=== PATIENT | female | born 1940 | race Caucasian/White ===

== ENCOUNTER 2018-04-21 09:19 | Emergency (ER) | payer MEDICARE, SELFPAY ==
[2018-04-21 09:21] VITALS: BP 138/67; PULSE 60; RESP 14; TEMP 36.5; O2SAT 95; BMI 30.9
--- NOTE | 2018-04-21 09:26 | EKG12_ITS ---
Test Reason : AB PAIN Blood Pressure : / mmHG Vent. Rate : 060 BPM Atrial Rate : 060 BPM P-R Int : 308 ms QRS Dur : 168 ms QT Int : 494 ms P-R-T Axes : 036 -65 114 degrees QTc Int : 494 ms AV dual-paced rhythm with prolonged AV conduction Abnormal ECG Confirmed by ALY GROSS, DARWIN ([id number]), editor map SU DAWN ([id number]) on 04/23/2018 3:15:18 PM Referred By: Confirmed By:DARWIN LU MD
--- NOTE | 2018-04-21 09:26 | CT_ITS ---
STUDY: CT ABDOMEN AND PELVIS WITHOUT CONTRAST REASON FOR EXAM: Female, 78 years old. ABD CRAMPING X3 DAYS -- UPPER ABD and amp; LEFT SIDE ABD PAIN -- SURG-GB. RADIATION DOSAGE (If Supplied By Facility): CTDIvol = ( 9.45 ) mGy, DLP = ( 465.07 ) mGycm TECHNIQUE: Transaxial images were obtained from the dome of the diaphragm to the symphysis pubis without oral contrast, and without intravenous contrast. Sagittal and coronal images were reconstructed. Individualized dose optimization techniques were used for this CT. COMPARISON: None. FINDINGS: The visualized lung bases are unremarkable. The visualized portions of the heart are within normal limits. Normal liver. There are surgical clips in the gallbladder fossa consistent with a prior cholecystectomy. Normal spleen. Normal pancreas. Normal bilateral adrenal glands. Normal right kidney. Normal left kidney. There is a large hiatal hernia composed mostly of the fundus of the stomach. Normal small intestine. There are multiple colonic diverticula consistent with diverticulosis. There may be thickening of the sigmoid with minimal perisigmoid infiltration, suggesting diverticulitis. There is distention of the remaining colon with marked distention of the ascending colon. There appears to be colon wall thickening of transverse colon (axial image #79 series 2 and coronal image #[id number] series 601. There is fluid within the small bowel. The appendix is visualized and appears normal. There is diffuse atherosclerotic calcification of the abdominal aorta, without a demonstrated aneurysm. Normal inferior vena cava. Normal retroperitoneum. Normal urinary bladder. Normal abdominal wall. There are diffuse degenerative changes of the visualized lumbar spine. CT/Abdomen/Pelvis without Cont IMPRESSION: Diverticulosis with thickening of the sigmoid. Diverticulitis is not excluded. Marked distention of the right colon. Thickening of the transverse colon. Consider follow-up with IV and oral contrast. Large hiatal hernia. Electronically Signed: Ha Langston MD at 11:11 EDT Tel , Service support ,
--- NOTE | 2018-04-21 09:35 | ED.DCSUM_ITS ---
- ER Visit Summary Date of Service: 04/21/18 Chief Complaint: [] Left side abdominal pain nausea unable to eat History of Present Illness: The patient is a 78 F [] ports intermittently weeks worth of abdominal pain cramping that are worse over the last 2 days to where she can eat she indicates the pain is diffuse but mostly to the left side of the abdomen. She has history of diverticulitis, pacemaker aortic valve replacement bovine, she is not sure if she has had fevers her urinary habits have been normal her bowel habits have been reduced caliber but no blood, her cardiovascular status has been stable Physical Examination: [] In no distress her vital signs are within normal range is complaining of pain to the left side abdomen head neck chest unremarkable lungs sound clear heart tones are regular the abdomen is soft there is pain to the left side of the abdomen but no guarding or rebound the upper lower extremities are otherwise unremarkable neurologically she is awake alert answering questions Test Results: [] Emergency Department Course and Treatment: [] Her complaints CT screening labs IV fluids pain management Patient's labs are generally unremarkable see those reports, her CT scan shows inflammation and dilatation of almost all of the colon diverticula low cyst but no signs of abscess or active infection no bowel obstruction nothing else it is acute her UA shows signs of UTI urine culture sent Evaluations that she feels better her abdomen is soft there is no tenderness rebound guarding in any area with a long conversation with her we discussed inpatient versus outpatient management she does not wish to be admitted she is able to take p.o. 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 It may contain incorrect words, spelling, and punctuation that were not noted in review of the chart prior to signing ED Disposition - Plan for ED Patient: Chief Complaint: Abd Pain Instructions: ED Abdominal Pain Unkn Cause, ED UTI Cystitis Female Prescriptions: Metronidazole 500 mg PO Q8 10 Days tab Naproxen [Naprosyn] 500 mg PO BID PRN #20 tab Ciprofloxacin [Cipro] 500 mg PO BID #14 tab Referrals: Maura Romo DO [STAFF PHYSICIAN] - [facility] Doctor,Out of [Primary Care Provider] -
[2018-04-21 10:23] LABS: Absolute Lymphocyte Count 1.05 X10^3/ul (0.83-4.51); Absolute Neutrophil Count 4.9 X10^3/uL (2.0-7.7); Basophil# 0.02 X10^3/uL; Basophil% 0.3 % (0-1); Eosinophil# 0.11 X10^3/uL; Eosinophils% 1.6 % (0-5); Hematocrit 35.5 % (37-47); Hemoglobin 11.4 g/dl (12.0-15.0); Lymphocyte # 1.05 X10^3/ul (4.0); Lymphocyte % 15.7 % (19-41); Mean Corp Hgb Conc 32.1 g/gl (32-36); Mean Corpuscular Hgb 30.5 pg (27.0-32.0); Mean Corpuscular Volume 94.9 fL (81-99); Mean Platelet Vol. 9.3 fl (6.2-12.0); Monocyte# 0.65 X10^3/uL; Monocyte% 9.7 % (0-10); Neutrophil # 4.85 X10^3/uL (2.7-7.7); Neutrophil % 72.6 % (47-70); Platelet Count 264 K/mm3 (150-450); RBC Distribution Width CV 13.2 % (11.6-14.6); Red Blood Count 3.74 M/mm3 (4.2-5.4); White Blood Count 6.7 K/mm3 (4.4-11.0)
[2018-04-21 10:24] LABS: POSITIVE COUNT NO; POSITIVE DIFFERENTIAL NO; POSITIVE MORPHOLOGY NO
[2018-04-21 10:26] VITALS: BP 134/61; PULSE 60; RESP 15; O2SAT 95
[2018-04-21] MEDS: morphine 8 MG/ML Syringe IV (10:36)
[2018-04-21] MEDS: 0.9% Normal Saline 1,000 ML 125 ML IV (10:36)
[2018-04-21] MEDS: Ondansetron 4 MG/2 ML Vial IV (10:36)
[2018-04-21 10:42] LABS: AST(SGOT) 22 U/L (15-37); Alanine Aminotransfer ALT/SGPT 12 U/L (13-56); Albumin, Serum 3.1 g/dL (3.2-5.0); Alkaline Phosphatase 78 U/L (45-117); Anion Gap 6 (5-15); BUN 13 mg/dL (7-18); BUN/Creat Ratio 16.3 RATIO (10-20); Bilirubin, Direct 0.21 mg/dL (0.00-0.30); Calcium,Total 8.5 mg/dL (8.5-10.1); Chloride 108 mmol/L (98-107); EST Glomerular Filtration Rate 74 mL/min (>60); Est Glom Filt Rate - Afr Amer 89 mL/min (>60); Estimated Creatinine Clearance 47.17 ml/min; Glucose 114 mg/dL (74-106); Lipase 153 U/L (73-393); Potassium 3.8 mmol/L (3.5-5.1); Protein, Total 7.1 g/dL (6.4-8.2); Sodium Level 139 mmol/L (136-145)
[2018-04-21 11:34] VITALS: BP 137/53; PULSE 60; RESP 14; O2SAT 94
[2018-04-21 11:50] LABS: Mucous, Urine 0 SEEN /hpf (<or=2+); Red Blood Cells-Urine 0 SEEN /hpf (0-5); Squamous Epithelial Cells - UA 0 SEEN /hpf (5-10)
[2018-04-21 11:52] LABS: Color, Urine Yellow (Yellow); Glucose, Dipstick Normal (Normal); Ketone-Dipstick Negative (Negative); Leukocyte Esterase-Dipstick 500 /ul (Negative); Nitrite-Dipstick Positive (Negative); Occult Blood-Urine 50 /ul (Negative); Protein-Dipstick 15 mg/dl (Negative); Specific Gravity, Urine 1.015 (1.002-1.030); Urine Bilirubin Dipstick Negative (Negative); Urine Clarity Sl. Cloudy (Clear); Urine Urobilinogen Normal (Normal)
[2018-04-21 11:57] LABS: White Blood Cells 50-100 SEEN /hpf (0-5)
[2018-04-21 11:58] LABS: Bacteria 3+ /hpf (None Seen)
[2018-04-21] MEDS: Ciprofloxacin 400 MG/200 ML BAG 200 MG IV (12:40)
[2018-04-21 13:42] VITALS: BP 107/71; PULSE 61; RESP 16; O2SAT 96
--- NOTE | 2018-04-21 14:15 | ED.DEP ---
ED Disposition - Plan for ED Patient: Chief Complaint: Abd Pain Instructions: ED Abdominal Pain Unkn Cause, ED UTI Cystitis Female Prescriptions: Metronidazole 500 mg PO Q8 10 Days tab Naproxen [Naprosyn] 500 mg PO BID PRN #20 tab Ciprofloxacin [Cipro] 500 mg PO BID #14 tab Referrals: [facility] Doctor,Out of [Primary Care Provider] - Maura Romo DO [STAFF PHYSICIAN] -
--- NOTE | 2018-04-21 14:18 | DCINST.ED_ITS ---
ED Disposition - Plan for ED Patient: Chief Complaint: Abd Pain Instructions: ED Abdominal Pain Unkn Cause, ED UTI Cystitis Female Prescriptions: Metronidazole 500 mg PO Q8 10 Days tab Naproxen [Naprosyn] 500 mg PO BID PRN #20 tab Ciprofloxacin [Cipro] 500 mg PO BID #14 tab Referrals: [facility] Doctor,Out of [Primary Care Provider] - Maura Romo DO [STAFF PHYSICIAN] -
[2018-04-21] MEDS: Pramipexole Di-HCl 0.25 MG Tablet PO (14:37)
[2018-04-21 15:07] VITALS: BP 110/49; PULSE 60; RESP 15; O2SAT 94
== END 2018-04-21 15:09 | disposition home or self-care (01) ==
PROVIDERS: Emergency Provider Emergency Medicine
DX: N39.0 Urinary tract infection, site not specified (principal); K63.89 Other specified diseases of intestine; R10.9 Unspecified abdominal pain; Z95.4 Presence of other heart-valve replacement; Z95.0 Presence of cardiac pacemaker; Z79.82 Long term (current) use of aspirin; Z79.899 Other long term (current) drug therapy
CPT/HCPCS: 74176; 80048; 80076; 81001; 83690; 84484; 85025; 87077; 87086; 87088; 87186; 93005; 96361; 96365; 96367; 96375; 99283; J7030; A4216; J0696; J0744; J2405

== ENCOUNTER → 2018-05-24 14:46 | Outpatient (CLI) | payer MEDICARE, SELFPAY ==
[2018-05-24 15:40] LABS: Absolute Lymphocyte Count 1.74 X10^3/ul (0.83-4.51); Absolute Neutrophil Count 4.9 X10^3/uL (2.0-7.7); Basophil# 0.03 X10^3/uL; Basophil% 0.4 % (0-1); Eosinophil# 0.08 X10^3/uL; Eosinophils% 1.1 % (0-5); Hematocrit 40.9 % (37-47); Hemoglobin 13.2 g/dl (12.0-15.0); Lymphocyte # 1.74 X10^3/ul (4.0); Lymphocyte % 23.1 % (19-41); Mean Corp Hgb Conc 32.3 g/gl (32-36); Mean Corpuscular Hgb 30.7 pg (27.0-32.0); Mean Corpuscular Volume 95.1 fL (81-99); Monocyte# 0.74 X10^3/uL; Monocyte% 9.8 % (0-10); Neutrophil # 4.92 X10^3/uL (2.7-7.7); Neutrophil % 65.5 % (47-70); Platelet Count 264 K/mm3 (150-450); RBC Distribution Width CV 13.7 % (11.6-14.6); RBC Distribution Width SD 47.3 fl (35.1-43.9); White Blood Count 7.5 K/mm3 (4.4-11.0)
[2018-05-24 15:42] LABS: POSITIVE COUNT NO; POSITIVE DIFFERENTIAL NO; POSITIVE MORPHOLOGY NO
[2018-05-24 16:06] LABS: Vitamin B12 692 pg/mL (211-911)
[2018-05-24 16:15] LABS: ALB/GLOB Ratio 0.8 RATIO (0.9-2.4); AST(SGOT) 25 U/L (15-37); Alanine Aminotransfer ALT/SGPT 16 U/L (13-56); Albumin, Serum 3.6 g/dL (3.2-5.0); Alkaline Phosphatase 101 U/L (45-117); Anion Gap 10 (5-15); BUN 18 mg/dL (7-18); BUN/Creat Ratio 19.7 RATIO (10-20); CPK Total, Creatine Kinase 134 U/L (26-192); Chloride 106 mmol/L (98-107); Cholesterol 165 mg/dL (200); Creatinine, Serum 0.91 mg/dL (0.55-1.02); EST Glomerular Filtration Rate 63 mL/min (>60); Est Glom Filt Rate - Afr Amer 76 mL/min (>60); Ferritin 240 ng/mL (8-252); Globulin 4.8 g/dL (2.2-4.2); Glucose 91 mg/dL (74-106); High Density Lipoprotein 44 mg/dL; Iron 62 ug/dL (50-170); Iron Binding Capacity,Total 295 ug/dL (250-450); Magnesium 2.1 mg/dL (1.6-2.6); Potassium 4.3 mmol/L (3.5-5.1); Protein, Total 8.4 g/dL (6.4-8.2); Sodium Level 140 mmol/L (136-145); Thyroid Stim Hormone (TSH) 1.98 uIU/mL (0.358-3.74); Triglycerides 159 mg/dL; Very Low Density Lipoprotein 32 mg/dL (5-40)
== END ==
PROVIDERS: Family Provider Family Medicine; PCP Family Medicine; Visit Provider Family Medicine
DX: I10 Essential (primary) hypertension (principal); D64.9 Anemia, unspecified; E78.5 Hyperlipidemia, unspecified; R25.2 Cramp and spasm; E53.8 Deficiency of other specified B group vitamins
CPT/HCPCS: 36415; 80053; 80061; 81001; 82550; 82607; 82728; 82746; 83540; 83550; 83735; 84443; 85025

== ENCOUNTER → 2018-06-04 12:16 | Outpatient (CLI) | payer MEDICARE, SELFPAY ==
--- NOTE | 2018-06-04 12:21 | RAD_ITS ---
STUDY: X-RAY - LUMBAR SPINE REASON FOR EXAM: Female, 78 years old. Low back pain. TECHNIQUE: 5 view(s) of the lumbar spine were obtained. COMPARISON: CT scan 04/21/2018 FINDINGS: There is straightening of the normal lumbar lordosis. There is no substantial scoliosis. There is a normal alignment of the vertebrae. There is multilevel endplate spondylosis of the lumbar vertebrae. There is multi-level degenerative disc disease with multi-level disc space narrowing. Findings are most pronounced at L2-L3 and L4-L5. There is a compression fracture of T11 which was also present previously. There is marked demineralization. There is atherosclerotic calcification of the abdominal aorta without a demonstrated aneurysm. RAD/L/S Spine Min 4 Views IMPRESSION: Degenerative changes of the spine, as detailed above. There is a compression fracture of T11 but it was also present on previous CT scan. Electronically Signed: Evin Sanders MD at 19:01 EDT , Service support ,
== END ==
PROVIDERS: Family Provider Family Medicine; PCP Family Medicine; Visit Provider Family Medicine
DX: M62.830 Muscle spasm of back (principal)
CPT/HCPCS: 72110

== ENCOUNTER → 2018-08-13 13:50 | Outpatient (CLI) | payer MEDICARE, SELFPAY ==
[2018-08-13 15:40] LABS: Absolute Lymphocyte Count 1.46 X10^3/ul (0.83-4.51); Absolute Neutrophil Count 5.5 X10^3/uL (2.0-7.7); Basophil# 0.04 X10^3/uL; Basophil% 0.5 % (0-1); Eosinophil# 0.06 X10^3/uL; Eosinophils% 0.8 % (0-5); Hematocrit 40.9 % (37-47); Hemoglobin 12.9 g/dl (12.0-15.0); Lymphocyte # 1.46 X10^3/ul (4.0); Mean Corp Hgb Conc 31.5 g/gl (32-36); Mean Corpuscular Hgb 30.4 pg (27.0-32.0); Mean Corpuscular Volume 96.5 fL (81-99); Mean Platelet Vol. 10.1 fl (6.2-12.0); Monocyte# 0.61 X10^3/uL; Neutrophil # 5.49 X10^3/uL (2.7-7.7); Neutrophil % 71.6 % (47-70); Platelet Count 262 K/mm3 (150-450); RBC Distribution Width CV 14.2 % (11.6-14.6); RBC Distribution Width SD 50.8 fl (35.1-43.9); Red Blood Count 4.24 M/mm3 (4.2-5.4); White Blood Count 7.7 K/mm3 (4.4-11.0)
[2018-08-13 15:59] LABS: POSITIVE COUNT NO; POSITIVE DIFFERENTIAL NO; POSITIVE MORPHOLOGY NO
[2018-08-13 16:12] LABS: ALB/GLOB Ratio 0.9 RATIO (0.9-2.4); AST(SGOT) 22 U/L (15-37); Alanine Aminotransfer ALT/SGPT 21 U/L (13-56); Albumin, Serum 3.5 g/dL (3.2-5.0); Alkaline Phosphatase 99 U/L (45-117); Anion Gap 9 (5-15); BUN 17 mg/dL (7-18); BUN/Creat Ratio 20.2 RATIO (10-20); Calcium,Total 8.5 mg/dL (8.5-10.1); Chloride 107 mmol/L (98-107); Cholesterol 151 mg/dL (200); Creatinine, Serum 0.84 mg/dL (0.55-1.02); EST Glomerular Filtration Rate 69 mL/min (>60); Est Glom Filt Rate - Afr Amer 84 mL/min (>60); Ferritin 150 ng/mL (8-252); Globulin 4.1 g/dL (2.2-4.2); Glucose 83 mg/dL (74-106); High Density Lipoprotein 47 mg/dL; Iron 58 ug/dL (50-170); Iron Binding Capacity,Total 272 ug/dL (250-450); PERCENT IRON SATURATION 21.3 % (15.0-55.0); Phosphorus 3.8 mg/dL (2.5-4.9); Potassium 4.1 mmol/L (3.5-5.1); Protein, Total 7.6 g/dL (6.4-8.2); Sodium Level 141 mmol/L (136-145); Triglycerides 190 mg/dL; Very Low Density Lipoprotein 38 mg/dL (5-40)
[2018-08-13 16:15] LABS: Vitamin B12 978 pg/mL (211-911)
== END ==
PROVIDERS: Family Provider Family Medicine; PCP Family Medicine; Visit Provider Family Medicine
DX: M81.0 Age-related osteoporosis without current pathological fracture (principal); I10 Essential (primary) hypertension; E78.5 Hyperlipidemia, unspecified; E53.8 Deficiency of other specified B group vitamins; E61.1 Iron deficiency; S22.000A Wedge compression fracture of unspecified thoracic vertebra, initial encounter for closed fracture
CPT/HCPCS: 36415; 80053; 80061; 82607; 82728; 83540; 83550; 84100; 85025

== ENCOUNTER 2018-08-23 13:00 | Outpatient (RCR) | payer MEDICARE, SELFPAY ==
--- NOTE | 2018-06-26 12:30 | HP.PTEVAL ---
Patient's Visit Information SVITLANA GRIJALVA is a 78 year old F referred to Physical Therapy by Petros Wagner MD with a diagnosis of DDD,LOW BACK PAIN. Date of Evaluation: 06/26/18 Physical Therapist: Puma Farah PT, - Visit Plan Frequency: 2x /Week Duration: 4 Weeks Plan: PRECAUTION: PACEMAKER NO ESTIM. H/O OSTEOPROSIS. PT INTEVENTIONS TO INCLUDE US/MH NEEDED ,DLS,POSTURAL EX'S,LE STRENGTHENING - Subjective Subjective: This 78 y/o female presents to physical therpy with DDD ,LOW BACK PAIN . Patient fell 2weeks ago lost balance but using cane. Since ,falling patient has been using rollator. Patient seen DR 3 day falling then had x-rays showed DDD and compression fx T11 which was seen previosly. Pain is located on right side lumbar region no leg symptoms. Denies parathesia/tingling ,altough has some tingling in legs. Cough/sneezing-. Symptoms symptoms worse with standing 5 min ,needs rollator,bending/lifting.Symptoms better with heat.Pain affects sleeping .Patient has h/o injuring lumbar Pain affects QOL and housework tasks and ADL'S. 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 PALPATION: tender L-S right. NUERO: c/o tingling feet,light touch intact,reflexes L3-4,L4-5,L5-S1. GAIT: ambulated with mild foward posture,hips/knees flexed ,slight valgus knee. MMT: quads/hams 4-/5,hip flexion 4-/5,abd 3+/5,ankle 4/5. LUMBAR ROM: flexion mod loss pain,extension severe ,side glides mod loss. FLEXABLITY: hams mod tight,piriformis mod tight. BALANCE: fair+ with fww - Special Tests L/S Slump test left side: Negative L/S Slump test right side: Negative L/S Left Straight Leg Raise: Negative L/S Right Straight Leg Raise: Negative - Goals Goal 1:: Independant with HEP Goal Time Frame: 4-6 Weeks Goal 2:: Decrease lumbar pain by 50% or greater to improve function with walking and standing greater than 10 mins Goal Time Frame: 4-6 Weeks Goal 3:: Patient to increase strength LE 4/5 to improve function with ADL'S Goal Time Frame: 4-6 Weeks Goal 4:: Patient be able to perform ADL'S and housdewok tasks with min limitations. Goal Time Frame: 4-6 Weeks Goal 5:: Patient improve lumbar owestry by 5 poits to improve QOL Goal Time Frame: 4-6 Weeks - Rehabilitation Potential Physical Therapy Diagnosis: This patient has low back from falling at home with DDD along with h/o of osteoporsis and copress ion fx T11 with low bcak pain ,needs rollator for walking ,decrease strength. Patient has comorbities with pacemaker. Thus benifit from skilled PT Rehabilitation Potential: Good - Anticipated Interventions Patient/Client Instruction: Educate patient on: Condition, Plan of Care For the Purpose of:: To decrease pain, To increase ROM, To improve muscle performance and motor function, To improve ability to perform ADL's, To increase tolerance to activity/condition/position, To improve ability of physical actions for home/community/work/leisure, To improve gait and locomotor functions, To increase flexibility/ROM, To improve endurance, To improve balance, To improve ability to perform tasks related to life management Therapeutic Exercise to Include: Strength training, Body mechanics, Postural training, Flexibilty training, Dynamic Lumbar Stabilization Comment: LE For the Purpose of:: To decrease pain, To improve muscle performance and motor function, To improve ability to perform ADL's, To increase tolerance to activity/condition/position, To improve performance and independence with ADL's, To improve ability of physical actions for home/community/work/leisure, To improve health of tissue, To decrease soft tissue restriction, To increase flexibility/ROM, To improve ability to perform tasks related to life management Thermo therapy (hot pack): Yes Ultrasound (thermal/non thermal): Yes For the Purpose of:: To decrease pain, To decrease swelling/inflammation, To improve health of tissue, To decrease soft tissue restriction Thank you for the opportunity to evaluate your patient. For Medicare and Medicare HMO plans, please review the plan of care and approve it. It will need to be FAXED BACK to us at [phone] for Medicare purposes. Please let me know if there are questions or concerns regarding this plan of care. Physician Signature: Date:
--- NOTE | 2018-07-24 13:31 | HP.PTDCSUM ---
HP - PT D/C Summary It has been my pleasure to treat SVITLANA GRIJALVA under orders from Petros Wagner MD, for the diagnosis of DDD,LOW BACK PAIN for a total of 9 visit(s). Discharge Date: Please see the following information for a summary of their discharge status. - Subjective Subjective: Patient reports moving better getting out of chair. Walking better with less pain - Pain Right Back Pain Intensity (Out of 10): 1 - Overall Improvement % Improvement: 50 - Objective Objective/Function: POSTURE: mild foward posture. GAIT: mild foward posture with rollator reciprocal pattern hips/knees flexed. LUMBAR ROM: flexion mod loss,extension mod/severe loss. MMT: quads/hams 4/5,ankle 4-/5 ,ankle 4/5 - Goals Goal 1:: Independant with HEP Goal Progress: Progressing Goal 2:: Decrease lumbar pain by 60% or greater to improve function with walking and standing greater than 10 mins Goal Progress: Progressing Goal 3:: Patient to increase strength LE 4/5 to improve function with ADL'S Goal Progress: Progressing Goal 4:: Patient be able to perform ADL'S and housdewok tasks with min limitations. Goal Progress: Progressing Goal 5:: Patient improve lumbar owestry by 5 poits to improve QOL Goal Progress: Progressing - Plan Plan: cont with PT interventions 2xwk for 4weeks - D/C Information If there are questions or concerns regarding this patient's physical therapy, please feel free to call me at [phone]. Thank you for the referral of this patient. Sincerely, Puma Farah, PT,
--- NOTE | 2018-07-31 12:35 | HP.PTREVAL_ITS ---
Petros Wagner MD, It has been my pleasure to treat SVITLANA GRIJALVA over the last 9 visits for DDD,LOW BACK PAIN. Please see the progress note below for an update on the physical therapy plan of care! Subjective: Patient reports moving better getting out of chair. Walking better with less pain Objective/Function: POSTURE: mild foward posture. GAIT: mild foward posture with rollator reciprocal pattern hips/knees flexed. LUMBAR ROM: flexion mod loss,extension mod/severe loss. MMT: quads/hams 4/5,ankle 4-/5 ,ankle 4/5 Plan Plan: cont with PT interventions 2xwk for 4weeks Goals Goal 1:: Independant with HEP Goal Time Frame: 4-6 Weeks Goal Progress: Progressing Goal 2:: Decrease lumbar pain by 60% or greater to improve function with walking and standing greater than 10 mins Goal Time Frame: 4-6 Weeks Goal Progress: Progressing Goal 3:: Patient to increase strength LE 4/5 to improve function with ADL'S Goal Time Frame: 4-6 Weeks Goal Progress: Progressing Goal 4:: Patient be able to perform ADL'S and housdewok tasks with min limitations. Goal Time Frame: 4-6 Weeks Goal Progress: Progressing Goal 5:: Patient improve lumbar owestry by 5 poits to improve QOL Goal Time Frame: 4-6 Weeks Goal Progress: Progressing Anticipated Interventions Patient/Client Instruction: Educate patient on: Condition, Plan of Care For the Purpose of:: To decrease pain, To increase ROM, To improve muscle performance and motor function, To improve ability to perform ADL's, To increase tolerance to activity/condition/position, To improve ability of physical actions for home/community/work/leisure, To improve gait and locomotor functions, To increase flexibility/ROM, To improve endurance, To improve balance, To improve ability to perform tasks related to life management Therapeutic Exercise to Include: Strength training, Body mechanics, Postural training, Flexibilty training, Dynamic Lumbar Stabilization Comment: LE For the Purpose of:: To decrease pain, To improve muscle performance and motor function, To improve ability to perform ADL's, To increase tolerance to activity/condition/position, To improve performance and independence with ADL's, To improve ability of physical actions for home/community/work/leisure, To improve health of tissue, To decrease soft tissue restriction, To increase flexibility/ROM, To improve ability to perform tasks related to life management Thermo therapy (hot pack): Yes Ultrasound (thermal/non thermal): Yes For the Purpose of:: To decrease pain, To decrease swelling/inflammation, To improve health of tissue, To decrease soft tissue restriction Please do not hesitate to contact me at [phone] by phone or Fax: if you have questions or concerns regarding this new plan of care! Sincerely, Puma Farah, PT,
--- NOTE | 2018-08-23 13:44 | HP.PTDCSUM ---
HP - PT D/C Summary It has been my pleasure to treat SVITLANA GRIJALVA under orders from Petros Wagner MD, for the diagnosis of DDD,LOW BACK PAIN for a total of 17 visit(s). Discharge Date: Please see the following information for a summary of their discharge status. - Subjective Subjective: Doing alot better...walking with rollator - Pain Right Back Pain Intensity (Out of 10): 0 - Overall Improvement % Improvement: 60 - Objective Objective/Function: POSTURE: mild foward posture ,hips/knees valgus. GAIT: mild foward posture with rollator slow luis. MMT: quads/hams 4/5,hip flexion 4-5/ ,ankle 4/5. LUMBAR ROM: flexion mod/severe,extension mod/severe loss - Goals Goal 1:: Independant with HEP Goal Progress: Progressing Goal 2:: Decrease lumbar pain by 60% or greater to improve function with walking and standing greater than 10 mins Goal Progress: Progressing Goal 3:: Patient to increase strength LE 4/5 to improve function with ADL'S Goal Progress: Progressing Goal 4:: Patient be able to perform ADL'S and housdewok tasks with min limitations. Goal Progress: Progressing Goal 5:: Patient improve lumbar owestry by 5 poits to improve QOL Goal Progress: Progressing - Plan Plan: d/c to HEP - D/C Information If there are questions or concerns regarding this patient's physical therapy, please feel free to call me at [phone]. Thank you for the referral of this patient. Sincerely, Puma Farah, PT,
== END 2018-08-23 19:00 | disposition home or self-care (01) ==
LOC: PT 13:00
PROVIDERS: Family Provider Family Medicine; PCP Family Medicine; Referring Provider Family Medicine; Visit Provider Family Medicine
DX: M51.36 Other intervertebral disc degeneration, lumbar region (principal); M54.5 Low back pain
CPT/HCPCS: 97035; 97110; 97162; 97530

== ENCOUNTER 2018-10-04 08:32 | Day surgery (SDC) | payer MEDICARE, SELFPAY ==
[2018-09-11 09:30] VITALS: BMI 31.6
[2018-10-04] VITALS (9 sets, daily range): BP systolic 78–127; BP diastolic 48–100; PULSE 58–70; RESP 16–18; TEMP 36.6–37.2; O2SAT 95–100; BMI 31.4
--- NOTE | 2018-10-04 | GASB_PTH ---
PATIENT: SVITLANA GRIJALVA LOC: EN U#:[id number] AGE/SX: 78/F ROOM: RE10/04/[address]: Dr. Camron Rubio MD : 1940 BED: DIS: 10/04/2018 SPEC #: [id number] RECD: 10/04/18 13:06 STATUS: KANDIS PATTIE #: [id number] FANNY: 10/04/18 00:[address]: Camron Rubio DEPT: SURGICAL PATHOLOGY RECD BY: Kai Spencer ENTERED: 10/04/18 13:06 SP TYPE: Gastric Bx OTHR DR: Dr. Petros Wagner MD Tissues: A - Gastric mucous membrane B - Esophagus, NOS Procedures: Surgery Specimen Level IV HEADER OPERATION[place] [place] DIAGNOSIS: GERD, esophagitis, abnormal CT scan of colon TISSUE SUBMITTED: A - Antrum biopsy for H. pylori and path, B - Distal esophagus biopsy MICROSCOPIC DIAGNOSIS A. Antrum, biopsy: Mild gastritis. See microscopic description and comment. B. Distal esophagus, biopsy: Fragments of squamous epithelium, no pathologic diagnosis. EAGLE:neymar 10/07/18 COMMENT A. The results of immunohistochemistry for Helicobacter pylori will be reported separately ([id number]). MICROSCOPIC DESCRIPTION Slides are reviewed. The specimen shows fragments of gastric mucosa with chronic inflammatory cell infiltrates in the lamina propria consisting of lymphocytes and plasma cells, consistent with mild chronic gastritis. GROSS DESCRIPTION A - Received in fixative is one container labeled with the patient's name and designated antrum biopsy. The specimen consists of one irregular fragment of light gutiérrez soft tissue that measures 0.5 x 0.3 x 0.1 cm. The specimen is totally submitted in one cassette. B - Received in fixative is one container labeled with the patient's name and designated distal esophagus. The specimen consists of two irregular fragments of light gutiérrez soft tissue that in aggregate measure 0.3 x 0.2 x 0.1 cm. The specimen is totally submitted in one cassette. / AM:neymar 10/04/18 TC:3 CPT: 14355 x2
--- NOTE | 2018-10-04 09:30 | IMM_PTH ---
PATIENT: SVITLANA GRIJALVA LOC: EN U#:[id number] AGE/SX: 78/F ROOM: RE10/04/[address]: Dr. Camron Rubio MD : 1940 BED: DIS: 10/04/2018 SPEC #: [id number] RECD: 10/04/18 13:38 STATUS: KANDIS PATTIE #: [id number] FANNY: 10/04/18 09:[address]: Camron Rubio DEPT: IMMUNOHISTOCHEMISTRY RECD BY: Jayla Phan ENTERED: 10/04/18 13:39 SP TYPE: IMMUNO OTHR DR: Dr. Petros Wagner MD Tissues: A - Stomach, NOS Procedures: H Pylori (initial) PHYSICIAN & INSTITUTION [place] [id number] SPECIMEN INFORMATION: Tissue Source: A - Antrum biopsy Clinical Info: GERD, esophagitis Specimen Number: [id number] CPT code: 05848 METHODOLOGY: Deparaffinized sections of prefer/formalin-fixed tissue or PAP/DQ stained slides are incubated with monoclonal/polyclonal antibodies/oligonucleotide probes. Localization is made via biotin free immunoperoxidase method. Appropriate controls are performed and reacted as expected. Results on target cell population are indicated in the following table: RESULTS: ANTIBODY / CLONE RESULT Block A H Pylori (polyclonal) negative These tests were developed and their performance characteristics determined by [facility]. They may not have been cleared or approved by the U.S. Food and Drug Administration. The FDA has determined that such clearance or approval is not necessary. INTERPRETATION: A. Antrum, biopsy: Negative for Helicobacter pylori organisms. SJ:neymar 10/07/18
--- NOTE | 2018-10-04 10:16 | OP.ENDO_ITS ---
Patient Name: Mariana Edwards Procedure Date: 10/04/2018 9:31 AM Date of : 1940 Age: 78 Procedure: Upper GI endoscopy Indications: Dysphagia Providers: Camron Rubio MD Referring MD: Camron Rubio MD Medicines: See the Anesthesia note for documentation of the administered medications Complications: No immediate complications. Procedure: Pre-Anesthesia Assessment: - Prior to the procedure, a History and Physical was performed, and patient medications and allergies were reviewed. The patient's tolerance of previous anesthesia was also reviewed. The risks and benefits of the procedure and the sedation options and risks were discussed with the patient. All questions were answered, and informed consent was obtained. Prior Anticoagulants: The patient has taken no previous anticoagulant or antiplatelet agents. ASA Grade Assessment: III - A patient with severe systemic disease. After reviewing the risks and benefits, the patient was deemed in satisfactory condition to undergo the procedure. After obtaining informed consent, the endoscope was passed under direct vision. Throughout the procedure, the patient's blood pressure, pulse, and oxygen saturations were monitored continuously. The gastroscope was introduced through the mouth, and advanced to the second part of duodenum. The upper GI endoscopy was accomplished without difficulty. The patient tolerated the procedure well. Scope In: 9:43:03 AM Scope Out: 9:48:03 AM Total Procedure Duration Time 0 hours 5 minutes 0 seconds Findings: The Z-line was regular and was found 30 cm from the incisors. Biopsies were taken with a cold forceps for histology. A large hiatal hernia was present. Diffuse mildly erythematous mucosa without bleeding was found in the gastric antrum. Biopsies were taken with a cold forceps for histology. The examined duodenum was normal. Impression: - Z-line regular, 30 cm from the incisors. Biopsied. - Large hiatal hernia. Half of the stomach within the chest and causing tortuosity of the EG junction - Erythematous mucosa in the antrum. Biopsied. - Normal examined duodenum. Recommendation: - Discharge patient to home. - Resume previous diet. - Continue present medications. - Telephone my office for pathology results in 1 week. Procedure Code(s): --- Professional --- 57276, Esophagogastroduodenoscopy, flexible, transoral; with biopsy, single or multiple Diagnosis Code(s): --- Professional --- K44.9, Diaphragmatic hernia without obstruction or gangrene K31.89, Other diseases of stomach and duodenum R13.10, Dysphagia, unspecified CPT copyright 2017 [employer]. All rights reserved. The codes documented in this report are preliminary and upon certified medical coder review may be revised to meet current compliance requirements. Camron Rubio MD 10/04/2018 10:16:02 AM This report has been signed electronically. Number of Addenda: 0 Note Initiated On: 10/04/2018 9:31 AM
--- NOTE | 2018-10-04 10:20 | OP.ENDO_ITS ---
Patient Name: Mariana Edwards Procedure Date: 10/04/2018 9:49 AM Date of : 1940 Age: 78 Procedure: Colonoscopy Indications: Abnormal CT of the GI tract Providers: Camron Rubio MD Referring MD: Camron Rubio MD Medicines: See the Anesthesia note for documentation of the administered medications Patient Profile: Last Colonoscopy: date unknown. Complications: No immediate complications. Procedure: Pre-Anesthesia Assessment: - Prior to the procedure, a History and Physical was performed, and patient medications and allergies were reviewed. The patient's tolerance of previous anesthesia was also reviewed. The risks and benefits of the procedure and the sedation options and risks were discussed with the patient. All questions were answered, and informed consent was obtained. Prior Anticoagulants: The patient has taken no previous anticoagulant or antiplatelet agents. ASA Grade Assessment: III - A patient with severe systemic disease. After reviewing the risks and benefits, the patient was deemed in satisfactory condition to undergo the procedure. After I obtained informed consent, the scope was passed under direct vision. Throughout the procedure, the patient's blood pressure, pulse, and oxygen saturations were monitored continuously. The colonoscope was introduced through the anus and advanced to the cecum, identified by appendiceal orifice and ileocecal valve. The colonoscopy was performed with moderate difficulty due to restricted mobility of the colon. Successful completion of the procedure was aided by changing the patient to a supine position. The patient tolerated the procedure well. The quality of the bowel preparation was adequate to identify polyps. The appendiceal orifice was photographed. Scope In: 9:51:11 AM Scope Withdrawal Time 0 hours 5 minutes 24 seconds Scope Out: 10:10:58 AM Total Procedure Duration Time 0 hours 19 minutes 47 seconds Findings: The digital rectal exam findings include internal hemorrhoids that prolapse with straining, but require manual replacement into the anal canal (Grade III). Multiple diverticula were found in the entire colon. There was no evidence of diverticular bleeding. Impression: - Internal hemorrhoids that prolapse with straining, but require manual replacement into the anal canal (Grade III) found on digital rectal exam. - Diverticulosis in the entire examined colon. There was no evidence of diverticular bleeding. Tortuous sigmoid with minimal erythema possibe evidence of low grade inflammation, conservative measures recommended - No specimens collected. Recommendation: - Discharge patient to home. - Resume previous diet. - Continue present medications. - Repeat colonoscopy in 10 years for screening purposes. Procedure Code(s): --- Professional --- 65241, Colonoscopy, flexible; diagnostic, including collection of specimen(s) by brushing or washing, when performed (separate procedure) Diagnosis Code(s): --- Professional --- K64.2, Third degree hemorrhoids K57.30, Diverticulosis of large intestine without perforation or abscess without bleeding R93.3, Abnormal findings on diagnostic imaging of other parts of digestive tract CPT copyright 2017 [employer]. All rights reserved. The codes documented in this report are preliminary and upon facility maintenance supervisor review may be revised to meet current compliance requirements. Camron Rubio MD 10/04/2018 10:20:20 AM This report has been signed electronically. Number of Addenda: 0 Note Initiated On: 10/04/2018 9:49 AM
== END 2018-10-04 11:33 | disposition home or self-care (01) ==
LOC: EN 08:33 → AC 08:36
PROVIDERS: Family Provider Family Medicine; PCP Family Medicine; Referring Provider Surgery; Visit Provider Surgery
PROC: 0DJD8ZZ Inspection of Lower Intestinal Tract, Via Natural or Artificial Opening Endoscopic (ICD-10-PCS; CPT 45378; principal; 2018-10-04 09:25)
DX: K29.70 Gastritis, unspecified, without bleeding (principal); K57.30 Diverticulosis of large intestine without perforation or abscess without bleeding; K64.8 Other hemorrhoids; K21.9 Gastro-esophageal reflux disease without esophagitis; I10 Essential (primary) hypertension; E78.5 Hyperlipidemia, unspecified; R13.10 Dysphagia, unspecified; K55.20 Angiodysplasia of colon without hemorrhage; F03.90 Unspecified dementia, unspecified severity, without behavioral disturbance, psychotic disturbance, mood disturbance, and anxiety; D50.9 Iron deficiency anemia, unspecified; M19.90 Unspecified osteoarthritis, unspecified site; K44.9 Diaphragmatic hernia without obstruction or gangrene; F41.9 Anxiety disorder, unspecified; F32.9 Major depressive disorder, single episode, unspecified; G25.81 Restless legs syndrome; Z95.0 Presence of cardiac pacemaker; Z95.2 Presence of prosthetic heart valve; Z79.82 Long term (current) use of aspirin; Z79.899 Other long term (current) drug therapy
CPT/HCPCS: 43239; 45378; 88305; 88342; J7120

== ENCOUNTER → 2018-12-04 11:50 | Outpatient (CLI) | payer MEDICARE, SELFPAY ==
[2018-10-04 08:58] VITALS: BMI 31.4
[2018-12-04 14:57] LABS: Basophil# 0.05 X10^3/uL; Basophil% 0.7 % (0-1); Eosinophil# 0.07 X10^3/uL; Hematocrit 42.4 % (37-47); Hemoglobin 13.3 g/dl (12.0-15.0); Lymphocyte % 19.1 % (19-41); Mean Corp Hgb Conc 31.4 g/gl (32-36); Mean Corpuscular Hgb 30.4 pg (27.0-32.0); Mean Corpuscular Volume 96.8 fL (81-99); Mean Platelet Vol. 10.2 fl (6.2-12.0); Monocyte# 0.84 X10^3/uL; Monocyte% 11.5 % (0-10); Neutrophil # 4.95 X10^3/uL (2.7-7.7); Neutrophil % 67.6 % (47-70); Platelet Count 326 K/mm3 (150-450); RBC Distribution Width CV 13.9 % (11.6-14.6); RBC Distribution Width SD 49.4 fl (35.1-43.9); Red Blood Count 4.38 M/mm3 (4.2-5.4); White Blood Count 7.3 K/mm3 (4.4-11.0)
[2018-12-04 14:59] LABS: POSITIVE COUNT NO; POSITIVE DIFFERENTIAL NO; POSITIVE MORPHOLOGY NO
[2018-12-04 15:08] LABS: AST(SGOT) 23 U/L (15-37); Alanine Aminotransfer ALT/SGPT 17 U/L (13-56); Albumin, Serum 3.9 g/dL (3.2-5.0); Alkaline Phosphatase 108 U/L (45-117); Anion Gap 10 (5-15); BUN 15 mg/dL (7-18); BUN/Creat Ratio 18.4 RATIO (10-20); Calcium,Total 8.6 mg/dL (8.5-10.1); Chloride 108 mmol/L (98-107); Cholesterol 156 mg/dL (200); Creatinine, Serum 0.81 mg/dL (0.55-1.02); EST Glomerular Filtration Rate 72 mL/min (>60); Est Glom Filt Rate - Afr Amer 87 mL/min (>60); Globulin 3.8 g/dL (2.2-4.2); Glucose 110 mg/dL (74-106); High Density Lipoprotein 50 mg/dL; Potassium 4.3 mmol/L (3.5-5.1); Protein, Total 7.7 g/dL (6.4-8.2); Sodium Level 141 mmol/L (136-145); Triglycerides 146 mg/dL; Very Low Density Lipoprotein 29 mg/dL (5-40)
[2018-12-04 15:15] LABS: Vitamin B12 1322 pg/mL (211-911)
== END ==
PROVIDERS: Family Provider Family Medicine; PCP Family Medicine; Referring Provider Family Medicine; Visit Provider Family Medicine
DX: R73.09 Other abnormal glucose (principal); I10 Essential (primary) hypertension; E78.5 Hyperlipidemia, unspecified; E53.8 Deficiency of other specified B group vitamins
CPT/HCPCS: 36415; 80053; 80061; 82607; 83036; 85025

== ENCOUNTER → 2019-03-31 | Outpatient (CLI) | payer MEDICARE, SELFPAY ==
[2019-03-13 13:14] VITALS: BMI 30.6
--- NOTE | 2019-03-31 13:56 | ECHOD_ITS ---
Version 2 Reason For Study: Valve Replacement Eval Procedure This was a 2D Doppler, Color Flow transthoracic echocardiogram. Exam performed in department. Left Ventricle Normal LV size. Mild concentric left ventricular hypertrophy. Sigmoid septum. Left ventricular systolic function is normal. The estimated ejection fraction is 60 %. No regional wall motion abnormalities noted. Right Ventricle Normal RV size. ICD or pacer leads identified within the right ventricle. Possible thrombus or vegetation on the RA lead. Normal systolic function. Atria Normal left atrium. Normal right atrium. ICD or pacer leads identified within the right atrium. Thrombus or vegetation noted on the pacer lead. Mitral Valve There is moderate mitral annular calcification. Mild (1+) eccentric mitral valve insufficiency. Tricuspid Valve Normal tricuspid valve. Mild to moderate (1-2+) tricuspid valve insufficiency. Pulmonary artery systolic pressure is 48 mmHg. Aortic Valve Peak aortic valve gradient 24 mmHg. Mean aortic valve gradient 14 mmHg. Mild aortic stenosis. Calculated aortic valve area (continuity equation) is 1.1 cm2. Stable appearing bioprosthetic aortic valve apparatus. Pulmonic Valve The pulmonic valve is not well visualized. Great Vessels Normal aortic root. The pulmonary artery is normal size. Normal inferior vena cava. Pericardium/Pleural No pericardial effusion. Medication Performed a rapid injection of agitated mix of 9 cc saline and 1cc air to assess for atrial septal defect. MMode/2D Measurements & Calculations LVIDd: 4.0 cm IVSd: 1.3 cm LVOT diam: 1.7 cm LVIDs: 2.6 cm LVPWd: 1.2 cm RVDd: 5.1 cm FS: 36.3 % LVOT area: 2.2 cm2 Ao root diam: 3.7 cm LAV(MOD-bp): 59.9 ml LVAd ap4: 18.6 cm2 LAV(MOD-bp) Indexed: 33.0 ml/m2 EDV(MOD-sp4): 49.9 ml LAV(MOD-sp2): 69.3 ml EDV(sp4-el): 50.6 ml LAV(MOD-sp4): 50.0 ml LVAs ap4: 9.3 cm2 ESV(MOD-sp4): 15.3 ml ESV(sp4-el): 15.6 ml EF(MOD-sp4): 69.4 % EF(sp4-el): 69.2 % SV(MOD-sp4): 34.7 ml SV(sp4-el): 35.0 ml LA A4 area: 18.7 cm2 LA dimension(2D): 5.2 cm RA A4 area: 18.8 cm2 Time Measurements MV dec time: 0.15 sec Doppler Measurements & Calculations MV E max twan: 139.1 cm/sec Lat Peak E' Twan: 6.3 cm/sec Med Peak E' Twan: 3.5 cm/sec MV A max twan: 168.2 cm/sec E/E' lat: 22.2 E/E' med: 39.2 MV E/A: 0.83 MV V2 max: 194.8 cm/sec MV P1/2t max twan: 166.8 cm/sec Ao V2 max: 242.8 cm/sec MV max P.2 mmHg MV P1/2t: 112.4 msec Ao max P.6 mmHg MV V2 mean: 124.0 cm/sec MV dec slope: 434.8 cm/sec2 Ao V2 mean: 180.7 cm/sec MV mean P.7 mmHg MVA(P1/2t): 2.0 cm2 Ao mean P.2 mmHg MV V2 VTI: 55.3 cm Ao V2 VTI: 54.6 cm MVA(VTI): 1.2 cm2 MONIQUE(I,D): 1.2 cm2 MONIQUE(V,D): 1.1 cm2 LV V1 max: 127.8 cm/sec SV(LVOT): 66.3 ml PA V2 max: 90.5 cm/sec LV V1 max P.5 mmHg LV V1 mean P.0 mmHg LV V1 mean: 95.3 cm/sec LV V1 VTI: 30.8 cm PI end-d twan: 130.0 cm/sec TR max twan: 329.0 cm/sec TR max P.3 mmHg Interpretation Summary Normal LV size. Mild concentric left ventricular hypertrophy. Left ventricular systolic function is normal. The estimated ejection fraction is 60 %. ICD or pacer leads identified within the right atrium Thrombus or vegetation noted on the pacer lead. Pulmonary artery systolic pressure is 48 mmHg. Ordering Physician: Zay Rock Referring Physician: Petros Wagner Performed By: Samantha Kimbrough, JASON, RVT
== END | disposition home or self-care (01) ==
LOC: CVS 13:56
PROVIDERS: Family Provider Family Medicine; PCP Family Medicine; Referring Provider Internal Medicine Cardiovascular Disease; Visit Provider Internal Medicine Cardiovascular Disease
DX: Z95.2 Presence of prosthetic heart valve (principal)
CPT/HCPCS: 93306; A4216

== ENCOUNTER → 2019-04-09 | Outpatient (CLI) | payer MEDICARE, SELFPAY ==
[2019-03-13 13:14] VITALS: BMI 30.6
[2019-04-09 12:16] LABS: Hemoglobin A1c 6.1 % (4.2-6.3)
[2019-04-09 12:34] LABS: Vitamin B12 756 pg/mL (211-911); Vitamin D,25 Hydroxy 21.4 ng/mL (29.95-100.01)
[2019-04-09 12:40] LABS: Absolute Lymphocyte Count 1.22 X10^3/uL (0.83-4.51); Absolute Neutrophil Count 4.4 X10^3/uL (2.0-7.7); Basophil# 0.05 X10^3/uL; Basophil% 0.8 % (0-1); Eosinophil# 0.08 X10^3/uL; Eosinophils% 1.3 % (0-5); Hematocrit 38.5 % (37-47); Hemoglobin 12.1 g/dL (12.0-15.0); Lymphocyte # 1.22 X10^3/ul (4.0); Lymphocyte % 19.5 % (19-41); Mean Corp Hgb Conc 31.4 g/dL (32-36); Mean Corpuscular Hgb 30.1 pg (27.0-32.0); Mean Corpuscular Volume 95.8 fL (81-99); Mean Platelet Vol. 9.7 fl (6.2-12.0); Monocyte# 0.49 X10^3/uL; Monocyte% 7.8 % (0-10); NRBC Flagged by Analyzer 0 % (0-5); Neutrophil # 4.41 X10^3/uL (2.7-7.7); Neutrophil % 70.3 % (47-70); Platelet Count 265 K/mm3 (150-450); RBC Distribution Width CV 13.6 % (11.6-14.6); Red Blood Count 4.02 M/mm3 (4.2-5.4); White Blood Count 6.3 K/mm3 (4.4-11.0)
[2019-04-09 12:45] LABS: ALB/GLOB Ratio 0.9 RATIO (0.9-2.4); AST(SGOT) 25 U/L (15-37); Alanine Aminotransfer ALT/SGPT 13 U/L (13-56); Albumin, Serum 3.6 g/dL (3.2-5.0); Alkaline Phosphatase 87 U/L (45-117); Anion Gap 6 (5-15); BUN 12 mg/dL (7-18); BUN/Creat Ratio 14.7 RATIO (10-20); Calcium,Total 8.7 mg/dL (8.5-10.1); Chloride 106 mmol/L (98-107); Creatinine, Serum 0.82 mg/dL (0.55-1.02); EST Glomerular Filtration Rate 72 mL/min (>60); Est Glom Filt Rate - Afr Amer 87 mL/min (>60); Globulin 3.9 g/dL (2.2-4.2); Glucose 91 mg/dL (74-106); Phosphorus 3.6 mg/dL (2.5-4.9); Potassium 4.5 mmol/L (3.5-5.1); Protein, Total 7.5 g/dL (6.4-8.2); Sodium Level 139 mmol/L (136-145)
== END | disposition home or self-care (01) ==
LOC: MFPLAB 10:55
PROVIDERS: Family Provider Family Medicine; PCP Family Medicine; Referring Provider Family Medicine; Visit Provider Family Medicine
DX: E53.8 Deficiency of other specified B group vitamins (principal); R73.02 Impaired glucose tolerance (oral); M81.0 Age-related osteoporosis without current pathological fracture; I10 Essential (primary) hypertension
CPT/HCPCS: 36415; 80053; 82306; 82607; 83036; 84100; 85025

== ENCOUNTER → 2019-05-05 11:29 | Outpatient (CLI) | payer MEDICARE, SELFPAY ==
[2019-03-13 13:14] VITALS: BMI 30.6
--- NOTE | 2019-05-05 11:30 | ECHOD_ITS ---
Reason For Study: Thrombus Procedure This was a 2D Doppler, Color Flow transthoracic echocardiogram. Exam performed in department. Left Ventricle Normal LV size. Moderate concentric left ventricular hypertrophy. Sigmoid septum. The estimated ejection fraction is 60 %. No regional wall motion abnormalities noted. Right Ventricle Normal RV size. ICD or pacer leads identified within the right ventricle. Less than 1 cm filamentous thrombus on pacer lead. Unchanged from prior. Normal systolic function. Atria The left atrium is mildly enlarged. Normal right atrium. Mitral Valve Mild diffuse mitral valve calcification. There is moderate to severe mitral annular calcification. Mild-Moderate (1-2+) eccentric mitral valve insufficiency. Tricuspid Valve Normal tricuspid valve. Mild to moderate (1-2+) tricuspid valve insufficiency. Pulmonary artery systolic pressure is 50 mmHg. Aortic Valve Peak aortic valve gradient 20 mmHg. Mean aortic valve gradient 12 mmHg. Calculated aortic valve area (continuity equation) is 1.6 cm2. Bioprosthetic aortic valve. Great Vessels Mild to moderately dilated aortic root. MMode/2D Measurements & Calculations LVIDd: 3.7 cm IVSd: 1.5 cm LVOT diam: 1.7 cm LVIDs: 2.5 cm LVPWd: 1.5 cm LVOT area: 2.2 cm2 RVDd: 4.2 cm FS: 31.4 % Ao root diam: 3.6 cm LAV(MOD-bp): 74.2 ml LVAd ap4: 19.9 cm2 LAV(MOD-bp) Indexed: 40.8 ml/m2 EDV(MOD-sp4): 58.4 ml LAV(MOD-sp2): 78.5 ml EDV(sp4-el): 57.7 ml LAV(MOD-sp4): 67.0 ml LVAs ap4: 11.0 cm2 ESV(MOD-sp4): 20.4 ml ESV(sp4-el): 20.5 ml EF(MOD-sp4): 65.0 % EF(sp4-el): 64.5 % SV(MOD-sp4): 38.0 ml SV(sp4-el): 37.2 ml LA A4 area: 21.4 cm2 LA dimension(2D): 5.3 cm RA A4 area: 17.3 cm2 Time Measurements MV dec time: 0.15 sec Doppler Measurements & Calculations MV E max twan: 129.4 cm/sec Lat Peak E' Twan: 6.6 cm/sec Med Peak E' Twan: 3.4 cm/sec MV A max twan: 161.8 cm/sec E/E' lat: 19.7 E/E' med: 37.8 MV E/A: 0.80 MV V2 max: 190.6 cm/sec MV P1/2t max twan: 155.5 cm/sec Ao V2 max: 226.0 cm/sec MV max P.5 mmHg MV P1/2t: 98.7 msec Ao max P.4 mmHg MV V2 mean: 114.2 cm/sec Ao V2 mean: 164.7 cm/sec MV mean P.8 mmHg MV dec slope: 461.4 cm/sec2 Ao mean P.8 mmHg MV V2 VTI: 56.9 cm MVA(P1/2t): 2.2 cm2 Ao V2 VTI: 51.1 cm MVA(VTI): 1.4 cm2 MONIQUE(I,D): 1.6 cm2 MONIQUE(V,D): 1.6 cm2 LV V1 max: 156.9 cm/sec SV(LVOT): 80.4 ml PA V2 max: 95.3 cm/sec LV V1 max P.8 mmHg LV V1 mean P.8 mmHg LV V1 mean: 113.6 cm/sec LV V1 VTI: 35.9 cm PI end-d twan: 124.2 cm/sec TR max twan: 337.5 cm/sec TR max P.6 mmHg Interpretation Summary Normal LV size. Moderate concentric left ventricular hypertrophy. Mean aortic valve gradient 12 mmHg. Less than 1 cm filamentous thrombus on pacer lead. Unchanged from prior Bioprosthetic aortic valve. Ordering Physician: Zay Rock Referring Physician: Petors Wagner Performed By: Samantha Kimbrough, JASON, RVT
== END ==
PROVIDERS: Family Provider Family Medicine; PCP Family Medicine; Referring Provider Internal Medicine Cardiovascular Disease; Visit Provider Internal Medicine Cardiovascular Disease
DX: I51.3 Intracardiac thrombosis, not elsewhere classified (principal); T85.868A Thrombosis due to other internal prosthetic devices, implants and grafts, initial encounter
CPT/HCPCS: 93306

== ENCOUNTER → 2019-05-09 | Outpatient (CLI) | payer MEDICARE, SELFPAY ==
[2019-03-13 13:14] VITALS: BMI 30.6
--- NOTE | 2019-05-09 09:47 | ART_ITS ---
Reason For Study: Decreased pedal pulses Procedure A bilateral lower extremity continuous wave Doppler with analog waveform analysis and ankle brachial indexes. Left Segmental Pressures Left brachial= 112mmHg. Left posterior tibial artery = 84mmHg. Left dorsalis pedis artery = 93mmHg. The left dorsalis pedis waveforms are triphasic. The left posterior tibial artery waveforms are triphasic. Right Segmental Pressures Right brachial= 117mmHg. Right posterior tibial artery = 105mmHg. Right dorsalis pedis artery = 112mmHg. The right dorsalis pedis waveforms are triphasic. The right posterior tibial artery waveforms are triphasic. Indices The right ankle brachial index by the dorsalis pedis is 0.96. The right ankle brachial index by the posterior tibial artery is 0.90. The left ankle brachial index by the dorsalis pedis is 0.79. The left ankle brachial index by the posterior tibial artery is 0.72. Interpretation Summary Triphasic Doppler waveforms are noted at ankle level on the right. Biphasic Doppler waveforms are noted at ankle level on the left. Pulse-volume recording waveform amplitudes are slightly diminished at digital level on the left. The resting right ankle-brachial index is normal. The resting left ankle-brachial index is moderately diminished. There is no evidence of significant arterial occlusive disease in the right lower extremity. 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 Ordering Physician: Petros Wagner Referring Physician: Petros Wagner Performed By: Leydi Clay RVT
== END | disposition home or self-care (01) ==
LOC: CVS 09:45
PROVIDERS: Family Provider Family Medicine; PCP Family Medicine; Referring Provider Family Medicine; Visit Provider Family Medicine
DX: R09.89 Other specified symptoms and signs involving the circulatory and respiratory systems (principal)
CPT/HCPCS: 93922

== ENCOUNTER → 2019-07-09 | Outpatient (CLI) | payer MEDICARE, SELFPAY ==
[2019-03-13 13:14] VITALS: BMI 30.6
[2019-07-09 12:46] LABS: Absolute Lymphocyte Count 1.29 X10^3/uL (0.83-4.51); Absolute Neutrophil Count 5.9 X10^3/uL (2.0-7.7); Basophil# 0.07 X10^3/uL; Basophil% 0.9 % (0-1); Eosinophil# 0.06 X10^3/uL; Eosinophils% 0.8 % (0-5); Hematocrit 37.8 % (37-47); Hemoglobin 11.9 g/dL (12.0-15.0); Lymphocyte # 1.29 X10^3/ul (4.0); Lymphocyte % 16.2 % (19-41); Mean Corp Hgb Conc 31.5 g/dL (32-36); Mean Corpuscular Hgb 31.2 pg (27.0-32.0); Monocyte# 0.64 X10^3/uL; NRBC Flagged by Analyzer 0 % (0-5); Neutrophil # 5.86 X10^3/uL (2.7-7.7); Neutrophil % 73.5 % (47-70); Platelet Count 272 K/mm3 (150-450); RBC Distribution Width CV 13.2 % (11.6-14.6); RBC Distribution Width SD 47.6 fl (35.1-43.9); Red Blood Count 3.82 M/mm3 (4.2-5.4)
[2019-07-09 13:10] LABS: ALB/GLOB Ratio 0.8 RATIO (0.9-2.4); AST(SGOT) 25 U/L (15-37); Alanine Aminotransfer ALT/SGPT 16 U/L (13-56); Albumin, Serum 3.4 g/dL (3.2-5.0); Alkaline Phosphatase 77 U/L (45-117); Anion Gap 7 (5-15); BUN 19 mg/dL (7-18); BUN/Creat Ratio 20.9 RATIO (10-20); Calcium,Total 8.6 mg/dL (8.5-10.1); Chloride 106 mmol/L (98-107); Cholesterol 160 mg/dL (200); Creatinine, Serum 0.91 mg/dL (0.55-1.02); EST Glomerular Filtration Rate 63 mL/min (>60); Est Glom Filt Rate - Afr Amer 77 mL/min (>60); Globulin 4.2 g/dL (2.2-4.2); Glucose 99 mg/dL (74-106); High Density Lipoprotein 44 mg/dL; Phosphorus 2.8 mg/dL (2.5-4.9); Potassium 4.4 mmol/L (3.5-5.1); Protein, Total 7.6 g/dL (6.4-8.2); Sodium Level 139 mmol/L (136-145); Triglycerides 211 mg/dL; Very Low Density Lipoprotein 42 mg/dL (5-40)
[2019-07-09 13:15] LABS: Vitamin B12 521 pg/mL (211-911); Vitamin D,25 Hydroxy 31.8 ng/mL (29.95-100.01)
== END | disposition home or self-care (01) ==
LOC: MFPLAB 11:01
PROVIDERS: Family Provider Family Medicine; PCP Family Medicine; Referring Provider Family Medicine; Visit Provider Family Medicine
DX: E53.8 Deficiency of other specified B group vitamins (principal); E78.5 Hyperlipidemia, unspecified; M81.0 Age-related osteoporosis without current pathological fracture; R73.02 Impaired glucose tolerance (oral); I10 Essential (primary) hypertension
CPT/HCPCS: 36415; 80053; 80061; 82306; 82607; 83036; 84100; 85025

== ENCOUNTER → 2019-08-20 10:59 | Outpatient (CLI) | payer MEDICARE, SELFPAY ==
[2019-03-13 13:14] VITALS: BMI 30.6
[2019-08-20 13:06] LABS: Thyroid Stim Hormone (TSH) 2.47 uIU/mL (0.358-3.74)
== END ==
PROVIDERS: Family Provider Family Medicine; PCP Family Medicine; Referring Provider Family Medicine; Visit Provider Family Medicine
DX: L85.3 Xerosis cutis (principal)
CPT/HCPCS: 36415; 84443

== ENCOUNTER 2019-09-21 08:54 | Emergency (ER) | payer MEDICARE, SELFPAY ==
[2019-03-13 13:14] VITALS: BMI 30.6
[2019-09-21] VITALS (12 sets, daily range): BP systolic 119–171; BP diastolic 51–138; PULSE 60–95; RESP 12–46; TEMP 37.1; O2SAT 57–100; BMI 33.2
--- NOTE | 2019-09-21 09:22 | EKG12_ITS ---
Test Reason : DYSRHYTHMIA Blood Pressure : / mmHG Vent. Rate : 060 BPM Atrial Rate : 060 BPM P-R Int : 308 ms QRS Dur : 162 ms QT Int : 508 ms P-R-T Axes : 054 -68 100 degrees QTc Int : 508 ms AV dual-paced rhythm with prolonged AV conduction Abnormal ECG Confirmed by LORI GROSS, OLIVE ([id number]), city editor SU DAWN ([id number]) on 10/01/2019 1:00:02 PM Referred By: Confirmed By:OLIVE SANDOVAL MD
--- NOTE | 2019-09-21 09:54 | ED.DCSUM_ITS ---
History of Present Illness <Nicholas Khan - Last Filed: 09/21/19 16:23> Narrative: 79-year-old female presents for dark stools as well as vomiting blood. States that she began having dark stools yesterday evening. States that this morning she had a large episode of hematemesis. States that she has had GI bleeding before in the past but has never vomited blood. 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 She does admit to weakness but denies any chest pain, shortness of breath. Does admit to some mild dizziness. Denies any significant abdominal pain or urinary symptoms. <Floyd Kapoor - Last Filed: 09/21/19 17:42> Chief Complaint: Nausea/Vomiting Past Medical History <Nicholas Khan - Last Filed: 09/21/19 16:23> Prior records reviewed: Yes Past Medical History: - - Hypertension, heart failure Surgical History: pacemaker implantation Smoking Status: Never smoker <Floyd Kapoor - Last Filed: 09/21/19 17:42> - Allergies and Home Meds Allergies/Adverse Reactions: Allergies Penicillins Allergy (Verified 09/21/19 08:58) Hives Primary Care Physician: Petros Wagner MD [Primary Care Provider] - Review of Systems General: Denies: Chills, Fever, Sweats Eyes: Denies: Visual changes - bilaterally, Diplopia ENT: Denies: Rhinorrhea, Sore throat Cardiovascular: Denies: Chest pain, Palpitations Respiratory: Denies: Dyspnea, Cough, Dyspnea on exertion Gastrointestinal: Reports: Melena, - - hematemesis. Denies: Abdominal pain, Nausea, Vomiting, Diarrhea, Hematochezia Genitourinary: Denies: Dysuria, Hematuria, Frequency Musculoskeletal: Denies: Back pain, Extremity Pain Skin: Denies: Rash, Wounds Neurological: Denies: Headache, Weakness, Numbness <Floyd Kapoor - Last Filed: 09/21/19 17:42> Physical Exam Vital Signs/Narrative: Vital Signs Pulse Pulse Pulse Resp Resp Resp BP 09/21/19 14:38 60 18 129/51 H 09/21/19 14:00 60 18 129/57 H 09/21/19 13:00 60 20 H 132/68 H 09/21/19 12:48 61 21 H 130/55 H 09/21/19 12:43 60 24 H 119/57 L 09/21/19 12:38 60 26 H 136/58 H 09/21/19 12:26 60 12 147/55 H 09/21/19 12:24 95 74 37 H 46 H BP BP Pulse Ox 09/21/19 14:38 94 09/21/19 14:00 94 09/21/19 13:00 96 09/21/19 12:48 98 09/21/19 12:43 100 09/21/19 12:38 96 09/21/19 12:26 96 09/21/19 12:24 146/82 H 171/138 H <Nicholas Khan - Last Filed: 09/21/19 16:23> Vital Signs/Narrative: Vital Signs Temp Pulse Resp BP Pulse Ox 09/21/19 08:55 98.8 F 60 18 157/61 H 96 Inital Vital Signs reviewed: Yes General: Well nourished, Well developed, No Acute Distress Head: Normocephalic, Atraumatic Eyes: Perrl, EOMI, Pale conjunctiva ENT: Moist mucous membranes, No rhinorrhea Neck: Supple, Nontender Cardiovascular: Regular rate, Regular rhythm, No murmurs Respiratory: No distress, CTA bilaterally, Chest nontender Abdomen: Soft, Nontender, Nondistended, Normal bowel sounds Back: Nontender, Normal Inspection Extremities: Nontender, No edema Skin: Normal color, No rash Neurological: Alert, Oriented x3, Cranial nerves II-XII grossly intact, Normal Strength, Normal Sensation Psychological: Normal affect, Normal Mood <Floyd Kapoor - Last Filed: 09/21/19 17:42> Diagnostic/Tx/Re-eval - Medical Decision Making Patient was seen in conjunction with Dr. Kapoor. I performed a history and physical examination of the patient and discussed management plan with the physician nursing home assistant. I reviewed the physician nursing home assistant's note and agree with the documented findings and plan of care. Nicholas Khan DO, MS, FACEP <Nicholas Khan - Last Filed: 09/21/19 16:23> Impressions Chest X-Ray 09/21/19 11:20 IMPRESSION: 1. Nonacute portable x-ray examination of the chest. Electronically Signed: Luis Cuadra MD ([place]) at 12:08 EST , Service support , 09/21/19 11:20 Chest 1 View (Portable) [RAD] Stat 09/21/19 10:20 Stool Stool Occult Blood (DOLORES) - Final Laboratory Results 09/21/19 09/21/19 09/21/19 10:15 10:15 10:15 WBC 11.7 H RBC 4.00 L Hgb 12.5 Hct 38.6 MCV 96.5 MCH 31.3 MCHC 32.4 RDW Std Deviation 45.4 H RDW Coeff of Mamadou 12.8 Plt Count 243 MPV 9.8 Immature Gran % (Auto) 0.300 Neut % (Auto) 83.7 H Lymph % (Auto) 9.0 L [place] % (Auto) 6.5 Eos % (Auto) 0.3 Baso % (Auto) 0.2 Absolute Neuts (auto) 9.8 H Absolute Lymphs (auto) 1.05 Nucleated RBC % 0 PT 13.7 INR 1.1 APTT 29.3 Sodium 139 Potassium 4.6 Chloride 108 H Carbon Dioxide 27.0 Anion Gap 4 L BUN 14 Creatinine 1.01 Estim Creat Clear Calc 33.52 Est GFR (MDRD) Af Amer 68 Est GFR (MDRD) Non-Af 56 L BUN/Creatinine Ratio 13.9 Glucose 127 H Calcium 9.0 Total Bilirubin 0.90 AST 24 ALT 18 Alkaline Phosphatase 71 Troponin I < 0.015 Total Protein 7.5 Albumin 3.7 Globulin 3.8 Albumin/Globulin Ratio 1.0 Urine Color Urine Clarity Urine pH Ur Specific [place] Urine Protein Urine Glucose (UA) Urine Ketones Urine Occult Blood Urine Nitrite Urine Bilirubin Urine Urobilinogen Ur Leukocyte Esterase Urine RBC Urine WBC Ur Squamous Epith Cells Urine Bacteria Urine Mucus Blood Type Antibody Screen 09/21/19 09/21/19 10:15 11:55 WBC RBC Hgb Hct MCV MCH MCHC RDW Std Deviation RDW Coeff of Mamadou Plt Count MPV Immature Gran % (Auto) Neut % (Auto) Lymph % (Auto) [place] % (Auto) Eos % (Auto) Baso % (Auto) Absolute Neuts (auto) Absolute Lymphs (auto) Nucleated RBC % PT INR APTT Sodium Potassium Chloride Carbon Dioxide Anion Gap BUN Creatinine Estim Creat Clear Calc Est GFR (MDRD) Af Amer Est GFR (MDRD) Non-Af BUN/Creatinine Ratio Glucose Calcium Total Bilirubin AST ALT Alkaline Phosphatase Troponin I Total Protein Albumin Globulin Albumin/Globulin Ratio Urine Color Yellow Urine Clarity Clear Urine pH 6.0 Ur Specific [place] 1.015 Urine Protein Negative Urine Glucose (UA) Normal Urine Ketones Negative Urine Occult Blood 10 H Urine Nitrite Negative Urine Bilirubin Negative Urine Urobilinogen Normal Ur Leukocyte Esterase Negative Urine RBC 0 SEEN Urine WBC 0 SEEN Ur Squamous Epith Cells 0 SEEN Urine Bacteria 0 SEEN Urine Mucus 0 SEEN Blood Type B POSITIVE Antibody Screen NEGATIVE - Rhythm Strip Rhythm Strip: Paced Rate: 60 - EKG Initial EKG Interpretation: - - Dual AV paced rhythm at 60 bpm. - Medical Decision Making Patient appears well nontoxic. Vital signs within normal limits. No tachycardia. Normotensive. Hemoccult negative however scant stool was able to be obtained. Patient does have evidence of coffee-ground emesis in the emergency department. Hemoglobin stable. Book with general surgeon Dr. Palacio who was willing to accept the patient but wanted to perform endoscopy in the emergency department. This was done under conscious sedation with propofol. Patient did have episode of desaturation which was quickly resolved with jaw thrust as well as short period of bagging. Following this the procedure was aborted given the patient's ability to maintain oxygen saturation with sedation. For this reason the general surgeon requested transfer to tertiary facility. He did feel that he may have seen an ulcer at the GE junction. Patient did return to baseline following the procedure. She has been given 2 separate doses of Zofran, 1 L of normal saline, and Protonix. She does not require transfusion at this time. Spoke with [facility] transfer line who was agreeable with transfer. Patient transferred in stable condition. - Critical Care Time Critical care time (excluding procedures): 30-74 minutes - Extensive monitoring and discussion with multiple consultants as well as transfer. <Floyd Kapoor - Last Filed: 09/21/19 17:42> Procedures Procedure(s): Conscious sedation with propofol for endoscopy. <Floyd Kapoor - Last Filed: 09/21/19 17:42> ED Disposition <Nicholas Khan - Last Filed: 09/21/19 16:23> <Floyd Kapoor - Last Filed: 09/21/19 17:42> - Plan for ED Patient: Disposition: [facility] - Main Diagnosis: Upper GI bleeding Referrals: Petros Wagner MD [Primary Care Provider] -
[2019-09-21 10:30] LABS: Absolute Lymphocyte Count 1.05 X10^3/uL (0.83-4.51); Absolute Neutrophil Count 9.8 X10^3/uL (2.0-7.7); Basophil# 0.02 X10^3/uL; Basophil% 0.2 % (0-1); Eosinophil# 0.03 X10^3/uL; Eosinophils% 0.3 % (0-5); Hematocrit 38.6 % (37-47); Hemoglobin 12.5 g/dL (12.0-15.0); Lymphocyte # 1.05 X10^3/ul (4.0); Mean Corp Hgb Conc 32.4 g/dL (32-36); Mean Corpuscular Hgb 31.3 pg (27.0-32.0); Mean Corpuscular Volume 96.5 fL (81-99); Mean Platelet Vol. 9.8 fl (6.2-12.0); Monocyte# 0.76 X10^3/uL; Monocyte% 6.5 % (0-10); NRBC Flagged by Analyzer 0 % (0-5); Neutrophil # 9.83 X10^3/uL (2.7-7.7); Neutrophil % 83.7 % (47-70); Platelet Count 243 K/mm3 (150-450); RBC Distribution Width CV 12.8 % (11.6-14.6); RBC Distribution Width SD 45.4 fl (35.1-43.9); White Blood Count 11.7 K/mm3 (4.4-11.0)
[2019-09-21] MEDS: 0.9% Normal Saline 1,000 ML 1000 ML IV (10:40)
[2019-09-21] MEDS: Ondansetron 4 MG/2 ML Vial IV ×2 (10:41→12:38)
[2019-09-21 10:42] LABS: International Normalized Ratio 1.1; Prothrombin Time (Protime)PT. 13.7 SECONDS (11.7-14.9)
[2019-09-21 10:43] LABS: Partial Thromboplast Time 29.3 Seconds (24.1-36.2)
[2019-09-21 10:48] LABS: AST(SGOT) 24 U/L (15-37); Alanine Aminotransfer ALT/SGPT 18 U/L (13-56); Albumin, Serum 3.7 g/dL (3.2-5.0); Alkaline Phosphatase 71 U/L (45-117); Anion Gap 4 (5-15); BUN 14 mg/dL (7-18); BUN/Creat Ratio 13.9 RATIO (10-20); Chloride 108 mmol/L (98-107); Creatinine, Serum 1.01 mg/dL (0.55-1.02); EST Glomerular Filtration Rate 56 mL/min (>60); Est Glom Filt Rate - Afr Amer 68 mL/min (>60); Estimated Creatinine Clearance 33.52 ml/min; Globulin 3.8 g/dL (2.2-4.2); Glucose 127 mg/dL (74-106); Potassium 4.6 mmol/L (3.5-5.1); Protein, Total 7.5 g/dL (6.4-8.2); Sodium Level 139 mmol/L (136-145)
--- NOTE | 2019-09-21 11:20 | RAD_ITS ---
STUDY: X-RAY CHEST REASON FOR EXAM: Female, 79 years old. chest pain TECHNIQUE: AP COMPARISON: None. FINDINGS: EKG leads project over the chest. Right hemidiaphragm is elevated. Linear densities in the lung bases likely fibrotic. No airspace consolidation. There is no demonstrated pleural abnormality. Normal size heart. Sternal wires and mediastinal surgical clips compatible with prior CABG. Two lead cardiac conduction device is seen via the left subclavian vein with lead tips projecting over the right atrium and right ventricle, respectively. Normal visualized pulmonary arteries. There is atherosclerotic calcification of the aortic arch with tortuosity. There is demineralization of the osseous structures. Normal visualized ribs, clavicles, and shoulders. There is no demonstrated abnormality of the visualized soft tissue structures of the upper abdomen. RAD/Chest 1 View (Portable) IMPRESSION: 1. Nonacute portable x-ray examination of the chest. Electronically Signed: Luis Cuadra MD (Brooks) at 12:08 EST , Service support ,
[2019-09-21 12:00] LABS: Bacteria 0 SEEN /hpf (None Seen); Mucous, Urine 0 SEEN /hpf (<or=2+); Red Blood Cells-Urine 0 SEEN /hpf (0-5); Squamous Epithelial Cells - UA 0 SEEN /hpf (5-10); White Blood Cells 0 SEEN /hpf (0-5)
--- NOTE | 2019-09-21 12:06 | CON.PCM_ITS ---
Problem List (1) Hematemesis Status: Acute Qualifiers: Nausea presence: unspecified Qualified Code(s): K92.0 - Hematemesis Reason for Consult Date of Consultation: 09/21/19 Reason for Consultation: Coffee-ground emesis History of Present Illness: The patient is a 79 year old F reports that she started having coffee-ground emesis today. She is on Eliquis for clot around her pacemaker. She is not having any abdominal pain. She says that she did have a bleed in the past about 4 years ago and a colonoscopy and EGD were performed in [place]. At that time they attributed to an AVM. She is not on a PPI. She does report dark stools. Past Medical History Past Medical History (Chronic Problems): Chronic Problems (Last Updated 04/07/19 @ 07:26 by Marisabel Engel) Secondary pulmonary arterial hypertension (Chronic) Essential (primary) hypertension (Chronic) Non-rheumatic aortic stenosis (Chronic) Amaurosis fugax of right eye (Chronic) H/O aortic valve replacement (Chronic 06/28/12) Jyotsna-Nevarez #21 Presence of cardiac pacemaker (Chronic 08/25/11) Complete heart block (Chronic) Hyperlipidemia (Chronic) Medical History: Medical History (Last Updated 04/07/19 @ 07:26 by Marisabel Engel) Secondary pulmonary arterial hypertension (Chronic) I27.21 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, implant or graft (Acute) Onset Date: 03/31/19 T85.868A right atrial PPM lead Essential (primary) hypertension (Chronic) I10 Non-rheumatic aortic stenosis (Chronic) I35.0 Amaurosis fugax of right eye (Chronic) G45.3 Complete heart block (Chronic) I44.2 Hyperlipidemia (Chronic) E78.[address] scan, colon R93.3 Angiodysplasia of cecum K55.20 Bilateral carotid artery stenosis I65.23 Dementia F03.90 Difficulty swallowing R13.10 Diverticulosis K57.90 GERD (gastroesophageal reflux disease) K21.9 GI bleed K92.2 Internal hemorrhoid K64.8 Iron deficiency anemia D50.9 Osteoarthritis M19.90 Allergies Penicillins Allergy (Verified 09/21/19 08:58) Hives Home Medications: Ambulatory Orders Medication Instructions Recorded Lisinopril [Zestril] 10 mg PO DAILY 12/25/16 mecobalamin (vitamin B12) 1,000 1,000 mcg SUBLINGUAL QDAY 03/13/18 mcg disintegrating tablet,sublingual ropinirole 0.5 mg tablet 0.5 mg PO QHS 90 Days #90 03/13/18 simvastatin 40 mg tablet 40 mg PO QPM 03/13/18 alendronate 70 mg tablet 70 mg PO QWEEK 09/11/18 citalopram 10 mg tablet 10 mg PO QDAY tab 09/11/18 Naproxen [Naprosyn] 500 mg PO BID PRN PRN 10/01/18 omeprazole 40 mg capsule,delayed 40 mg PO QDAY PRN 30 Days #30 cap 03/13/19 release apixaban 2.5 mg tablet 2.5 mg PO BID #180 tab 08/15/19 Surgical History: Surgical History (Last Reviewed 03/13/19 @ 13:34 by Zay Rock MD) H/O aortic valve replacement (Chronic) Onset Date: 06/28/12 Z95.2 Jyotsna-Nevarez #21 Presence of cardiac pacemaker (Chronic) Onset Date: 08/25/11 Z95.0 History of bilateral knee replacement Z96.653 History of hysterectomy Z90.710 History of hysterectomy Z90.710 History of repair of hiatal hernia Onset Date: 01/2019 Z98.890, Z87.19 History of repair of rotator cuff Z98.890 History of tonsillectomy Z90.89 Hx of cholecystectomy Z90.49 Surgical History: pacemaker implantation Smoking Status: Never smoker Review of Systems Constitutional: Denies: Anorexia, Fever HEENT: Denies: Difficulty Swallowing Respiratory: Denies: Cough Gastrointestinal: Reports: Hematemesis, Nausea, Melena, Vomiting. Denies: Abdominal Pain Musculoskeletal: Denies: Joint Tenderness Skin: Denies: Jaundice Neurological: Denies: Double vision Hematologic/ Lymphatic: Reports: Easy Bleeding Patient Problems: Active and Suspected Problems (Last Updated 04/07/19 @ 07:26 by Marisabel Engel) Hematemesis (Acute) - Physical Exam Vitals/I&O's: Vital Signs Temp Pulse Resp BP Pulse Ox 98.8 F 60 20 H 166/66 H 98 09/21/19 08:55 09/21/19 11:38 09/21/19 11:38 09/21/19 11:38 09/21/19 11:38 Oxygen Delivery Method Room Air Weight: 176 lb Body Mass Index (BMI) 33.2 General: Alert, Oriented x3 Neck: No JVD Lungs: Normal air movement Cardiovascular: Regular rate, Regular Rhythm Abdomen: Soft, Non Tender, Non-Distended Microbiology Past 72 Hours 09/21/19 10:20 Stool Stool Occult Blood (DOLORES) - Final Laboratory Results 09/21/19 10:15: WBC 11.7 H, RBC 4.00 L, Hgb 12.5, Hct 38.6, MCV 96.5, MCH 31.3, MCHC 32.4, RDW Std Deviation 45.4 H, RDW Coeff of Mamadou 12.8, Plt Count 243, MPV 9.8, Immature Gran % (Auto) 0.300, Neut % (Auto) 83.7 H, Lymph % (Auto) 9.0 L, [place] % (Auto) 6.5, Eos % (Auto) 0.3, Baso % (Auto) 0.2, Absolute Neuts (auto) 9.8 H, Absolute Lymphs (auto) 1.05, Nucleated RBC % 0 09/21/19 10:15: Sodium 139, Potassium 4.6, Chloride 108 H, Carbon Dioxide 27.0, Anion Gap 4 L, BUN 14, Creatinine 1.01, Estim Creat Clear Calc 33.52, Est GFR (MDRD) Af Amer 68, Est GFR (MDRD) Non-Af 56 L, BUN/Creatinine Ratio 13.9, Glucose 127 H, Calcium 9.0, Total Bilirubin 0.90, AST 24, ALT 18, Alkaline Phosphatase 71, Troponin I < 0.015, Total Protein 7.5, Albumin 3.7, Globulin 3.8, Albumin/Globulin Ratio 1.0 09/21/19 10:15: PT 13.7, INR 1.1, APTT 29.3 09/21/19 10:15: Blood Type B POSITIVE, Antibody Screen NEGATIVE 09/21/19 11:55: Urine Color Pending, Urine Clarity Pending, Urine pH Pending, Ur Specific [place] Pending, Urine Protein Pending, Urine Glucose (UA) Pending, Urine Ketones Pending, Urine Occult Blood Pending, Urine Nitrite Pending, Urine Bilirubin Pending, Urine Urobilinogen Pending, Ur Leukocyte Esterase Pending, Urine RBC Pending, Urine WBC Pending, Ur Squamous Epith Cells Pending, Urine Bacteria Pending, Urine Mucus Pending Assessment/Plan All Active Problems (Last Updated 04/07/19 @ 07:26 by Marisabel Engel) Hematemesis (Acute) 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, implant or graft (Acute 03/31/19) 79-year-old female with coffee-ground emesis 1. The patient has been having coffee-ground emesis. She has a history of GI bleeding which was not able to be located. She said that she had a hiatal hernia repair at [facility] in January of this year. She reports that this vomiting is happened a few times. She has noticed some dark stools. 2. Plan for EGD in the emergency room. If bleed is able to be stopped she may be admitted. If not she will be transferred. 3. I explained endoscopy in detail to the patient. I explained the risks including but not limited to stroke or heart attack with anesthesia, perforation of the GI tract, bleeding, infection. I explained that any of these could necessitate further emergency surgery. The patient understands and all questions were answered sufficiently. The patient wishes to proceed with procedure. Joseph Grider MD Pager: [facility] [address] [place] [address] [address] [place] [address] Office:
[2019-09-21 12:13] LABS: Color, Urine Yellow (Yellow); Glucose, Dipstick Normal (Normal); Ketone-Dipstick Negative (Negative); Leukocyte Esterase-Dipstick Negative /ul (Negative); Nitrite-Dipstick Negative (Negative); Occult Blood-Urine 10 /ul (Negative); Protein-Dipstick Negative (Negative); Specific Gravity, Urine 1.015 (1.002-1.030); Urine Bilirubin Dipstick Negative (Negative); Urine Clarity Clear (Clear); Urine Urobilinogen Normal (Normal)
[2019-09-21] MEDS: Propofol 200 MG/20 ML Vial IV BOLUS (12:24)
--- NOTE | 2019-09-21 12:42 | PCM.PN.BLA ---
Progress Note I performed an EGD under MAC sedation in the emergency room. The patient did have dark blood at the GE junction with what appeared to be a possible ulcer. The stomach was relatively free of blood. The duodenum was free of blood as well with no identifiable ulcer. The esophagus was blood-tinged. I was attempting to withdraw the scope back to the esophagus to examine the GE junction when the patient vomited and her saturations decreased. At this time the scope was aborted and the patient will be transferred to tertiary care center. Joseph Grider MD Pager: [facility] [address] [place] [address], [address] [place] [address] Office: [facility] Vital Signs/Narrative: Vital Signs Temp Pulse Resp BP Pulse Ox 09/21/19 12:26 60 12 147/55 H 96 09/21/19 11:38 60 20 H 166/66 H 98 09/21/19 10:42 18 09/21/19 08:55 98.8 F 60 18 157/61 H 96
--- NOTE | 2019-09-21 12:50 | OP.EGD_ITS ---
Patient Name: Mariana Edwards Procedure Date: 09/21/2019 12:11 PM Date of : 1940 Age: 79 Procedure: Upper GI endoscopy Indications: Hematemesis Providers: Joseph Grider MD Medicines: Monitored Anesthesia Care Patient Profile: This is an 79 year old female. Refer to note in patient chart for documentation of history and physical. Complications: required no intervention Procedure: Pre-Anesthesia Assessment: - Prior to the procedure, a History and Physical was performed, and patient medications and allergies were reviewed. The patient's tolerance of previous anesthesia was also reviewed. The risks and benefits of the procedure and the sedation options and risks were discussed with the patient. All questions were answered, and informed consent was obtained. Prior Anticoagulants: The patient has taken Eliquis (apixaban). After reviewing the risks and benefits, the patient was deemed in satisfactory condition to undergo the procedure. After obtaining informed consent, the endoscope was passed under direct vision. Throughout the procedure, the patient's blood pressure, pulse, and oxygen saturations were monitored continuously. The gastroscope was introduced through the mouth, and advanced to the second part of duodenum. The upper GI endoscopy was performed with moderate difficulty due to the patient's oxygen desaturation. Scope In: 12:25:52 PM Scope Out: 12:34:05 PM Total Procedure Duration Time 0 hours 8 minutes 13 seconds Findings: Hematin (altered blood/xycvjd-[id number]-gdpv material) was found in the lower third of the esophagus. There appeared to be some blood in the GE junction. The stomach and duodenum did not appear to be source of the bleed. Patient did not tolerate MAC and had desaturation. Procedure aborted. Impression: - Hematin (altered blood/vwsnah-ppohzc-sxkf material) in the lower third of the esophagus. - No specimens collected. Recommendation: - Transfer patient to another hospital. - The patient has taken no previous anticoagulant or antiplatelet agents and therefore does not require instructions for their resumption. Procedure Code(s): --- Professional --- 19212, Esophagogastroduodenoscopy, flexible, transoral; diagnostic, including collection of specimen(s) by brushing or washing, when performed (separate procedure) Diagnosis Code(s): --- Professional --- K22.8, Other specified diseases of esophagus K92.0, Hematemesis CPT copyright 2017 [employer]. All rights reserved. The codes documented in this report are preliminary and upon apprentice plant attendant review may be revised to meet current compliance requirements. Joseph Grider MD 09/21/2019 12:49:57 PM This report has been signed electronically. Number of Addenda: 0 Note Initiated On: 09/21/2019 12:11 PM
== END 2019-09-21 15:25 | disposition short-term general hospital (02) ==
PROVIDERS: Surgery; Emergency Provider Emergency Medicine; Family Provider Family Medicine; PCP Family Medicine
PROC: 0DJ08ZZ Inspection of Upper Intestinal Tract, Via Natural or Artificial Opening Endoscopic (ICD-10-PCS; CPT 43235; principal; 2019-09-21 12:30)
DX: K92.0 Hematemesis (principal); K92.1 Melena; I11.0 Hypertensive heart disease with heart failure; I50.9 Heart failure, unspecified; I27.21 Secondary pulmonary arterial hypertension; E78.5 Hyperlipidemia, unspecified; F03.90 Unspecified dementia, unspecified severity, without behavioral disturbance, psychotic disturbance, mood disturbance, and anxiety; K21.9 Gastro-esophageal reflux disease without esophagitis; M19.90 Unspecified osteoarthritis, unspecified site; Z95.0 Presence of cardiac pacemaker; Z95.2 Presence of prosthetic heart valve; Z86.718 Personal history of other venous thrombosis and embolism; Z79.02 Long term (current) use of antithrombotics/antiplatelets; Z79.899 Other long term (current) drug therapy
CPT/HCPCS: 43235; 71045; 80053; 81001; 82274; 84484; 85025; 85610; 85730; 86850; 86900; 86901; 93005; 96365; 96366; 96375; 99152; 99285; J7030; A4216; J2405

== ENCOUNTER → 2019-11-18 | Outpatient (CLI) | payer MEDICARE, SELFPAY ==
[2019-10-31 15:20] VITALS: BMI 31.5
[2019-11-18 15:20] LABS: Absolute Lymphocyte Count 1.56 X10^3/uL (0.83-4.51); Absolute Neutrophil Count 4.3 X10^3/uL (2.0-7.7); Basophil# 0.05 X10^3/uL; Basophil% 0.8 % (0-1); Eosinophil# 0.06 X10^3/uL; Eosinophils% 0.9 % (0-5); Hematocrit 38.4 % (37-47); Hemoglobin 12.1 g/dL (12.0-15.0); Lymphocyte # 1.56 X10^3/ul (4.0); Lymphocyte % 23.6 % (19-41); Mean Corp Hgb Conc 31.5 g/dL (32-36); Mean Corpuscular Hgb 30.6 pg (27.0-32.0); Mean Platelet Vol. 10.4 fl (6.2-12.0); Monocyte# 0.66 X10^3/uL; NRBC Flagged by Analyzer 0 % (0-5); Neutrophil # 4.25 X10^3/uL (2.7-7.7); Neutrophil % 64.4 % (47-70); Platelet Count 297 K/mm3 (150-450); RBC Distribution Width CV 13.2 % (11.6-14.6); RBC Distribution Width SD 46.9 fl (35.1-43.9); Red Blood Count 3.96 M/mm3 (4.2-5.4); White Blood Count 6.6 K/mm3 (4.4-11.0)
[2019-11-18 15:34] LABS: Hemoglobin A1c 5.9 % (4.2-6.3)
[2019-11-18 15:42] LABS: Vitamin B12 1699 pg/mL (211-911); Vitamin D,25 Hydroxy 33.5 ng/mL
[2019-11-18 15:44] LABS: ALB/GLOB Ratio 0.8 RATIO (0.9-2.4); AST(SGOT) 23 U/L (15-37); Alanine Aminotransfer ALT/SGPT 19 U/L (13-56); Albumin, Serum 3.6 g/dL (3.2-5.0); Alkaline Phosphatase 75 U/L (45-117); Anion Gap 6 (5-15); BUN 15 mg/dL (7-18); BUN/Creat Ratio 15.8 RATIO (10-20); Calcium,Total 8.9 mg/dL (8.5-10.1); Chloride 106 mmol/L (98-107); Cholesterol 147 mg/dL (200); Creatinine, Serum 0.95 mg/dL (0.55-1.02); EST Glomerular Filtration Rate 60 mL/min (>60); Est Glom Filt Rate - Afr Amer 73 mL/min (>60); Ferritin 73 ng/mL (8-252); Globulin 4.5 g/dL (2.2-4.2); Glucose 86 mg/dL (74-106); High Density Lipoprotein 49 mg/dL; Iron 51 ug/dL (50-170); Iron Binding Capacity,Total 299 ug/dL (250-450); Phosphorus 4.1 mg/dL (2.5-4.9); Protein, Total 8.1 g/dL (6.4-8.2); Sodium Level 140 mmol/L (136-145); Triglycerides 116 mg/dL; Very Low Density Lipoprotein 23 mg/dL (5-40)
== END | disposition home or self-care (01) ==
LOC: MFPLAB 13:48
PROVIDERS: PCP Family Medicine; Referring Provider Family Medicine; Visit Provider Family Medicine
DX: D64.9 Anemia, unspecified (principal); M81.0 Age-related osteoporosis without current pathological fracture; R73.02 Impaired glucose tolerance (oral); E78.5 Hyperlipidemia, unspecified; E53.8 Deficiency of other specified B group vitamins; E55.9 Vitamin D deficiency, unspecified
CPT/HCPCS: 36415; 80053; 80061; 82306; 82607; 82728; 82746; 83036; 83540; 83550; 84100; 85025

== ENCOUNTER → 2020-03-15 09:56 | Outpatient (CLI) | payer MEDICARE, MEDICAID, SELFPAY ==
[2019-10-31 15:20] VITALS: BMI 31.5
[2020-01-05 14:10] VITALS: BMI 31.5
--- NOTE | 2020-03-15 09:57 | ECHOD_ITS ---
Reason For Study: RA lead thrombus Procedure This was a 2D Doppler, Color Flow transthoracic echocardiogram. Exam performed in department. Left Ventricle Normal LV size. Sigmoid septum. Left ventricular systolic function is normal. The estimated ejection fraction is 60 %. No regional wall motion abnormalities noted. Right Ventricle Normal RV size. ICD or pacer leads identified within the right ventricle. Normal systolic function. Atria The left atrium is moderately enlarged. Normal right atrium. Mitral Valve There is moderate mitral annular calcification. Mild-Moderate (1-2+) eccentric mitral valve insufficiency. Tricuspid Valve Normal tricuspid valve. Mild (1+) tricuspid valve insufficiency. Pulmonary artery systolic pressure is 38 mmHg. Aortic Valve The aortic valve is not well visualized. Peak aortic valve gradient 25 mmHg. Mean aortic valve gradient 13 mmHg. Mild aortic stenosis. Bioprosthetic aortic valve. Pulmonic Valve Normal pulmonic valve. Great Vessels Normal aortic root. The pulmonary artery is normal size. Normal inferior vena cava. Pericardium/Pleural No pericardial effusion. MMode/2D Measurements & Calculations LVIDd: 4.4 cm IVSd: 1.5 cm LVOT diam: 1.9 cm LVIDs: 2.5 cm LVPWd: 0.87 cm LVOT area: 3.0 cm2 RVDd: 3.8 cm FS: 42.4 % Ao root diam: 3.3 cm LAV(MOD-bp): 76.9 ml LA A4 area: 26.0 cm2 LAV(MOD-bp) Indexed: 42.1 ml/m2 LAV(MOD-sp2): 66.7 ml LAV(MOD-sp4): 88.6 ml LA dimension(2D): 5.4 cm RA A4 area: 18.4 cm2 Doppler Measurements & Calculations MV E max twan: 129.5 cm/sec Lat Peak E' Twan: 5.7 cm/sec Med Peak E' Twan: 4.0 cm/sec MV A max twan: 170.5 cm/sec E/E' lat: 22.8 E/E' med: 32.3 MV E/A: 0.76 MV V2 max: 196.1 cm/sec MV P1/2t max twan: 152.7 cm/sec Ao V2 max: 248.3 cm/sec MV max P.4 mmHg MV P1/2t: 132.0 msec Ao max P.8 mmHg MV V2 mean: 115.9 cm/sec MV dec slope: 339.0 cm/sec2 Ao V2 mean: 169.5 cm/sec MV mean P.8 mmHg MVA(P1/2t): 1.7 cm2 Ao mean P.0 mmHg MV V2 VTI: 54.3 cm Ao V2 VTI: 56.0 cm MVA(VTI): 2.0 cm2 MONIQUE(I,D): 2.0 cm2 MONIQUE(V,D): 2.1 cm2 LV V1 max: 171.5 cm/sec SV(LVOT): 111.3 ml PA V2 max: 94.7 cm/sec LV V1 max P.8 mmHg LV V1 mean P.8 mmHg LV V1 mean: 112.7 cm/sec LV V1 VTI: 37.5 cm TR max twan: 292.1 cm/sec TR max P.3 mmHg Interpretation Summary Normal LV size. Sigmoid septum. Left ventricular systolic function is normal. ICD or pacer leads identified within the right ventricle. Bioprosthetic aortic valve. Mild-Moderate (1-2+) eccentric mitral valve insufficiency. No evidence of thrombus seen Pulmonary artery systolic pressure is 38 mmHg. Ordering Physician: Zay Rock Referring Physician: Petros Wagner Performed By: Angela Tolbert RDCS
== END ==
PROVIDERS: PCP Family Medicine; Referring Provider Internal Medicine Cardiovascular Disease; Visit Provider Internal Medicine Cardiovascular Disease
DX: T85.868A Thrombosis due to other internal prosthetic devices, implants and grafts, initial encounter (principal); G45.3 Amaurosis fugax; Z95.0 Presence of cardiac pacemaker
CPT/HCPCS: 93306

== ENCOUNTER → 2020-05-24 | Outpatient (CLI) | payer MEDICARE, MEDICAID, SELFPAY ==
[2020-01-05 14:10] VITALS: BMI 31.5
[2020-05-24 18:23] LABS: Absolute Lymphocyte Count 1.78 X10^3/uL (0.83-4.51); Absolute Neutrophil Count 4.9 X10^3/uL (2.0-7.7); Basophil# 0.05 X10^3/uL; Basophil% 0.7 % (0-1); Eosinophil# 0.07 X10^3/uL; Eosinophils% 0.9 % (0-5); Hematocrit 37.4 % (37-47); Hemoglobin 11.5 g/dL (12.0-15.0); Lymphocyte # 1.78 X10^3/ul (4.0); Lymphocyte % 23.5 % (19-41); Mean Corp Hgb Conc 30.7 g/dL (32-36); Mean Corpuscular Hgb 29.3 pg (27.0-32.0); Mean Corpuscular Volume 95.4 fL (81-99); Mean Platelet Vol. 10.2 fl (6.2-12.0); Monocyte# 0.75 X10^3/uL; Monocyte% 9.9 % (0-10); NRBC Flagged by Analyzer 0 % (0-5); Neutrophil # 4.89 X10^3/uL (2.7-7.7); Neutrophil % 64.6 % (47-70); Platelet Count 321 K/mm3 (150-450); RBC Distribution Width SD 49.2 fl (35.1-43.9); Red Blood Count 3.92 M/mm3 (4.2-5.4); White Blood Count 7.6 K/mm3 (4.4-11.0)
[2020-05-24 18:42] LABS: ALB/GLOB Ratio 0.8 RATIO (0.9-2.4); AST(SGOT) 24 U/L (15-37); Alanine Aminotransfer ALT/SGPT 21 U/L (13-56); Albumin, Serum 3.5 g/dL (3.2-5.0); Alkaline Phosphatase 86 U/L (45-117); Anion Gap 4 (5-15); BUN 22 mg/dL (7-18); BUN/Creat Ratio 19.3 RATIO (10-20); Calcium,Total 8.9 mg/dL (8.5-10.1); Chloride 108 mmol/L (98-107); Cholesterol 144 mg/dL (200); Creatinine, Serum 1.14 mg/dL (0.55-1.02); EST Glomerular Filtration Rate 49 mL/min (>60); Est Glom Filt Rate - Afr Amer 59 mL/min (>60); Globulin 4.4 g/dL (2.2-4.2); Glucose 101 mg/dL (74-106); High Density Lipoprotein 45 mg/dL; Potassium 4.2 mmol/L (3.5-5.1); Protein, Total 7.9 g/dL (6.4-8.2); Sodium Level 139 mmol/L (136-145); Triglycerides 150 mg/dL; Very Low Density Lipoprotein 30 mg/dL (5-40)
[2020-05-24 18:43] LABS: Vitamin B12 1057 pg/mL (211-911); Vitamin D,25 Hydroxy 38.8 ng/mL
[2020-05-24 20:17] LABS: Hemoglobin A1c 6.1 % (3.8-5.6)
== END | disposition home or self-care (01) ==
LOC: MFPLAB 14:37
PROVIDERS: PCP Family Medicine; Referring Provider Family Medicine; Visit Provider Family Medicine
DX: E53.8 Deficiency of other specified B group vitamins (principal); I10 Essential (primary) hypertension; R73.02 Impaired glucose tolerance (oral); M81.0 Age-related osteoporosis without current pathological fracture; E55.9 Vitamin D deficiency, unspecified; E78.5 Hyperlipidemia, unspecified
CPT/HCPCS: 36415; 80053; 80061; 82306; 82607; 82746; 83036; 84100; 85025

== ENCOUNTER → 2020-06-04 | Outpatient (CLI) | payer MEDICARE, MEDICAID, SELFPAY ==
[2020-01-05 14:10] VITALS: BMI 31.5
--- NOTE | 2020-06-04 14:17 | CDU_ITS ---
Reason For Study: STENOSIS Rt. Velocities/BP Lt. Velocities/BP Prox CCA 83/15 cm/sec. Prox CCA 79/22 cm/sec. Mid CCA 97/13 cm/sec. Mid CCA 77/17 cm/sec. Dist CCA 90/16 cm/sec. Dist CCA 92/20 cm/sec. Prox ICA 170/34 cm/sec. Prox ICA 250/37 cm/sec. Mid ICA 120/34 cm/sec. Mid ICA 119/32 cm/sec. Dist ICA 100/32 cm/sec. Dist ICA 132/39 cm/sec. Rt. ICA/CCA = 1.9. Lt. ICA/CCA = 3.2. Prox ECA 141/4 cm/sec. Prox ECA 160/0 cm/sec. Rt. Vert. 61/15 cm/sec. Lt. Vert. 57/16 cm/sec. Right Extracranial There is heterogeneous, irregular atherosclerotic plaque noted in the right common carotid artery. There is heterogeneous, irregular atherosclerotic plaque noted in the right internal carotid artery. There is heterogeneous, irregular atherosclerotic plaque noted in the right external carotid artery. Antegrade flow is noted in the right vertebral artery. There is heterogeneous, irregular atherosclerotic plaque noted in the right bulb. Left Extracranial There is heterogeneous, irregular atherosclerotic plaque noted in the left common carotid artery. There is heterogeneous, irregular atherosclerotic plaque noted in the left internal carotid artery. There is intimal thickening but no significant atherosclerotic plaque noted in the left external carotid artery. Antegrade flow is noted in the left vertebral artery. There is heterogeneous, irregular atherosclerotic plaque noted in the left bulb. Procedure Carotid Duplex [id number]. Exam performed in department. Interpretation Summary Moderate (50-69%) stenosis right extracranial internal carotid. Severe (>70%) stenosis left extracranial internal carotid. Flow within the vertebral arteries is antegrade bilaterally. Heterogeneous, irregular atherosclerotic plaque is noted in the carotid bulbs bilaterally. Ordering Physician: Petros Wagner Referring Physician: Petros Wagner Performed By: Giana Avilez, JASON, RVT
== END | disposition home or self-care (01) ==
LOC: CVS 14:15
PROVIDERS: PCP Family Medicine; Referring Provider Family Medicine; Visit Provider Family Medicine
DX: I65.23 Occlusion and stenosis of bilateral carotid arteries (principal)
CPT/HCPCS: 93880

== ENCOUNTER → 2020-08-25 | Outpatient (CLI) | payer MEDICARE, MEDICAID, SELFPAY ==
[2020-01-05 14:10] VITALS: BMI 31.5
== END | disposition home or self-care (01) ==
LOC: LABSPEC 13:51
PROVIDERS: PCP Family Medicine; Visit Provider Family Medicine
DX: U07.1 COVID-19 (principal)
CPT/HCPCS: 87635; U0003

== ENCOUNTER 2020-09-19 19:06 | Inpatient (IN) | payer MEDICARE, MEDICAID, SELFPAY ==
[2020-01-05 14:10] VITALS: BMI 31.5
[2020-09-19 19:06] VITALS: BP 152/75; PULSE 87; RESP 16; TEMP 36.9; O2SAT 99; BMI 33.1
--- NOTE | 2020-09-19 19:17 | ED.DCSUM_ITS ---
History of Present Illness Chief Complaint: Abd Pain Informant: Patient Narrative: 80-year-old female presenting with left lower quadrant abdominal pain. She states the onset was about a week ago. She has associated nausea. She is slightly constipated but is having bowel movements. She is not had any diarrhea. She denies fever or chills. Patient status post Covid?19 infection 08/25/2020. She is not have any respiratory complaints. Past Medical History - Allergies and Home Meds Allergies/Adverse Reactions: Allergies Penicillins Allergy (Verified 09/19/20 19:10) Hives Primary Care Physician: Petros Wagner MD [Primary Care Provider] - Surgical History: pacemaker implantation Smoking Status: Never smoker Review of Systems General: Denies: Chills, Fever, Sweats Eyes: Denies: Visual changes - bilaterally, Diplopia ENT: Denies: Rhinorrhea, Sore throat Cardiovascular: Denies: Chest pain, Palpitations Respiratory: Denies: Dyspnea, Cough, Dyspnea on exertion Gastrointestinal: Reports: Abdominal pain, Nausea, Constipation Genitourinary: Denies: Dysuria, Hematuria, Frequency Musculoskeletal: Denies: Back pain, Extremity Pain Skin: Denies: Rash, Wounds Neurological: Denies: Headache, Weakness, Numbness Psych: Denies: Depression, Anxiety, Suicidal thoughts, Suicidal ideations, -, - Physical Exam Vital Signs/Narrative: Vital Signs Temp Pulse Resp BP Pulse Ox 09/19/20 19:06 98.4 F 87 16 152/75 H 99 Inital Vital Signs reviewed: Yes General: Obese, No Acute Distress Head: Normocephalic, Atraumatic Eyes: Perrl, EOMI ENT: Moist mucous membranes, No rhinorrhea Cardiovascular: Regular rate, Regular rhythm Respiratory: No distress, CTA bilaterally Abdomen: Soft, Tender - Left lower quadrant. Abdomen nonperitoneal., - - Abdomen is slightly distended. Diminished bowel sounds. Extremities: Nontender, No edema Skin: Normal color, No rash. Negative for: Cyanosis Neurological: Alert, Oriented x3, Cranial nerves II-XII grossly intact Psychological: Normal affect, Normal Mood Diagnostic/Tx/Re-eval Clinical Impression(s) from Imaging Studies Abdomen/Pelvis CT 09/19/20 19:25 IMPRESSION: 1. Short segment wall thickening of the proximal sigmoid colon with proximal colonic (more than small bowel) dilation and fluid-filled lumen, suggesting at least partial colonic obstruction. Differential considerations include localized colitis, chronic muscular hyperplasia/chronic diverticulosis and neoplasm. Electronically Signed: Luis Cuadra MD ([place]) at 21:03 EST , Service support , Laboratory Data 09/19/20 09/19/20 19:40 19:40 WBC 15.2 H RBC 4.37 Hgb 12.9 Hct 40.7 MCV 93.1 MCH 29.5 MCHC 31.7 L RDW Std Deviation 48.2 H RDW Coeff of Mamadou 14.2 Plt Count 326 MPV 10.5 Immature Gran % (Auto) 0.500 Neut % (Auto) 89.6 H Lymph % (Auto) 5.7 L [place] % (Auto) 3.9 Eos % (Auto) 0.1 Baso % (Auto) 0.2 Absolute Neuts (auto) 13.6 H Absolute Lymphs (auto) 0.87 Nucleated RBC % 0 Sodium 139 Potassium 4.2 Chloride 106 Carbon Dioxide 23.0 Anion Gap 10 BUN 20 H Creatinine 1.02 Estim Creat Clear Calc 35.78 Est GFR (MDRD) Af Amer 67 Est GFR (MDRD) Non-Af 55 L BUN/Creatinine Ratio 19.6 Glucose 164 H Calcium 9.0 - Medical Decision Making 80-year-old female presenting with abdominal pain which is getting worse. She complains of some abdominal distention as well. She also complains of constipation. Patient has not had fever but she does have nausea and vomiting. Previous abdominal surgeries of cholecystectomy and hysterectomy. Lab work shows leukocytosis and slight dehydration. She was given 500 cc of IV fluids. She was given morphine and Zofran for pain which did resolve her pain and she is comfortable at this point. CT of the abdomen pelvis shows looks to be diverticulitis with associated bowel obstruction including the small and large bowel. I spoke with Dr. Bañuelos about this and he recommended admitting the patient. We will start IV antibiotics with Cipro and Flagyl given her penicillin allergy. NG tube was placed. Patient will be admitted to [facility]. Impression: 1. Diverticulitis 2. Bowel obstruction 3. Leukocytosis ED Disposition - Plan for ED Patient: Referrals: Petros Wagner MD [Primary Care Provider] -
--- NOTE | 2020-09-19 19:25 | CT_ITS ---
STUDY: CT ABDOMEN AND PELVIS WITH CONTRAST REASON FOR EXAM: Female, 80 years old. ABDOMEN PAIN,NAUSEA AND VOMITING ALL DAY,ELEVATED WBC,TESTED + FOR COVID 12-2-20 -- HX:HTN,HLD,DIVERTICULOSIS -- SURGERY:PACEMAKER,AORTIC VALVE,CHOLECYSTECTOMY,HYSTERECTOMY,HIATAL HERNIA REPAIR RADIATION DOSAGE (If Supplied By Facility): CTDIvol = ( 18.13 ) mGy, DLP = ( 1199.42 ) mGycm TECHNIQUE: Transaxial images were obtained from the dome of the diaphragm to the symphysis pubis without oral contrast. IV 100mL Isovue-370 was administered. Sagittal and coronal images were reconstructed. Individualized dose optimization techniques were used for this CT. COMPARISON: 04/21/2018 FINDINGS: There are chronic interstitial fibrotic changes of the lung bases. Cardiac conduction device partially visualized. Sternal wires are noted. No hepatic masses. There are surgical clips in the gallbladder fossa consistent with a prior cholecystectomy; expected biliary prominence following cholecystectomy. Normal spleen. Normal pancreas. Normal bilateral adrenal glands. Normal right kidney. Nonobstructing calculus of the left kidney is evident on image 38. No hydronephrosis. Normal visualized stomach. Fluid-filled, dilated colon more than small bowel. There is localized wall thickening of the proximal sigmoid colon evident on image 97 of series 2 with decompressed colon beyond this segment. No adjacent inflammation is seen. No pneumatosis or free air. There is diffuse atherosclerotic calcification of the abdominal aorta, without a demonstrated aneurysm. Normal inferior vena cava. Normal retroperitoneum. Normal urinary bladder. There is absence of the uterus consistent with a prior hysterectomy. Normal abdominal wall. There are diffuse degenerative changes of the visualized lumbar spine. CT/Abdomen/Pelvis W IV Cont ONLY IMPRESSION: 1. Short segment wall thickening of the proximal sigmoid colon with proximal colonic (more than small bowel) dilation and fluid-filled lumen, suggesting at least partial colonic obstruction. Differential considerations include localized colitis, chronic muscular hyperplasia/chronic diverticulosis and neoplasm. Electronically Signed: Luis Cuadra MD ([place]) at 21:03 EST , Service support ,
[2020-09-19] MEDS: Morphine 4 MG/ML Syringe IV (19:38)
[2020-09-19] MEDS: Ondansetron 4 MG/2 ML Vial IM (19:38)
[2020-09-19 19:53] LABS: Absolute Lymphocyte Count 0.87 X10^3/uL (0.83-4.51); Absolute Neutrophil Count 13.6 X10^3/uL (2.0-7.7); Basophil# 0.03 X10^3/uL; Basophil% 0.2 % (0-1); Eosinophil# 0.01 X10^3/uL; Eosinophils% 0.1 % (0-5); Hematocrit 40.7 % (37-47); Hemoglobin 12.9 g/dL (12.0-15.0); Lymphocyte # 0.87 X10^3/ul (4.0); Lymphocyte % 5.7 % (19-41); Mean Corp Hgb Conc 31.7 g/dL (32-36); Mean Corpuscular Hgb 29.5 pg (27.0-32.0); Mean Corpuscular Volume 93.1 fL (81-99); Mean Platelet Vol. 10.5 fl (6.2-12.0); Monocyte# 0.59 X10^3/uL; Monocyte% 3.9 % (0-10); NRBC Flagged by Analyzer 0 % (0-5); Neutrophil # 13.57 X10^3/uL (2.7-7.7); Neutrophil % 89.6 % (47-70); Platelet Count 326 K/mm3 (150-450); RBC Distribution Width CV 14.2 % (11.6-14.6); RBC Distribution Width SD 48.2 fl (35.1-43.9); Red Blood Count 4.37 M/mm3 (4.2-5.4); White Blood Count 15.2 K/mm3 (4.4-11.0)
[2020-09-19 20:00] VITALS: BP 125/59; PULSE 63; RESP 15; TEMP 37.2; O2SAT 93
[2020-09-19 20:09] LABS: Anion Gap 10 (5-15); BUN 20 mg/dL (7-18); BUN/Creat Ratio 19.6 RATIO (10-20); Chloride 106 mmol/L (98-107); Creatinine, Serum 1.02 mg/dL (0.55-1.02); EST Glomerular Filtration Rate 55 mL/min (>60); Est Glom Filt Rate - Afr Amer 67 mL/min (>60); Estimated Creatinine Clearance 35.78 ml/min; Glucose 164 mg/dL (74-106); Potassium 4.2 mmol/L (3.5-5.1); Sodium Level 139 mmol/L (136-145)
--- NOTE | 2020-09-19 21:21 | RAD_ITS ---
STUDY: X-RAY - ABDOMEN/PELVIS REASON FOR EXAM: Female, 80 years old. NG/OG PLACEMENT. TECHNIQUE: Single AP view of the abdomen / pelvis. COMPARISON: None. FINDINGS: Calculi sternal wires and prosthetic cardiac valves present. Persistent dilated bowel better seen on CT from earlier today. There is no demonstrated free abdominal air. The visualized liver, spleen and kidneys are grossly normal in size and morphology. There is excreted contrast in the kidneys. Normal soft tissue structures. There are diffuse degenerative changes of the visualized lumbar spine. RAD/Abdomen Single View (Portable) IMPRESSION: Enteric/gastric tube not seen on provided images. Electronically Signed: Luis Cuadra MD ([place]) at 22:18 EST , Service support ,
[2020-09-19] MEDS: Ciprofloxacin 400 MG/200 ML BAG 200 MG IV (21:40)
--- NOTE | 2020-09-19 21:44 | PCM.HP.STD ---
Problem List (1) Partial obstruction of colon Status: Acute (2) Acute sigmoid colitis Status: Acute (3) Presence of cardiac pacemaker Status: Chronic (4) Complete heart block Status: Chronic (5) H/O aortic valve replacement Status: Chronic Comment: Jyotsna-Nevarez #21 (6) Essential (primary) hypertension Status: Chronic (7) Hyperlipidemia Status: Chronic Qualifiers: Hyperlipidemia type: pure hypercholesterolemia Qualified Code(s): E78.00 - Pure hypercholesterolemia, unspecified; E78.0 - Pure hypercholesterolemia (8) Carotid artery disease Status: Chronic Qualifiers: Carotid artery disease type: stenosis Laterality: right Qualified Code(s): I65.21 - Occlusion and stenosis of right carotid artery History of Present Illness Date of Admission: 09/19/20 Chief Complaint: Abdominal pain. The patient is a 80 year old F with past medical history as mentioned above presented to the emergency room because of abdominal pain. Her illness started 3 days ago with abdominal pain, left lower quad abdominal pain, intermittent, 7 out of 10 in severity, dull aching pain, nonradiating, associated with nausea and vomiting and without aggravating or relieving factors. She mentioned that today, she has been throwing up bile since morning. She denied any diarrhea and she mentioned that she had no bowel movement since yesterday. She denied urinary symptoms. She was diagnosed with COVID-19 infection on August 25, 2020. She reported mild cough, no other respiratory symptoms. She denies shortness of breath or sputum production. In the emergency department, her vital signs were stable, was afebrile. Her routine blood work was remarkable for leukocytosis with neutrophilia, otherwise normal. CT scan of the abdomen and pelvis with IV contrast revealed short segment of wall thickening of the proximal sigmoid colon with dilatation and fluid-filled lumen suggestive of partial colonic obstruction. She is being admitted for acute sigmoid colitis and partial colonic obstruction. Past Medical History Past Medical History (Chronic Problems): Chronic Problems (Last Updated 09/19/20 @ 21:[address] 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, implant or graft (Chronic) Onset Date: 03/31/19 T85.868A right atrial PPM lead Complete heart block (Chronic) I44.2 Non-rheumatic aortic stenosis (Chronic) I35.0 Amaurosis fugax of right eye (Chronic) G45.3 Essential (primary) hypertension (Chronic) I10 Hyperlipidemia (Chronic) E78.5 Secondary pulmonary arterial hypertension (Chronic) I27.21 Carotid artery disease (Chronic) I77.[address] scan, colon R93.3 Angiodysplasia of cecum K55.20 Bilateral carotid artery stenosis I65.23 Dementia F03.90 Difficulty swallowing R13.10 Diverticulosis K57.90 GERD (gastroesophageal reflux disease) K21.9 GI bleed K92.2 Internal hemorrhoid K64.8 Iron deficiency anemia D50.9 Osteoarthritis M19.90 Hematemesis K92.0 Upper GI hemorrhage K92.2 Allergies Penicillins Allergy (Verified 09/19/20 19:10) Hives Home Medications: Ambulatory Orders Medication Instructions Recorded Lisinopril [Zestril] 10 mg PO DAILY 12/25/16 mecobalamin (vitamin B12) 1,000 1,000 mcg SUBLINGUAL QDAY 03/13/18 mcg disintegrating tablet,sublingual ropinirole 0.5 mg tablet 0.5 mg PO QHS 90 Days #90 03/13/18 simvastatin 40 mg tablet 40 mg PO QPM 03/13/18 alendronate 70 mg tablet 70 mg PO QWEEK 09/11/18 citalopram 10 mg tablet 10 mg PO QDAY tab 09/11/18 Calcium Carbonate/Vitamin D3 2 ea PO DAILY 09/19/20 [Calcium 500 mg-Vit D3 600 Unit] Cholecalciferol (VIT D3) [Vitamin 1,000 unit PO DAILY 09/19/20 D] Omeprazole [Prilosec] 20 mg PO DAILY 09/19/20 Surgical History: Surgical History (Last Reviewed 04/02/20 @ 14:10 by Henny M Ivey PA, PA) Presence of cardiac pacemaker (Chronic) Onset Date: 08/25/11 Z95.0 H/O aortic valve replacement (Chronic) Onset Date: 06/28/12 Z95.2 Jyotsna-Nevarez #21 History of bilateral knee replacement Z96.653 History of hysterectomy Z90.710 History of hysterectomy Z90.710 History of repair of hiatal hernia Onset Date: 01/2019 Z98.890, Z87.19 History of repair of rotator cuff Z98.890 History of tonsillectomy Z90.89 Hx of cholecystectomy Z90.49 Surgical History: cholecystectomy, pacemaker implantation, - - Aortic valve replacement with bioprosthetic valve. Hiatal hernia repair. Psychiatric History: Depression [employer] History: No pertinent [employer] history Smoking Status: Never smoker Alcohol: None Drugs: None - *Family History Maternal Family History: Family History (Last Reviewed 04/02/20 @ 14:10 by Henny DENNIS, PA) Mother Hypertension Heart disease Brother Hypertension Father Hypertension Review of Systems Constitutional: Reports: Anorexia. Denies: Chills, Fever, Weakness Eyes: Denies: Blurred vision, Double vision, Drainage, Redness HEENT: Denies: Difficulty Hearing, Ear Pain, Eye Pain, Nasal Congestion, Sore Throat Cardiovascular: Denies: Chest Pain, Chest Pressure, Heaviness, Light Headedness, Palpitations, Syncope Respiratory: Reports: Cough. Denies: Pleuritic Pain, Shortness of Breath, Sputum production, Wheezing Gastrointestinal: Reports: Abdominal Pain, Nausea, Vomiting. Denies: Constipation, Diarrhea Genitourinary: Denies: Dysuria, Frequency, Hematuria Musculoskeletal: Denies: Arm Pain, Back Pain, Foot Pain Skin: Denies: Dryness, Rash Neurological: Denies: Balance problems, Blurred vision, Change in Speech, Slurred speech, Confusion, Headaches, Incoordination Psychiatric: Reports: Depression. Denies: Anxiety Endocrine: Denies: Change in Body Habitus, Polydipsia, Polyuria VTE Information - Inpt Only VTE Present on Admission: No VTE Mechan Device Prophylaxis: None VTE Pharm Prophylaxis ordered?: Yes Patient Problems: Active and Suspected Problems (Last Updated 09/19/20 @ 21:[address] Unique Romero MD) Partial obstruction of colon (Acute) Acute sigmoid colitis (Acute) - Physical Exam Vitals/I&O's: Vital Signs Temp Pulse Resp BP Pulse Ox 98.9 F 63 15 125/59 H 93 09/19/20 20:00 09/19/20 20:00 09/19/20 20:00 09/19/20 20:00 09/19/20 20:00 Oxygen Delivery Method Room Air Weight: 187 lb Body Mass Index (BMI) 33.1 Intake and Output for Last 24 Hours 09/17/20 09/18/20 09/19/20 23:59 23:59 23:59 Intake Total 500 / 500 Balance 500 / 500 General: Alert, Oriented x3, Cooperative, No apparent distress HEENT: Atraumatic, PERRLA, EOMI, Normocephalic Oral: Moist Mucosa, No Gingival or Mucosal Lesions/ Ulcerations Neck: Supple, No JVD, Negative Carotid Bruits, Trachea Midline, Thyroid Normal Size and Texture Lungs: Clear to auscultation, Normal air movement, No rhonchi, No wheeze, No rales, Diminished Cardiovascular: Regular rate, Regular Rhythm, Normal S1, Normal S2, PMI Normal Abdomen: Bowel Sounds Present, Soft, Non-Distended, No Hepato-splenomegaly, Tender - Minimal tenderness on the left lower quadrant, no guarding or rigidity. Extremities: No clubbing, No cyanosis, Edema - Trace edema. Skin: No rashes, No breakdown Lymphatic: No Cervical, Supraclavicular, or Inguinal Adenopathy Neurological: Cranial nerves II-XII grossly intact, Motor Exam 5/5 strength throughout Psych/Mental Status: Normal Affect, Appropriate, Alert and oriented to time, place, person, mood and affect Laboratory Results 09/19/20 19:40: WBC 15.2 H, RBC 4.37, Hgb 12.9, Hct 40.7, MCV 93.1, MCH 29.5, MCHC 31.7 L, RDW Std Deviation 48.2 H, RDW Coeff of Mamadou 14.2, Plt Count 326, MPV 10.5, Immature Gran % (Auto) 0.500, Neut % (Auto) 89.6 H, Lymph % (Auto) 5.7 L, [place] % (Auto) 3.9, Eos % (Auto) 0.1, Baso % (Auto) 0.2, Absolute Neuts (auto) 13.6 H, Absolute Lymphs (auto) 0.87, Nucleated RBC % 0 09/19/20 19:40: Sodium 139, Potassium 4.2, Chloride 106, Carbon Dioxide 23.0, Anion Gap 10, BUN 20 H, Creatinine 1.02, Estim Creat Clear Calc 35.78, Est GFR (MDRD) Af Amer 67, Est GFR (MDRD) Non-Af 55 L, BUN/Creatinine Ratio 19.6, Glucose 164 H, Calcium 9.0 Clinical Impression(s) from Imaging Studies Abdomen/Pelvis CT 09/19/20 19:25 IMPRESSION: 1. Short segment wall thickening of the proximal sigmoid colon with proximal colonic (more than small bowel) dilation and fluid-filled lumen, suggesting at least partial colonic obstruction. Differential considerations include localized colitis, chronic muscular hyperplasia/chronic diverticulosis and neoplasm. Electronically Signed: Luis Cuadra MD ([place]) at 21:03 EST , Service support , Current Medications Ciprofloxacin (Cipro) 400 mg in 200 mls @ 200 mls/hr IV X1 ONE Stop: 09/19/20 22:20 Last Admin: 09/19/20 21:40 Dose: 200 mls/hr Documented by: Metronidazole (Flagyl) 500 mg in 100 mls @ 100 mls/hr IV X1 ONE Stop: 09/19/20 22:20 Sodium Chloride () 250 mls @ 15 mls/hr IV .[id number] PRN PRN Reason: Additional IVPB Infusion Assessment/Plan All Active Problems (Last Updated 09/19/20 @ 21:[address] Unique Romero MD) Partial obstruction of colon (Acute) Acute sigmoid colitis (Acute) This is an 80 years old female patient presented to the emergency room because of abdominal pain with nausea and vomiting and she was found to have acute sigmoid colitis as well as partial colonic obstruction and she is being admitted for treatment. #1 acute sigmoid colitis/partial chronic obstruction: CT scan abdomen pelvis reviewed as above. Patient had multiple abdominal surgeries including cholecystectomy, hysterectomy and herniorrhaphy. She is afebrile, vital signs are stable. Plan: Admit to [facility] floor, keep on clear liquids, IV fluids, IV morphine as needed, IV antiemetics, IV Pepcid twice daily, start IV Flagyl and ciprofloxacin, general surgery consult, check LFT and lipase, repeat CBC and BMP tomorrow morning, check pro time and INR, PT OT evaluation and treatment. Patient had COVID-19 infection back on August 25, 2020 and apart from mild cough, no other symptoms. She is on room air. #2 status post aortic valve replacement with bioprosthetic valve: Stable, no issues. #3 complete heart block status post permanent pacemaker: Heart rate stable, blood pressure stable. #4 hypertension: Blood pressure stable, continue lisinopril. #5 carotid artery disease: According to the patient, she had 68% stenosis on the right carotid artery and she supposed to go for second opinion with vascular surgery. Recommend follow-up as outpatient. #6 GERD: Start IV Pepcid twice daily. #7 hyperlipidemia: Continue statins. #8 DVT prophylaxis: Subcu Lovenox. This note was generated with [employer] dictation software. It may contain incorrect words, spelling, and punctuation that were not noted in checking the note before signing. Inpatient E&M: 35215 Init Hosp L3
[2020-09-19 21:50] VITALS: BP 157/66; PULSE 67; RESP 16; TEMP 36.7; O2SAT 92
[2020-09-19 22:51] VITALS: BMI 32.8
[2020-09-19 23:03] VITALS: BMI 32.8
[2020-09-19 23:08] VITALS: BP 105/43; PULSE 61; RESP 16; TEMP 36.9; O2SAT 95
[2020-09-19 23:19] LABS: AST(SGOT) 28 U/L (15-37); Alanine Aminotransfer ALT/SGPT 19 U/L (13-56); Albumin, Serum 3.7 g/dL (3.2-5.0); Alkaline Phosphatase 98 U/L (45-117); Globulin 4.7 g/dL (2.2-4.2); Lipase 63 U/L (73-393); Protein, Total 8.4 g/dL (6.4-8.2)
[2020-09-19 23:24] VITALS: O2SAT 95
[2020-09-19] MEDS: metroNIDAZOLE 500 MG/100 ML BAG 100 MG IV (23:33)
[2020-09-19 23:45] LABS: International Normalized Ratio 1.1; Prothrombin Time (Protime)PT. 13.4 SECONDS (11.7-14.9)
[2020-09-19] MEDS: Pramipexole Di-HCl 0.25 MG Tablet PO (23:59)
[2020-09-20] VITALS (8 sets, daily range): BP systolic 102–152; BP diastolic 45–72; PULSE 60–65; RESP 16–18; TEMP 36.5–37.3; O2SAT 93–95
[2020-09-20] MEDS: Lactated Ringers 1,000 ML 75 ML IV ×2 (00:57→16:54)
[2020-09-20] MEDS: Famotidine 200 MG/20 ML MDV 20 MG in 0.9% Normal Saline (Pres. free 8 ML 300 MG IV ×2 (00:58→22:54)
[2020-09-20] MEDS: Ondansetron 4 MG/2 ML Vial IV (05:19)
[2020-09-20 05:26] LABS: Absolute Lymphocyte Count 1.01 X10^3/uL (0.83-4.51); Absolute Neutrophil Count 9.5 X10^3/uL (2.0-7.7); Basophil# 0.02 X10^3/uL; Basophil% 0.2 % (0-1); Eosinophil# 0.01 X10^3/uL; Eosinophils% 0.1 % (0-5); Hematocrit 35.6 % (37-47); Hemoglobin 11.5 g/dL (12.0-15.0); Lymphocyte # 1.01 X10^3/ul (4.0); Lymphocyte % 8.7 % (19-41); Mean Corp Hgb Conc 32.3 g/dL (32-36); Mean Corpuscular Hgb 30.5 pg (27.0-32.0); Mean Corpuscular Volume 94.4 fL (81-99); Mean Platelet Vol. 9.8 fl (6.2-12.0); Monocyte# 1.01 X10^3/uL; Monocyte% 8.7 % (0-10); NRBC Flagged by Analyzer 0 % (0-5); Neutrophil # 9.53 X10^3/uL (2.7-7.7); Neutrophil % 81.9 % (47-70); Platelet Count 277 K/mm3 (150-450); RBC Distribution Width CV 14.6 % (11.6-14.6); RBC Distribution Width SD 49.8 fl (35.1-43.9); Red Blood Count 3.77 M/mm3 (4.2-5.4); White Blood Count 11.6 K/mm3 (4.4-11.0)
[2020-09-20] MEDS: metroNIDAZOLE 500 MG/100 ML BAG 100 MG IV ×3 (05:27→21:29)
[2020-09-20 05:44] LABS: Anion Gap 8 (5-15); BUN 22 mg/dL (7-18); BUN/Creat Ratio 25.5 RATIO (10-20); Chloride 106 mmol/L (98-107); Creatinine, Serum 0.86 mg/dL (0.55-1.02); EST Glomerular Filtration Rate 67 mL/min (>60); Est Glom Filt Rate - Afr Amer 81 mL/min (>60); Estimated Creatinine Clearance 42.44 ml/min; Glucose 141 mg/dL (74-106); Potassium 3.6 mmol/L (3.5-5.1); Sodium Level 138 mmol/L (136-145)
--- NOTE | 2020-09-20 06:43 | NURSING ---
notified Dr Romero of kub results. Dr asked if this rn could auscultate the NG. Attempted. Notified that the sound was delayed and distant. waxing machine operator auscultated and also stated it was delayed and distant. Dr Romero to the floor, auscultated and stated ok to use the NG.
[2020-09-20] MEDS: Enoxaparin 40 MG/0.4 ML Syringe SC (10:03)
[2020-09-20] MEDS: Citalopram 10 MG Tablet PO (10:03)
[2020-09-20] MEDS: Lisinopril 10 MG Tablet PO (10:03)
[2020-09-20] MEDS: Famotidine 200 MG/20 ML MDV 20 MG in 0.9% Normal Saline (Pres. free 8 ML 10 MG IV (10:04)
[2020-09-20] MEDS: Ciprofloxacin 400 MG/200 ML BAG 200 MG IV ×2 (10:08→22:54)
--- NOTE | 2020-09-20 11:57 | PCM.CONS.GEN ---
Problem List (1) Acute sigmoid colitis Status: Acute (2) Partial obstruction of colon Status: Acute Reason for Consult Date of Consultation: 09/20/20 Reason for Consultation: Acute sigmoid colitis History of Present Illness: The patient is a 80 year old F who presented with a 3-4 day history of abdominal pain, nausea, vomiting. Patient thought the she was having an acute diverticulitis attack. She notes the pain increased. She stated she had nausea and vomiting for 18 hours from Sunday into Sunday. She denies having a bowel movement on Sunday which is not normal for her. She notes her normal is having a BM after every meal. She has not been passing as much flatus. She notes eating some chex mix earlier last week which she tanner not normally have and she has been eating more salads otherwise nothing out of the ordinary. When asked about the diverticulitis, she denies being hospitalized for this previously. She has been treated with antibiotics. Her last colonoscopy was in September [address] Rubio. Impression was - Internal hemorrhoids that prolapse with straining, but require manual replacement into the anal canal (Grade III) found on digital rectal exam. - Diverticulosis in the entire examined colon. There was no evidence of diverticular bleeding. Tortuous sigmoid with minimal erythema possible evidence of low grade inflammation, conservative measures recommended - No specimens collected. Patient was also admitted for an upper GI bleed in August of last year, 2018. Dr. Grider performed an upper scope identified bleeding within the distal esophagus. Patient desaturated during the procedure and procedure was aborted. She was transferred out to a tertiary facility. She was also noted to be recently post op from hiatal hernia surgery. She noted that her repair failed. She does not want another hiatal hernia repair. She states she saw Dr. Rubio in December 2019 for vision changes associated to carotid stenosis. She was hospitalized at [facility] for stroke-like symptoms and GI bleed. Carotid stenosis of the right was identified. It was recommended at that time to have stents placed in the carotid. Patient and patient's daughter did not want to quinn into this procedure. Patient had a second opinion with Dr. Rubio. It was recommended the patient return to [facility] for addition work-up of her carotid. She was at an increased risk of stroke or adverse cardiac event. She was scheduled to see a physician at [facility] earlier this month however she was diagnosed with COVID and had to cancel. She denies recent vision changes, blindness or syncope. She has a pacemaker. She is on [address] scan of the ab/pel demonstrated Short segment wall thickening of the proximal sigmoid colon with proximal colonic (more than small bowel) dilation and fluid-filled lumen, suggesting at least partial colonic obstruction. Differential considerations include localized colitis, chronic muscular hyperplasia/chronic diverticulosis and neoplasm. WBC 15.2 on admission. WBC decreased to 11.6. She notes 2 small bowel movements since admission. Normal in color. Denies BRBPR and melena. She denies nausea, vomiting. She is rating her abdominal pain a 3 or 4 out of 10. She notes a grandfather with colon cancer. She denies having previous abdominal pain such as this. NG tube was attempted to be placed however failed. Patient does not want NG tube placed. 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 Complete heart block (Chronic) Non-rheumatic aortic stenosis (Chronic) H/O aortic valve replacement (Chronic 06/28/12) Jyotsna-Nevarez #21 Amaurosis fugax of right eye (Chronic) Essential (primary) hypertension (Chronic) Hyperlipidemia (Chronic) Secondary pulmonary arterial hypertension (Chronic) Carotid artery disease (Chronic) Medical History: Medical History (Last Reviewed 09/20/20 @ 14:20 by Stephanie DENNIS PA-C) 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, implant or graft (Chronic) Onset Date: 03/31/19 T85.868A right atrial PPM lead Complete heart block (Chronic) I44.2 Non-rheumatic aortic stenosis (Chronic) I35.0 Amaurosis fugax of right eye (Chronic) G45.3 Essential (primary) hypertension (Chronic) I10 Hyperlipidemia (Chronic) E78.5 Secondary pulmonary arterial hypertension (Chronic) I27.21 Carotid artery disease (Chronic) I77.[address] scan, colon R93.3 Angiodysplasia of cecum K55.20 Bilateral carotid artery stenosis I65.23 Dementia F03.90 Difficulty swallowing R13.10 Diverticulosis K57.90 GERD (gastroesophageal reflux disease) K21.9 GI bleed K92.2 Internal hemorrhoid K64.8 Iron deficiency anemia D50.9 Osteoarthritis M19.90 Allergies Penicillins Allergy (Verified 09/19/20 19:10) Hives Home Medications: Ambulatory Orders Medication Instructions Recorded Lisinopril [Zestril] 10 mg PO DAILY 12/25/16 mecobalamin (vitamin B12) 1,000 1,000 mcg SUBLINGUAL QDAY 03/13/18 mcg disintegrating tablet,sublingual ropinirole 0.5 mg tablet 0.5 mg PO QHS 90 Days #90 03/13/18 simvastatin 40 mg tablet 40 mg PO QPM 03/13/18 alendronate 70 mg tablet 70 mg PO QWEEK 09/11/18 citalopram 10 mg tablet 10 mg PO QDAY tab 09/11/18 Aspirin E.C. 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 Hiatal hernia repair. Psychiatric History: Depression PATIENT FINANCIAL SERVICES MANAGER History: No pertinent PATIENT FINANCIAL SERVICES MANAGER history Smoking Status: Never smoker Alcohol: None Drugs: None - *Family History Maternal Family History: Family History (Last Reviewed 09/20/20 @ 14:21 by Stephanie DENNIS PA-C) Mother Hypertension Heart disease Brother Hypertension Father Hypertension Review of Systems Constitutional: Denies: Chills, Fever, Weight Change HEENT: Denies: Head Aches, Sinus Congestion, Sinus Drainage Cardiovascular: Denies: Chest Pain, Palpitations Respiratory: Denies: Cough, Shortness of breath at rest, Sputum production Gastrointestinal: Reports: Abdominal Pain, Constipation Genitourinary: Denies: Dysuria Musculoskeletal: Denies: Joint Pain, Joint Tenderness Skin: Denies: Rash, Wounds Neurological: Denies: Numbness, Tingling, Focal weakness Psychiatric: Denies: Anxiety, Depression, Homicidal Ideations, Suicidal Ideations Hematologic/ Lymphatic: Denies: Easy Bruising, Easy Bleeding Patient Problems: Active and Suspected Problems (Last Reviewed 09/20/20 @ 14:20 by SIMA ConnollyC) Acute sigmoid colitis (Acute) Partial obstruction of colon (Acute) - Physical Exam Vitals/I&O's: Vital Signs Temp Pulse Resp BP Pulse Ox 97.7 F L 60 18 119/55 L 95 09/20/20 09:59 09/20/20 09:59 09/20/20 09:59 09/20/20 09:59 09/20/20 09:59 Oxygen Delivery Method Room Air Weight: 184 lb 15.485 oz Body Mass Index (BMI) 32.8 Intake and Output for Last 24 Hours 09/18/20 09/19/20 09/20/20 23:59 23:59 23:59 Intake Total 700 / 700 707.5 / 707.5 Output Total 300 / 300 Balance 700 / 700 407.5 / 407.5 General: Alert, Oriented x3, Cooperative HEENT: Atraumatic, PERRLA, EOMI, Normocephalic Neck: Supple, No JVD, Negative Carotid Bruits Lungs: Clear to auscultation, Normal air movement Cardiovascular: Regular rate, No murmurs Abdomen: Soft, Hypoactive Bowel Sounds, Tender - left lower quadrant Extremities: No edema, Capillary Refill Less than 3 Seconds Skin: No rashes, No breakdown Musculoskeletal: No Tenderness to Palpation of Joints or Extremities Neurological: Neuro grossly intact Psych/Mental Status: Normal Affect, Appropriate Laboratory Results 09/19/20 19:40: WBC 15.2 H, RBC 4.37, Hgb 12.9, Hct 40.7, MCV 93.1, MCH 29.5, MCHC 31.7 L, RDW Std Deviation 48.2 H, RDW Coeff of Mamadou 14.2, Plt Count 326, MPV 10.5, Immature Gran % (Auto) 0.500, Neut % (Auto) 89.6 H, Lymph % (Auto) 5.7 L, [place] % (Auto) 3.9, Eos % (Auto) 0.1, Baso % (Auto) 0.2, Absolute Neuts (auto) 13.6 H, Absolute Lymphs (auto) 0.87, Nucleated RBC % 0 09/19/20 19:40: Sodium 139, Potassium 4.2, Chloride 106, Carbon Dioxide 23.0, Anion Gap 10, BUN 20 H, Creatinine 1.02, Estim Creat Clear Calc 35.78, Est GFR (MDRD) Af Amer 67, Est GFR (MDRD) Non-Af 55 L, BUN/Creatinine Ratio 19.6, Glucose 164 H, Calcium 9.0 09/19/20 19:40: Total Bilirubin 1.30 H, Direct Bilirubin 0.30, AST 28, ALT 19, Alkaline Phosphatase 98, Total Protein 8.4 H, Albumin 3.7, Globulin 4.7 H, Lipase 63 L 09/19/20 23:25: PT 13.4, INR 1.1 09/20/20 05:10: WBC 11.6 H, RBC 3.77 L, Hgb 11.5 L, Hct 35.6 L, MCV 94.4, MCH 30.5, MCHC 32.3, RDW Std Deviation 49.8 H, RDW Coeff of Mamadou 14.6, Plt Count 277, MPV 9.8, Immature Gran % (Auto) 0.400, Neut % (Auto) 81.9 H, Lymph % (Auto) 8.7 L, [place] % (Auto) 8.7, Eos % (Auto) 0.1, Baso % (Auto) 0.2, Absolute Neuts (auto) 9.5 H, Absolute Lymphs (auto) 1.01, Nucleated RBC % 0 09/20/20 05:10: Sodium 138, Potassium 3.6, Chloride 106, Carbon Dioxide 24.0, Anion Gap 8, BUN 22 H, Creatinine 0.86, Estim Creat Clear Calc 42.44, Est GFR (MDRD) Af Amer 81, Est GFR (MDRD) Non-Af 67, BUN/Creatinine Ratio 25.5 H, Glucose 141 H, Calcium 8.0 L Current Medications Acetaminophen (Acetaminophen 325 Mg Tablet) 650 mg PO Q6H PRN PRN PRN Reason: Pain Score 1-10/Temp > 100.7 F Atorvastatin Calcium (Atorvastatin Calcium 20 Mg Tablet) 20 mg PO QHS [facility] Calamine/Phenol (Menthol/Lanolin/Calamine/Znox 113 Gm Tube) 1 applic TOPICAL BID [facility]; Protocol Citalopram Hydrobromide (Citalopram 10 Mg Tablet) 10 mg PO DAILY [facility] Last Admin: 09/20/20 10:03 Dose: 10 mg Documented by: Enoxaparin Sodium (Enoxaparin 40 Mg/0.4 Ml Syringe) 40 mg SC DAILY [facility] Last Admin: 09/20/20 10:03 Dose: 40 mg Documented by: Lactated Ringer's () 1,000 mls @ 75 mls/hr IV .[id number] [facility] Last Infusion: 09/20/20 06:27 Dose: 75 mls/hr Documented by: Famotidine 20 mg/ Sodium (Chloride) 10 mls @ 300 mls/hr IV Q12 [facility] Last Infusion: 09/20/20 10:10 Dose: Infused Documented by: Ciprofloxacin (Cipro) 400 mg in 200 mls @ 200 mls/hr IV Q12 [facility] Last Admin: 09/20/20 10:08 Dose: 200 mls/hr Documented by: Metronidazole (Flagyl) 500 mg in 100 mls @ 100 mls/hr IV Q8 [facility] Last Infusion: 09/20/20 06:27 Dose: Infused Documented by: Lisinopril (Lisinopril 10 Mg Tablet) 10 mg PO DAILY [facility] Last Admin: 09/20/20 10:03 Dose: 10 mg Documented by: Morphine Sulfate (Morphine 2 Mg/Ml Syringe) 2 mg IV Q3H PRN PRN PRN Reason: Pain Score 6-10 Ondansetron HCl (Ondansetron 4 Mg/2 Ml Vial) 4 mg IV Q8H PRN PRN PRN Reason: NAUSEA/VOMITING Last Admin: 09/20/20 05:19 Dose: 4 mg Documented by: Pramipexole Dihydrochloride (Pramipexole Di-Hcl 0.25 Mg Tablet) 0.25 mg PO QHS [facility] Last Admin: 09/19/20 23:59 Dose: 0.25 mg Documented by: Assessment/Plan All Active Problems (Last Reviewed 09/20/20 @ 14:20 by Stephanie DENNIS, PACarminaC) Acute sigmoid colitis (Acute) Partial obstruction of colon (Acute) I have been consulted in conjunction with Dr. Bañuelos. Dr. Rubio will be taking over care in Dr. Bañuelos's absence. Impression: Sigmoid colitis, etiology unknown. Plan: Patient was discussed with Dr. Rubio. Recommend IV antibiotics, bowel rest and observation. Patient has multiple medical comorbidities which place her at a higher risk for surgery. If symptoms progress and surgery is needed, she will need to be transferred to a tertiary facility. Patient has had the opportunity to ask and have questions answered. Patient verbally understands and agrees with the plan. Thank you for allowing us to participate in this patient's care. Office Visits / Consults: [id number] IP Consult L3
--- NOTE | 2020-09-20 12:55 | CASEMGMT ---
RN CM RESERVATIONS SALES SUPERVISOR CM to room to meet with patient for initial transition planning/care coordination assessment. NARCISA DUQUE introduced self and role at [facility]. Pt voices understanding and consents to assessment at this time. Pt resting in bed in no distress at this time. Pt is A/O at this time and answers all questions appropriately. Care providers, pharmacy, and demographics verified/updated at this time. PCP: Dr Wagner Specialists: Dr Rock--cardiology, Dr Estrada--vascular surgeon @ [facility] Preferred Pharmacy: [facility] Retail pharmacy Insurance: [employer] [facility], [employer] Prescription Benefit: Yes Living Will/HPOA: Has LW and Healthcare Mary LOTT (friend) LNOK: Mary LOTT (friend), Has 4 adult children Living Arrangements: Lives alone in one-story home @ [facility]. One step to enter. Independent w/ADL's and IADL's. Mary goes grocery shopping and runs errands for her. Daughter, Belinda, also lives close and able to help. Has CM, Akil, does not have aides currently, but states I could get them again if I wanted to. States she does not receive home delivered meals. Transportation: Pt states drives self and states no transportation concerns at this time. Belinda will most likely take her home @ d/c DME: States has the following DME: shower chair, BSC, Cane, hand held shower, walker, rollator, W/C, Medical alert button. Pt states no need for further DME at this time. HHC/SNF: no hx of SNF. Hx of [facility] HHC. Pt wishes to return home and states has no concerns with going home at time of discharge. Discussed options of HHC and OP therapy. Pt declines HHC at this time, but would like script for OP therapy. She states she has been to OP therapy @ [facility] in the past and feels do better doing OP therapy. Will obtain script and give to pt when it is available. Pt made aware, if in the future, she would be interested in HHC, to discuss this with her PCP. She voices understanding. CM to follow for any further discharge planning/needs. Pt voices no further concerns/needs at this time. Advised pt to ask for CM if any further questions/concerns/needs arise. Voices understanding. PLAN: Home w/OP therapy. Will need script. Shala BSN RN CM
--- NOTE | 2020-09-20 13:53 | CASEMGMT ---
Addendum entered by Elvira Anderson 09/20/20 13:58: Akil Argueta called back, she states pt has a emergency response button and that is all from [facility], does not have an aide at this time and does not want one, as of a week ago. IVANNA Bravo Original Note: SW called pt's egg caser with [facility], Akil Argueta, message left letting her know pt is here in the hospital. SW also let the covering egg caser know pt is here via voicemail. IVANNA Bravo
[2020-09-20 14:54] LABS: Mucous, Urine 0 SEEN /hpf (<or=2+); Red Blood Cells-Urine 0 SEEN /hpf (0-5)
[2020-09-20 15:08] LABS: Color, Urine Yellow (Yellow); Glucose, Dipstick Normal (Normal); Ketone-Dipstick 5 mg/dl (Negative); Leukocyte Esterase-Dipstick 100 /ul (Negative); Nitrite-Dipstick Negative (Negative); Occult Blood-Urine 25 /ul (Negative); Protein-Dipstick 30 mg/dl (Negative); Urine Bilirubin Dipstick 1 mg/dL (Negative); Urine Clarity Sl Cldy (Clear); Urine Urobilinogen 1 mg/dl (Normal)
[2020-09-20 15:14] LABS: Bacteria 2+ /hpf (None Seen); Hyaline Cast 0-5 SEEN /lpf (0-5); Renal Epithelial Cells 0-5 SEEN /hpf (0-5); Squamous Epithelial Cells - UA 10-25 SEEN /hpf (5-10); White Blood Cells 0-5 SEEN /hpf (0-5)
--- NOTE | 2020-09-20 15:35 | PCM.PROGNOTE ---
Patient Problems: Active and Suspected Problems (Last Reviewed 09/20/20 @ 14:20 by Stephanie DENNIS, CHANELL) Acute sigmoid colitis (Acute) Partial obstruction of colon (Acute) Subjective: She was seen and examined today, her NG tube was removed because it was not placed appropriately, surgery saw her today and recommends conservative treatment, if the patient needs surgical intervention they recommend the patient be sent out to a tertiary facility. - Physical Exam Vitals/I&O's: Vital Signs Temp Pulse Resp BP Pulse Ox 99.1 F 60 18 125/58 H 94 09/20/20 15:10 09/20/20 15:10 09/20/20 15:10 09/20/20 15:10 09/20/20 15:10 Oxygen Delivery Method Room Air Weight: 83.9 kg Body Mass Index (BMI) 32.8 Intake and Output for Last 24 Hours 09/18/20 09/19/20 09/20/20 23:59 23:59 23:59 Intake Total 700 / 700 957.5 / 957.5 Output Total 500 / 500 Balance 700 / 700 457.5 / 457.5 General: Alert, Oriented x3, Cooperative, No apparent distress, Well developed, Well nourished HEENT: Atraumatic, PERRLA, EOMI, Normocephalic Oral: Moist Mucosa Neck: Supple, No JVD, Trachea Midline, Thyroid Normal Size and Texture Lungs: Clear to auscultation, Normal air movement, No rhonchi, No wheeze Cardiovascular: Regular rate, Regular Rhythm, Normal S1, Normal S2, No murmurs, PMI Normal, No rub noted, No Gallop Abdomen: Soft, Non Tender, Non-Distended, Hypoactive Bowel Sounds Extremities: No clubbing, No cyanosis, No edema, Capillary Refill Less than 3 Seconds Skin: No rashes, No breakdown Musculoskeletal: No Tenderness to Palpation of Joints or Extremities Neurological: Cranial nerves II-XII grossly intact, Neuro grossly intact, Muscle tone normal, Sensory exam intact to light touch and pain Psych/Mental Status: Normal Affect, Appropriate, Alert and oriented to time, place, person, mood and affect Laboratory Results 09/19/20 19:40: WBC 15.2 H, RBC 4.37, Hgb 12.9, Hct 40.7, MCV 93.1, MCH 29.5, MCHC 31.7 L, RDW Std Deviation 48.2 H, RDW Coeff of Mamadou 14.2, Plt Count 326, MPV 10.5, Immature Gran % (Auto) 0.500, Neut % (Auto) 89.6 H, Lymph % (Auto) 5.7 L, [place] % (Auto) 3.9, Eos % (Auto) 0.1, Baso % (Auto) 0.2, Absolute Neuts (auto) 13.6 H, Absolute Lymphs (auto) 0.87, Nucleated RBC % 0 09/19/20 19:40: Sodium 139, Potassium 4.2, Chloride 106, Carbon Dioxide 23.0, Anion Gap 10, BUN 20 H, Creatinine 1.02, Estim Creat Clear Calc 35.78, Est GFR (MDRD) Af Amer 67, Est GFR (MDRD) Non-Af 55 L, BUN/Creatinine Ratio 19.6, Glucose 164 H, Calcium 9.0 09/19/20 19:40: Total Bilirubin 1.30 H, Direct Bilirubin 0.30, AST 28, ALT 19, Alkaline Phosphatase 98, Total Protein 8.4 H, Albumin 3.7, Globulin 4.7 H, Lipase 63 L 09/19/20 23:25: PT 13.4, INR 1.1 09/20/20 05:10: WBC 11.6 H, RBC 3.77 L, Hgb 11.5 L, Hct 35.6 L, MCV 94.4, MCH 30.5, MCHC 32.3, RDW Std Deviation 49.8 H, RDW Coeff of Mamadou 14.6, Plt Count 277, MPV 9.8, Immature Gran % (Auto) 0.400, Neut % (Auto) 81.9 H, Lymph % (Auto) 8.7 L, [place] % (Auto) 8.7, Eos % (Auto) 0.1, Baso % (Auto) 0.2, Absolute Neuts (auto) 9.5 H, Absolute Lymphs (auto) 1.01, Nucleated RBC % 0 09/20/20 05:10: Sodium 138, Potassium 3.6, Chloride 106, Carbon Dioxide 24.0, Anion Gap 8, BUN 22 H, Creatinine 0.86, Estim Creat Clear Calc 42.44, Est GFR (MDRD) Af Amer 81, Est GFR (MDRD) Non-Af 67, BUN/Creatinine Ratio 25.5 H, Glucose 141 H, Calcium 8.0 L 09/20/20 14:45: Urine Color Yellow, Urine Clarity Sl Cldy, Urine pH 5.0, Ur Specific [place] 1.020, Urine Protein 30 H, Urine Glucose (UA) Normal, Urine Ketones 5 H, Urine Occult Blood 25 H, Urine Nitrite Negative, Urine Bilirubin 1 H, Urine Urobilinogen 1 H, Ur Leukocyte Esterase 100 H, Urine RBC 0 SEEN, Urine WBC 0-5 SEEN, Ur Squamous Epith Cells 10-25 SEEN, Ur Renal Epithelial Cell 0-5 SEEN, Urine Bacteria 2+, Hyaline Casts 0-5 SEEN, Urine Mucus 0 SEEN Current Medications Acetaminophen (Acetaminophen 325 Mg Tablet) 650 mg PO Q6H PRN PRN PRN Reason: Pain Score 1-10/Temp > 100.7 F Atorvastatin Calcium (Atorvastatin Calcium 20 Mg Tablet) 20 mg PO QHS [facility] Calamine/Phenol (Menthol/Lanolin/Calamine/Znox 113 Gm Tube) 1 applic TOPICAL BID [facility]; Protocol Citalopram Hydrobromide (Citalopram 10 Mg Tablet) 10 mg PO DAILY [facility] Last Admin: 09/20/20 10:03 Dose: 10 mg Documented by: Enoxaparin Sodium (Enoxaparin 40 Mg/0.4 Ml Syringe) 40 mg SC DAILY [facility] Last Admin: 09/20/20 10:03 Dose: 40 mg Documented by: Lactated Ringer's () 1,000 mls @ 75 mls/hr IV .[id number] [facility] Last Infusion: 09/20/20 06:27 Dose: 75 mls/hr Documented by: Famotidine 20 mg/ Sodium (Chloride) 10 mls @ 300 mls/hr IV Q12 [facility] Last Infusion: 09/20/20 10:10 Dose: Infused Documented by: Ciprofloxacin (Cipro) 400 mg in 200 mls @ 200 mls/hr IV Q12 [facility] Last Infusion: 09/20/20 11:08 Dose: Infused Documented by: Metronidazole (Flagyl) 500 mg in 100 mls @ 100 mls/hr IV Q8 [facility] Last Admin: 09/20/20 15:06 Dose: 100 mls/hr Documented by: Lisinopril (Lisinopril 10 Mg Tablet) 10 mg PO DAILY [facility] Last Admin: 09/20/20 10:03 Dose: 10 mg Documented by: Morphine Sulfate (Morphine 2 Mg/Ml Syringe) 2 mg IV Q3H PRN PRN PRN Reason: Pain Score 6-10 Ondansetron HCl (Ondansetron 4 Mg/2 Ml Vial) 4 mg IV Q8H PRN PRN PRN Reason: NAUSEA/VOMITING Last Admin: 09/20/20 05:19 Dose: 4 mg Documented by: Pramipexole Dihydrochloride (Pramipexole Di-Hcl 0.25 Mg Tablet) 0.25 mg PO QHS [facility] Last Admin: 09/19/20 23:59 Dose: 0.25 mg Documented by: Medical Necessity - Tobacco Use Smoking Status: Never smoker Assessment/Plan All Active Problems (Last Reviewed 09/20/20 @ 14:20 by Stephanie DENNIS, PA-C) Acute sigmoid colitis (Acute) Partial obstruction of colon (Acute) #1 sigmoid colitis-patient will remain on her present antibiotics and she is n.p.o. 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
[2020-09-20] MEDS: Menthol/Lanolin/Calamine/Znox 113 GM Tube 1 APPLIC TOPICAL ×2 (17:40→21:33)
[2020-09-20] MEDS: Acetaminophen 325 MG Tablet 650 MG PO (17:40)
[2020-09-20] MEDS: Atorvastatin Calcium 20 MG Tablet PO (21:31)
[2020-09-20] MEDS: Pramipexole Di-HCl 0.25 MG Tablet PO (21:31)
[2020-09-21 04:00] VITALS: BP 108/53; PULSE 59; RESP 16; TEMP 36.8; O2SAT 94
[2020-09-21] MEDS: metroNIDAZOLE 500 MG/100 ML BAG 100 MG IV ×3 (05:31→21:25)
--- NOTE | 2020-09-21 05:41 | PCM.PN.SRG ---
Patient Problems: Active and Suspected Problems (Last Reviewed 09/20/20 @ 14:20 by Stephanie DENNIS, CHANELL) Acute sigmoid colitis (Acute) Partial obstruction of colon (Acute) Subjective: 80-year-old female known to me with extracranial carotid artery occlusive disease. December 2019 I saw her for 3 episodes amaurosis fugax right eye. 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 She was referred to [facility] vascular surgery for tertiary consultation regarding her carotid occlusive disease. The patient states however that she developed COVID-19 in early August 2020 and this interfered with her vascular surgery consultation. She states she was not given a consultative date from December till August. She is still not had that consultation. I performed a upper endoscopy and colonoscopy for her September 2018. The upper endoscopy at that time demonstrated a large hiatal hernia. The colonoscopy had a good bowel prep and demonstrated diverticulosis but no polyps or masses. - Physical Exam Vitals/I&O's: Vital Signs Temp Pulse Resp BP Pulse Ox 98.3 F 59 L 16 108/53 L 94 09/21/20 04:00 09/21/20 04:00 09/21/20 04:00 09/21/20 04:00 09/21/20 04:00 Oxygen Delivery Method Room Air Weight: 184 lb 15.485 oz Body Mass Index (BMI) 32.8 Intake and Output for Last 24 Hours 09/19/20 09/20/20 09/21/20 23:59 23:59 23:59 Intake Total 700 / 700 2531.25 / 2531.25 423.75 / 423.75 Output Total 1200 / 1200 Balance 700 / 700 1331.25 / 1331.25 423.75 / 423.75 Abdomen: Soft, Hypoactive Bowel Sounds - Tender to light palpation left lower quadrant with slight guarding. No rebound. Remainder of abdomen is soft Laboratory Results 09/20/20 05:10: Sodium 138, Potassium 3.6, Chloride 106, Carbon Dioxide 24.0, Anion Gap 8, BUN 22 H, Creatinine 0.86, Estim Creat Clear Calc 42.44, Est GFR (MDRD) Af Amer 81, Est GFR (MDRD) Non-Af 67, BUN/Creatinine Ratio 25.5 H, Glucose 141 H, Calcium 8.0 L 09/20/20 14:45: Urine Color Yellow, Urine Clarity Sl Cldy, Urine pH 5.0, Ur Specific [place] 1.020, Urine Protein 30 H, Urine Glucose (UA) Normal, Urine Ketones 5 H, Urine Occult Blood 25 H, Urine Nitrite Negative, Urine Bilirubin 1 H, Urine Urobilinogen 1 H, Ur Leukocyte Esterase 100 H, Urine RBC 0 SEEN, Urine WBC 0-5 SEEN, Ur Squamous Epith Cells 10-25 SEEN, Ur Renal Epithelial Cell 0-5 SEEN, Urine Bacteria 2+, Hyaline Casts 0-5 SEEN, Urine Mucus 0 SEEN Current Medications Acetaminophen (Acetaminophen 325 Mg Tablet) 650 mg PO Q6H PRN PRN PRN Reason: Pain Score 1-10/Temp > 100.7 F Last Admin: 09/20/20 17:40 Dose: 650 mg Documented by: Atorvastatin Calcium (Atorvastatin Calcium 20 Mg Tablet) 20 mg PO QHS [facility] Last Admin: 09/20/20 21:31 Dose: 20 mg Documented by: Calamine/Phenol (Menthol/Lanolin/Calamine/Znox 113 Gm Tube) 1 applic TOPICAL BID [facility]; Protocol Last Admin: 09/20/20 21:33 Dose: 1 applicatio Documented by: Citalopram Hydrobromide (Citalopram 10 Mg Tablet) 10 mg PO DAILY [facility] Last Admin: 09/20/20 10:03 Dose: 10 mg Documented by: Enoxaparin Sodium (Enoxaparin 40 Mg/0.4 Ml Syringe) 40 mg SC DAILY [facility] Last Admin: 09/20/20 10:03 Dose: 40 mg Documented by: Lactated Ringer's () 1,000 mls @ 75 mls/hr IV .[id number] [facility] Last Infusion: 09/21/20 05:34 Dose: 75 mls/hr Documented by: Famotidine 20 mg/ Sodium (Chloride) 10 mls @ 300 mls/hr IV Q12 [facility] Last Infusion: 09/20/20 23:59 Dose: Infused Documented by: Ciprofloxacin (Cipro) 400 mg in 200 mls @ 200 mls/hr IV Q12 [facility] Last Infusion: 09/20/20 23:54 Dose: Infused Documented by: Metronidazole (Flagyl) 500 mg in 100 mls @ 100 mls/hr IV Q8 [facility] Last Admin: 09/21/20 05:31 Dose: 100 mls/hr Documented by: Lisinopril (Lisinopril 10 Mg Tablet) 10 mg PO DAILY [facility] Last Admin: 09/20/20 10:03 Dose: 10 mg Documented by: Morphine Sulfate (Morphine 2 Mg/Ml Syringe) 2 mg IV Q3H PRN PRN PRN Reason: Pain Score 6-10 Ondansetron HCl (Ondansetron 4 Mg/2 Ml Vial) 4 mg IV Q8H PRN PRN PRN Reason: NAUSEA/VOMITING Last Admin: 09/20/20 05:19 Dose: 4 mg Documented by: Pramipexole Dihydrochloride (Pramipexole Di-Hcl 0.25 Mg Tablet) 0.25 mg PO QHS [facility] Last Admin: 09/20/20 21:31 Dose: 0.25 mg Documented by: Medical Necessity - Tobacco Use Smoking Status: Never smoker Assessment/Plan All Active Problems (Last Reviewed 09/20/20 @ 14:20 by Stephanie DENNIS, PA-C) Acute sigmoid colitis (Acute) Partial obstruction of colon (Acute) As noted she had COVID-19 early in August. Where there this affected her microvascular supply to her sigmoid colon is indeterminate. She would be at significant operative risk and she is aware of that. As noted above she has not had a tertiary level vascular consultation as of yet. Recommend ongoing medical care. Fortunately patient states that she is feeling improved at this time but still has tenderness left lower quadrant to palpation. Will initiate clear liquids. Medical maximization of care indicated. Camron Rubio M.D., F.A.C.S.
[2020-09-21] MEDS: Ondansetron 4 MG/2 ML Vial IV ×3 (06:18→18:56)
[2020-09-21 06:24] LABS: Absolute Neutrophil Count 7.5 X10^3/uL (2.0-7.7); Basophil# 0.04 X10^3/uL; Basophil% 0.4 % (0-1); Eosinophil# 0.04 X10^3/uL; Eosinophils% 0.4 % (0-5); Hematocrit 37.4 % (37-47); Hemoglobin 11.6 g/dL (12.0-15.0); Lymphocyte % 15.7 % (19-41); Mean Corpuscular Hgb 29.2 pg (27.0-32.0); Mean Corpuscular Volume 94.2 fL (81-99); Mean Platelet Vol. 9.5 fl (6.2-12.0); Monocyte# 0.98 X10^3/uL; Monocyte% 9.6 % (0-10); NRBC Flagged by Analyzer 0 % (0-5); Neutrophil # 7.52 X10^3/uL (2.7-7.7); Neutrophil % 73.5 % (47-70); Platelet Count 314 K/mm3 (150-450); RBC Distribution Width CV 14.4 % (11.6-14.6); RBC Distribution Width SD 50.2 fl (35.1-43.9); Red Blood Count 3.97 M/mm3 (4.2-5.4); White Blood Count 10.2 K/mm3 (4.4-11.0)
[2020-09-21 07:03] VITALS: O2SAT 95
[2020-09-21 09:07] VITALS: BP 128/56; PULSE 62; RESP 18; TEMP 36.6; O2SAT 95
--- NOTE | 2020-09-21 09:07 | CASEMGMT ---
NARCISA CM NOTE: Insurance review for hospitals In-network with [facility] Community Plan Insurance if transfer is recommended is as follows: [facility], [employer], [facility], [facility], [facility], [facility], [facility] ([facility]), and . Shala LONG RN CM
[2020-09-21] MEDS: Famotidine 200 MG/20 ML MDV 20 MG in 0.9% Normal Saline (Pres. free 8 ML 10 MG IV (09:19)
[2020-09-21] MEDS: Ciprofloxacin 400 MG/200 ML BAG 200 MG IV ×2 (09:19→22:53)
[2020-09-21] MEDS: Lisinopril 10 MG Tablet PO (09:20)
[2020-09-21] MEDS: Enoxaparin 40 MG/0.4 ML Syringe SC (09:20)
[2020-09-21] MEDS: Citalopram 10 MG Tablet PO (09:20)
[2020-09-21] MEDS: Menthol/Lanolin/Calamine/Znox 113 GM Tube 1 APPLIC TOPICAL ×2 (09:20→21:26)
--- NOTE | 2020-09-21 12:02 | CASEMGMT ---
NARCISA DUQUE NOTE: Script for OP PT/OT obtained from Dr Umana and given to pt. Pt aware she can take to location of her choice. Shala LONG RN CM
[2020-09-21] MEDS: Lactated Ringers 1,000 ML 30 ML IV (14:20)
[2020-09-21 14:24] VITALS: BP 107/53; PULSE 62; RESP 18; TEMP 36.9; O2SAT 94
--- NOTE | 2020-09-21 14:27 | PCM.PROGNOTE ---
Patient Problems: Active and Suspected Problems (Last Reviewed 09/20/20 @ 14:20 by Stephanie DENNIS, PACarminaC) Acute sigmoid colitis (Acute) Partial obstruction of colon (Acute) Subjective: Patient was seen and examined today, she complains of nausea but is otherwise doing well, patient has no complaints of any abdominal discomfort and she is passing flatus and having bowel movements. Objective: General: Alert, Oriented x3, Cooperative, No apparent distress, Well developed, Well nourished HEENT: Atraumatic, PERRLA, EOMI, Normocephalic Oral: Moist Mucosa Neck: Supple, No JVD, Trachea Midline, Thyroid Normal Size and Texture Lungs: Clear to auscultation, Normal air movement, No rhonchi, No wheeze Cardiovascular: Regular rate, Regular Rhythm, Normal S1, Normal S2, No murmurs, PMI Normal, No rub noted, No Gallop Abdomen: Soft, Non Tender, Non-Distended, Hypoactive Bowel Sounds Extremities: No clubbing, No cyanosis, No edema, Capillary Refill Less than 3 Seconds Skin: No rashes, No breakdown Musculoskeletal: No Tenderness to Palpation of Joints or Extremities Neurological: Cranial nerves II-XII grossly intact, Neuro grossly intact, Muscle tone normal, Sensory exam intact to light touch and pain Psych/Mental Status: Normal Affect, Appropriate, Alert and oriented to time, place, person, mood and affect - Physical Exam Vitals/I&O's: Vital Signs Temp Pulse Resp BP Pulse Ox 97.9 F 62 18 128/56 H 95 09/21/20 09:07 09/21/20 09:07 09/21/20 09:07 09/21/20 09:07 09/21/20 09:07 Oxygen Delivery Method Room Air Weight: 83.9 kg Body Mass Index (BMI) 32.8 Intake and Output for Last 24 Hours 09/19/20 09/20/20 09/21/20 23:59 23:59 23:59 Intake Total 700 / 700 2531.25 / 2531.25 1208.58 / 1208.58 Output Total 1200 / 1200 Balance 700 / 700 1331.25 / 1331.25 1208.58 / 1208.58 Laboratory Results 09/20/20 14:45: Urine Color Yellow, Urine Clarity Sl Cldy, Urine pH 5.0, Ur Specific [place] 1.020, Urine Protein 30 H, Urine Glucose (UA) Normal, Urine Ketones 5 H, Urine Occult Blood 25 H, Urine Nitrite Negative, Urine Bilirubin 1 H, Urine Urobilinogen 1 H, Ur Leukocyte Esterase 100 H, Urine RBC 0 SEEN, Urine WBC 0-5 SEEN, Ur Squamous Epith Cells 10-25 SEEN, Ur Renal Epithelial Cell 0-5 SEEN, Urine Bacteria 2+, Hyaline Casts 0-5 SEEN, Urine Mucus 0 SEEN 09/21/20 06:08: WBC 10.2, RBC 3.97 L, Hgb 11.6 L, Hct 37.4, MCV 94.2, MCH 29.2, MCHC 31.0 L, RDW Std Deviation 50.2 H, RDW Coeff of Mamadou 14.4, Plt Count 314, MPV 9.5, Immature Gran % (Auto) 0.400, Neut % (Auto) 73.5 H, Lymph % (Auto) 15.7 L, [place] % (Auto) 9.6, Eos % (Auto) 0.4, Baso % (Auto) 0.4, Absolute Neuts (auto) 7.5, Absolute Lymphs (auto) 1.60, Nucleated RBC % 0 Current Medications Acetaminophen (Acetaminophen 325 Mg Tablet) 650 mg PO Q6H PRN PRN PRN Reason: Pain Score 1-10/Temp > 100.7 F Last Admin: 09/20/20 17:40 Dose: 650 mg Documented by: Atorvastatin Calcium (Atorvastatin Calcium 20 Mg Tablet) 20 mg PO QHS [facility] Last Admin: 09/20/20 21:31 Dose: 20 mg Documented by: Calamine/Phenol (Menthol/Lanolin/Calamine/Znox 113 Gm Tube) 1 applic TOPICAL BID [facility]; Protocol Last Admin: 09/21/20 09:20 Dose: 1 applicatio Documented by: Citalopram Hydrobromide (Citalopram 10 Mg Tablet) 10 mg PO DAILY [facility] Last Admin: 09/21/20 09:20 Dose: 10 mg Documented by: Enoxaparin Sodium (Enoxaparin 40 Mg/0.4 Ml Syringe) 40 mg SC DAILY [facility] Last Admin: 09/21/20 09:20 Dose: 40 mg Documented by: Lactated Ringer's () 1,000 mls @ 30 mls/hr IV .[id number] [facility] Last Infusion: 09/21/20 14:21 Dose: 0 mls/hr Documented by: Famotidine 20 mg/ Sodium (Chloride) 10 mls @ 300 mls/hr IV Q12 [facility] Last Infusion: 09/21/20 10:15 Dose: Infused Documented by: Ciprofloxacin (Cipro) 400 mg in 200 mls @ 200 mls/hr IV Q12 [facility] Last Infusion: 09/21/20 10:19 Dose: Infused Documented by: Metronidazole (Flagyl) 500 mg in 100 mls @ 100 mls/hr IV Q8 [facility] Last Admin: 09/21/20 14:19 Dose: 100 mls/hr Documented by: Lisinopril (Lisinopril 10 Mg Tablet) 10 mg PO DAILY [facility] Last Admin: 09/21/20 09:20 Dose: 10 mg Documented by: Morphine Sulfate (Morphine 2 Mg/Ml Syringe) 2 mg IV Q3H PRN PRN PRN Reason: Pain Score 6-10 Ondansetron HCl (Ondansetron 4 Mg/2 Ml Vial) 4 mg IV Q6H PRN PRN PRN Reason: NAUSEA/VOMITING Last Admin: 09/21/20 12:33 Dose: 4 mg Documented by: Pramipexole Dihydrochloride (Pramipexole Di-Hcl 0.25 Mg Tablet) 0.25 mg PO QHS [facility] Last Admin: 09/20/20 21:31 Dose: 0.25 mg Documented by: Sodium Chloride (0.9% Saline Lock 10 Ml Syringe) 10 - 40 ml IV UD PRN PRN Reason: SALINE FLUSH Medical Necessity - Tobacco Use Smoking Status: Never smoker Assessment/Plan All Active Problems (Last Reviewed 09/20/20 @ 14:20 by Stephanie DENNIS, PA-C) Acute sigmoid colitis (Acute) Partial obstruction of colon (Acute) #1 sigmoid colitis-patient will remain on her present antibiotics, her diet has been advanced by surgery. 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
[2020-09-21] MEDS: Pramipexole Di-HCl 0.25 MG Tablet PO (21:27)
[2020-09-21] MEDS: Atorvastatin Calcium 20 MG Tablet PO (21:27)
[2020-09-21 21:36] VITALS: BP 110/44; PULSE 59; RESP 16; TEMP 36.9; O2SAT 95
[2020-09-21] MEDS: Famotidine 200 MG/20 ML MDV 20 MG in 0.9% Normal Saline (Pres. free 8 ML 300 MG IV (22:53)
[2020-09-22 03:45] VITALS: BP 121/53; PULSE 59; RESP 16; TEMP 36.7; O2SAT 94
[2020-09-22] MEDS: metroNIDAZOLE 500 MG/100 ML BAG 100 MG IV ×3 (05:29→21:02)
--- NOTE | 2020-09-22 05:31 | PN.SURG_ITS ---
Patient Problems: Active and Suspected Problems (Last Reviewed 09/20/20 @ 14:20 by Stephanie DENNIS, PACarminaC) Acute sigmoid colitis (Acute) Partial obstruction of colon (Acute) Subjective: Pt generally feels improved. Had nausea and vomiting of cranberry juice. Is tolerating sips xiomara blayne. Stool and flatus with initial diarrhea now improving - Physical Exam Vitals/I&O's: Vital Signs Temp Pulse Resp BP Pulse Ox 98.1 F 59 L 16 121/53 H 94 09/22/20 03:45 09/22/20 03:45 09/22/20 03:45 09/22/20 03:45 09/22/20 03:45 Oxygen Delivery Method Room Air Weight: 184 lb 15.485 oz Body Mass Index (BMI) 32.8 Intake and Output for Last 24 Hours 09/20/20 09/21/20 09/22/20 23:59 23:59 23:59 Intake Total 2531.25 / 2531.25 1718.58 / 1838.58 320 / 320 Output Total 1200 / 1200 200 / 200 Balance 1331.25 / 1331.25 1518.58 / 1638.58 320 / 320 Abdomen: Soft, - - mild LLQ tenderness Laboratory Results 09/21/20 06:08: WBC 10.2, RBC 3.97 L, Hgb 11.6 L, Hct 37.4, MCV 94.2, MCH 29.2, MCHC 31.0 L, RDW Std Deviation 50.2 H, RDW Coeff of Mamadou 14.4, Plt Count 314, MPV 9.5, Immature Gran % (Auto) 0.400, Neut % (Auto) 73.5 H, Lymph % (Auto) 15.7 L, [place] % (Auto) 9.6, Eos % (Auto) 0.4, Baso % (Auto) 0.4, Absolute Neuts (auto) 7.5, Absolute Lymphs (auto) 1.60, Nucleated RBC % 0 Current Medications Acetaminophen (Acetaminophen 325 Mg Tablet) 650 mg PO Q6H PRN PRN PRN Reason: Pain Score 1-10/Temp > 100.7 F Last Admin: 09/20/20 17:40 Dose: 650 mg Documented by: Atorvastatin Calcium (Atorvastatin Calcium 20 Mg Tablet) 20 mg PO QHS [facility] Last Admin: 09/21/20 21:27 Dose: 20 mg Documented by: Calamine/Phenol (Menthol/Lanolin/Calamine/Znox 113 Gm Tube) 1 applic TOPICAL BID [facility]; Protocol Last Admin: 09/21/20 21:26 Dose: 1 applicatio Documented by: Citalopram Hydrobromide (Citalopram 10 Mg Tablet) 10 mg PO DAILY [facility] Last Admin: 09/21/20 09:20 Dose: 10 mg Documented by: Enoxaparin Sodium (Enoxaparin 40 Mg/0.4 Ml Syringe) 40 mg SC DAILY [facility] Last Admin: 09/21/20 09:20 Dose: 40 mg Documented by: Lactated Ringer's () 1,000 mls @ 30 mls/hr IV .[id number] [facility] Last Infusion: 09/21/20 15:19 Dose: 30 mls/hr Documented by: Famotidine 20 mg/ Sodium (Chloride) 10 mls @ 300 mls/hr IV Q12 [facility] Last Infusion: 09/21/20 23:31 Dose: Infused Documented by: Ciprofloxacin (Cipro) 400 mg in 200 mls @ 200 mls/hr IV Q12 [facility] Last Infusion: 09/22/20 00:02 Dose: Infused Documented by: Metronidazole (Flagyl) 500 mg in 100 mls @ 100 mls/hr IV Q8 [facility] Last Infusion: 09/21/20 23:16 Dose: Infused Documented by: Lisinopril (Lisinopril 10 Mg Tablet) 10 mg PO DAILY [facility] Last Admin: 09/21/20 09:20 Dose: 10 mg Documented by: Morphine Sulfate (Morphine 2 Mg/Ml Syringe) 2 mg IV Q3H PRN PRN PRN Reason: Pain Score 6-10 Ondansetron HCl (Ondansetron 4 Mg/2 Ml Vial) 4 mg IV Q6H PRN PRN PRN Reason: NAUSEA/VOMITING Last Admin: 09/21/20 18:56 Dose: 4 mg Documented by: Pramipexole Dihydrochloride (Pramipexole Di-Hcl 0.25 Mg Tablet) 0.25 mg PO QHS [facility] Last Admin: 09/21/20 21:27 Dose: 0.25 mg Documented by: Sodium Chloride (0.9% Saline Lock 10 Ml Syringe) 10 - 40 ml IV UD PRN PRN Reason: SALINE FLUSH Medical Necessity - Tobacco Use Smoking Status: Never smoker Assessment/Plan All Active Problems (Last Reviewed 09/20/20 @ 14:20 by Stephanie DENNIS, PA-C) Acute sigmoid colitis (Acute) Partial obstruction of colon (Acute) General slow improvement I strongly suspect Covid 19 related associated micro thrombosis and escalation of sigmoid colitis Pt on IV antibiotics and SC lovenox Will hold at clear liquids and reassess later today
[2020-09-22] MEDS: Ondansetron 4 MG/2 ML Vial IV ×2 (07:16→19:49)
[2020-09-22] MEDS: 0.9% Saline Lock 10 ML Syringe IV ×3 (07:18→22:43)
[2020-09-22 09:06] VITALS: O2SAT 90
[2020-09-22] MEDS: Menthol/Lanolin/Calamine/Znox 113 GM Tube 1 APPLIC TOPICAL ×2 (09:17→21:02)
[2020-09-22] MEDS: Enoxaparin 40 MG/0.4 ML Syringe SC (09:17)
[2020-09-22] MEDS: Famotidine 200 MG/20 ML MDV 20 MG in 0.9% Normal Saline (Pres. free 8 ML 300 MG IV ×2 (09:19→22:43)
[2020-09-22 09:25] VITALS: BP 119/60; PULSE 60; RESP 18; TEMP 36.6; O2SAT 95
[2020-09-22] MEDS: Ciprofloxacin 400 MG/200 ML BAG 200 MG IV ×2 (09:27→22:43)
--- NOTE | 2020-09-22 11:33 | PCM.PROGNOTE ---
Patient Problems: Active and Suspected Problems (Last Reviewed 09/20/20 @ 14:20 by Stephanie DENNIS, PACarminaC) Acute sigmoid colitis (Acute) Partial obstruction of colon (Acute) Subjective: Seen and examined today, I talked to general surgery about her care, they do not want to advance her diet too quickly, she is still having some loose stools but she does not complain of severe abdominal discomfort. Patient remains afebrile. Objective: General: Alert, Oriented x3, Cooperative, No apparent distress, Well developed, Well nourished HEENT: Atraumatic, PERRLA, EOMI, Normocephalic Oral: Moist Mucosa Neck: Supple, No JVD, Trachea Midline, Thyroid Normal Size and Texture Lungs: Clear to auscultation, Normal air movement, No rhonchi, No wheeze Cardiovascular: Regular rate, Regular Rhythm, Normal S1, Normal S2, No murmurs, PMI Normal, No rub noted, No Gallop Abdomen: Soft, Non Tender, Non-Distended, Hypoactive Bowel Sounds Extremities: No clubbing, No cyanosis, No edema, Capillary Refill Less than 3 Seconds Skin: No rashes, No breakdown Musculoskeletal: No Tenderness to Palpation of Joints or Extremities Neurological: Cranial nerves II-XII grossly intact, Neuro grossly intact, Muscle tone normal, Sensory exam intact to light touch and pain Psych/Mental Status: Normal Affect, Appropriate, Alert and oriented to time, place, person, mood and affect - Physical Exam Vitals/I&O's: Vital Signs Temp Pulse Resp BP Pulse Ox 97.8 F 60 18 119/60 95 09/22/20 09:25 09/22/20 09:25 09/22/20 09:25 09/22/20 09:25 09/22/20 09:25 Oxygen Delivery Method Room Air Weight: 83.9 kg Body Mass Index (BMI) 32.8 Intake and Output for Last 24 Hours 09/20/20 09/21/20 09/22/20 23:59 23:59 23:59 Intake Total 2531.25 / 2531.25 1718.58 / 1838.58 1177 / 1177 Output Total 1200 / 1200 200 / 200 200 / 200 Balance 1331.25 / 1331.25 1518.58 / 1638.58 977 / 977 Current Medications Acetaminophen (Acetaminophen 325 Mg Tablet) 650 mg PO Q6H PRN PRN PRN Reason: Pain Score 1-10/Temp > 100.7 F Last Admin: 09/20/20 17:40 Dose: 650 mg Documented by: Atorvastatin Calcium (Atorvastatin Calcium 20 Mg Tablet) 20 mg PO QHS [facility] Last Admin: 09/21/20 21:27 Dose: 20 mg Documented by: Calamine/Phenol (Menthol/Lanolin/Calamine/Znox 113 Gm Tube) 1 applic TOPICAL BID [facility]; Protocol Last Admin: 09/22/20 09:17 Dose: 1 applicatio Documented by: Citalopram Hydrobromide (Citalopram 10 Mg Tablet) 10 mg PO DAILY [facility] Last Admin: 09/22/20 09:27 Dose: Not Given Documented by: Enoxaparin Sodium (Enoxaparin 40 Mg/0.4 Ml Syringe) 40 mg SC DAILY [facility] Last Admin: 09/22/20 09:17 Dose: 40 mg Documented by: Lactated Ringer's () 1,000 mls @ 30 mls/hr IV .[id number] [facility] Last Admin: 09/22/20 09:16 Dose: Not Given Documented by: Famotidine 20 mg/ Sodium (Chloride) 10 mls @ 300 mls/hr IV Q12 [facility] Last Infusion: 09/22/20 09:21 Dose: Infused Documented by: Ciprofloxacin (Cipro) 400 mg in 200 mls @ 200 mls/hr IV Q12 [facility] Last Infusion: 09/22/20 10:27 Dose: Infused Documented by: Metronidazole (Flagyl) 500 mg in 100 mls @ 100 mls/hr IV Q8 [facility] Last Infusion: 09/22/20 06:39 Dose: Infused Documented by: Lisinopril (Lisinopril 10 Mg Tablet) 10 mg PO DAILY [facility] Last Admin: 09/22/20 09:27 Dose: Not Given Documented by: Morphine Sulfate (Morphine 2 Mg/Ml Syringe) 2 mg IV Q3H PRN PRN PRN Reason: Pain Score 6-10 Ondansetron HCl (Ondansetron 4 Mg/2 Ml Vial) 4 mg IV Q6H PRN PRN PRN Reason: NAUSEA/VOMITING Last Admin: 09/22/20 07:16 Dose: 4 mg Documented by: Pramipexole Dihydrochloride (Pramipexole Di-Hcl 0.25 Mg Tablet) 0.25 mg PO QHS [facility] Last Admin: 09/21/20 21:27 Dose: 0.25 mg Documented by: Sodium Chloride (0.9% Saline Lock 10 Ml Syringe) 10 - 40 ml IV UD PRN PRN Reason: SALINE FLUSH Last Admin: 09/22/20 07:18 Dose: 10 ml Documented by: Medical Necessity - Tobacco Use Smoking Status: Never smoker Assessment/Plan All Active Problems (Last Reviewed 09/20/20 @ 14:20 by Stephanie DENNIS, PA-C) Acute sigmoid colitis (Acute) Partial obstruction of colon (Acute) #1 sigmoid colitis-patient will remain on her present antibiotics, her diet is being adjusted by general surgery #2 essential hypertension #3 carotid occlusive disease-patient is to follow-up as an outpatient concerning this #4 hyperlipidemia #5 valvular heart disease with bioprosthetic aortic valve Inpatient E&M: [id number] Subs Hosp L2
[2020-09-22 14:25] VITALS: BP 125/44; PULSE 59; RESP 16; TEMP 36.4; O2SAT 96
--- NOTE | 2020-09-22 16:13 | RAD_ITS ---
STUDY: X-RAY - ABDOMEN/PELVIS REASON FOR EXAM: Female, 80 years old. large bowel obstruction TECHNIQUE: Upright COMPARISON: 09/19/2020 FINDINGS: Normal visualized lung bases. Multiple loops of moderately dilated bowel with air-fluid levels worrisome for small bowel obstruction, but improved when compared with prior study. There is no demonstrated free abdominal air. The visualized liver, spleen and kidneys are grossly normal in size and morphology. Status post cholecystectomy. Normal visualized osseous structures. RAD/Abd Decub and/or Erect(Portabl IMPRESSION: Improved moderate small bowel obstruction. Electronically Signed: Doron Calvillo MD at 16:31 EST Tel , Service support ,
[2020-09-22 20:25] VITALS: BP 115/52; PULSE 59; RESP 18; TEMP 37.4; O2SAT 95
[2020-09-23] VITALS (42 sets, daily range): BP systolic 63–135; BP diastolic 34–74; PULSE 59–93; RESP 14–25; TEMP 36–37.7; O2SAT 90–99; BMI 32.8
--- NOTE | 2020-09-23 | COL._PTH ---
PATIENT: SVITLANA GRIJALVA LOC: [facility] U#:[id number] AGE/SX: 80/F ROOM: ICU06 RE09/19/[address]: Dr. Guy Umana DO : 1940 BED: 1 DIS: 09/30/2020 SPEC #: [id number] RECD: 09/27/20 07:58 STATUS: KANDIS REQ #: [id number] FANNY: 09/23/20 00:[address]: Camron Rubio DEPT: SURGICAL PATHOLOGY RECD BY: Kai Spencer ENTERED: 09/27/20 07:59 SP TYPE: COLON OTHR DR: MD Dr. Daniel Gonzales DO Dr. Daniel Peabody, MD Dr. Ghasem E Ashelfah, MD Dr. Holly Wyneski, MD Dr. John E Schinner, MD Dr. Mark Tereletsky, DO Tissues: A - Colon, NOS B - Colon Donuts C - Colon Donuts Procedures: Surgery Specimen Level III Surgery Specimen Level V Comments: @ Ordering doctor for SUIII edited from to @ diogo CORONA at 09/27/20 1236 @ Ordering doctor for SUVI edited from to @ diogo CORONA at 09/27/20 1236 @ Submitting doctor edited from to DR.RCEBUL Alida CORONA at 09/27/20 1236 HEADER OPERATION: Exploratory laparoscopy, laparotomy, converted to hand assist PRE-OP DIAGNOSIS: Acute sigmoid colitis, partial obstruction of colon TISSUE SUBMITTED: A - Sigmoid colon, B - Proximal donut, C - Distal donut MICROSCOPIC DIAGNOSIS A. Sigmoid colon, segmental colectomy: Nonruptured diverticular disease of colon. Five out of five benign lymph nodes. B. Proximal mucosal donut, excision: No pathologic change. C. Distal mucosal donut, biopsy: No pathologic change. AM:neymar 09/28/2020 MICROSCOPIC DESCRIPTION Slides are reviewed. GROSS DESCRIPTION A - Received in fixative is one container labeled with the patient's name and designated sigmoid colon. The specimen consists of a segment of bowel measuring 11 cm in length and is surrounded by dense yellow fibrofatty tissue. One end is stapled. The other end is open. No gross perforation is identified. The lumen contains a moderate amount of fecal material. No mucosal mass lesions are identified. Serial sections reveal multiple diverticula, none of which appear to have perforated through the bowel wall. A number of grossly unremarkable nodules are identified in the fibrofatty tissue resembling lymph nodes. Pulp House Supervisor sections are submitted in five cassettes as follows: 1-4 - diverticula, 5 - automotive leasing sales representative lymph nodes. B - Received in fixative is one container labeled with the patient's name and designated proximal donut. The specimen consists of a gutiérrez mucosal donut measuring 2.5 cm in diameter and 1 cm in length. No mucosal lesions are identified. Pulp House Supervisor sections are submitted in one cassette. C - Received in fixative is one container labeled with the patient's name and designated distal donut. The specimen consists of a gutiérrez mucosal donut measuring 2.2 cm in diameter and 1.2 cm in length. No mucosal lesions are identified. Pulp House Supervisor sections are submitted in one cassette. / AM:neymar 09/27/2020 TC:3 CPT: 59890, 38242 x2
[2020-09-23] MEDS: 0.9% Saline Lock 10 ML Syringe IV ×2 (02:28→15:12)
[2020-09-23] MEDS: Ondansetron 4 MG/2 ML Vial IV (02:28)
[2020-09-23 04:42] LABS: Absolute Lymphocyte Count 0.86 X10^3/uL (0.83-4.51); Absolute Neutrophil Count 5.8 X10^3/uL (2.0-7.7); Basophil# 0.02 X10^3/uL; Basophil% 0.3 % (0-1); Eosinophil# 0.06 X10^3/uL; Eosinophils% 0.8 % (0-5); Hematocrit 31.6 % (37-47); Lymphocyte # 0.86 X10^3/ul (4.0); Lymphocyte % 11.7 % (19-41); Mean Corp Hgb Conc 31.6 g/dL (32-36); Mean Corpuscular Hgb 29.2 pg (27.0-32.0); Mean Corpuscular Volume 92.1 fL (81-99); Mean Platelet Vol. 9.6 fl (6.2-12.0); Monocyte# 0.63 X10^3/uL; Monocyte% 8.6 % (0-10); NRBC Flagged by Analyzer 0 % (0-5); Neutrophil # 5.76 X10^3/uL (2.7-7.7); Neutrophil % 78.3 % (47-70); Platelet Count 234 K/mm3 (150-450); RBC Distribution Width CV 13.7 % (11.6-14.6); RBC Distribution Width SD 46.4 fl (35.1-43.9); Red Blood Count 3.43 M/mm3 (4.2-5.4); White Blood Count 7.4 K/mm3 (4.4-11.0)
[2020-09-23] MEDS: metroNIDAZOLE 500 MG/100 ML BAG 100 MG IV ×3 (05:23→23:10)
[2020-09-23] MEDS: Lactated Ringers 1,000 ML 30 ML IV (05:27)
--- NOTE | 2020-09-23 05:43 | PN.SURG_ITS ---
Patient Problems: Active and Suspected Problems (Last Reviewed 09/20/20 @ 14:20 by Stephanie DENNIS PA-C) Acute sigmoid colitis (Acute) Partial obstruction of colon (Acute) Subjective: 80-year-old female. She had a poor day yesterday. She complained of nausea and vomiting. Abdominal x-rays obtained late yesterday afternoon are consistent with partial small bowel obstruction. The distention of the small bowel still present though improved over admission. The patient states that 2 days ago she felt much better than what she did yesterday. She also notes that she has had at least 2 or 3 previous episodes of diverticulitis. Those episodes did not require hospitalization. She states that a cytology manager came to her home and was found to test positive for COVID-19. The patient was subsequently tested and also tested positive on August 25, 2020. She states that she had a cough runny nose diarrhea and loss of taste. She states that she has some persistent mild cough. She states that her sense of taste is slowly returning. With the diverticulitis she has had some diarrhea. In the emergency room on her presentation multiple attempts were made to place a NG tube. That failed. She had had a previous laparoscopic hiatal herniorrhaphy performed at [facility]. That failed and she has a slipped wrap and the fundus of her stomach in the mediastinum. I have reviewed her current CT scan consistent with this. - Physical Exam Vitals/I&O's: Vital Signs Temp Pulse Resp BP Pulse Ox 99.1 F 60 18 135/55 H 94 09/23/20 02:25 09/23/20 02:25 09/23/20 02:25 09/23/20 02:25 09/23/20 02:25 Oxygen Delivery Method Room Air Weight: 184 lb 15.485 oz Body Mass Index (BMI) 32.8 Intake and Output for Last 24 Hours 09/21/20 09/22/20 09/23/20 23:59 23:59 23:59 Intake Total 1718.58 / 1838.58 2254.5 / 2374.5 625 / 625 Output Total 200 / 200 200 / 350 150 / 150 Balance 1518.58 / 1638.58 2054.5 / 2024.5 475 / 475 Abdomen: Soft, Hypoactive Bowel Sounds, Tender Laboratory Results 09/23/20 04:17: WBC 7.4, RBC 3.43 L, Hgb 10.0 L, Hct 31.6 L, MCV 92.1, MCH 29.2, MCHC 31.6 L, RDW Std Deviation 46.4 H, RDW Coeff of Mamadou 13.7, Plt Count 234, MPV 9.6, Immature Gran % (Auto) 0.300, Neut % (Auto) 78.3 H, Lymph % (Auto) 11.7 L, [place] % (Auto) 8.6, Eos % (Auto) 0.8, Baso % (Auto) 0.3, Absolute Neuts (auto) 5.8, Absolute Lymphs (auto) 0.86, Nucleated RBC % 0 Current Medications Acetaminophen (Acetaminophen 325 Mg Tablet) 650 mg PO Q6H PRN PRN PRN Reason: Pain Score 1-10/Temp > 100.7 F Last Admin: 09/20/20 17:40 Dose: 650 mg Documented by: Atorvastatin Calcium (Atorvastatin Calcium 20 Mg Tablet) 20 mg PO QHS [facility] Last Admin: 09/22/20 21:04 Dose: Not Given Documented by: Calamine/Phenol (Menthol/Lanolin/Calamine/Znox 113 Gm Tube) 1 applic TOPICAL BID [facility]; Protocol Last Admin: 09/22/20 21:02 Dose: 1 applicatio Documented by: Citalopram Hydrobromide (Citalopram 10 Mg Tablet) 10 mg PO DAILY [facility] Last Admin: 09/22/20 09:27 Dose: Not Given Documented by: Enoxaparin Sodium (Enoxaparin 40 Mg/0.4 Ml Syringe) 40 mg SC DAILY [facility] Last Admin: 09/22/20 09:17 Dose: 40 mg Documented by: Lactated Ringer's () 1,000 mls @ 30 mls/hr IV .[id number] [facility] Last Admin: 09/23/20 05:27 Dose: 30 mls/hr Documented by: Famotidine 20 mg/ Sodium (Chloride) 10 mls @ 300 mls/hr IV Q12 [facility] Last Infusion: 09/22/20 23:18 Dose: Infused Documented by: Ciprofloxacin (Cipro) 400 mg in 200 mls @ 200 mls/hr IV Q12 [facility] Last Infusion: 09/23/20 00:13 Dose: Infused Documented by: Metronidazole (Flagyl) 500 mg in 100 mls @ 100 mls/hr IV Q8 [facility] Last Admin: 09/23/20 05:23 Dose: 100 mls/hr Documented by: Lisinopril (Lisinopril 10 Mg Tablet) 10 mg PO DAILY [facility] Last Admin: 09/22/20 09:27 Dose: Not Given Documented by: Morphine Sulfate (Morphine 2 Mg/Ml Syringe) 2 mg IV Q3H PRN PRN PRN Reason: Pain Score 6-10 Ondansetron HCl (Ondansetron 4 Mg/2 Ml Vial) 4 mg IV Q6H PRN PRN PRN Reason: NAUSEA/VOMITING Last Admin: 09/23/20 02:28 Dose: 4 mg Documented by: Pramipexole Dihydrochloride (Pramipexole Di-Hcl 0.25 Mg Tablet) 0.25 mg PO QHS [facility] Last Admin: 09/22/20 23:09 Dose: Not Given Documented by: Sodium Chloride (0.9% Saline Lock 10 Ml Syringe) 10 - 40 ml IV UD PRN PRN Reason: SALINE FLUSH Last Admin: 09/23/20 02:28 Dose: 10 ml Documented by: Medical Necessity - Tobacco Use Smoking Status: Never smoker Assessment/Plan All Active Problems (Last Reviewed 09/20/20 @ 14:20 by Stephanie DENNIS PA-C) Acute sigmoid colitis (Acute) Partial obstruction of colon (Acute) 80-year-old female in a very difficult situation. This is 1 of several bouts of sigmoid diverticulitis. On her CT scan she had significant inflammation wall thickening of the colon and luminal narrowing causing a large bowel obstruction on her presentation. She also had significant small bowel dilatation at the same time. As noted an NG tube could not be placed. She had diagnosed COVID-19 as recently as August 25, 2020. She claims that symptoms have improved but not completely resolved. December 2019 she had presented with amaurosis fugax right eye x3 episodes. She had been referred to [facility] vascular surgery however apparently that appointment was delayed until August 2020 and never achieved because she had COVID-19 at that time. This places her at increased risk for stroke. I had wanted to obtain a Gastrografin small bowel follow-through today. I am instructed that there is no radiologist available to do that today, tomorrow, Sunday, Sunday. The patient had nausea and vomiting yesterday. She received Zofran last night. She complains of intermittent gas pains. She states that yesterday she stopped passing flatus. She is still passing some liquidy stool. She has had minimal oral clear liquid intake. Options that I have presented her are ongoing conservative management through the weekend until a Gastrografin small bowel follow-through can be obtained versus exploratory laparoscopy likely exploratory laparotomy for sigmoid colectomy and release of small bowel obstruction versus tertiary care center referral. It is of note that all of the [facility] facilities have not been doing elective surgical procedures and only emergency cases. My understanding is they will not resume normal activity until September 27. It is of note that there are reports that patients who have active COVID-19 have a 5 times increase incidence of mortality with surgical intervention. She has been made aware of this. Although she is not considered actively infected she clearly is still in the recovery period. Her operative risk would certainly be increased Patient has had an opportunity to ask and have questions answered. She will consider her treatment options and instruct me as to how she would like to proceed. Camron Rubio M.D., F.A.C.S. Addendum After further discussion with the patient she is elected to proceed with surg ical intervention. I have discussed this with the anesthesiologist and the OR supervisor contingents as well. I have reviewed her imaging. The patient is very much aware that a diverting colostomy or ileostomy may be required. She goes on to state that her mother had a very similar problem where she was operated upon found that there was such a significant problem that a resection could not be performed and she had a colostomy for the remainder of her days. The patient did not state that this was secondary to cancer. She has had an opportunity to ask and have questions answered. We will try to expedite her care. I spoke to Dr. Vidales and he is aware that an NG tube could not be placed in the emergency room. Camron Rubio M.D., F.A.C.S.
--- NOTE | 2020-09-23 06:50 | EKG12_ITS ---
Test Reason : PRE OP Blood Pressure : / mmHG Vent. Rate : 060 BPM Atrial Rate : 060 BPM P-R Int : 300 ms QRS Dur : 172 ms QT Int : 518 ms P-R-T Axes : 014 -61 106 degrees QTc Int : 518 ms AV dual-paced rhythm with prolonged AV conduction Abnormal ECG When compared with ECG of 21-SEP-2019 09:39, No significant change was found Confirmed by CARLA GROSS, ZAFAR ([id number]), editor trade journal LALITHA ESPARZA ([id number]) on 09/27/2020 9:36:50 AM Referred By: PIERRE Confirmed By:MANDO AGUIRRE MD
--- NOTE | 2020-09-23 08:32 | NURSING ---
CIED form faxed to refinery operator helper crude unit office at this time.
[2020-09-23 08:37] LABS: Anion Gap 6 (5-15); BUN 9 mg/dL (7-18); BUN/Creat Ratio 11.5 RATIO (10-20); Calcium,Total 7.5 mg/dL (8.5-10.1); Chloride 107 mmol/L (98-107); Creatinine, Serum 0.78 mg/dL (0.55-1.02); EST Glomerular Filtration Rate 75 mL/min (>60); Est Glom Filt Rate - Afr Amer 91 mL/min (>60); Glucose 113 mg/dL (74-106); Potassium 3.1 mmol/L (3.5-5.1); Sodium Level 138 mmol/L (136-145)
[2020-09-23] MEDS: Famotidine 200 MG/20 ML MDV 20 MG in 0.9% Normal Saline (Pres. free 8 ML 300 MG IV ×2 (09:13→21:45)
[2020-09-23] MEDS: Ciprofloxacin 400 MG/200 ML BAG 200 MG IV ×2 (09:30→21:47)
[2020-09-23] MEDS: Potassium Chloride 10mEq/100mL 10 MEQ/100 ML IV.SOLN. 100 MEQ IV BOLUS ×5 (09:56→20:48)
[2020-09-23] MEDS: Bupivacaine 0.25% 30 ML Vial (10:56)
[2020-09-23] MEDS: BUPIVACAINE LIPOSOME/PF 20 ML VIAL OPERA.SITE (10:56)
--- NOTE | 2020-09-23 11:12 | PN_ITS ---
Patient Problems: Active and Suspected Problems (Last Reviewed 09/20/20 @ 14:20 by Stephanie DENNIS, PADivya) Acute sigmoid colitis (Acute) Partial obstruction of colon (Acute) Subjective: No new issues overnight, she is still with a slightly tense abdomen though no nausea or vomiting today. She did have nausea and vomiting yesterday though Vitals/I&O's: Vital Signs Temp Pulse Resp BP Pulse Ox 98.4 F 59 L 18 123/43 H 94 09/23/20 08:53 09/23/20 08:53 09/23/20 08:53 09/23/20 08:53 09/23/20 08:53 Oxygen Delivery Method Room Air Weight: 184 lb 15.485 oz Body Mass Index (BMI) 32.8 Intake and Output for Last 24 Hours 09/21/20 09/22/20 09/23/20 23:59 23:59 23:59 Intake Total 1718.58 / 1838.58 2254.5 / 2374.5 725 / 725 Output Total 200 / 200 200 / 350 150 / 150 Balance 1518.58 / 1638.58 2054.5 / 2024.5 575 / 575 General: Alert, Oriented x3, Cooperative, No apparent distress HEENT: Atraumatic, PERRLA, EOMI, Normocephalic Oral: Moist Mucosa Neck: Supple, No JVD Lungs: Normal air movement, No rhonchi, No wheeze, No rales Cardiovascular: Regular rate, Regular Rhythm, Normal S1, Normal S2, No murmurs Abdomen: Soft, Non-Distended, No Hepato-splenomegaly, Tender - Left lower quadrant Extremities: No edema, Capillary Refill Less than 3 Seconds Skin: No rashes, No breakdown Neurological: Neuro grossly intact, Sensory exam intact to light touch and pain Psych/Mental Status: Normal Affect, Appropriate Microbiology Past 72 Hours 09/23/20 08:50 Mucosa - Nose SARS-CoV-2 Antigen (Rapid) - Final Laboratory Results 09/23/20 04:17: WBC 7.4, RBC 3.43 L, Hgb 10.0 L, Hct 31.6 L, MCV 92.1, MCH 29.2, MCHC 31.6 L, RDW Std Deviation 46.4 H, RDW Coeff of Mamadou 13.7, Plt Count 234, MPV 9.6, Immature Gran % (Auto) 0.300, Neut % (Auto) 78.3 H, Lymph % (Auto) 11.7 L, [place] % (Auto) 8.6, Eos % (Auto) 0.8, Baso % (Auto) 0.3, Absolute Neuts (auto) 5.8, Absolute Lymphs (auto) 0.86, Nucleated RBC % 0 09/23/20 04:17: Sodium 138, Potassium 3.1 L, Chloride 107, Carbon Dioxide 25.0, Anion Gap 6, BUN 9, Creatinine 0.78, Estim Creat Clear Calc 36.50, Est GFR (MDRD) Af Amer 91, Est GFR (MDRD) Non-Af 75, BUN/Creatinine Ratio 11.5, Glucose 113 H, Calcium 7.5 L Current Medications Acetaminophen (Acetaminophen 325 Mg Tablet) 650 mg PO Q6H PRN PRN PRN Reason: Pain Score 1-10/Temp > 100.7 F Last Admin: 09/20/20 17:40 Dose: 650 mg Documented by: Atorvastatin Calcium (Atorvastatin Calcium 20 Mg Tablet) 20 mg PO QHS [facility] Last Admin: 09/22/20 21:04 Dose: Not Given Documented by: Calamine/Phenol (Menthol/Lanolin/Calamine/Znox 113 Gm Tube) 1 applic TOPICAL BID [facility]; Protocol Last Admin: 09/22/20 21:02 Dose: 1 applicatio Documented by: Citalopram Hydrobromide (Citalopram 10 Mg Tablet) 10 mg PO DAILY [facility] Last Admin: 09/22/20 09:27 Dose: Not Given Documented by: Enoxaparin Sodium (Enoxaparin 40 Mg/0.4 Ml Syringe) 40 mg SC DAILY [facility] Last Admin: 09/23/20 08:39 Dose: Not Given Documented by: Lactated Ringer's () 1,000 mls @ 30 mls/hr IV .[id number] [facility] Last Admin: 09/23/20 05:27 Dose: 30 mls/hr Documented by: Famotidine 20 mg/ Sodium (Chloride) 10 mls @ 300 mls/hr IV Q12 [facility] Last Admin: 09/23/20 09:13 Dose: 300 mls/hr Documented by: Ciprofloxacin (Cipro) 400 mg in 200 mls @ 200 mls/hr IV Q12 [facility] Last Infusion: 09/23/20 00:13 Dose: Infused Documented by: Metronidazole (Flagyl) 500 mg in 100 mls @ 100 mls/hr IV Q8 [facility] Last Infusion: 09/23/20 06:51 Dose: Infused Documented by: Lisinopril (Lisinopril 10 Mg Tablet) 10 mg PO DAILY [facility] Last Admin: 09/22/20 09:27 Dose: Not Given Documented by: Morphine Sulfate (Morphine 2 Mg/Ml Syringe) 2 mg IV Q3H PRN PRN PRN Reason: Pain Score 6-10 Ondansetron HCl (Ondansetron 4 Mg/2 Ml Vial) 4 mg IV Q6H PRN PRN PRN Reason: NAUSEA/VOMITING Last Admin: 09/23/20 02:28 Dose: 4 mg Documented by: Pramipexole Dihydrochloride (Pramipexole Di-Hcl 0.25 Mg Tablet) 0.25 mg PO QHS [facility] Last Admin: 09/22/20 23:09 Dose: Not Given Documented by: Sodium Chloride (0.9% Saline Lock 10 Ml Syringe) 10 - 40 ml IV UD PRN PRN Reason: SALINE FLUSH Last Admin: 09/23/20 02:28 Dose: 10 ml Documented by: STROKE Vital Signs/Narrative: Vital Signs Temp Pulse Resp BP Pulse Ox 09/23/20 08:53 98.4 F 59 L 18 123/43 H 94 09/23/20 08:25 98.4 F 59 L 18 123/43 H 94 09/23/20 07:30 59 L Medical Necessity - Tobacco Use Smoking Status: Never smoker Assessment/Plan All Active Problems (Last Reviewed 09/20/20 @ 14:20 by Stephanie DENNIS, PA-C) Acute sigmoid colitis (Acute) Partial obstruction of colon (Acute) 1. Sigmoid diverticulitis -She has had this multiple times before -There was some concern postoperatively since she has recovered from Covid what her possible operative risks would be -Unfortunately cannot obtain a small bowel follow-through as we do not have radiology here until Sunday, in discussion with the [facility] did not operate at all on elective surgical cases currently secondary to Covid -General surgery will take her to surgery today for an exploratory laparoscopy -N.p.o., unable to tolerate an NG tube secondary to a slipped Apolinar -Continue with Cipro and Flagyl 2. Carotid disease/HTN/HLD/status post aortic valve replacement -She had 3 episodes of amaurosis fugax back in the early part of 2019 unfortunately she was not able to get a vascular surgeon evaluation until August 2020 at which point she developed Covid and that appointment was canceled -She had a carotid duplex back in May 2020 with a greater than 70% stenosis of the left extracranial internal carotid artery with the right having a moderate stenosis of 50 to 69%. -We will continue with her home aspirin when able as well as her statin to try to minimize risk until she can follow-up with vascular surgeon -Continue with lisinopril 3. GERD with hiatal hernia -Stable -Continue with PPI 4. Anxiety/depression -Stable -Continue with Celexa 5. Osteoporosis -Stable -Continue with weekly bisphosphonate DVT: Lovenox Inpatient E&M: [id number] [facility] Hosp L2
--- NOTE | 2020-09-23 12:43 | CASEMGMT ---
Social Work Note SW spoke with Cedrick at [facility] and updated her on pt's surgery today, no discharge today, potentially over the weekend. Cedrick states pt only has emergency response button. Leydi Rockwell DESIZING PAD OPERATOR, GRANT WRITER
[2020-09-23] MEDS: Lubricating Jelly 60 GM Tube 30 GM TOPICAL (12:54)
--- NOTE | 2020-09-23 12:59 | PCM.OPRPT ---
Problem List (1) Acute sigmoid colitis Status: Acute Report of Operation Date of Procedure: 09/23/20 Pre-Operative Diagnosis: acute sigmoid colitits Post-Operative Diagnosis: same Surgery/Procedure Performed:: cystoscopy, left ureteral catheterization Type of Anesthesia:: General Estimated Blood Loss (mL): 1cc Description of Procedure: Patient is an 80-year-old female undergoing a colectomy for acute sigmoid colitis per Dr. Rubio. There was a question of a left ureteral injury and I was called in for evaluation. The patient was already appropriately prepped draped and open on the table, in dorsal lithotomy position with Darling catheter inserted. At an appropriate time, the Darling balloon was deflated and the catheter was removed. A cystourethroscopy was then performed through the urethra. The mucosa was visualized in its entirety, revealing no injury to the urinary bladder. There was 1 identified ureteral orifice on each side located in the correct anatomic position on the area of the trigone. The left ureteral orifice was then intubated with a 0.035 Glidewire and it passed easily into the ureter. It was palpable within the ureter and the open field per Dr. Rubio. At this time a Pollack catheter was inserted to 20 cm. The Darling catheter was placed alongside the Pollack catheter which was then secured together using Steri-Strips. There were no complications during this procedure. Grafts/Implants Used: none - Complications none - Admit VTE Documentation VTE Present on Admission: Yes VTE Mechan Device Prophylaxis: SCD's VTE Pharm Prophylaxis ordered?: Yes
--- NOTE | 2020-09-23 14:05 | OP.PCM_ITS ---
Problem List (1) Acute sigmoid colitis Status: Acute (2) Partial obstruction of colon Status: Acute Report of Operation Date of Procedure: 09/23/20 Pre-Operative Diagnosis: High-grade sigmoid obstruction with colonic and small bowel obstruction. History of recent COVID-19. Inability to transnasally place NG tube Post-Operative Diagnosis: Obstructing sigmoid: Diverticulitis with extensive adhesions and large and small bowel obstruction. Potential left ureter injury excluded with cystoscopy and left ureteral catheter placement Surgery/Procedure Performed:: Laparoscopic converted to hand-assisted laparoscopic lysis of adhesions with attempted sigmoid colectomy with conversion to open sigmoid colectomy lysis of adhesions and primary anastomosis. Bilateral transverses abdominis plane block. Cystoscopy and left ureteral catheter placement per Dr. Miranda. Esophagogastroduodenoscopy with endoscopically assisted placement of nasogastric tube. Separately dictated via provation Description of Surgical Findings:: Timeout and informed consent was obtained. 80-year-old female was taken to the operating room. She had abdominal distention nausea vomiting and findings consistent with nonresolving large bowel obstruction felt to be secondary to diverticular disease of the sigmoid colon. She has a slipped fundoplication and inability to place an NG tube. She has had a recent history of COVID-19 She was taken to the operating placed supine the table underwent general endotracheal intubation anesthesia. On a beanbag with the warmer she was placed on low lithotomy position. The abdomen perineum sterilely prepped and draped. Ioban draping was used. I initially used 20 cc of Exparel mixed with 60 cc of 0.5% Marcaine diluted 200 cc with saline for my local anesthetic and for my tap block. To the right of the umbilicus local was instilled then using a Visiport 5 mm technology I got access to the abdomen. It was insufflated with CO2 initially to 12 mmHg pressure and then up to 15 mmHg pressure. I placed 2 more 5 mm trochars in the right lower quadrant. I made an effort to inspect there was adhesions of the sigmoid colon to the anterior abdominal wall which I transected with the Enseal device. I inspected the small bowel to the terminal ileum into the ileocecal valve. The small and large bowel was distended thro ughout consistent with a large bowel obstruction causing retrograde obstruction throughout the entire small bowel. There was significant inflammatory change of the sigmoid colon particularly right at the pelvic reflection there was adherence of the left tube and ovary. It became rapidly apparent I was not can be able to get visualization due to the small bowel distention. I then made a vertical infraumbilical incision placed a GelPort placed a couple laparotomy packs inside try to keep the small bowel away but again it became apparent that despite efforts to the distention of both large and small bowel made it impossible to cleanly see. I had dissected part of the left tube and ovary which was densely adherent to the colon. Done some of that with blunt dissection. I did elevate the white line of Toldt up to the splenic flexure. This point I elected to convert to an open. I made a midline incision longer I placed another wound protector Dr. Mcpherson calibrated then assisted. Was able to continue to free up the sigmoid colon and then upon elevating it I had concerns that there might have been a ureteral transection there was a tubular structure that appeared to peristalsis as the ureter and it had been transected as it was densely adherent to the anterior lateral portion of the sigmoid colon. While we continued the operation we did ask Dr. Fidelina Garcia to become present. Further elevated the sigmoid colon dissected distally used an Enseal device for hemostasis additionally used 4-0 silk sutures for hemostasis. I then used a contour device at the rectosigmoid area to transect that portion of the colon. I dissected proximally to where the colon was distended but otherwise nicely viable. I used a Cameron clamp and transected the bowel there then I placed a whip suture of 2-0 Prolene I placed a 33 mm anvil and secured it with a pursestring and then I placed an additional pursestring to further secure it. That area was then dabbed with Betadine. Further inspection then revealed that actually the left ureter was likely intact. At the same setting Dr. Fidelina Garcia performed her cystoscopy advanced a wire advanced the catheter and it became very clear that the left ureter had not been injured that was completely intact. She left the catheter in place for the remainder of the procedure. The rectum was irrigated with dilute Betadine. Sizers were inserted. Then the 33 mm circular anastomotic stable was inserted. Because of the edema I elected to exit the stapler through the anterior rectal wall. That was done in direct visualization. It was connected to the anvil the 2 were approximated the device was fired. The device was removed the donuts were inspected they were noted to be completely intact. Dr. Grider performed rigid sigmoidoscopy air was insufflated and there was absolutely no air leak identified. The pelvis was irrigated with fluid. There was absolutely no tension on the colonic anastomosis. Good positional lie. Small bowel was inspected and was quite healthy. Small bowel was placed back in position greater omentum overlying. It is of note that prior to opening I had under laparoscopic visualization performed a bilateral tap block with the local solution. This was laparoscopically controlled. At this point I attempted to palpate the EG junction area where the previous hiatal hernia repair is been done. Unfortunately it was apparent that this had slipped and I was not able to cleanly palpate that area and NG tube could be advanced but would never get to my fingertips. At that point I elected to proceed with a guided EGD to place the tube. That was successfully done and dictated through provation. The midline wound was closed with small bite technique of running 0 PDS. Skin edges approximated interrupted and running septic or 4-0 Monocryl. Steri-Strips Telfa gauze dressings applied. Sponge and instrument and needle counts reported the surgeon to be correct. Specimens sigmoid colon and donuts. Drains none. Blood loss 300 cc. By report from anesthesia the patient had variable blood pressure throughout the procedure. There were pressors used Hasmukh-Synephrine throughout the procedure. It was felt appropriate to keep the patient intubated and sent her to the intensive care unit. Dr. Jude Pimentel contacted and discussed the patient's course with Dr. Daniel Whaley. Camron Rubio M.D., F.A.C.S. volleyball assembler: Joseph Grider volleyball assembler: Sierra Miranda Type of Anesthesia:: General
[2020-09-23] MEDS: Lactated Ringers 1,000 ML 999 ML IV (14:45)
[2020-09-23 14:54] LABS: Hematocrit 36.4 % (37-47); Hemoglobin 11.5 g/dL (12.0-15.0); Mean Corp Hgb Conc 31.6 g/dL (32-36); Mean Corpuscular Hgb 29.8 pg (27.0-32.0); Mean Corpuscular Volume 94.3 fL (81-99); Mean Platelet Vol. 9.7 fl (6.2-12.0); Platelet Count 311 K/mm3 (150-450); RBC Distribution Width CV 14.2 % (11.6-14.6); RBC Distribution Width SD 48.7 fl (35.1-43.9); Red Blood Count 3.86 M/mm3 (4.2-5.4); White Blood Count 15.5 K/mm3 (4.4-11.0)
[2020-09-23 15:27] LABS: Anion Gap 6 (5-15); BUN 8 mg/dL (7-18); Calcium,Total 7.4 mg/dL (8.5-10.1); Chloride 109 mmol/L (98-107); EST Glomerular Filtration Rate 57 mL/min (>60); Est Glom Filt Rate - Afr Amer 68 mL/min (>60); Glucose 129 mg/dL (74-106); Sodium Level 140 mmol/L (136-145)
[2020-09-23] MEDS: Lactated Ringers 1,000 ML 100 ML IV (15:34)
[2020-09-23 16:02] LABS: CPK Total, Creatine Kinase 165 U/L (26-192); Triglycerides 126 mg/dL
--- NOTE | 2020-09-23 16:30 | RAD_ITS ---
STUDY: X-RAY CHEST REASON FOR EXAM: Female, 80 years old. ETT PLACEMENT TECHNIQUE: 1 view COMPARISON: Prior chest radiograph of 09/21/2019 FINDINGS: Endotracheal tube terminates 2.5 cm above the ortiz. Enteric tube extends well below the gastroesophageal junction. Reduced inspiration with increased bibasilar and right midlung zone atelectasis. Stable cardiac size. Right atrial and ventricular pacemakers remain unchanged in position. Normal visualized pulmonary arteries. There is atherosclerotic calcification of the aortic arch with tortuosity. There is degenerative osteoarthritis of the bilateral shoulders. There is no demonstrated abnormality of the visualized soft tissue structures of the upper abdomen. RAD/CXR for Line Placement IMPRESSION: Endotracheal tube terminates 2.5 cm above the ortiz and the enteric tube is well below the gastroesophageal junction. Reduced inspiration with increased bibasilar and right mid lung zone atelectasis. Stable cardiac size status post prior midline sternotomy. ICD unchanged in position. Electronically Signed: Juanita Vincent MD at 17:28 EST , Service support ,
[2020-09-23 16:50] LABS: Potassium 3.2 mmol/L (3.5-5.1)
--- NOTE | 2020-09-23 18:00 | RAD_ITS ---
STUDY: X-RAY CHEST REASON FOR EXAM: Female, 80 years old. PICC line placement. TECHNIQUE: 1 view 5:56 PM. COMPARISON: Prior chest radiograph of 09/23/2020 at 4:29 PM FINDINGS: Right PICC terminates at the atriocaval junction. No complication of line placement. Endotracheal tube terminates 3.5 cm above the ortiz and the enteric tube is well below the gastroesophageal junction. Similar degree of bibasilar and right midlung zone atelectasis to prior exam. Stable cardiac size status post prior midline sternotomy. Right atrial and ventricular pacemakers remain unchanged. Normal mediastinum and gregory. Normal visualized pulmonary arteries. There is atherosclerotic calcification of the aortic arch with tortuosity. RAD/CXR for Line Placement IMPRESSION: Right PICC terminates in the distal superior vena cava at the atrial caval junction with no apparent complication of line placement. Endotracheal tube and enteric tube are unchanged. Continued bibasilar and right midlung zone atelectasis stable from prior exam. Electronically Signed: Juanita Vincent MD at 19:09 EST , Service support ,
[2020-09-23] MEDS: Chlorhexidine 15 ML PO (21:50)
[2020-09-24] VITALS (39 sets, daily range): BP systolic 93–134; BP diastolic 37–89; PULSE 60–100; RESP 14–28; TEMP 36.1–36.8; O2SAT 92–99
[2020-09-24] MEDS: Menthol/Lanolin/Calamine/Znox 113 GM Tube 1 APPLIC TOPICAL ×3 (00:38→21:45)
[2020-09-24] MEDS: Lactated Ringers 1,000 ML 100 ML IV ×3 (01:08→21:45)
[2020-09-24] MEDS: Lactated Ringers 1,000 ML 999 ML IV ×2 (01:08→08:45)
[2020-09-24] MEDS: metroNIDAZOLE 500 MG/100 ML BAG 100 MG IV ×3 (05:16→23:21)
[2020-09-24 05:20] LABS: Absolute Lymphocyte Count 1.29 X10^3/uL (0.83-4.51); Basophil# 0.04 X10^3/uL; Basophil% 0.2 % (0-1); Eosinophil# 0.01 X10^3/uL; Eosinophils% 0.1 % (0-5); Hemoglobin 9.3 g/dL (12.0-15.0); Lymphocyte # 1.29 X10^3/ul (4.0); Lymphocyte % 7.4 % (19-41); Mean Corp Hgb Conc 32.1 g/dL (32-36); Mean Corpuscular Hgb 29.8 pg (27.0-32.0); Mean Corpuscular Volume 92.9 fL (81-99); Mean Platelet Vol. 9.6 fl (6.2-12.0); Monocyte# 1.14 X10^3/uL; Monocyte% 6.5 % (0-10); NRBC Flagged by Analyzer 0 % (0-5); Neutrophil # 14.96 X10^3/uL (2.7-7.7); Neutrophil % 85.2 % (47-70); Platelet Count 247 K/mm3 (150-450); RBC Distribution Width CV 14.6 % (11.6-14.6); RBC Distribution Width SD 48.8 fl (35.1-43.9); Red Blood Count 3.12 M/mm3 (4.2-5.4); White Blood Count 17.6 K/mm3 (4.4-11.0)
[2020-09-24 05:37] LABS: Anion Gap 7 (5-15); BUN 10 mg/dL (7-18); BUN/Creat Ratio 6.2 RATIO (10-20); Calcium,Total 6.8 mg/dL (8.5-10.1); Chloride 109 mmol/L (98-107); Creatinine, Serum 1.61 mg/dL (0.55-1.02); EST Glomerular Filtration Rate 33 mL/min (>60); Est Glom Filt Rate - Afr Amer 39 mL/min (>60); Estimated Creatinine Clearance 21.67 ml/min; Glucose 139 mg/dL (74-106); Potassium 3.6 mmol/L (3.5-5.1); Sodium Level 138 mmol/L (136-145)
--- NOTE | 2020-09-24 05:46 | CON.PCM_ITS ---
Reason for Consult Date of Consultation: 09/24/20 Reason for Consultation: Acute respiratory failure History of Present Illness: The patient is an 80-year-old female, with a history as outlined below, who initially presented to the emergency department on September 19 with complaints of abdominal pain. The patient does have a history of aortic valve disease status post valve replacement in June 2012. She also has a history of gastrointestinal bleeding due to angiodysplasia of the sigmoid colon and diverticulosis. CT scan of the patient's abdomen at presentation to the hospital revealed wall thickening of the proximal sigmoid colon with dilation and air-fluid level suggestive of partial colonic obstruction. The patient was subsequently evaluated by general surgery and initially managed conservatively. However, on September 23, the patient was taken to the OR due to high-grade si gmoid obstruction with colonic and small bowel obstruction and underwent an open sigmoid colectomy with lysis of adhesions and primary anastomoses. The patient also underwent EGD with endoscopically assisted placement of NG tube. Intraoperative blood loss was only noted to be 300 cc. The patient did receive intraoperative IV fluids. Postoperatively, the patient was transferred to the medical intensive care unit. No attempt was made by anesthesia to extubate the patient. She was initially started on a Hasmukh-Synephrine infusion, which was discontinued on arrival to the ICU and transition to Levophed. This morning, the patient is alert and appropriately interactive. She was placed on a spontaneous breathing trial by myself at approximately 0615. The patient's white count has increased to 17,000 this morning. Creatinine has increased to 1.61. She remains on Levophed at 15 mcg/min. The patient is currently documented to be overall net +10.6 L for the hospital admission. 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) Essential (primary) hypertension (Chronic) Hyperlipidemia (Chronic) Secondary pulmonary arterial hypertension (Chronic) Carotid artery disease (Chronic) Medical History: Medical History (Last Reviewed 09/20/20 @ 14:20 by Stephanie DENNIS PACarminaC) 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, implant or graft (Chronic) Onset Date: 03/31/19 T85.868A right atrial PPM lead Complete heart block (Chronic) I44.2 Non-rheumatic aortic stenosis (Chronic) I35.0 Amaurosis fugax of right eye (Chronic) G45.3 Essential (primary) hypertension (Chronic) I10 Hyperlipidemia (Chronic) E78.5 Secondary pulmonary arterial hypertension (Chronic) I27.21 Carotid artery disease (Chronic) I77.[address] scan, colon R93.3 Angiodysplasia of cecum K55.20 Bilateral carotid artery stenosis I65.23 Dementia F03.90 Difficulty swallowing R13.10 Diverticulosis K57.90 GERD (gastroesophageal reflux disease) K21.9 GI bleed K92.2 Internal hemorrhoid K64.8 Iron deficiency anemia D50.9 Osteoarthritis M19.90 Allergies Penicillins Allergy (Verified 09/19/20 19:10) Hives Home Medications: Ambulatory Orders Medication Instructions Recorded Lisinopril [Zestril] 10 mg PO DAILY 12/25/16 mecobalamin (vitamin B12) 1,000 1,000 mcg SUBLINGUAL QDAY 03/13/18 mcg disintegrating tablet,sublingual ropinirole 0.5 mg tablet 0.5 mg PO QHS 90 Days #90 03/13/18 simvastatin 40 mg tablet 40 mg PO QPM 03/13/18 alendronate 70 mg tablet 70 mg PO QWEEK 09/11/18 citalopram 10 mg tablet 10 mg PO QDAY tab 09/11/18 Aspirin E.C. 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 Hiatal hernia repair. Psychiatric History: Depression [employer] History: No pertinent [employer] history Smoking Status: Never smoker Alcohol: None Drugs: None - *Family History Maternal Family History: Family History (Last Reviewed 09/20/20 @ 14:21 by SIMA ConnollyC) Mother Hypertension Heart disease Brother Hypertension Father Hypertension Review of Systems Unable to obtain accurate/complete ROS d/t: Due to current intubation and mechanical ventilation status Patient Problems: Active and Suspected Problems (Last Reviewed 09/20/20 @ 14:20 by SONNY Connolly-C) Acute sigmoid colitis (Acute) Partial obstruction of colon (Acute) Objective: The patient's most recent lab work, culture data and imaging studies have all been personally reviewed. Surface echocardiogram from February 2020 revealed normal LV size with an ejection fraction of 60%. Pulmonary artery systolic pressure was estimated to be 38 mmHg. Mild aortic valve stenosis was noted. Coronavirus rapid antigen testing was negative on September 23. - Physical Exam Vitals/I&O's: Vital Signs Temp Pulse Resp BP Pulse Ox 97.9 F 60 17 120/43 L 98 09/24/20 04:00 09/24/20 05:00 09/24/20 05:00 09/24/20 05:00 09/24/20 05:00 Oxygen Delivery Method Mechanical Ventilator Weight: 197 lb 15.602 oz Body Mass Index (BMI) 32.8 Intake and Output for Last 24 Hours 09/22/20 09/23/20 09/24/20 23:59 23:59 23:59 Intake Total 2254.5 / 2374.5 3315.93 / 3354.03 2282.81 / 2282.81 Output Total 200 / 350 540 / 552 42 / 42 Balance 2054.5 / 2023.5 2775.93 / 2802.03 2240.81 / 2240.81 General: Alert, Cooperative, - - Currently intubated and mechanically ventilated. No ventilator dyssynchrony noted. HEENT: Atraumatic, PERRLA, Normocephalic Oral: No Gingival or Mucosal Lesions/ Ulcerations, - - Endotracheal and NG tube in place Neck: Supple, No Nodes, Trachea Midline Lungs: Normal air movement, No rhonchi, No wheeze, No rales Cardiovascular: Regular rate, Regular Rhythm, Murmur Abdomen: Soft, Hypoactive Bowel Sounds Extremities: No clubbing, No cyanosis, No edema Skin: Incision Musculoskeletal: No Tenderness to Palpation of Joints or Extremities Lymphatic: No Cervical, Supraclavicular, or Inguinal Adenopathy Neurological: Neuro grossly intact, - - Alert and following commands appropriately. Labs (Last 48 Hours) 09/23/20 09/23/20 09/23/20 04:17 04:17 14:50 WBC 7.4 15.5 H RBC 3.43 L 3.86 L Hgb 10.0 L 11.5 L Hct 31.6 L 36.4 L MCV 92.1 94.3 MCH 29.2 29.8 MCHC 31.6 L 31.6 L RDW Std Deviation 46.4 H 48.7 H RDW Coeff of Mamadou 13.7 14.2 Plt Count 234 311 MPV 9.6 9.7 Immature Gran % (Auto) 0.300 Neut % (Auto) 78.3 H Lymph % (Auto) 11.7 L [place] % (Auto) 8.6 Eos % (Auto) 0.8 Baso % (Auto) 0.3 Absolute Neuts (auto) 5.8 Absolute Lymphs (auto) 0.86 Nucleated RBC % 0 Sodium 138 Potassium 3.1 L Chloride 107 Carbon Dioxide 25.0 Anion Gap 6 BUN 9 Creatinine 0.78 Estim Creat Clear Calc 36.50 Est GFR (MDRD) Af Amer 91 Est GFR (MDRD) Non-Af 75 BUN/Creatinine Ratio 11.5 Glucose 113 H Calcium 7.5 L Total Creatine Kinase Triglycerides 09/23/20 09/23/20 09/23/20 14:50 14:50 16:35 WBC RBC Hgb Hct MCV MCH MCHC RDW Std Deviation RDW Coeff of Mamadou Plt Count MPV Immature Gran % (Auto) Neut % (Auto) Lymph % (Auto) [place] % (Auto) Eos % (Auto) Baso % (Auto) Absolute Neuts (auto) Absolute Lymphs (auto) Nucleated RBC % Sodium 140 Potassium 4.0 3.2 L Chloride 109 H Carbon Dioxide 25.0 Anion Gap 6 BUN 8 Creatinine 1.00 Estim Creat Clear Calc 34.90 Est GFR (MDRD) Af Amer 68 Est GFR (MDRD) Non-Af 57 L BUN/Creatinine Ratio 8.0 L Glucose 129 H Calcium 7.4 L Total Creatine Kinase 165 Triglycerides 126 09/24/20 09/24/20 05:15 05:15 WBC 17.6 H RBC 3.12 L Hgb 9.3 L Hct 29.0 L MCV 92.9 MCH 29.8 MCHC 32.1 RDW Std Deviation 48.8 H RDW Coeff of Mamadou 14.6 Plt Count 247 MPV 9.6 Immature Gran % (Auto) 0.600 Neut % (Auto) 85.2 H Lymph % (Auto) 7.4 L [place] % (Auto) 6.5 Eos % (Auto) 0.1 Baso % (Auto) 0.2 Absolute Neuts (auto) 15.0 H Absolute Lymphs (auto) 1.29 Nucleated RBC % 0 Sodium 138 Potassium 3.6 Chloride 109 H Carbon Dioxide 22.0 Anion Gap 7 BUN 10 Creatinine 1.61 H Estim Creat Clear Calc 21.67 Est GFR (MDRD) Af Amer 39 L Est GFR (MDRD) Non-Af 33 L BUN/Creatinine Ratio 6.2 L Glucose 139 H Calcium 6.8 L Total Creatine Kinase Triglycerides Microbiology 09/23/20 08:50 Mucosa - Nose SARS-CoV-2 Antigen (Rapid) - Final Clinical Impression(s) from Imaging Studies Abdomen/Pelvis CT 09/19/20 19:25 IMPRESSION: 1. Short segment wall thickening of the proximal sigmoid colon with proximal colonic (more than small bowel) dilation and fluid-filled lumen, suggesting at least partial colonic obstruction. Differential considerations include localized colitis, chronic muscular hyperplasia/chronic diverticulosis and neoplasm. Electronically Signed: Luis Cuadra MD ([place]) at 21:03 EST , Service support , KUB X-Ray 09/19/20 21:21 IMPRESSION: Enteric/gastric tube not seen on provided images. Electronically Signed: Luis Cuadra MD (Brooks) at 22:18 EST , Service support , Abdomen X-Ray 09/22/20 16:13 IMPRESSION: Improved moderate small bowel obstruction. Electronically Signed: Doron Calvillo MD at 16:31 EST Tel , Service support , Chest X-Ray 09/23/20 16:30 IMPRESSION: Endotracheal tube terminates 2.5 cm above the ortiz and the enteric tube is well below the gastroesophageal junction. Reduced inspiration with increased bibasilar and right mid lung zone atelectasis. Stable cardiac size status post prior midline sternotomy. ICD unchanged in position. Electronically Signed: Juanita Vincent MD at 17:28 EST , Service support , Chest X-Ray 09/23/20 18:00 IMPRESSION: Right PICC terminates in the distal superior vena cava at the atrial caval junction with no apparent complication of line placement. Endotracheal tube and enteric tube are unchanged. Continued bibasilar and right midlung zone atelectasis stable from prior exam. Electronically Signed: Juanita Vincent MD at 19:09 EST , Service support , Current Medications Calamine/Phenol (Menthol/Lanolin/Calamine/Znox 113 Gm Tube) 1 applic TOPICAL BID [facility]; Protocol Last Admin: 09/24/20 00:38 Dose: 1 applicatio Documented by: Chlorhexidine Gluconate (Chlorhexidine 15 Ml) 15 ml PO BID [facility] Last Admin: 09/23/20 21:50 Dose: 15 ml Documented by: Enoxaparin Sodium (Enoxaparin 40 Mg/0.4 Ml Syringe) 40 mg SC DAILY [facility] Last Admin: 09/23/20 08:39 Dose: Not Given Documented by: Famotidine 20 mg/ Sodium (Chloride) 10 mls @ 300 mls/hr IV Q12 [facility] Last Infusion: 09/23/20 21:47 Dose: Infused Documented by: Ciprofloxacin (Cipro) 400 mg in 200 mls @ 200 mls/hr IV Q12 [facility] Last Infusion: 09/23/20 22:47 Dose: Infused Documented by: Metronidazole (Flagyl) 500 mg in 100 mls @ 100 mls/hr IV Q8 [facility] Last Admin: 09/24/20 05:16 Dose: 100 mls/hr Documented by: Lactated Ringer's () 1,000 mls @ 100 mls/hr IV .Q10H [facility] Last Admin: 09/24/20 01:08 Dose: 100 mls/hr Documented by: Propofol (Diprivan) 1,000 mg in 100 mls @ 5.034 mls/hr CONT INF .Q12H [facility]; Protocol Last Admin: 09/24/20 03:19 Dose: Not Given Documented by: Fentanyl Citrate 1,000 mcg/ (Sodium Chloride) 100 mls @ 5 mls/hr CONT INF .Q20H [facility]; Protocol Last Titration: 09/24/20 05:00 Dose: 100 mcg/hr, 10 mls/hr Documented by: Norepinephrine Bitartrate 8 mg (/ Sodium Chloride) 250 mls @ 9.375 mls/hr CONT INF .[id number] [facility]; Protocol Last Titration: 09/24/20 05:00 Dose: 15 mcg/min, 28.1 mls/hr Documented by: Morphine Sulfate (Morphine 2 Mg/Ml Syringe) 2 mg IV Q3H PRN PRN PRN Reason: Pain Score 6-10 Ondansetron HCl (Ondansetron 4 Mg/2 Ml Vial) 4 mg IV Q6H PRN PRN PRN Reason: NAUSEA/VOMITING Last Admin: 09/23/20 02:28 Dose: 4 mg Documented by: Pramipexole Dihydrochloride (Pramipexole Di-Hcl 0.25 Mg Tablet) 0.25 mg PO QHS [facility] Last Admin: 09/23/20 21:50 Dose: Not Given Documented by: Sodium Chloride (0.9% Saline Lock 10 Ml Syringe) 10 - 40 ml IV UD PRN PRN Reason: SALINE FLUSH Last Admin: 09/23/20 15:12 Dose: 30 ml Documented by: Assessment/Plan Active and Suspected Problems (Last Reviewed 09/20/20 @ 14:20 by Stephanie DENNIS, PACarminaC) Acute sigmoid colitis (Acute) Partial obstruction of colon (Acute) RECOMMENDATIONS: 1. Discontinue fentanyl this morning and place patient on spontaneous breathing trial with plans for possible extubation. 2. Continue LR infusion as ordered. 3. Continue vasopressor support to maintain a mean arterial pressure at or above 65mmHg. 4. Avoid nephrotoxic medications. 5. Continue antimicrobials. 6. Continue appropriate ICU prophylaxis. 7. If able to be extubated, recommend aggressive incentive spirometer use. IMPRESSIONS: 1. Acute respiratory failure The patient was left intubated and mechanically ventilated following her surgical procedure yesterday. However, prior to surgical intervention, the patient was maintaining appropriate oxygen saturations on room air. At this time, we will plan to place the patient on a spontaneous breathing trial and discontinue her fentanyl infusion. If the patient does well over the next 30 to 60 minutes on her SBT, she will be extubated. Supplemental oxygen will then be weaned to maintain saturations at or above 90%. The patient will be encouraged to utilize her incentive spirometer. 2. High-grade sigmoid obstruction with colonic and small bowel obstruction, now POD #1 status post open sigmoid colectomy Continue routine postoperative care per surgery recommendations. 3. Septic shock Clinical concern for intra-abdominal etiology. The patient will be continued on vasopressor support to maintain a mean arterial pressure at or above 65 mmHg. Supplemental IV fluids can be continued while she remains n.p.o. Continue empiric antimicrobials. 4. Acute kidney injury Clinical concern for prerenal etiology/ischemic ATN in the setting of #3. Will administer additional IV fluid bolus this morning and attempt to wean from vasopressor support. Continue to monitor urine output for now. No current indication for renal replacement therapy. If renal function continues to decompensate, nephrology consultation will be obtained. 5. 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 Continue home medications as indicated. TIME: 45 minutes of critical care time, independent of procedures, was spent addressing the patient's acute respiratory failure, colonic and small bowel obstruction status post sigmoid colectomy, acute kidney injury, review of all data and collaboration with the care team. ([id number]) [phone]: [id number] Critical care first hour
--- NOTE | 2020-09-24 06:49 | PCM.PN.SRG ---
Patient Problems: Active and Suspected Problems (Last Reviewed 09/20/20 @ 14:20 by Stephanie DENNIS, CHANELL) Acute sigmoid colitis (Acute) Partial obstruction of colon (Acute) Subjective: Patient is alert. Currently mechanical ventilation. Denies any pain or distress. She is aware that she had surgery with a colectomy and no colostomy. - Physical Exam Vitals/I&O's: Vital Signs Temp Pulse Resp BP Pulse Ox 97.9 F 61 18 121/42 H 98 09/24/20 04:00 09/24/20 06:00 09/24/20 06:00 09/24/20 06:00 09/24/20 06:03 Oxygen Delivery Method Mechanical Ventilator Weight: 197 lb 15.602 oz Body Mass Index (BMI) 32.8 Intake and Output for Last 24 Hours 09/22/20 09/23/20 09/24/20 23:59 23:59 23:59 Intake Total 2254.5 / 2374.5 3315.93 / 3354.03 2423.41 / 2423.41 Output Total 200 / 350 540 / 552 42 / 42 Balance 2054.5 / 2024.5 2775.93 / 2802.03 2381.41 / 2381.41 General: Alert Lungs: Clear to auscultation Abdomen: Soft, Non Tender, Bowel Sounds Not Present, Distended, - - Dressings dry Microbiology Past 72 Hours 09/23/20 08:50 Mucosa - Nose SARS-CoV-2 Antigen (Rapid) - Final Laboratory Results 09/23/20 04:17: Sodium 138, Potassium 3.1 L, Chloride 107, Carbon Dioxide 25.0, Anion Gap 6, BUN 9, Creatinine 0.78, Estim Creat Clear Calc 36.50, Est GFR (MDRD) Af Amer 91, Est GFR (MDRD) Non-Af 75, BUN/Creatinine Ratio 11.5, Glucose 113 H, Calcium 7.5 L 09/23/20 14:50: WBC 15.5 H, RBC 3.86 L, Hgb 11.5 L, Hct 36.4 L, MCV 94.3, MCH 29.8, MCHC 31.6 L, RDW Std Deviation 48.7 H, RDW Coeff of Mamadou 14.2, Plt Count 311, MPV 9.7 09/23/20 14:50: Sodium 140, Potassium 4.0, Chloride 109 H, Carbon Dioxide 25.0, Anion Gap 6, BUN 8, Creatinine 1.00, Estim Creat Clear Calc 34.90, Est GFR (MDRD) Af Amer 68, Est GFR (MDRD) Non-Af 57 L, BUN/Creatinine Ratio 8.0 L, Glucose 129 H, Calcium 7.4 L 09/23/20 14:50: Total Creatine Kinase 165, Triglycerides 126 09/23/20 16:35: Potassium 3.2 L 09/24/20 05:15: WBC 17.6 H, RBC 3.12 L, Hgb 9.3 L, Hct 29.0 L, MCV 92.9, MCH 29.8, MCHC 32.1, RDW Std Deviation 48.8 H, RDW Coeff of Mamadou 14.6, Plt Count 247, MPV 9.6, Immature Gran % (Auto) 0.600, Neut % (Auto) 85.2 H, Lymph % (Auto) 7.4 L, [place] % (Auto) 6.5, Eos % (Auto) 0.1, Baso % (Auto) 0.2, Absolute Neuts (auto) 15.0 H, Absolute Lymphs (auto) 1.29, Nucleated RBC % 0 09/24/20 05:15: Sodium 138, Potassium 3.6, Chloride 109 H, Carbon Dioxide 22.0, Anion Gap 7, BUN 10, Creatinine 1.61 H, Estim Creat Clear Calc 21.67, Est GFR (MDRD) Af Amer 39 L, Est GFR (MDRD) Non-Af 33 L, BUN/Creatinine Ratio 6.2 L, Glucose 139 H, Calcium 6.8 L Current Medications Calamine/Phenol (Menthol/Lanolin/Calamine/Znox 113 Gm Tube) 1 applic TOPICAL BID [facility]; Protocol Last Admin: 09/24/20 00:38 Dose: 1 applicatio Documented by: Chlorhexidine Gluconate (Chlorhexidine 15 Ml) 15 ml PO BID [facility] Last Admin: 09/23/20 21:50 Dose: 15 ml Documented by: Enoxaparin Sodium (Enoxaparin 40 Mg/0.4 Ml Syringe) 40 mg SC DAILY [facility] Last Admin: 09/23/20 08:39 Dose: Not Given Documented by: Famotidine 20 mg/ Sodium (Chloride) 10 mls @ 300 mls/hr IV Q12 [facility] Last Infusion: 09/23/20 21:47 Dose: Infused Documented by: Ciprofloxacin (Cipro) 400 mg in 200 mls @ 200 mls/hr IV Q12 [facility] Last Infusion: 09/23/20 22:47 Dose: Infused Documented by: Metronidazole (Flagyl) 500 mg in 100 mls @ 100 mls/hr IV Q8 [facility] Last Infusion: 09/24/20 06:16 Dose: Infused Documented by: Lactated Ringer's () 1,000 mls @ 100 mls/hr IV .Q10H [facility] Last Admin: 09/24/20 01:08 Dose: 100 mls/hr Documented by: Fentanyl Citrate 1,000 mcg/ (Sodium Chloride) 100 mls @ 5 mls/hr CONT INF .Q20H [facility]; Protocol Last Titration: 09/24/20 06:15 Dose: 0 mcg/hr, 0 mls/hr Documented by: Norepinephrine Bitartrate 8 mg (/ Sodium Chloride) 250 mls @ 9.375 mls/hr CONT INF .[id number] [facility]; Protocol Last Titration: 09/24/20 06:00 Dose: 15 mcg/min, 28.1 mls/hr Documented by: Ondansetron HCl (Ondansetron 4 Mg/2 Ml Vial) 4 mg IV Q6H PRN PRN PRN Reason: NAUSEA/VOMITING Last Admin: 09/23/20 02:28 Dose: 4 mg Documented by: Pramipexole Dihydrochloride (Pramipexole Di-Hcl 0.25 Mg Tablet) 0.25 mg PO QHS [facility] Last Admin: 09/23/20 21:50 Dose: Not Given Documented by: Sodium Chloride (0.9% Saline Lock 10 Ml Syringe) 10 - 40 ml IV UD PRN PRN Reason: SALINE FLUSH Last Admin: 09/23/20 15:12 Dose: 30 ml Documented by: Medical Necessity - Tobacco Use Smoking Status: Never smoker Assessment/Plan All Active Problems (Last Reviewed 09/20/20 @ 14:20 by Stephanie DENINS PACarminaC) Acute sigmoid colitis (Acute) Partial obstruction of colon (Acute) Patient on mechanical ventilation with IV fentanyl drip. Still requiring Levophed for pressure support. Denies any abdominal pain hopeful that the tap block has worked effectively Increased leukocytosis and creatinine. We will check a lactic acid level. No reny purulence was found at the time of surgery. There is generalized large and small bowel distention secondary to the colonic obstruction. Appropriate amount of blood loss for the resection occurred but tissues were clean and dry at the completion. Hopeful for ceasing of fentanyl drip and extubation with then subsequent Levophed weaned off. Early mobilization will further assist with surgical recovery The NG tube did require upper endoscopy manipulation for placement. She is at risk for diffuse ileus. I will be conservative in its removal. I appreciate the coordinated care efforts of managing her course Area of active surgical inflammation was resected at the time of surgery. IV antibiotics may be ceased when felt to be medically indicated Concur with initiating Lovenox additional DVT prophylaxis in addition to her sequential venous compression devices today Camron Rubio M.D., F.A.C.S.
[2020-09-24 07:39] LABS: Lactic Acid 1.6 mmol/L (0.4-1.9)
--- NOTE | 2020-09-24 08:55 | PN_ITS ---
Patient Problems: Active and Suspected Problems (Last Reviewed 09/20/20 @ 14:20 by Stephanie DENNIS PA-C) Acute sigmoid colitis (Acute) Partial obstruction of colon (Acute) Subjective: Extubated this morning, doing well. She still requiring some pressor support however will increase her IV fluids as her renal function has diminished Vitals/I&O's: Vital Signs Temp Pulse Resp BP Pulse Ox 97.9 F 61 28 H 121/42 H 93 09/24/20 04:00 09/24/20 06:00 09/24/20 07:16 09/24/20 06:00 09/24/20 07:16 Oxygen Delivery Method Room Air Weight: 197 lb 15.602 oz Body Mass Index (BMI) 32.8 Intake and Output for Last 24 Hours 09/22/20 09/23/20 09/24/20 23:59 23:59 23:59 Intake Total 2254.5 / 2374.5 3315.93 / 3354.03 2423.41 / 2423.41 Output Total 200 / 350 540 / 552 42 / 42 Balance 2054.5 / 2024.5 2775.93 / 2802.03 2381.41 / 2381.41 General: Alert, Oriented x3, Cooperative, No apparent distress HEENT: Atraumatic, PERRLA, EOMI, Normocephalic, NG tube in place Oral: Moist Mucosa Neck: Supple, No JVD Lungs: Normal air movement, No rhonchi, No wheeze, No rales Cardiovascular: Regular rate, Regular Rhythm, Normal S1, Normal S2, No murmurs Abdomen: Soft, Non-Distended, No Hepato-splenomegaly, nontender Extremities: No edema, Capillary Refill Less than 3 Seconds Skin: No rashes, No breakdown, midline incision dressing CDI Neurological: Neuro grossly intact, Sensory exam intact to light touch and pain Psych/Mental Status: Normal Affect, Appropriate Microbiology Past 72 Hours 09/23/20 08:50 Mucosa - Nose SARS-CoV-2 Antigen (Rapid) - Final Laboratory Results 09/23/20 14:50: WBC 15.5 H, RBC 3.86 L, Hgb 11.5 L, Hct 36.4 L, MCV 94.3, MCH 29.8, MCHC 31.6 L, RDW Std Deviation 48.7 H, RDW Coeff of Mamadou 14.2, Plt Count 311, MPV 9.7 09/23/20 14:50: Sodium 140, Potassium 4.0, Chloride 109 H, Carbon Dioxide 25.0, Anion Gap 6, BUN 8, Creatinine 1.00, Estim Creat Clear Calc 34.90, Est GFR (MDRD) Af Amer 68, Est GFR (MDRD) Non-Af 57 L, BUN/Creatinine Ratio 8.0 L, Glucose 129 H, Calcium 7.4 L 09/23/20 14:50: Total Creatine Kinase 165, Triglycerides 126 09/23/20 16:35: Potassium 3.2 L 09/24/20 05:15: WBC 17.6 H, RBC 3.12 L, Hgb 9.3 L, Hct 29.0 L, MCV 92.9, MCH 29.8, MCHC 32.1, RDW Std Deviation 48.8 H, RDW Coeff of Mamadou 14.6, Plt Count 247, MPV 9.6, Immature Gran % (Auto) 0.600, Neut % (Auto) 85.2 H, Lymph % (Auto) 7.4 L, [place] % (Auto) 6.5, Eos % (Auto) 0.1, Baso % (Auto) 0.2, Absolute Neuts (auto) 15.0 H, Absolute Lymphs (auto) 1.29, Nucleated RBC % 0 09/24/20 05:15: Sodium 138, Potassium 3.6, Chloride 109 H, Carbon Dioxide 22.0, Anion Gap 7, BUN 10, Creatinine 1.61 H, Estim Creat Clear Calc 21.67, Est GFR (MDRD) Af Amer 39 L, Est GFR (MDRD) Non-Af 33 L, BUN/Creatinine Ratio 6.2 L, Glucose 139 H, Calcium 6.8 L 09/24/20 07:00: Lactic Acid 1.6 Current Medications Calamine/Phenol (Menthol/Lanolin/Calamine/Znox 113 Gm Tube) 1 applic TOPICAL BID [facility]; Protocol Last Admin: 09/24/20 00:38 Dose: 1 applicatio Documented by: Chlorhexidine Gluconate (Chlorhexidine 15 Ml) 15 ml PO BID [place] Last Admin: 09/23/20 21:50 Dose: 15 ml Documented by: Enoxaparin Sodium (Enoxaparin 40 Mg/0.4 Ml Syringe) 40 mg SC DAILY [facility] Last Admin: 09/23/20 08:39 Dose: Not Given Documented by: Famotidine 20 mg/ Sodium (Chloride) 10 mls @ 300 mls/hr IV Q12 [facility] Last Infusion: 09/23/20 21:47 Dose: Infused Documented by: Ciprofloxacin (Cipro) 400 mg in 200 mls @ 200 mls/hr IV Q12 [facility] Last Infusion: 09/23/20 22:47 Dose: Infused Documented by: Metronidazole (Flagyl) 500 mg in 100 mls @ 100 mls/hr IV Q8 [facility] Last Infusion: 09/24/20 06:16 Dose: Infused Documented by: Lactated Ringer's () 1,000 mls @ 100 mls/hr IV .Q10H [facility] Last Admin: 09/24/20 01:08 Dose: 100 mls/hr Documented by: Fentanyl Citrate 1,000 mcg/ (Sodium Chloride) 100 mls @ 5 mls/hr CONT INF .Q20H [facility]; Protocol Last Titration: 09/24/20 07:15 Dose: Infused Documented by: Norepinephrine Bitartrate 8 mg (/ Sodium Chloride) 250 mls @ 9.375 mls/hr CONT INF .[id number] [facility]; Protocol Last Titration: 09/24/20 06:00 Dose: 15 mcg/min, 28.1 mls/hr Documented by: Lactated Ringer's () 1,000 mls @ 999 mls/hr IV .Q1H1M [facility] Stop: 09/24/20 09:45 Ondansetron HCl (Ondansetron 4 Mg/2 Ml Vial) 4 mg IV Q6H PRN PRN PRN Reason: NAUSEA/VOMITING Last Admin: 09/23/20 02:28 Dose: 4 mg Documented by: Pramipexole Dihydrochloride (Pramipexole Di-Hcl 0.25 Mg Tablet) 0.25 mg PO QHS [facility] Last Admin: 09/23/20 21:50 Dose: Not Given Documented by: Sodium Chloride (0.9% Saline Lock 10 Ml Syringe) 10 - 40 ml IV UD PRN PRN Reason: SALINE FLUSH Last Admin: 09/23/20 15:12 Dose: 30 ml Documented by: STROKE Vital Signs/Narrative: Vital Signs Pulse Resp BP Pulse Ox 01/01/21 07:16 28 H 93 09/24/20 07:05 21 H 09/24/20 06:03 98 09/24/20 06:00 61 18 121/42 H 96 09/24/20 05:00 60 17 120/43 L 98 Medical Necessity - Tobacco Use Smoking Status: Never smoker Assessment/Plan All Active Problems (Last Reviewed 09/20/20 @ 14:20 by Stephanie DENNIS, PA-C) Acute sigmoid colitis (Acute) Partial obstruction of colon (Acute) 1. Sigmoid diverticulitis status post sigmoid colectomy 0/postoperative hypotension/DINO -There was some concern postoperatively since she has recovered from Covid what her possible operative risks would be -Unfortunately cannot obtain a small bowel follow-through as we do not have radiology here until Sunday, in discussion with the [facility] did not operate at all on elective surgical cases currently secondary to Covid Continue the NG tube to low intermittent wall suction, she can have a mouth swab or ice chips for comfort -Continue with Cipro and Flagyl -Keep continue with aggressive fluid hydration as well as vasopressors -PICC line was placed 09/23/2020 2. Carotid disease/HTN/HLD/status post aortic valve replacement -She had 3 episodes of amaurosis fugax back in the early part of 2019 unfortunately she was not able to get a vascular surgeon evaluation until August 2020 at which point she developed Covid and that appointment was canceled -She had a carotid duplex back in May 2020 with a greater than 70% stenosis of the left extracranial internal carotid artery with the right having a moderate stenosis of 50 to 69%. -We will continue with her home aspirin when able as well as her statin to try to minimize risk until she can follow-up with vascular surgeon -We will hold her lisinopril secondary to her n.p.o. status as well as her DINO 3. GERD with hiatal hernia -Stable -Continue with Pepcid 4. Anxiety/depression -Stable -Continue with Celexa when able to take p.o. 5. Osteoporosis -Stable -Continue with weekly bisphosphonate when able to take p.o. DVT: Lovenox Inpatient E&M: [id number] [facility] Hosp L2
[2020-09-24] MEDS: Chlorhexidine 15 ML PO (10:01)
[2020-09-24] MEDS: Famotidine 200 MG/20 ML MDV 20 MG in 0.9% Normal Saline (Pres. free 8 ML 300 MG IV ×2 (10:19→21:41)
[2020-09-24] MEDS: Enoxaparin 40 MG/0.4 ML Syringe SC (10:19)
[2020-09-24] MEDS: Ciprofloxacin 400 MG/200 ML BAG 200 MG IV ×2 (10:19→21:43)
[2020-09-24 20:39] LABS: Anion Gap 6 (5-15); BUN 13 mg/dL (7-18); BUN/Creat Ratio 6.3 RATIO (10-20); Chloride 112 mmol/L (98-107); Creatinine, Serum 2.07 mg/dL (0.55-1.02); EST Glomerular Filtration Rate 24 mL/min (>60); Est Glom Filt Rate - Afr Amer 30 mL/min (>60); Estimated Creatinine Clearance 16.86 ml/min; Glucose 113 mg/dL (74-106); Potassium 3.6 mmol/L (3.5-5.1); Sodium Level 142 mmol/L (136-145)
[2020-09-25] VITALS (42 sets, daily range): BP systolic 86–134; BP diastolic 37–53; PULSE 60–93; RESP 16–30; TEMP 36.6–37.1; O2SAT 16–97
[2020-09-25] MEDS: metroNIDAZOLE 500 MG/100 ML BAG 100 MG IV ×3 (05:22→20:23)
[2020-09-25] MEDS: Lactated Ringers 1,000 ML 100 ML IV (05:24)
[2020-09-25 06:04] LABS: Absolute Lymphocyte Count 1.03 X10^3/uL (0.83-4.51); Absolute Neutrophil Count 13.5 X10^3/uL (2.0-7.7); Basophil# 0.04 X10^3/uL; Basophil% 0.2 % (0-1); Eosinophil# 0.25 X10^3/uL; Eosinophils% 1.5 % (0-5); Hematocrit 25.7 % (37-47); Hemoglobin 7.9 g/dL (12.0-15.0); Lymphocyte # 1.03 X10^3/ul (4.0); Lymphocyte % 6.4 % (19-41); Mean Corp Hgb Conc 30.7 g/dL (32-36); Mean Corpuscular Hgb 29.5 pg (27.0-32.0); Mean Corpuscular Volume 95.9 fL (81-99); Monocyte# 1.29 X10^3/uL; NRBC Flagged by Analyzer 0 % (0-5); Neutrophil # 13.48 X10^3/uL (2.7-7.7); Neutrophil % 83.3 % (47-70); Platelet Count 213 K/mm3 (150-450); RBC Distribution Width CV 15.2 % (11.6-14.6); RBC Distribution Width SD 52.8 fl (35.1-43.9); Red Blood Count 2.68 M/mm3 (4.2-5.4); White Blood Count 16.2 K/mm3 (4.4-11.0)
--- NOTE | 2020-09-25 06:14 | PN_ITS ---
Subjective: The patient was seen and examined at the bedside this morning. Events from the last 24 hours have been reviewed. The patient is currently afebrile, hemodynamically stable and maintaining appropriate oxygen saturations on 2 L/min via nasal cannula. The patient remains on Levophed at 10 mcg/min to maintain hemodynamic stability. Hemoglobin is down this morning to 7.9 g/dL. Urine output is slowly increasing. Creatinine appears to be plateauing at 2.1. The patient is now overall net positive 15+ liters for the hospital admission. The patient remains on lactated Ringer's at 100 cc/h. She denies any significant shortness of breath or pain related complaints this morning. Objective: The patient's most recent lab work, culture data and imaging studies have all been personally reviewed. Surface echocardiogram from February 2020 revealed normal LV size with an ejection fraction of 60%. Pulmonary artery systolic pressure was estimated to be 38 mmHg. Mild aortic valve stenosis was noted. Coronavirus rapid antigen testing was negative on September 23. General: Alert, Cooperative, No apparent distress HEENT: Atraumatic, PERRLA, Normocephalic, - - Nasogastric tube remains in place Oral: Moist Mucosa Neck: Supple, No Nodes, Trachea Midline Lungs: Diminished Cardiovascular: Regular rate, Regular Rhythm Abdomen: Soft, Non-Distended Extremities: No clubbing, No cyanosis, No edema Skin: - - No significant change from previous. Musculoskeletal: No Muscle Wasting Lymphatic: No Cervical, Supraclavicular, or Inguinal Adenopathy Neurological: Cranial nerves II-XII grossly intact, Neuro grossly intact Psych/Mental Status: Normal Affect, Appropriate Vital Signs Temp Pulse Resp BP Pulse Ox 98.7 F 60 28 H 121/47 H 96 09/25/20 04:00 09/25/20 06:00 09/25/20 06:00 09/25/20 06:00 09/25/20 06:00 Oxygen Flow Rate (L/min) 2 Oxygen Delivery Method Nasal Cannula Weight: 203 lb 11.314 oz Body Mass Index (BMI) 32.8 Intake and Output for Last 24 Hours 09/23/20 09/24/20 09/25/20 23:59 23:59 23:59 Intake Total 3315.93 / 3354.03 6298.22 / 6345.12 1071.77 / 1071.77 Output Total 540 / 552 492 / 492 350 / 350 Balance 2775.93 / 2802.03 5806.22 / 5853.12 721.77 / 721.77 Labs (Last 48 Hours) 09/23/20 09/23/20 09/23/20 04:17 14:50 14:50 WBC 15.5 H RBC 3.86 L Hgb 11.5 L Hct 36.4 L MCV 94.3 MCH 29.8 MCHC 31.6 L RDW Std Deviation 48.7 H RDW Coeff of Mamadou 14.2 Plt Count 311 MPV 9.7 Immature Gran % (Auto) Neut % (Auto) Lymph % (Auto) [place] % (Auto) Eos % (Auto) Baso % (Auto) Absolute Neuts (auto) Absolute Lymphs (auto) Nucleated RBC % Sodium 138 140 Potassium 3.1 L 4.0 Chloride 107 109 H Carbon Dioxide 25.0 25.0 Anion Gap 6 6 BUN 9 8 Creatinine 0.78 1.00 Estim Creat Clear Calc 36.50 34.90 Est GFR (MDRD) Af Amer 91 68 Est GFR (MDRD) Non-Af 75 57 L BUN/Creatinine Ratio 11.5 8.0 L Glucose 113 H 129 H Lactic Acid Calcium 7.5 L 7.4 L Total Creatine Kinase Triglycerides 09/23/20 09/23/20 09/24/20 14:50 16:35 05:15 WBC 17.6 H RBC 3.12 L Hgb 9.3 L Hct 29.0 L MCV 92.9 MCH 29.8 MCHC 32.1 RDW Std Deviation 48.8 H RDW Coeff of Mamadou 14.6 Plt Count 247 MPV 9.6 Immature Gran % (Auto) 0.600 Neut % (Auto) 85.2 H Lymph % (Auto) 7.4 L [place] % (Auto) 6.5 Eos % (Auto) 0.1 Baso % (Auto) 0.2 Absolute Neuts (auto) 15.0 H Absolute Lymphs (auto) 1.29 Nucleated RBC % 0 Sodium Potassium 3.2 L Chloride Carbon Dioxide Anion Gap BUN Creatinine Estim Creat Clear Calc Est GFR (MDRD) Af Amer Est GFR (MDRD) Non-Af BUN/Creatinine Ratio Glucose Lactic Acid Calcium Total Creatine Kinase 165 Triglycerides 126 09/24/20 09/24/20 09/24/20 05:15 07:00 20:10 WBC RBC Hgb Hct MCV MCH MCHC RDW Std Deviation RDW Coeff of Mamadou Plt Count MPV Immature Gran % (Auto) Neut % (Auto) Lymph % (Auto) [place] % (Auto) Eos % (Auto) Baso % (Auto) Absolute Neuts (auto) Absolute Lymphs (auto) Nucleated RBC % Sodium 138 142 Potassium 3.6 3.6 Chloride 109 H 112 H Carbon Dioxide 22.0 24.0 Anion Gap 7 6 BUN 10 13 Creatinine 1.61 H 2.07 H Estim Creat Clear Calc 21.67 16.86 Est GFR (MDRD) Af Amer 39 L 30 L Est GFR (MDRD) Non-Af 33 L 24 L BUN/Creatinine Ratio 6.2 L 6.3 L Glucose 139 H 113 H Lactic Acid 1.6 Calcium 6.8 L 7.0 L Total Creatine Kinase Triglycerides 09/25/20 09/25/20 04:20 04:20 WBC 16.2 H RBC 2.68 L Hgb 7.9 L Hct 25.7 L MCV 95.9 MCH 29.5 MCHC 30.7 L RDW Std Deviation 52.8 H RDW Coeff of Mamadou 15.2 H Plt Count 213 MPV 10.0 Immature Gran % (Auto) 0.600 Neut % (Auto) 83.3 H Lymph % (Auto) 6.4 L [place] % (Auto) 8.0 Eos % (Auto) 1.5 Baso % (Auto) 0.2 Absolute Neuts (auto) 13.5 H Absolute Lymphs (auto) 1.03 Nucleated RBC % 0 Sodium Pending Potassium Pending Chloride Pending Carbon Dioxide Pending Anion Gap Pending BUN Pending Creatinine Pending Estim Creat Clear Calc Est GFR (MDRD) Af Amer Pending Est GFR (MDRD) Non-Af Pending BUN/Creatinine Ratio Pending Glucose Pending Lactic Acid Calcium Pending Total Creatine Kinase Triglycerides Microbiology 09/23/20 08:50 Mucosa - Nose SARS-CoV-2 Antigen (Rapid) - Final Clinical Impression(s) from Imaging Studies Abdomen/Pelvis CT 09/19/20 19:25 IMPRESSION: 1. Short segment wall thickening of the proximal sigmoid colon with proximal colonic (more than small bowel) dilation and fluid-filled lumen, suggesting at least partial colonic obstruction. Differential considerations include localized colitis, chronic muscular hyperplasia/chronic diverticulosis and neoplasm. Electronically Signed: Luis (Billings) Khalif, MD at 21:03 EST , Service support , KUB X-Ray 09/19/20 21:21 IMPRESSION: Enteric/gastric tube not seen on provided images. Electronically Signed: Luis Cuadra MD (Brooks) at 22:18 EST , Service support , Abdomen X-Ray 09/22/20 16:13 IMPRESSION: Improved moderate small bowel obstruction. Electronically Signed: Doron Calvillo MD at 16:31 EST Tel , Service support , Chest X-Ray 09/23/20 16:30 IMPRESSION: Endotracheal tube terminates 2.5 cm above the ortiz and the enteric tube is well below the gastroesophageal junction. Reduced inspiration with increased bibasilar and right mid lung zone atelectasis. Stable cardiac size status post prior midline sternotomy. ICD unchanged in position. Electronically Signed: Juanita Vincent MD at 17:28 EST , Service support , Chest X-Ray 09/23/20 18:00 IMPRESSION: Right PICC terminates in the distal superior vena cava at the atrial caval junction with no apparent complication of line placement. Endotracheal tube and enteric tube are unchanged. Continued bibasilar and right midlung zone atelectasis stable from prior exam. Electronically Signed: Juanita Vincent MD at 19:09 EST , Service support , Medical Necessity - Tobacco Use Smoking Status: Never smoker Assessment/Plan All Active Problems (Last Reviewed 09/20/20 @ 14:20 by Stephanie DENNIS, PACarminaC) Acute sigmoid colitis (Acute) Partial obstruction of colon (Acute) RECOMMENDATIONS: 1. Management of NG tube and dietary advancement per speech therapy recommendations. 2. Continue antimicrobials. 3. Continue to wean Levophed to maintain a mean arterial pressure at or above 65 mmHg. 4. Okay from my perspective to discontinue fluids. 5. Attempt gentle diuresis today. 6. Encourage incentive spirometer use and mobilize patient as tolerated. IMPRESSIONS: 1. Acute respiratory failure Although initially intubated for her surgical procedure, the patient was able to be extubated the following day. She is currently maintaining appropriate oxygen saturations on minimal O2. Plan to continue current supportive measures and encourage incentive spirometer use as tolerated. Gentle diuresis will be undertaken today given the patient's overall net positive fluid status. Continue to wean supplemental oxygen to maintain saturations at or above 90%. 2. High-grade sigmoid obstruction with colonic and small bowel obstruction, now POD #2 status post open sigmoid colectomy Continue routine postoperative care per surgery recommendations. 3. Septic shock Clinical concern for intra-abdominal etiology. The patient will be continued on vasopressor support to maintain a mean arterial pressure at or above 65 mmHg. Continue empiric antimicrobials. 4. Acute kidney injury Clinical concern for prerenal etiology/ischemic ATN in the setting of #3. Continue current supportive measures with vasopressor support to maintain hemodynamic stability. Attempt gentle diuresis today. If there is further worsening the patient's renal function, nephrology consultation will be obtained. 5. 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 Continue home medications as indicated. TIME: 33 minutes of critical care time, independent of procedures, was spent addressing the patient's acute respiratory failure, colonic and small bowel obstruction status post sigmoid colectomy, acute kidney injury, review of all data and collaboration with the care team. ([id number]) [phone] [id number] Critical care first hour
[2020-09-25 06:16] LABS: Anion Gap 6 (5-15); BUN 16 mg/dL (7-18); BUN/Creat Ratio 7.4 RATIO (10-20); Calcium,Total 6.7 mg/dL (8.5-10.1); Chloride 112 mmol/L (98-107); Creatinine, Serum 2.17 mg/dL (0.55-1.02); EST Glomerular Filtration Rate 23 mL/min (>60); Est Glom Filt Rate - Afr Amer 28 mL/min (>60); Estimated Creatinine Clearance 16.08 ml/min; Glucose 104 mg/dL (74-106); Potassium 3.5 mmol/L (3.5-5.1); Sodium Level 141 mmol/L (136-145)
--- NOTE | 2020-09-25 08:06 | PCM.PN.SRG ---
Patient Problems: Active and Suspected Problems (Last Reviewed 09/20/20 @ 14:20 by Stephanie DENNIS PA-C) Acute sigmoid colitis (Acute) Partial obstruction of colon (Acute) Subjective: Patient reports that her pain is well controlled. She is not passing any flatus but did not have any nausea or vomiting. - Physical Exam Vitals/I&O's: Vital Signs Temp Pulse Resp BP Pulse Ox 98.7 F 60 26 H 128/49 H 97 09/25/20 04:00 09/25/20 07:00 09/25/20 07:00 09/25/20 07:00 09/25/20 07:53 Oxygen Flow Rate (L/min) 2 Oxygen Delivery Method Nasal Cannula Weight: 203 lb 11.314 oz Body Mass Index (BMI) 32.8 Intake and Output for Last 24 Hours 09/23/20 09/24/20 09/25/20 23:59 23:59 23:59 Intake Total 3315.93 / 3354.03 6298.22 / 6345.12 1190.57 / 1190.57 Output Total 540 / 552 492 / 492 350 / 350 Balance 2775.93 / 2802.03 5806.22 / 5853.12 840.57 / 840.57 General: Alert, Oriented x3 Neck: No JVD Lungs: Normal air movement Cardiovascular: Regular rate, Regular Rhythm Abdomen: Soft, Non-Distended Microbiology Past 72 Hours 09/23/20 08:50 Mucosa - Nose SARS-CoV-2 Antigen (Rapid) - Final Laboratory Results 09/24/20 20:10: Sodium 142, Potassium 3.6, Chloride 112 H, Carbon Dioxide 24.0, Anion Gap 6, BUN 13, Creatinine 2.07 H, Estim Creat Clear Calc 16.86, Est GFR (MDRD) Af Amer 30 L, Est GFR (MDRD) Non-Af 24 L, BUN/Creatinine Ratio 6.3 L, Glucose 113 H, Calcium 7.0 L 09/25/20 04:20: WBC 16.2 H, RBC 2.68 L, Hgb 7.9 L, Hct 25.7 L, MCV 95.9, MCH 29.5, MCHC 30.7 L, RDW Std Deviation 52.8 H, RDW Coeff of Mamadou 15.2 H, Plt Count 213, MPV 10.0, Immature Gran % (Auto) 0.600, Neut % (Auto) 83.3 H, Lymph % (Auto) 6.4 L, [place] % (Auto) 8.0, Eos % (Auto) 1.5, Baso % (Auto) 0.2, Absolute Neuts (auto) 13.5 H, Absolute Lymphs (auto) 1.03, Nucleated RBC % 0 09/25/20 04:20: Sodium 141, Potassium 3.5, Chloride 112 H, Carbon Dioxide 23.0, Anion Gap 6, BUN 16, Creatinine 2.17 H, Estim Creat Clear Calc 16.08, Est GFR (MDRD) Af Amer 28 L, Est GFR (MDRD) Non-Af 23 L, BUN/Creatinine Ratio 7.4 L, Glucose 104, Calcium 6.7 L Current Medications Calamine/Phenol (Menthol/Lanolin/Calamine/Znox 113 Gm Tube) 1 applic TOPICAL BID [facility]; Protocol Last Admin: 09/24/20 21:45 Dose: 1 applicatio Documented by: Enoxaparin Sodium (Enoxaparin 40 Mg/0.4 Ml Syringe) 40 mg SC DAILY [facility] Last Admin: 09/24/20 10:19 Dose: 40 mg Documented by: Famotidine 20 mg/ Sodium (Chloride) 10 mls @ 300 mls/hr IV Q12 [facility] Last Infusion: 09/24/20 21:43 Dose: Infused Documented by: Ciprofloxacin (Cipro) 400 mg in 200 mls @ 200 mls/hr IV Q12 [facility] Last Infusion: 09/24/20 22:43 Dose: Infused Documented by: Metronidazole (Flagyl) 500 mg in 100 mls @ 100 mls/hr IV Q8 [facility] Last Infusion: 09/25/20 06:22 Dose: Infused Documented by: Lactated Ringer's () 1,000 mls @ 100 mls/hr IV .Q10H [facility] Last Admin: 09/25/20 05:24 Dose: 100 mls/hr Documented by: Norepinephrine Bitartrate 8 mg (/ Sodium Chloride) 250 mls @ 9.375 mls/hr CONT INF .[id number] [facility]; Protocol Last Titration: 09/25/20 07:00 Dose: 10 mcg/min, 18.8 mls/hr Documented by: Ondansetron HCl (Ondansetron 4 Mg/2 Ml Vial) 4 mg IV Q6H PRN PRN PRN Reason: NAUSEA/VOMITING Last Admin: 09/23/20 02:28 Dose: 4 mg Documented by: Pramipexole Dihydrochloride (Pramipexole Di-Hcl 0.25 Mg Tablet) 0.25 mg PO QHS [facility] Last Admin: 09/24/20 21:43 Dose: Not Given Documented by: Sodium Chloride (0.9% Saline Lock 10 Ml Syringe) 10 - 40 ml IV UD PRN PRN Reason: SALINE FLUSH Last Admin: 09/23/20 15:12 Dose: 30 ml Documented by: Medical Necessity - Tobacco Use Smoking Status: Never smoker Assessment/Plan All Active Problems (Last Reviewed 09/20/20 @ 14:20 by Stephanie DENNIS, CHANELL) Acute sigmoid colitis (Acute) Partial obstruction of colon (Acute) 80-year-old female status post sigmoid colectomy for partial obstruction 1. Patient appears to be doing better today. She is extubated on nasal cannula and does not report any abdominal pain at this time. She was mildly tender to palpation but she is nondistended. The patient is not passing any flatus but she is not having any come out of her NG tube. I would recommend clamping the NG tube leaving in place until she starts to pass flatus as it was very difficult to place. Once she begins to pass flatus the NG tube can be removed and she can be started on clear liquids. The patient is very fluid positive and her creatinine continues to mildly rise. She is making small amounts of urine. Darling in place for monitoring. 2. White count is similar to yesterday and I would recommend continue antibiotics until white count returns to normal. I have encouraged ambulation and incentive spirometer and I would like the patient out of bed to the chair today. Incisions are clean dry and intact. Patient is still on Levophed but her blood pressure appeared normal this morning. Hopefully that can be weaned off today. Joseph Grider MD Pager: [facility] [address] [place] [address], [address] [place] [address] Office:
--- NOTE | 2020-09-25 08:40 | PN_ITS ---
Patient Problems: Active and Suspected Problems (Last Reviewed 09/20/20 @ 14:20 by Stephanie DENNIS, CHANELL) Acute sigmoid colitis (Acute) Partial obstruction of colon (Acute) Subjective: No new issues overnight. Still on Levophed. NG tube was clamped as she has very little output however given how difficult it was to get in we'll hold on pulling out her NG tube until she is passing flatus. Her abdomen is little bit sore but not terrible for her today. Vitals/I&O's: Vital Signs Temp Pulse Resp BP Pulse Ox 98.7 F 60 26 H 128/49 H 97 09/25/20 04:00 09/25/20 07:00 09/25/20 07:00 09/25/20 07:00 09/25/20 07:53 Oxygen Flow Rate (L/min) 2 Oxygen Delivery Method Nasal Cannula Weight: 203 lb 11.314 oz Body Mass Index (BMI) 32.8 Intake and Output for Last 24 Hours 09/23/20 09/24/20 09/25/20 23:59 23:59 23:59 Intake Total 3315.93 / 3354.03 6298.22 / 6345.12 1190.57 / 1190.57 Output Total 540 / 552 492 / 492 350 / 350 Balance 2775.93 / 2802.03 5806.22 / 5853.12 840.57 / 840.57 General: Alert, Oriented x3, Cooperative, No apparent distress HEENT: Atraumatic, PERRLA, EOMI, Normocephalic, NG tube in place Oral: Moist Mucosa Neck: Supple, No JVD Lungs: Normal air movement, No rhonchi, No wheeze, No rales Cardiovascular: Regular rate, Regular Rhythm, Normal S1, Normal S2, No murmurs Abdomen: Soft, Non-Distended, No Hepato-splenomegaly, mild tenderness around the incision Extremities: No edema, Capillary Refill Less than 3 Seconds Skin: No rashes, No breakdown, midline incision dressing CDI Neurological: Neuro grossly intact, Sensory exam intact to light touch and pain Psych/Mental Status: Normal Affect, Appropriate Microbiology Past 72 Hours 09/23/20 08:50 Mucosa - Nose SARS-CoV-2 Antigen (Rapid) - Final Laboratory Results 09/24/20 20:10: Sodium 142, Potassium 3.6, Chloride 112 H, Carbon Dioxide 24.0, Anion Gap 6, BUN 13, Creatinine 2.07 H, Estim Creat Clear Calc 16.86, Est GFR (MDRD) Af Amer 30 L, Est GFR (MDRD) Non-Af 24 L, BUN/Creatinine Ratio 6.3 L, Glucose 113 H, Calcium 7.0 L 09/25/20 04:20: WBC 16.2 H, RBC 2.68 L, Hgb 7.9 L, Hct 25.7 L, MCV 95.9, MCH 29.5, MCHC 30.7 L, RDW Std Deviation 52.8 H, RDW Coeff of Mamadou 15.2 H, Plt Count 213, MPV 10.0, Immature Gran % (Auto) 0.600, Neut % (Auto) 83.3 H, Lymph % (Auto) 6.4 L, [place] % (Auto) 8.0, Eos % (Auto) 1.5, Baso % (Auto) 0.2, Absolute Neuts (auto) 13.5 H, Absolute Lymphs (auto) 1.03, Nucleated RBC % 0 09/25/20 04:20: Sodium 141, Potassium 3.5, Chloride 112 H, Carbon Dioxide 23.0, Anion Gap 6, BUN 16, Creatinine 2.17 H, Estim Creat Clear Calc 16.08, Est GFR (MDRD) Af Amer 28 L, Est GFR (MDRD) Non-Af 23 L, BUN/Creatinine Ratio 7.4 L, Glucose 104, Calcium 6.7 L Current Medications Calamine/Phenol (Menthol/Lanolin/Calamine/Znox 113 Gm Tube) 1 applic TOPICAL BID [facility]; Protocol Last Admin: 09/24/20 21:45 Dose: 1 applicatio Documented by: Enoxaparin Sodium (Enoxaparin 40 Mg/0.4 Ml Syringe) 40 mg SC DAILY [facility] Last Admin: 09/24/20 10:19 Dose: 40 mg Documented by: Famotidine 20 mg/ Sodium (Chloride) 10 mls @ 300 mls/hr IV Q12 [facility] Last Infusion: 09/24/20 21:43 Dose: Infused Documented by: Ciprofloxacin (Cipro) 400 mg in 200 mls @ 200 mls/hr IV Q12 [facility] Last Infusion: 09/24/20 22:43 Dose: Infused Documented by: Metronidazole (Flagyl) 500 mg in 100 mls @ 100 mls/hr IV Q8 [facility] Last Infusion: 09/25/20 06:22 Dose: Infused Documented by: Norepinephrine Bitartrate 8 mg (/ Sodium Chloride) 250 mls @ 9.375 mls/hr CONT INF .[id number] [facility]; Protocol Last Titration: 09/25/20 07:00 Dose: 10 mcg/min, 18.8 mls/hr Documented by: Ondansetron HCl (Ondansetron 4 Mg/2 Ml Vial) 4 mg IV Q6H PRN PRN PRN Reason: NAUSEA/VOMITING Last Admin: 09/23/20 02:28 Dose: 4 mg Documented by: Pramipexole Dihydrochloride (Pramipexole Di-Hcl 0.25 Mg Tablet) 0.25 mg PO QHS [facility] Last Admin: 09/24/20 21:43 Dose: Not Given Documented by: Sodium Chloride (0.9% Saline Lock 10 Ml Syringe) 10 - 40 ml IV UD PRN PRN Reason: SALINE FLUSH Last Admin: 09/23/20 15:12 Dose: 30 ml Documented by: STROKE Vital Signs/Narrative: Vital Signs Pulse Resp BP Pulse Ox 09/25/20 07:53 97 09/25/20 07:00 60 26 H 128/49 H 97 09/25/20 06:45 126/49 H 09/25/20 06:30 120/47 L 09/25/20 06:15 115/46 L 09/25/20 06:00 60 28 H 121/47 H 96 09/25/20 05:45 126/48 H 09/25/20 05:30 132/48 H 09/25/20 05:00 60 25 H 124/42 H 96 Medical Necessity - Tobacco Use Smoking Status: Never smoker Assessment/Plan All Active Problems (Last Reviewed 09/20/20 @ 14:20 by Stephanie DENNIS PA-C) Acute sigmoid colitis (Acute) Partial obstruction of colon (Acute) 1. Sigmoid diverticulitis status post sigmoid colectomy 09/23/2020/postoperative hypotension/DINO -There was some concern postoperatively since she has recovered from Covid what her possible operative risks would be -Unfortunately cannot obtain a small bowel follow-through as we do not have radiology here until Sunday, in discussion with the [facility] did not operate at all on elective surgical cases currently secondary to Covid Continue the NG tube to low intermittent wall suction, she can have a mouth swab or ice chips for comfort -Continue with Cipro and Flagyl -Keep continue with aggressive fluid hydration as well as vasopressors, she is 15L which is likely causing her dilutional anemia. We'll follow her hemoglobin closely -PICC line was placed 09/23/2020 2. Carotid disease/HTN/HLD/status post aortic valve replacement -She had 3 episodes of amaurosis fugax back in the early part of 2019 unfortunately she was not able to get a vascular surgeon evaluation until August 2020 at which point she developed Covid and that appointment was canceled -She had a carotid duplex back in May 2020 with a greater than 70% stenosis of the left extracranial internal carotid artery with the right having a moderate stenosis of 50 to 69%. -We will continue with her home aspirin when able as well as her statin to try to minimize risk until she can follow-up with vascular surgeon -We will hold her lisinopril secondary to her n.p.o. status as well as her DINO 3. GERD with hiatal hernia -Stable -Continue with Pepcid 4. Anxiety/depression -Stable -Continue with Celexa when able to take p.o. 5. Osteoporosis -Stable -Continue with weekly bisphosphonate when able to take p.o. DVT: Lovenox Inpatient E&M: 37972 Subs Hosp L2
[2020-09-25] MEDS: Furosemide 20 MG/2 ML VIAL IV (09:07)
[2020-09-25] MEDS: Ciprofloxacin 400 MG/200 ML BAG 200 MG IV (09:07)
[2020-09-25] MEDS: Enoxaparin 40 MG/0.4 ML Syringe SC (09:08)
[2020-09-25] MEDS: Famotidine 200 MG/20 ML MDV 20 MG in 0.9% Normal Saline (Pres. free 8 ML 300 MG IV (09:08)
[2020-09-25] MEDS: Menthol/Lanolin/Calamine/Znox 113 GM Tube 1 APPLIC TOPICAL ×2 (09:08→20:24)
[2020-09-25] MEDS: Pramipexole Di-HCl 0.25 MG Tablet PO (20:24)
[2020-09-26] VITALS (44 sets, daily range): BP systolic 73–156; BP diastolic 42–123; PULSE 60–74; RESP 16–27; TEMP 36.4–36.6; O2SAT 87–97
[2020-09-26 04:10] LABS: Absolute Lymphocyte Count 1.09 X10^3/uL (0.83-4.51); Absolute Neutrophil Count 11.9 X10^3/uL (2.0-7.7); Basophil# 0.04 X10^3/uL; Basophil% 0.3 % (0-1); Eosinophil# 0.45 X10^3/uL; Eosinophils% 3.1 % (0-5); Hematocrit 25.6 % (37-47); Hemoglobin 8.3 g/dL (12.0-15.0); Lymphocyte # 1.09 X10^3/ul (4.0); Lymphocyte % 7.6 % (19-41); Mean Corp Hgb Conc 32.4 g/dL (32-36); Mean Corpuscular Hgb 30.4 pg (27.0-32.0); Mean Corpuscular Volume 93.8 fL (81-99); Mean Platelet Vol. 9.9 fl (6.2-12.0); Monocyte# 0.89 X10^3/uL; Monocyte% 6.2 % (0-10); NRBC Flagged by Analyzer 0 % (0-5); Neutrophil # 11.86 X10^3/uL (2.7-7.7); Neutrophil % 82.2 % (47-70); Platelet Count 233 K/mm3 (150-450); RBC Distribution Width CV 15.4 % (11.6-14.6); RBC Distribution Width SD 51.6 fl (35.1-43.9); Red Blood Count 2.73 M/mm3 (4.2-5.4); White Blood Count 14.4 K/mm3 (4.4-11.0)
[2020-09-26 04:32] LABS: Anion Gap 6 (5-15); BUN 20 mg/dL (7-18); BUN/Creat Ratio 8.1 RATIO (10-20); Calcium,Total 6.6 mg/dL (8.5-10.1); Chloride 112 mmol/L (98-107); Creatinine, Serum 2.47 mg/dL (0.55-1.02); EST Glomerular Filtration Rate 20 mL/min (>60); Est Glom Filt Rate - Afr Amer 24 mL/min (>60); Estimated Creatinine Clearance 14.13 ml/min; Glucose 103 mg/dL (74-106); Potassium 3.5 mmol/L (3.5-5.1); Sodium Level 142 mmol/L (136-145)
[2020-09-26] MEDS: metroNIDAZOLE 500 MG/100 ML BAG 100 MG IV ×3 (05:44→21:02)
--- NOTE | 2020-09-26 06:29 | PCM.PN.INT ---
Subjective: The patient was seen and examined at the bedside this morning. Events from the last 24 hours have been reviewed. The patient is currently afebrile, hemodynamically stable and maintaining appropriate oxygen saturations on 2 L/min via nasal cannula. The patient remains on Levophed at 5 mcg/min. Creatinine was noted to be 2.47 this morning. The patient is currently documented to be overall net +13.5 L for the hospital admission. The patient denies any abdominal pain or shortness of breath this morning. Objective: The patient's most recent lab work, culture data and imaging studies have all been personally reviewed. Surface echocardiogram from February 2020 revealed normal LV size with an ejection fraction of 60%. Pulmonary artery systolic pressure was estimated to be 38 mmHg. Mild aortic valve stenosis was noted. Coronavirus rapid antigen testing was negative on September 23. General: Alert, Cooperative, No apparent distress HEENT: Atraumatic, PERRLA, Normocephalic, - - Nasogastric tube remains in place Oral: No Gingival or Mucosal Lesions/ Ulcerations Neck: Supple, No Nodes, Trachea Midline Lungs: No rhonchi, No wheeze, No rales, Diminished Cardiovascular: Regular rate, Regular Rhythm Abdomen: Soft, Non-Distended, Obese Extremities: No clubbing, No cyanosis, No edema Skin: - - No significant change from previous Musculoskeletal: No Tenderness to Palpation of Joints or Extremities, No Muscle Wasting Lymphatic: No Cervical, Supraclavicular, or Inguinal Adenopathy Neurological: Cranial nerves II-XII grossly intact, Neuro grossly intact Psych/Mental Status: Normal Affect, Appropriate Vital Signs Temp Pulse Resp BP Pulse Ox 97.8 F 60 22 H 134/55 H 96 09/26/20 04:00 09/26/20 06:15 09/26/20 06:15 09/26/20 06:15 09/26/20 06:15 Oxygen Flow Rate (L/min) 2 Oxygen Delivery Method Nasal Cannula Weight: 203 lb 4.259 oz Body Mass Index (BMI) 32.8 Intake and Output for Last 24 Hours 09/24/20 09/25/20 09/26/20 23:59 23:59 23:59 Intake Total 6298.22 / 6345.12 2154.52 / 2154.52 10.5 / 10.5 Output Total 492 / 492 2500 / 2500 275 / 275 Balance 5806.22 / 5853.12 -345.48 / -345.48 -264.5 / -264.5 Labs (Last 48 Hours) 09/24/20 09/24/20 09/25/20 07:00 20:10 04:20 WBC 16.2 H RBC 2.68 L Hgb 7.9 L Hct 25.7 L MCV 95.9 MCH 29.5 MCHC 30.7 L RDW Std Deviation 52.8 H RDW Coeff of Mamadou 15.2 H Plt Count 213 MPV 10.0 Immature Gran % (Auto) 0.600 Neut % (Auto) 83.3 H Lymph % (Auto) 6.4 L [place] % (Auto) 8.0 Eos % (Auto) 1.5 Baso % (Auto) 0.2 Absolute Neuts (auto) 13.5 H Absolute Lymphs (auto) 1.03 Nucleated RBC % 0 Sodium 142 Potassium 3.6 Chloride 112 H Carbon Dioxide 24.0 Anion Gap 6 BUN 13 Creatinine 2.07 H Estim Creat Clear Calc 16.86 Est GFR (MDRD) Af Amer 30 L Est GFR (MDRD) Non-Af 24 L BUN/Creatinine Ratio 6.3 L Glucose 113 H Lactic Acid 1.6 Calcium 7.0 L 09/25/20 09/26/20 09/26/20 04:20 03:30 03:30 WBC 14.4 H RBC 2.73 L Hgb 8.3 L Hct 25.6 L MCV 93.8 MCH 30.4 MCHC 32.4 D RDW Std Deviation 51.6 H RDW Coeff of Mamadou 15.4 H Plt Count 233 MPV 9.9 Immature Gran % (Auto) 0.600 Neut % (Auto) 82.2 H Lymph % (Auto) 7.6 L [place] % (Auto) 6.2 Eos % (Auto) 3.1 Baso % (Auto) 0.3 Absolute Neuts (auto) 11.9 H Absolute Lymphs (auto) 1.09 Nucleated RBC % 0 Sodium 141 142 Potassium 3.5 3.5 Chloride 112 H 112 H Carbon Dioxide 23.0 24.0 Anion Gap 6 6 BUN 16 20 H Creatinine 2.17 H 2.47 H Estim Creat Clear Calc 16.08 14.13 Est GFR (MDRD) Af Amer 28 L 24 L Est GFR (MDRD) Non-Af 23 L 20 L BUN/Creatinine Ratio 7.4 L 8.1 L Glucose 104 103 Lactic Acid Calcium 6.7 L 6.6 L Clinical Impression(s) from Imaging Studies Abdomen/Pelvis CT 09/19/20 19:25 IMPRESSION: 1. Short segment wall thickening of the proximal sigmoid colon with proximal colonic (more than small bowel) dilation and fluid-filled lumen, suggesting at least partial colonic obstruction. Differential considerations include localized colitis, chronic muscular hyperplasia/chronic diverticulosis and neoplasm. Electronically Signed: Luis uCadra MD ([place]) at 21:03 EST , Service support , KUB X-Ray 09/19/20 21:21 IMPRESSION: Enteric/gastric tube not seen on provided images. Electronically Signed: Luis Cuadra MD ([facility]) at 22:18 EST , Service support , Abdomen X-Ray 09/22/20 16:13 IMPRESSION: Improved moderate small bowel obstruction. Electronically Signed: Doron Calvillo MD at 16:31 EST Tel , Service support , Chest X-Ray 09/23/20 16:30 IMPRESSION: Endotracheal tube terminates 2.5 cm above the ortiz and the enteric tube is well below the gastroesophageal junction. Reduced inspiration with increased bibasilar and right mid lung zone atelectasis. Stable cardiac size status post prior midline sternotomy. ICD unchanged in position. Electronically Signed: Juanita Vincent MD at 17:28 EST , Service support , Chest X-Ray 09/23/20 18:00 IMPRESSION: Right PICC terminates in the distal superior vena cava at the atrial caval junction with no apparent complication of line placement. Endotracheal tube and enteric tube are unchanged. Continued bibasilar and right midlung zone atelectasis stable from prior exam. Electronically Signed: Juanita Vincent MD at 19:09 EST , Service support , Medical Necessity - Tobacco Use Smoking Status: Never smoker Assessment/Plan All Active Problems (Last Reviewed 09/20/20 @ 14:20 by Stephanie DENNIS, PACarminaC) Acute sigmoid colitis (Acute) Partial obstruction of colon (Acute) RECOMMENDATIONS: 1. Management of NG tube and dietary advancement per general surgery recommendations. 2. Continue antimicrobials. 3. Continue to wean Levophed to maintain a mean arterial pressure at or above 65 mmHg. 4. Obtain nephrology consultation, given DINO. 5. Encourage incentive spirometer use and mobilize patient as tolerated. IMPRESSIONS: 1. Acute respiratory failure Although initially intubated for her surgical procedure, the patient was able to be extubated the following day. She is currently maintaining appropriate oxygen saturations on minimal O2. Plan to continue current supportive measures and encourage incentive spirometer use as tolerated. Continue to wean supplemental oxygen to maintain saturations at or above 90%. 2. High-grade sigmoid obstruction with colonic and small bowel obstruction, now POD #3 status post open sigmoid colectomy Continue routine postoperative care per surgery recommendations. 3. Septic shock Clinical concern for intra-abdominal etiology. The patient will be continued on vasopressor support to maintain a mean arterial pressure at or above 65 mmHg. Continue empiric antimicrobials. 4. Acute kidney injury Clinical concern for prerenal etiology/ischemic ATN in the setting of #3. Continue current supportive measures with vasopressor support to maintain hemodynamic stability. Given worsening creatinine, will obtain nephrology consultation. 5. 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 Continue home medications as indicated. TIME: 32 minutes of critical care time, independent of procedures, was spent addressing the patient's acute respiratory failure, colonic and small bowel obstruction status post sigmoid colectomy, acute kidney injury, review of all data and collaboration with the care team. ([id number]) [id number] Critical care first hour
--- NOTE | 2020-09-26 08:04 | PN.SURG_ITS ---
Patient Problems: Active and Suspected Problems (Last Reviewed 09/20/20 @ 14:20 by Stephanie DENNIS, CHANELL) Acute sigmoid colitis (Acute) Partial obstruction of colon (Acute) Subjective: Patient has had no nausea or vomiting and no abdominal pain. She has not passed any flatus yet. - Physical Exam Vitals/I&O's: Vital Signs Temp Pulse Resp BP Pulse Ox 97.8 F 63 16 134/53 H 96 09/26/20 04:00 09/26/20 07:34 09/26/20 07:00 09/26/20 07:00 09/26/20 07:00 Oxygen Flow Rate (L/min) 2 Oxygen Delivery Method Nasal Cannula Weight: 203 lb 4.259 oz Body Mass Index (BMI) 32.8 Intake and Output for Last 24 Hours 09/24/20 09/25/20 09/26/20 23:59 23:59 23:59 Intake Total 6298.22 / 6345.12 2154.52 / 2154.52 59.85 / 59.85 Output Total 492 / 492 2500 / 2500 275 / 275 Balance 5806.22 / 5853.12 -345.48 / -345.48 -215.15 / -215.15 General: Alert, Oriented x3 Lungs: Normal air movement Abdomen: Soft, Non Tender, Non-Distended Microbiology Past 72 Hours 09/23/20 08:50 Mucosa - Nose SARS-CoV-2 Antigen (Rapid) - Final Laboratory Results 09/26/20 03:30: WBC 14.4 H, RBC 2.73 L, Hgb 8.3 L, Hct 25.6 L, MCV 93.8, MCH 30.4, MCHC 32.4 D, RDW Std Deviation 51.6 H, RDW Coeff of Mamadou 15.4 H, Plt Count 233, MPV 9.9, Immature Gran % (Auto) 0.600, Neut % (Auto) 82.2 H, Lymph % (Auto) 7.6 L, [place] % (Auto) 6.2, Eos % (Auto) 3.1, Baso % (Auto) 0.3, Absolute Neuts (auto) 11.9 H, Absolute Lymphs (auto) 1.09, Nucleated RBC % 0 09/26/20 03:30: Sodium 142, Potassium 3.5, Chloride 112 H, Carbon Dioxide 24.0, Anion Gap 6, BUN 20 H, Creatinine 2.47 H, Estim Creat Clear Calc 14.13, Est GFR (MDRD) Af Amer 24 L, Est GFR (MDRD) Non-Af 20 L, BUN/Creatinine Ratio 8.1 L, Glucose 103, Calcium 6.6 L Current Medications Calamine/Phenol (Menthol/Lanolin/Calamine/Znox 113 Gm Tube) 1 applic TOPICAL BID [facility]; Protocol Last Admin: 09/25/20 20:24 Dose: 1 applicatio Documented by: Enoxaparin Sodium (Enoxaparin 40 Mg/0.4 Ml Syringe) 40 mg SC DAILY [facility] Last Admin: 09/25/20 09:08 Dose: 40 mg Documented by: Metronidazole (Flagyl) 500 mg in 100 mls @ 100 mls/hr IV Q8 [facility] Last Admin: 09/26/20 05:44 Dose: 100 mls/hr Documented by: Norepinephrine Bitartrate 8 mg (/ Sodium Chloride) 250 mls @ 9.375 mls/hr CONT INF .[id number] [facility]; Protocol Last Titration: 09/26/20 06:15 Dose: 4 mcg/min, 7.5 mls/hr Documented by: Famotidine 20 mg/ Sodium (Chloride) 10 mls @ 300 mls/hr IV DAILY [facility] Ciprofloxacin (Cipro) 400 mg in 200 mls @ 200 mls/hr IV Q24 [facility] Ondansetron HCl (Ondansetron 4 Mg/2 Ml Vial) 4 mg IV Q6H PRN PRN PRN Reason: NAUSEA/VOMITING Last Admin: 09/23/20 02:28 Dose: 4 mg Documented by: Pramipexole Dihydrochloride (Pramipexole Di-Hcl 0.25 Mg Tablet) 0.25 mg PO QHS [facility] Last Admin: 09/25/20 20:24 Dose: 0.25 mg Documented by: Sodium Chloride (0.9% Saline Lock 10 Ml Syringe) 10 - 40 ml IV UD PRN PRN Reason: SALINE FLUSH Last Admin: 09/23/20 15:12 Dose: 30 ml Documented by: Medical Necessity - Tobacco Use Smoking Status: Never smoker Assessment/Plan All Active Problems (Last Reviewed 09/20/20 @ 14:20 by Stephanie DENNIS PA-C) Acute sigmoid colitis (Acute) Partial obstruction of colon (Acute) 80-year-old female status post sigmoid colectomy for partial obstruction 1. Patient appears to be doing well this morning. She is having no nausea or vomiting. I clamped her NG tube yesterday and she has been clamped for about 24 hours with no nausea or vomiting. I connected to suction this morning and nothing was aspirated from the stomach. I will remove the NG tube today. 2. Patient still not passing any flatus. Continue n.p.o. until she starts passing flatus and then start clear liquid diet. 3. Patient had more than adequate urine output but her creatinine still slightly bryan this morning. Patient is also still on low-dose Levophed. I recommend continue antibiotics until white count is normalized. Joseph Grider MD Pager: [facility] [address] [place] [address], [address] [place] [address] Office:
--- NOTE | 2020-09-26 08:59 | PN_ITS ---
Patient Problems: Active and Suspected Problems (Last Reviewed 09/20/20 @ 14:20 by Stephanie DENNIS, PADivya) Acute sigmoid colitis (Acute) Partial obstruction of colon (Acute) Subjective: Feeling well today, no issues overnight. Abdominal pain is controlled and she denies any nausea or vomiting. She has not had any bowel function yet either Vitals/I&O's: Vital Signs Temp Pulse Resp BP Pulse Ox 97.8 F 60 20 H 136/49 H 96 09/26/20 04:00 09/26/20 08:30 09/26/20 08:30 09/26/20 08:30 09/26/20 08:30 Oxygen Flow Rate (L/min) 2 Oxygen Delivery Method Nasal Cannula Weight: 203 lb 4.259 oz Body Mass Index (BMI) 32.8 Intake and Output for Last 24 Hours 09/24/20 09/25/20 09/26/20 23:59 23:59 23:59 Intake Total 6298.22 / 6345.12 2154.52 / 2154.52 172.97 / 172.97 Output Total 492 / 492 2500 / 2500 275 / 275 Balance 5806.22 / 5853.12 -345.48 / -345.48 -102.03 / -102.03 General: Alert, Oriented x3, Cooperative, No apparent distress HEENT: Atraumatic, PERRLA, EOMI, Normocephalic, NG tube in place Oral: Moist Mucosa Neck: Supple, No JVD Lungs: Normal air movement, No rhonchi, No wheeze, No rales Cardiovascular: Regular rate, Regular Rhythm, Normal S1, Normal S2, No murmurs Abdomen: Soft, Non-Distended, No Hepato-splenomegaly, mild tenderness around the incision Extremities: No edema, Capillary Refill Less than 3 Seconds Skin: No rashes, No breakdown, midline incision dressing CDI Neurological: Neuro grossly intact, Sensory exam intact to light touch and pain Psych/Mental Status: Normal Affect, Appropriate Microbiology Past 72 Hours 09/23/20 08:50 Mucosa - Nose SARS-CoV-2 Antigen (Rapid) - Final Laboratory Results 09/26/20 03:30: WBC 14.4 H, RBC 2.73 L, Hgb 8.3 L, Hct 25.6 L, MCV 93.8, MCH 30.4, MCHC 32.4 D, RDW Std Deviation 51.6 H, RDW Coeff of Mamadou 15.4 H, Plt Count 233, MPV 9.9, Immature Gran % (Auto) 0.600, Neut % (Auto) 82.2 H, Lymph % (Auto) 7.6 L, [place] % (Auto) 6.2, Eos % (Auto) 3.1, Baso % (Auto) 0.3, Absolute Neuts (auto) 11.9 H, Absolute Lymphs (auto) 1.09, Nucleated RBC % 0 09/26/20 03:30: Sodium 142, Potassium 3.5, Chloride 112 H, Carbon Dioxide 24.0, Anion Gap 6, BUN 20 H, Creatinine 2.47 H, Estim Creat Clear Calc 14.13, Est GFR (MDRD) Af Amer 24 L, Est GFR (MDRD) Non-Af 20 L, BUN/Creatinine Ratio 8.1 L, Glucose 103, Calcium 6.6 L Current Medications Calamine/Phenol (Menthol/Lanolin/Calamine/Znox 113 Gm Tube) 1 applic TOPICAL BID [facility]; Protocol Last Admin: 09/25/20 20:24 Dose: 1 applicatio Documented by: Enoxaparin Sodium (Enoxaparin 40 Mg/0.4 Ml Syringe) 40 mg SC DAILY [facility] Last Admin: 09/25/20 09:08 Dose: 40 mg Documented by: Metronidazole (Flagyl) 500 mg in 100 mls @ 100 mls/hr IV Q8 [facility] Last Infusion: 09/26/20 08:05 Dose: Infused Documented by: Norepinephrine Bitartrate 8 mg (/ Sodium Chloride) 250 mls @ 9.375 mls/hr CONT INF .[id number] [facility]; Protocol Last Titration: 09/26/20 08:05 Dose: 3 mcg/min, 5.6 mls/hr Documented by: Famotidine 20 mg/ Sodium (Chloride) 10 mls @ 300 mls/hr IV DAILY [facility] Ciprofloxacin (Cipro) 400 mg in 200 mls @ 200 mls/hr IV Q24 [facility] Ondansetron HCl (Ondansetron 4 Mg/2 Ml Vial) 4 mg IV Q6H PRN PRN PRN Reason: NAUSEA/VOMITING Last Admin: 09/23/20 02:28 Dose: 4 mg Documented by: Pramipexole Dihydrochloride (Pramipexole Di-Hcl 0.25 Mg Tablet) 0.25 mg PO QHS [facility] Last Admin: 09/25/20 20:24 Dose: 0.25 mg Documented by: Sodium Chloride (0.9% Saline Lock 10 Ml Syringe) 10 - 40 ml IV UD PRN PRN Reason: SALINE FLUSH Last Admin: 09/23/20 15:12 Dose: 30 ml Documented by: STROKE Vital Signs/Narrative: Vital Signs Pulse Resp BP BP Pulse Ox 09/26/20 08:30 60 20 H 136/49 H 96 09/26/20 08:15 60 18 156/123 H 96 09/26/20 08:05 60 20 H 138/48 H 96 09/26/20 07:45 60 22 H 138/48 H 96 09/26/20 07:34 63 09/26/20 07:00 60 16 134/53 H 96 09/26/20 06:15 60 22 H 134/55 H 134/55 H 96 09/26/20 05:00 60 20 H 124/52 H 95 Medical Necessity - Tobacco Use Smoking Status: Never smoker Assessment/Plan All Active Problems (Last Reviewed 09/20/20 @ 14:20 by Stephanie DENNIS, PA-C) Acute sigmoid colitis (Acute) Partial obstruction of colon (Acute) 1. Sigmoid diverticulitis status post sigmoid colectomy 09/23/2020/postoperative hypotension/DINO -There was some concern postoperatively since she has recovered from Covid what her possible operative risks would be -Unfortunately cannot obtain a small bowel follow-through as we do not have radiology here until Sunday, in discussion with the [facility] did not operate at all on elective surgical cases currently secondary to Covid -Continue the NG tube to low intermittent wall suction, she can have a mouth swab or ice chips for comfort -Continue with Cipro and Flagyl -Keep continue with aggressive fluid hydration as well as vasopressors, she is +13.5 L which is likely causing her dilutional anemia. We'll follow her hemoglobin closely -PICC line was placed 09/23/2020 -Renal function is worsening likely ATN, therefore will consult nephrology, it does appear that she has started auto diuresing as she had 2500 cc of urine output yesterday 2. Carotid disease/HTN/HLD/status post aortic valve replacement -She had 3 episodes of amaurosis fugax back in the early part of 2019 unfortunately she was not able to get a vascular surgeon evaluation until August 2020 at which point she developed Covid and that appointment was canceled -She had a carotid duplex back in May 2020 with a greater than 70% stenosis of the left extracranial internal carotid artery with the right having a moderate stenosis of 50 to 69%. -We will continue with her home aspirin when able as well as her statin to try to minimize risk until she can follow-up with vascular surgeon -We will hold her lisinopril secondary to her n.p.o. status as well as her DINO 3. GERD with hiatal hernia -Stable -Continue with Pepcid 4. Anxiety/depression -Stable -Continue with Celexa when able to take p.o. 5. Osteoporosis -Stable -Continue with weekly bisphosphonate when able to take p.o. DVT: Lovenox Inpatient E&M: 55105 Subs Hosp L2
[2020-09-26] MEDS: Menthol/Lanolin/Calamine/Znox 113 GM Tube 1 APPLIC TOPICAL ×2 (09:48→21:02)
[2020-09-26] MEDS: Famotidine 200 MG/20 ML MDV 20 MG in 0.9% Normal Saline (Pres. free 8 ML 300 MG IV (09:48)
[2020-09-26] MEDS: Enoxaparin 40 MG/0.4 ML Syringe SC (09:53)
[2020-09-26] MEDS: Ciprofloxacin 400 MG/200 ML BAG 200 MG IV (10:02)
--- NOTE | 2020-09-26 17:28 | CON.PCM_ITS ---
Consultation - Renal 09/26/20 PCP/ Referring MD: Requesting physician: [] Primary care physician: Dr. Petros Wagner MD Reason for Consultation:: dino - History of Present Illness History of Present Illness: The patient is a 80 year old F with a past medical history as below who presented with to the emergency room because of abdominal pain for 3 days. She was found to have thickening of the proximal sigmoid colon dilatation of fluid- filled lumen suggestive of partial colonic obstruction. Underwent sigmoid colectomy for partial obstruction. She was noted to have gradually worsening serum creatinine from admission which prompted renal consult. Serum creatinine was 0.7 and it increased to 2.47 today. The patient is on Levophed low-dose and she had received Lasix yesterday. She denies abdominal pain nausea vomiting diarrhea. She just started p.o. today. She has a Darling catheter with very good urine output and yellow urine in the bag. She denies ever seeing a oil lease broker or history of CKD or kidney stones. She denies chest pain shortness of breath fever chills she basically has no complaints currently. - Allergies Allergies: Allergies Penicillins Allergy (Verified 09/19/20 19:10) Hives - Current Medications Current Medications: Current Medications Calamine/Phenol (Menthol/Lanolin/Calamine/Znox 113 Gm Tube) 1 applic TOPICAL BID [facility]; Protocol Last Admin: 09/26/20 09:48 Dose: 1 applicatio Documented by: Enoxaparin Sodium (Enoxaparin 30 Mg/0.3 Ml Syringe) 30 mg SC DAILY [facility] Metronidazole (Flagyl) 500 mg in 100 mls @ 100 mls/hr IV Q8 [facility] Last Infusion: 09/26/20 16:18 Dose: Infused Documented by: Norepinephrine Bitartrate 8 mg (/ Sodium Chloride) 250 mls @ 9.375 mls/hr CONT INF .[id number] [facility]; Protocol Last Titration: 09/26/20 16:18 Dose: 2 mcg/min, 3.8 mls/hr Documented by: Famotidine 20 mg/ Sodium (Chloride) 10 mls @ 300 mls/hr IV DAILY [facility] Last Infusion: 09/26/20 10:47 Dose: Infused Documented by: Ciprofloxacin (Cipro) 400 mg in 200 mls @ 200 mls/hr IV Q24 [facility] Last Infusion: 09/26/20 12:11 Dose: Infused Documented by: Ondansetron HCl (Ondansetron 4 Mg/2 Ml Vial) 4 mg IV Q6H PRN PRN PRN Reason: NAUSEA/VOMITING Last Admin: 09/23/20 02:28 Dose: 4 mg Documented by: Pramipexole Dihydrochloride (Pramipexole Di-Hcl 0.25 Mg Tablet) 0.25 mg PO QHS [facility] Last Admin: 09/25/20 20:24 Dose: 0.25 mg Documented by: Sodium Chloride (0.9% Saline Lock 10 Ml Syringe) 10 - 40 ml IV UD PRN PRN Reason: SALINE FLUSH Last Admin: 09/23/20 15:12 Dose: 30 ml Documented by: - 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 Hiatal hernia repair. - Social History Smoking Status: Never smoker Alcohol: None Drugs: None - Family History Maternal Family History: Family History (Last Reviewed 09/20/20 @ 14:21 by Stephanie DENNIS, PA-C) Mother Hypertension Heart disease Brother Hypertension Father Hypertension Patient Problems: Active and Suspected Problems (Last Reviewed 09/20/20 @ 14:20 by Stephanie DENNIS, PA-C) Acute sigmoid colitis (Acute) Partial obstruction of colon (Acute) - Physical Exam Vitals/I&O's: Vital Signs Temp Pulse Resp BP Pulse Ox 97.9 F 63 19 H 100/46 L 96 09/26/20 16:00 09/26/20 17:00 09/26/20 17:00 09/26/20 17:00 09/26/20 17:00 Oxygen Flow Rate (L/min) 2 Oxygen Delivery Method Nasal Cannula Weight: 92.2 kg Body Mass Index (BMI) 32.8 Intake and Output for Last 24 Hours 09/24/20 09/25/20 09/26/20 23:59 23:59 23:59 Intake Total 6298.22 / 6345.12 2154.52 / 2154.52 510.97 / 510.97 Output Total 492 / 492 2500 / 2500 615 / 615 Balance 5806.22 / 5853.12 -345.48 / -345.48 -104.03 / -104.03 General: Alert, Cooperative HEENT: Atraumatic, Normocephalic Oral: Moist Mucosa Neck: Supple Lungs: Clear to auscultation, Normal air movement Cardiovascular: Regular rate, Regular Rhythm, Normal S1, Normal S2 Abdomen: Bowel Sounds Present, Soft Extremities: No edema Laboratory Results 09/26/20 03:30: WBC 14.4 H, RBC 2.73 L, Hgb 8.3 L, Hct 25.6 L, MCV 93.8, MCH 30.4, MCHC 32.4 D, RDW Std Deviation 51.6 H, RDW Coeff of Mamadou 15.4 H, Plt Count 233, MPV 9.9, Immature Gran % (Auto) 0.600, Neut % (Auto) 82.2 H, Lymph % (Auto) 7.6 L, [place] % (Auto) 6.2, Eos % (Auto) 3.1, Baso % (Auto) 0.3, Absolute Neuts (auto) 11.9 H, Absolute Lymphs (auto) 1.09, Nucleated RBC % 0 09/26/20 03:30: Sodium 142, Potassium 3.5, Chloride 112 H, Carbon Dioxide 24.0, Anion Gap 6, BUN 20 H, Creatinine 2.47 H, Estim Creat Clear Calc 14.13, Est GFR (MDRD) Af Amer 24 L, Est GFR (MDRD) Non-Af 20 L, BUN/Creatinine Ratio 8.1 L, Glucose 103, Calcium 6.6 L Current Medications Calamine/Phenol (Menthol/Lanolin/Calamine/Znox 113 Gm Tube) 1 applic TOPICAL BID [facility]; Protocol Last Admin: 09/26/20 09:48 Dose: 1 applicatio Documented by: Enoxaparin Sodium (Enoxaparin 30 Mg/0.3 Ml Syringe) 30 mg SC DAILY [facility] Metronidazole (Flagyl) 500 mg in 100 mls @ 100 mls/hr IV Q8 [facility] Last Infusion: 09/26/20 16:18 Dose: Infused Documented by: Norepinephrine Bitartrate 8 mg (/ Sodium Chloride) 250 mls @ 9.375 mls/hr CONT INF .[id number] [facility]; Protocol Last Titration: 09/26/20 16:18 Dose: 2 mcg/min, 3.8 mls/hr Documented by: Famotidine 20 mg/ Sodium (Chloride) 10 mls @ 300 mls/hr IV DAILY [facility] Last Infusion: 09/26/20 10:47 Dose: Infused Documented by: Ciprofloxacin (Cipro) 400 mg in 200 mls @ 200 mls/hr IV Q24 [facility] Last Infusion: 09/26/20 12:11 Dose: Infused Documented by: Ondansetron HCl (Ondansetron 4 Mg/2 Ml Vial) 4 mg IV Q6H PRN PRN PRN Reason: NAUSEA/VOMITING Last Admin: 09/23/20 02:28 Dose: 4 mg Documented by: Pramipexole Dihydrochloride (Pramipexole Di-Hcl 0.25 Mg Tablet) 0.25 mg PO QHS [facility] Last Admin: 09/25/20 20:24 Dose: 0.25 mg Documented by: Sodium Chloride (0.9% Saline Lock 10 Ml Syringe) 10 - 40 ml IV UD PRN PRN Reason: SALINE FLUSH Last Admin: 09/23/20 15:12 Dose: 30 ml Documented by: Assessment/Plan All Active Problems (Last Reviewed 09/20/20 @ 14:20 by Stephanie DENNIS, PA-C) Acute sigmoid colitis (Acute) Partial obstruction of colon (Acute) DINO?prerenal/ATN with Levophed and diuretics Baseline serum creatinine is 0.7- 0.8 Acute sigmoid colitis status post sigmoid colectomy Shock Continue Levophed to keep mean arterial pressure more than 65 IV fluids as needed for pressure support Check renal ultrasound UA and fractional excretion of sodium Avoid nephrotoxins Further work-up and management as per clinical course Of assessment and plan was discussed at length with the patient voiced understanding and agrees to proceed with the plan as outlined above. She was given the opportunity to ask questions and stated that those were answered to her satisfaction. Thank you very much for allowing me to participate in the care of this patient please do not hesitate to call if you have any questions or concerns.
[2020-09-26 17:58] LABS: Bacteria 0 SEEN /hpf (None Seen); Mucous, Urine 0 SEEN /hpf (<or=2+); Red Blood Cells-Urine 0 SEEN /hpf (0-5)
[2020-09-26 18:03] LABS: Color, Urine Yellow (Yellow); Glucose, Dipstick Normal (Normal); Ketone-Dipstick Negative (Negative); Leukocyte Esterase-Dipstick 100 /ul (Negative); Nitrite-Dipstick Negative (Negative); Occult Blood-Urine 10 /ul (Negative); Protein-Dipstick 30 mg/dl (Negative); Urine Bilirubin Dipstick Negative (Negative); Urine Clarity Clear (Clear); Urine Urobilinogen Normal (Normal)
[2020-09-26 18:09] LABS: Renal Epithelial Cells 0-5 SEEN /hpf (0-5); Squamous Epithelial Cells - UA 0-5 SEEN /hpf (5-10); White Blood Cells 0-5 SEEN /hpf (0-5)
[2020-09-26 18:32] LABS: Urine Sodium 68 mmol/L (Not Establ.)
[2020-09-26] MEDS: Pramipexole Di-HCl 0.25 MG Tablet PO (21:02)
[2020-09-27] VITALS (38 sets, daily range): BP systolic 86–134; BP diastolic 39–79; PULSE 59–69; RESP 16–27; TEMP 36.3–36.7; O2SAT 91–100
--- NOTE | 2020-09-27 05:00 | US_ITS ---
STUDY: RENAL ULTRASOUND - COMPLETE REASON FOR EXAM: Female, 80 years old. DINO TECHNIQUE: Ultrasound evaluation of the kidneys was performed with real-time and static kruger-scale imaging. COMPARISON: None. FINDINGS: RIGHT KIDNEY: Normal location of the right kidney, which is normal in size. The right kidney measures 10.9 cm. There is a normal cortex of the right kidney. The renal cortex measures 1.7 cm. There is no right renal mass or cyst. There are no right renal calculi. There is no right hydronephrosis. DISTAL RIGHT URETER: There is non-visualization of the distal right ureter. There is no demonstrated right ureterovesical junction calculus. There is a visualized right ureteral jet. LEFT KIDNEY: Normal location of the left kidney, which is normal in size. The left kidney measures 9.8 cm. There is a normal cortex of the left kidney. The renal cortex measures 1.7 cm. 1 cm exophytic cyst lower pole the left kidney. There are no left renal calculi. There is no left hydronephrosis. DISTAL LEFT URETER: There is non-visualization of the distal left ureter. There is no demonstrated left ureterovesical junction calculus. There is a visualized left ureteral jet. BLADDER: Not visualized due to Darling catheter.. Small amount of ascites. Small left pleural effusion. US/Kidney and Bladder IMPRESSION: No hydronephrosis to suggest obstruction. Electronically Signed: Doron Calvillo MD at 9:02 EST Tel , Service support ,
[2020-09-27] MEDS: metroNIDAZOLE 500 MG/100 ML BAG 100 MG IV (05:30)
[2020-09-27 05:48] LABS: Absolute Lymphocyte Count 0.84 X10^3/uL (0.83-4.51); Absolute Neutrophil Count 7.2 X10^3/uL (2.0-7.7); Basophil# 0.04 X10^3/uL; Basophil% 0.4 % (0-1); Eosinophil# 0.41 X10^3/uL; Eosinophils% 4.3 % (0-5); Hemoglobin 7.7 g/dL (12.0-15.0); Lymphocyte # 0.84 X10^3/ul (4.0); Lymphocyte % 8.8 % (19-41); Mean Corp Hgb Conc 30.8 g/dL (32-36); Mean Corpuscular Hgb 29.3 pg (27.0-32.0); Mean Corpuscular Volume 95.1 fL (81-99); Mean Platelet Vol. 9.5 fl (6.2-12.0); Monocyte# 0.97 X10^3/uL; Monocyte% 10.2 % (0-10); NRBC Flagged by Analyzer 0 % (0-5); Neutrophil % 75.7 % (47-70); Platelet Count 249 K/mm3 (150-450); RBC Distribution Width CV 15.4 % (11.6-14.6); RBC Distribution Width SD 53.3 fl (35.1-43.9); Red Blood Count 2.63 M/mm3 (4.2-5.4); White Blood Count 9.5 K/mm3 (4.4-11.0)
[2020-09-27 06:02] LABS: ALB/GLOB Ratio 0.6 RATIO (0.9-2.4); AST(SGOT) 21 U/L (15-37); Alanine Aminotransfer ALT/SGPT 22 U/L (13-56); Albumin, Serum 1.8 g/dL (3.2-5.0); Alkaline Phosphatase 40 U/L (45-117); Anion Gap 5 (5-15); BUN 24 mg/dL (7-18); BUN/Creat Ratio 9.6 RATIO (10-20); Chloride 110 mmol/L (98-107); Creatinine, Serum 2.51 mg/dL (0.55-1.02); EST Glomerular Filtration Rate 20 mL/min (>60); Est Glom Filt Rate - Afr Amer 24 mL/min (>60); Globulin 2.9 g/dL (2.2-4.2); Glucose 110 mg/dL (74-106); Potassium 3.3 mmol/L (3.5-5.1); Protein, Total 4.7 g/dL (6.4-8.2); Sodium Level 141 mmol/L (136-145)
--- NOTE | 2020-09-27 06:14 | PN.SURG_ITS ---
Patient Problems: Active and Suspected Problems (Last Reviewed 09/20/20 @ 14:20 by Stephanie DENNIS, PACarminaC) Acute sigmoid colitis (Acute) Partial obstruction of colon (Acute) Subjective: Pt feels well, minimal incisional discomfort. Some flatus and liquid stool. No nausea with clear liquids as she had preop. - Physical Exam Vitals/I&O's: Vital Signs Temp Pulse Resp BP Pulse Ox 97.7 F L 63 22 H 103/45 L 95 09/27/20 00:00 09/27/20 01:00 09/27/20 03:00 09/27/20 02:00 09/27/20 02:00 Oxygen Flow Rate (L/min) 3 Oxygen Delivery Method Nasal Cannula Weight: 206 lb 2.115 oz Body Mass Index (BMI) 32.8 Intake and Output for Last 24 Hours 09/25/20 09/26/20 09/27/20 23:59 23:59 23:59 Intake Total 2154.52 / 2154.52 985.03 / 985.03 Output Total 2500 / 2500 850 / 850 225 / 225 Balance -345.48 / -345.48 135.03 / 135.03 -225 / -225 Lungs: - - clear apices Abdomen: Bowel Sounds Present, Soft, Non Tender, - - incisions clean/dry Laboratory Results 09/26/20 17:55: Urine Color Yellow, Urine Clarity Clear, Urine pH 5.0, Ur Specific [place] 1.020, Urine Protein 30 H, Urine Glucose (UA) Normal, Urine Ketones Negative, Urine Occult Blood 10 H, Urine Nitrite Negative, Urine Bilirubin Negative, Urine Urobilinogen Normal, Ur Leukocyte Esterase 100 H, Urine RBC 0 SEEN, Urine WBC 0-5 SEEN, Ur Squamous Epith Cells 0-5 SEEN, Ur Renal Epithelial Cell 0-5 SEEN, Urine Bacteria 0 SEEN, Urine Mucus 0 SEEN 09/26/20 18:15: Ur Random Sodium 68, Urine Creatinine 106.00 09/27/20 03:45: WBC 9.5, RBC 2.63 L, Hgb 7.7 L, Hct 25.0 L, MCV 95.1, MCH 29.3, MCHC 30.8 L, RDW Std Deviation 53.3 H, RDW Coeff of Mamadou 15.4 H, Plt Count 249, MPV 9.5, Immature Gran % (Auto) 0.600, Neut % (Auto) 75.7 H, Lymph % (Auto) 8.8 L, [place] % (Auto) 10.2 H, Eos % (Auto) 4.3, Baso % (Auto) 0.4, Absolute Neuts (auto) 7.2, Absolute Lymphs (auto) 0.84, Nucleated RBC % 0 09/27/20 03:45: Sodium 141, Potassium 3.3 L, Chloride 110 H, Carbon Dioxide 26.0, Anion Gap 5, BUN 24 H, Creatinine 2.51 H, Estim Creat Clear Calc 13.90, Est GFR (MDRD) Af Amer 24 L, Est GFR (MDRD) Non-Af 20 L, BUN/Creatinine Ratio 9.6 L, Glucose 110 H, Calcium 7.0 L, Total Bilirubin 0.60, AST 21, ALT 22, Alkaline Phosphatase 40 L, Total Protein 4.7 L, Albumin 1.8 L, Globulin 2.9, Albumin/Globulin Ratio 0.6 L Current Medications Aspirin (Aspirin E.C. 81 Mg Tablet) 81 mg PO DAILY@0800 COUNT INCLUDES [facility] Calamine/Phenol (Menthol/Lanolin/Calamine/Znox 113 Gm Tube) 1 applic TOPICAL BID [facility]; Protocol Last Admin: 09/26/20 21:02 Dose: 1 applicatio Documented by: Enoxaparin Sodium (Enoxaparin 30 Mg/0.3 Ml Syringe) 30 mg SC DAILY [facility] Famotidine (Famotidine 20 Mg Tablet) 20 mg PO DAILY [facility] Norepinephrine Bitartrate 8 mg (/ Sodium Chloride) 250 mls @ 9.375 mls/hr CONT INF .[id number] COUNT [facility]CLUDES [facility]; Protocol Last Titration: 09/26/20 20:00 Dose: 2 mcg/min, 3.8 mls/hr Documented by: Ondansetron HCl (Ondansetron 4 Mg/2 Ml Vial) 4 mg IV Q6H PRN PRN PRN Reason: NAUSEA/VOMITING Last Admin: 09/23/20 02:28 Dose: 4 mg Documented by: Pramipexole Dihydrochloride (Pramipexole Di-Hcl 0.25 Mg Tablet) 0.25 mg PO QHS [facility] Last Admin: 09/26/20 21:02 Dose: 0.25 mg Documented by: Sodium Chloride (0.9% Saline Lock 10 Ml Syringe) 10 - 40 ml IV UD PRN PRN Reason: SALINE FLUSH Last Admin: 09/23/20 15:12 Dose: 30 ml Documented by: Medical Necessity - Tobacco Use Smoking Status: Never smoker Assessment/Plan All Active Problems (Last Reviewed 09/20/20 @ 14:20 by Stephanie DENNIS, PA-C) Acute sigmoid colitis (Acute) Partial obstruction of colon (Acute) Significant amount of soft tissue third spaced fluids Nephrology consult noted with BUN/Creat again slightly increased. Darling still in place Segment of infected/strictured colon removed. Will cease IV antibiotics Advance diet Mobilize/strengthen as tolerates
--- NOTE | 2020-09-27 07:37 | PCM.PN.INT ---
Subjective: Patient did okay overnight. Patient feels subjectively slightly improved compared to yesterday. Nursing has attempted to discontinue pressors with limited success. Patient has not passed any flatulence overnight per her recall. Nursing did report some liquid stool. Patient is not reporting significant abdominal pain. General: Alert, Oriented x3, Cooperative, No apparent distress, - - Obese. No conversational dyspnea. HEENT: Atraumatic, PERRLA, EOMI, Normocephalic, - - No scleral icterus or injection noted. Glasses in place. Oral: Moist Mucosa, No Gingival or Mucosal Lesions/ Ulcerations Neck: Supple, No JVD, No Nodes, Trachea Midline Lungs: No rhonchi, No wheeze, No rales, Diminished, - - Symmetric expansion. No dullness to percussion. Cardiovascular: Regular rate, Regular Rhythm, Normal S1, Normal S2, No murmurs, No rub noted, No Gallop Abdomen: Soft, Non-Distended, Hypoactive Bowel Sounds, Tender - Only at incisions Extremities: No clubbing, No cyanosis, Edema Skin: Incision - Clean, dry and intact Musculoskeletal: No Tenderness to Palpation of Joints or Extremities Lymphatic: No Cervical, Supraclavicular, or Inguinal Adenopathy Neurological: Cranial nerves II-XII grossly intact, Neuro grossly intact, Motor Exam 5/5 strength throughout Psych/Mental Status: Alert and oriented to time, place, person, mood and affect Vital Signs Temp Pulse Resp BP Pulse Ox 36.6 C 60 20 H 88/44 L 98 09/27/20 04:00 09/27/20 06:00 09/27/20 06:00 09/27/20 06:30 09/27/20 06:00 Oxygen Flow Rate (L/min) 2 Oxygen Delivery Method Nasal Cannula Weight: 93.5 kg Body Mass Index (BMI) 32.8 Intake and Output for Last 24 Hours 09/25/20 09/26/20 09/27/20 23:59 23:59 23:59 Intake Total 2154.52 / 2154.52 992.63 / 1000.23 28.5 / 28.5 Output Total 2500 / 2500 850 / 850 225 / 225 Balance -345.48 / -345.48 142.63 / 150.23 -196.5 / -196.5 Labs (Last 48 Hours) 09/26/20 09/26/2021 03:30 03:30 17:55 WBC 14.4 H RBC 2.73 L Hgb 8.3 L Hct 25.6 L MCV 93.8 MCH 30.4 MCHC 32.4 D RDW Std Deviation 51.6 H RDW Coeff of Mamadou 15.4 H Plt Count 233 MPV 9.9 Immature Gran % (Auto) 0.600 Neut % (Auto) 82.2 H Lymph % (Auto) 7.6 L [place] % (Auto) 6.2 Eos % (Auto) 3.1 Baso % (Auto) 0.3 Absolute Neuts (auto) 11.9 H Absolute Lymphs (auto) 1.09 Nucleated RBC % 0 Sodium 142 Potassium 3.5 Chloride 112 H Carbon Dioxide 24.0 Anion Gap 6 BUN 20 H Creatinine 2.47 H Estim Creat Clear Calc 14.13 Est GFR (MDRD) Af Amer 24 L Est GFR (MDRD) Non-Af 20 L BUN/Creatinine Ratio 8.1 L Glucose 103 Calcium 6.6 L Total Bilirubin AST ALT Alkaline Phosphatase Total Protein Albumin Globulin Albumin/Globulin Ratio Urine Color Yellow Urine Clarity Clear Urine pH 5.0 Ur Specific [place] 1.020 Urine Protein 30 H Urine Glucose (UA) Normal Urine Ketones Negative Urine Occult Blood 10 H Urine Nitrite Negative Urine Bilirubin Negative Urine Urobilinogen Normal Ur Leukocyte Esterase 100 H Urine RBC 0 SEEN Urine WBC 0-5 SEEN Ur Squamous Epith Cells 0-5 SEEN Ur Renal Epithelial Cell 0-5 SEEN Urine Bacteria 0 SEEN Urine Mucus 0 SEEN Ur Random Sodium Urine Creatinine 09/26/20 09/27/20 09/27/20 18:15 03:45 03:45 WBC 9.5 RBC 2.63 L Hgb 7.7 L Hct 25.0 L MCV 95.1 MCH 29.3 MCHC 30.8 L RDW Std Deviation 53.3 H RDW Coeff of Mamadou 15.4 H Plt Count 249 MPV 9.5 Immature Gran % (Auto) 0.600 Neut % (Auto) 75.7 H Lymph % (Auto) 8.8 L [place] % (Auto) 10.2 H Eos % (Auto) 4.3 Baso % (Auto) 0.4 Absolute Neuts (auto) 7.2 Absolute Lymphs (auto) 0.84 Nucleated RBC % 0 Sodium 141 Potassium 3.3 L Chloride 110 H Carbon Dioxide 26.0 Anion Gap 5 BUN 24 H Creatinine 2.51 H Estim Creat Clear Calc 13.90 Est GFR (MDRD) Af Amer 24 L Est GFR (MDRD) Non-Af 20 L BUN/Creatinine Ratio 9.6 L Glucose 110 H Calcium 7.0 L Total Bilirubin 0.60 AST 21 ALT 22 Alkaline Phosphatase 40 L Total Protein 4.7 L Albumin 1.8 L Globulin 2.9 Albumin/Globulin Ratio 0.6 L Urine Color Urine Clarity Urine pH Ur Specific [place] Urine Protein Urine Glucose (UA) Urine Ketones Urine Occult Blood Urine Nitrite Urine Bilirubin Urine Urobilinogen Ur Leukocyte Esterase Urine RBC Urine WBC Ur Squamous Epith Cells Ur Renal Epithelial Cell Urine Bacteria Urine Mucus Ur Random Sodium 68 Urine Creatinine 106.00 Medical Necessity - Tobacco Use Smoking Status: Never smoker Assessment/Plan All Active Problems (Last Reviewed 09/20/20 @ 14:20 by Stephanie DENNIS, PA-C) Acute sigmoid colitis (Acute) Partial obstruction of colon (Acute) RECOMMENDATIONS: 1. Management dietary advancement per general surgery recommendations. 2. Monitor off antimicrobials per surgery 3. Continue to wean Levophed to maintain a mean arterial pressure at or above 65 mmHg. 4. Appreciate nephrology input. Renal ultrasound completed this morning, but results are pending 5. Encourage incentive spirometer use and mobilize patient as tolerated. IMPRESSIONS: 1. Acute respiratory failure Although initially intubated for her surgical procedure, the patient was able to be extubated the following day. She is currently maintaining appropriate oxygen saturations on minimal O2. Plan to continue current supportive measures and encourage incentive spirometer use as tolerated. Continue to wean supplemental oxygen to maintain saturations at or above 90%. Clinical suspicion for minimal oxygen requirement secondary to atelectasis. 2. High-grade sigmoid obstruction with colonic and small bowel obstruction, now POD #4 status post open sigmoid colectomy Continue routine postoperative care per surgery recommendations. 3. Septic shock Clinical concern for intra-abdominal etiology. The patient will be continued on vasopressor support to maintain a mean arterial pressure at or above 65 mmHg. Surgery is discontinuing antimicrobials. We will hold on any stress dose steroids at this time as patient is only on marginal Levophed. 4. Acute kidney injury Clinical concern for prerenal etiology/ischemic ATN in the setting of #3. Continue current supportive measures with vasopressor support to maintain hemodynamic stability. Appreciate nephrology consultation. Work-up currently underway. No indication for renal replacement therapy 5. 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 Continue home medications as indicated. TIME: 32 minutes of critical care time, independent of procedures, was spent addressing the patient's acute respiratory failure, colonic and small bowel obstruction status post sigmoid colectomy, acute kidney injury, review of all data and collaboration with the care team. (5:15 AM to 6:15 AM) 9xxxx: [id number] Critical care first hour
[2020-09-27] MEDS: Enoxaparin 30 MG/0.3 ML Syringe SC (10:28)
[2020-09-27] MEDS: Aspirin E.C. 81 MG Tablet PO (10:29)
[2020-09-27] MEDS: Famotidine 20 MG Tablet PO (10:29)
[2020-09-27] MEDS: Menthol/Lanolin/Calamine/Znox 113 GM Tube 1 APPLIC TOPICAL ×2 (10:29→21:26)
--- NOTE | 2020-09-27 11:07 | CASEMGMT ---
Social Work Note SW received message from pt's NETO Philip at [facility] requesting update. SW placed a call to [facility] and left message that pt is still at [facility]. Leydi Rockwell [employer] SMOOTHER, MANAGER WELDING
[2020-09-27] MEDS: Lactated Ringers 500 ML 999 ML IV (11:28)
--- NOTE | 2020-09-27 11:48 | PCM.PN.REN ---
Patient Problems: Active and Suspected Problems (Last Reviewed 09/20/20 @ 14:20 by Stephanie DENNIS, PADivya) Acute sigmoid colitis (Acute) Partial obstruction of colon (Acute) Subjective: No new events - Physical Exam Vitals/I&O's: Vital Signs Temp Pulse Resp BP Pulse Ox 98.1 F 62 22 H 92/41 L 97 09/27/20 10:00 09/27/20 11:01 09/27/20 11:00 09/27/20 11:00 09/27/20 11:00 Oxygen Flow Rate (L/min) 2 Oxygen Delivery Method Nasal Cannula Weight: 93.5 kg Body Mass Index (BMI) 32.8 Intake and Output for Last 24 Hours 09/25/20 09/26/20 09/27/20 23:59 23:59 23:59 Intake Total 2154.52 / 2154.52 992.63 / 1000.23 135.66 / 135.66 Output Total 2500 / 2500 850 / 850 450 / 450 Balance -345.48 / -345.48 142.63 / 150.23 -314.34 / -314.34 General: Alert, Oriented x3, Cooperative HEENT: Atraumatic, PERRLA, EOMI, Normocephalic Neck: Supple, No JVD, Negative Carotid Bruits Lungs: Clear to auscultation, Normal air movement Cardiovascular: Regular rate, No murmurs Abdomen: Bowel Sounds Present, Soft, Non Tender Extremities: No edema, Capillary Refill Less than 3 Seconds Skin: No rashes, No breakdown Musculoskeletal: No Tenderness to Palpation of Joints or Extremities Neurological: Cranial nerves II-XII grossly intact Psych/Mental Status: Normal Affect, Appropriate Laboratory Results 09/26/20 17:55: Urine Color Yellow, Urine Clarity Clear, Urine pH 5.0, Ur Specific [place] 1.020, Urine Protein 30 H, Urine Glucose (UA) Normal, Urine Ketones Negative, Urine Occult Blood 10 H, Urine Nitrite Negative, Urine Bilirubin Negative, Urine Urobilinogen Normal, Ur Leukocyte Esterase 100 H, Urine RBC 0 SEEN, Urine WBC 0-5 SEEN, Ur Squamous Epith Cells 0-5 SEEN, Ur Renal Epithelial Cell 0-5 SEEN, Urine Bacteria 0 SEEN, Urine Mucus 0 SEEN 09/26/20 18:15: Ur Random Sodium 68, Urine Creatinine 106.00 09/27/20 03:45: WBC 9.5, RBC 2.63 L, Hgb 7.7 L, Hct 25.0 L, MCV 95.1, MCH 29.3, MCHC 30.8 L, RDW Std Deviation 53.3 H, RDW Coeff of Mamadou 15.4 H, Plt Count 249, MPV 9.5, Immature Gran % (Auto) 0.600, Neut % (Auto) 75.7 H, Lymph % (Auto) 8.8 L, [place] % (Auto) 10.2 H, Eos % (Auto) 4.3, Baso % (Auto) 0.4, Absolute Neuts (auto) 7.2, Absolute Lymphs (auto) 0.84, Nucleated RBC % 0 09/27/20 03:45: Sodium 141, Potassium 3.3 L, Chloride 110 H, Carbon Dioxide 26.0, Anion Gap 5, BUN 24 H, Creatinine 2.51 H, Estim Creat Clear Calc 13.90, Est GFR (MDRD) Af Amer 24 L, Est GFR (MDRD) Non-Af 20 L, BUN/Creatinine Ratio 9.6 L, Glucose 110 H, Calcium 7.0 L, Total Bilirubin 0.60, AST 21, ALT 22, Alkaline Phosphatase 40 L, Total Protein 4.7 L, Albumin 1.8 L, Globulin 2.9, Albumin/Globulin Ratio 0.6 L Current Medications Aspirin (Aspirin E.C. 81 Mg Tablet) 81 mg PO DAILY@0800 [facility] Last Admin: 09/27/20 10:29 Dose: 81 mg Documented by: Calamine/Phenol (Menthol/Lanolin/Calamine/Znox 113 Gm Tube) 1 applic TOPICAL BID [facility]; Protocol Last Admin: 09/27/20 10:29 Dose: 1 applicatio Documented by: Enoxaparin Sodium (Enoxaparin 30 Mg/0.3 Ml Syringe) 30 mg SC DAILY [facility] Last Admin: 09/27/20 10:28 Dose: 30 mg Documented by: Famotidine (Famotidine 20 Mg Tablet) 20 mg PO DAILY [facility] Last Admin: 09/27/20 10:29 Dose: 20 mg Documented by: Norepinephrine Bitartrate 8 mg (/ Sodium Chloride) 250 mls @ 9.375 mls/hr CONT INF .[id number] [facility]; Protocol Last Titration: 09/27/20 11:00 Dose: 1 mcg/min, 1.9 mls/hr Documented by: Potassium Chloride 40 meq/ (Sodium Chloride) 120 mls @ 100 mls/hr IV BOLUS X1 ONE Stop: 09/27/20 13:11 Ondansetron HCl (Ondansetron 4 Mg/2 Ml Vial) 4 mg IV Q6H PRN PRN PRN Reason: NAUSEA/VOMITING Last Admin: 09/23/20 02:28 Dose: 4 mg Documented by: Pramipexole Dihydrochloride (Pramipexole Di-Hcl 0.25 Mg Tablet) 0.25 mg PO QHS [place] Last Admin: 09/26/20 21:02 Dose: 0.25 mg Documented by: Sodium Chloride (0.9% Saline Lock 10 Ml Syringe) 10 - 40 ml IV UD PRN PRN Reason: SALINE FLUSH Last Admin: 09/23/20 15:12 Dose: 30 ml Documented by: Medical Necessity - Tobacco Use Smoking Status: Never smoker Assessment/Plan All Active Problems (Last Reviewed 09/20/20 @ 14:20 by Stephanie DENNIS, PA-C) Acute sigmoid colitis (Acute) Partial obstruction of colon (Acute) Acute renal failure. Baseline creatinine was normal. Likely ATN in the setting of hypotension. Not much urine output since yesterday. Flush Darling catheter to make sure it is not clogged. She remains on low-dose Levophed at 1 mcg and did not tolerate weaning off. Hold off Lasix for today.
--- NOTE | 2020-09-27 16:15 | PN_ITS ---
Patient Problems: Active and Suspected Problems (Last Reviewed 09/20/20 @ 14:20 by Stephanie DENNIS PA-C) Acute sigmoid colitis (Acute) Partial obstruction of colon (Acute) Subjective: Patient was seen and examined today, I discussed her care with pulmonary medicine today. She is still on pressors at this time. She has no complaints of any shortness of breath, fevers, or chills. - Physical Exam Vitals/I&O's: Vital Signs Temp Pulse Resp BP Pulse Ox 97.9 F 18 L 20 H 86/51 L 94 09/27/20 12:00 09/27/20 14:00 09/27/20 14:00 09/27/20 14:00 09/27/20 14:00 Oxygen Flow Rate (L/min) 2 Oxygen Delivery Method Nasal Cannula Weight: 93.5 kg Body Mass Index (BMI) 32.8 Intake and Output for Last 24 Hours 09/25/20 09/26/20 09/27/20 23:59 23:59 23:59 Intake Total 2154.52 / 2154.52 992.63 / 1000.23 1001.36 / 1001.36 Output Total 2500 / 2500 850 / 850 625 / 625 Balance -345.48 / -345.48 142.63 / 150.23 376.36 / 376.36 General: Alert, Oriented x3, Cooperative, No apparent distress, Well developed HEENT: Atraumatic, PERRLA, EOMI, Normocephalic Oral: Moist Mucosa Neck: Supple, No JVD, Trachea Midline, Thyroid Normal Size and Texture Lungs: Clear to auscultation, Normal air movement, No rhonchi, No wheeze, No rales Cardiovascular: Regular rate, Regular Rhythm, Normal S1, Normal S2, No murmurs, PMI Normal, No rub noted Abdomen: Bowel Sounds Present, Soft, Non-Distended Extremities: No clubbing, No cyanosis, No edema, Capillary Refill Less than 3 Seconds Skin: No rashes, No breakdown Musculoskeletal: No Tenderness to Palpation of Joints or Extremities Neurological: Cranial nerves II-XII grossly intact, Neuro grossly intact, Muscle tone normal, Sensory exam intact to light touch and pain Psych/Mental Status: Normal Affect, Appropriate, Alert and oriented to time, place, person, mood and affect Laboratory Results 09/26/20 17:55: Urine Color Yellow, Urine Clarity Clear, Urine pH 5.0, Ur Specific [place] 1.020, Urine Protein 30 H, Urine Glucose (UA) Normal, Urine Ketones Negative, Urine Occult Blood 10 H, Urine Nitrite Negative, Urine Bilirubin Negative, Urine Urobilinogen Normal, Ur Leukocyte Esterase 100 H, Urine RBC 0 SEEN, Urine WBC 0-5 SEEN, Ur Squamous Epith Cells 0-5 SEEN, Ur Renal Epithelial Cell 0-5 SEEN, Urine Bacteria 0 SEEN, Urine Mucus 0 SEEN 09/26/20 18:15: Ur Random Sodium 68, Urine Creatinine 106.00 09/27/20 03:45: WBC 9.5, RBC 2.63 L, Hgb 7.7 L, Hct 25.0 L, MCV 95.1, MCH 29.3, MCHC 30.8 L, RDW Std Deviation 53.3 H, RDW Coeff of Mamadou 15.4 H, Plt Count 249, MPV 9.5, Immature Gran % (Auto) 0.600, Neut % (Auto) 75.7 H, Lymph % (Auto) 8.8 L, [place] % (Auto) 10.2 H, Eos % (Auto) 4.3, Baso % (Auto) 0.4, Absolute Neuts (auto) 7.2, Absolute Lymphs (auto) 0.84, Nucleated RBC % 0 09/27/20 03:45: Sodium 141, Potassium 3.3 L, Chloride 110 H, Carbon Dioxide 26.0, Anion Gap 5, BUN 24 H, Creatinine 2.51 H, Estim Creat Clear Calc 13.90, Est GFR (MDRD) Af Amer 24 L, Est GFR (MDRD) Non-Af 20 L, BUN/Creatinine Ratio 9.6 L, Glucose 110 H, Calcium 7.0 L, Total Bilirubin 0.60, AST 21, ALT 22, Alkaline Phosphatase 40 L, Total Protein 4.7 L, Albumin 1.8 L, Globulin 2.9, Albumin/Globulin Ratio 0.6 L Current Medications Aspirin (Aspirin E.C. 81 Mg Tablet) 81 mg PO DAILY@0800 [facility] Last Admin: 09/27/20 10:29 Dose: 81 mg Documented by: Calamine/Phenol (Menthol/Lanolin/Calamine/Znox 113 Gm Tube) 1 applic TOPICAL BID [facility]; Protocol Last Admin: 01/04/21 10:29 Dose: 1 applicatio Documented by: Enoxaparin Sodium (Enoxaparin 30 Mg/0.3 Ml Syringe) 30 mg SC DAILY [facility] Last Admin: 09/27/20 10:28 Dose: 30 mg Documented by: Famotidine (Famotidine 20 Mg Tablet) 20 mg PO DAILY [facility] Last Admin: 09/27/20 10:29 Dose: 20 mg Documented by: Norepinephrine Bitartrate 8 mg (/ Sodium Chloride) 250 mls @ 9.375 mls/hr CONT INF .[id number] [facility]; Protocol Last Titration: 09/27/20 14:00 Dose: 1 mcg/min, 1.9 mls/hr Documented by: Ondansetron HCl (Ondansetron 4 Mg/2 Ml Vial) 4 mg IV Q6H PRN PRN PRN Reason: NAUSEA/VOMITING Last Admin: 09/23/20 02:28 Dose: 4 mg Documented by: Pramipexole Dihydrochloride (Pramipexole Di-Hcl 0.25 Mg Tablet) 0.25 mg PO QHS [facility] Last Admin: 09/26/20 21:02 Dose: 0.25 mg Documented by: Sodium Chloride (0.9% Saline Lock 10 Ml Syringe) 10 - 40 ml IV UD PRN PRN Reason: SALINE FLUSH Last Admin: 09/23/20 15:12 Dose: 30 ml Documented by: Medical Necessity - Tobacco Use Smoking Status: Never smoker Assessment/Plan All Active Problems (Last Reviewed 09/20/20 @ 14:20 by Stephanie DENNIS, PA-C) Acute sigmoid colitis (Acute) Partial obstruction of colon (Acute) #1 Septic shock secondary to probable gram-negative infection-at this time, patient remains on antibiotics, she is still on low-dose pressors #2 essential hypertension #3 carotid occlusive disease #4 hyperlipidemia #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
[2020-09-27] MEDS: Pramipexole Di-HCl 0.25 MG Tablet PO (21:26)
[2020-09-28] VITALS (41 sets, daily range): BP systolic 89–146; BP diastolic 37–91; PULSE 59–99; RESP 16–28; TEMP 36.3–36.7; O2SAT 93–98
[2020-09-28 05:29] LABS: BUN 23 mg/dL (7-18); Creatinine, Serum 2.25 mg/dL (0.55-1.02); EST Glomerular Filtration Rate 22 mL/min (>60); Estimated Creatinine Clearance 15.51 ml/min; Glucose 115 mg/dL (74-106)
[2020-09-28 05:30] LABS: Anion Gap 3 (5-15); BUN/Creat Ratio 10.2 RATIO (10-20); Calcium,Total 7.3 mg/dL (8.5-10.1); Chloride 110 mmol/L (98-107); Est Glom Filt Rate - Afr Amer 27 mL/min (>60); Potassium 3.6 mmol/L (3.5-5.1); Sodium Level 141 mmol/L (136-145)
--- NOTE | 2020-09-28 05:53 | PCM.PN.SRG ---
Patient Problems: Active and Suspected Problems (Last Reviewed 09/20/20 @ 14:20 by Stephanie DENNIS, CHANELL) Acute sigmoid colitis (Acute) Partial obstruction of colon (Acute) Subjective: He has no complaints this morning. She was able to tolerate small amounts of a regular diet last night. She essentially has no abdominal pain. - Physical Exam Vitals/I&O's: Vital Signs Temp Pulse Resp BP Pulse Ox 97.8 F 60 24 H 99/43 L 95 09/28/20 00:00 09/28/20 03:00 09/28/20 03:00 09/28/20 03:00 09/28/20 03:00 Oxygen Flow Rate (L/min) 2 Oxygen Delivery Method Nasal Cannula Weight: 206 lb 2.115 oz Body Mass Index (BMI) 32.8 Intake and Output for Last 24 Hours 09/26/20 09/27/20 09/28/20 23:59 23:59 23:59 Intake Total 992.63 / 1000.23 1258.46 / 1258.46 3.8 / 3.8 Output Total 850 / 850 1325 / 1500 225 / 225 Balance 142.63 / 150.23 -66.54 / -241.54 -221.2 / -221.2 Abdomen: Soft, Non Tender, - - Incisions clean and dry Laboratory Results 09/27/20 03:45: Sodium 141, Potassium 3.3 L, Chloride 110 H, Carbon Dioxide 26.0, Anion Gap 5, BUN 24 H, Creatinine 2.51 H, Estim Creat Clear Calc 13.90, Est GFR (MDRD) Af Amer 24 L, Est GFR (MDRD) Non-Af 20 L, BUN/Creatinine Ratio 9.6 L, Glucose 110 H, Calcium 7.0 L, Total Bilirubin 0.60, AST 21, ALT 22, Alkaline Phosphatase 40 L, Total Protein 4.7 L, Albumin 1.8 L, Globulin 2.9, Albumin/Globulin Ratio 0.6 L 09/28/20 05:05: Sodium 141, Potassium 3.6, Chloride 110 H, Carbon Dioxide 28.0, Anion Gap 3 L, BUN 23 H, Creatinine 2.25 H, Estim Creat Clear Calc 15.51, Est GFR (MDRD) Af Amer 27 L, Est GFR (MDRD) Non-Af 22 L, BUN/Creatinine Ratio 10.2, Glucose 115 H, Calcium 7.3 L Current Medications Aspirin (Aspirin E.C. 81 Mg Tablet) 81 mg PO DAILY@0800 [facility] Last Admin: 09/27/20 10:29 Dose: 81 mg Documented by: Calamine/Phenol (Menthol/Lanolin/Calamine/Znox 113 Gm Tube) 1 applic TOPICAL BID [facility]; Protocol Last Admin: 09/27/20 21:26 Dose: 1 applicatio Documented by: Enoxaparin Sodium (Enoxaparin 30 Mg/0.3 Ml Syringe) 30 mg SC DAILY [facility] Last Admin: 09/27/20 10:28 Dose: 30 mg Documented by: Famotidine (Famotidine 20 Mg Tablet) 20 mg PO DAILY [facility] Last Admin: 09/27/20 10:29 Dose: 20 mg Documented by: Norepinephrine Bitartrate 8 mg (/ Sodium Chloride) 250 mls @ 9.375 mls/hr CONT INF .[id number] [facility]; Protocol Last Titration: 09/28/20 01:00 Dose: 1 mcg/min, 1.9 mls/hr Documented by: Ondansetron HCl (Ondansetron 4 Mg/2 Ml Vial) 4 mg IV Q6H PRN PRN PRN Reason: NAUSEA/VOMITING Last Admin: 09/23/20 02:28 Dose: 4 mg Documented by: Pramipexole Dihydrochloride (Pramipexole Di-Hcl 0.25 Mg Tablet) 0.25 mg PO QHS [facility] Last Admin: 09/27/20 21:26 Dose: 0.25 mg Documented by: Sodium Chloride (0.9% Saline Lock 10 Ml Syringe) 10 - 40 ml IV UD PRN PRN Reason: SALINE FLUSH Last Admin: 09/23/20 15:12 Dose: 30 ml Documented by: Medical Necessity - Tobacco Use Smoking Status: Never smoker Assessment/Plan All Active Problems (Last Reviewed 09/20/20 @ 14:20 by Stephanie DENNIS PADivya) Acute sigmoid colitis (Acute) Partial obstruction of colon (Acute) Bowel function has returned. 3 ongoing issues. Pulmonary atelectasis patient still on oxygen. I have vigorously encouraged her to mobilize with ambulation and being out of bed to chair as well as using her incentive spirometer Relative hypotension still requiring pressors. Hopefully this will be definitively weaned Acute kidney injury. At least based upon improving urinary output and stabilized laboratory this appears to currently be stable and improving. Ongoing medical care. I will continue to follow from surgical standpoint. Camron Rubio M.D., F.A.C.S.
--- NOTE | 2020-09-28 08:15 | PCM.PN.INT ---
Subjective: Patient did okay overnight. Patient continues to be on minimal dose of Levophed to maintain appropriate blood pressures. Respiratory status has remained stable and patient feels subjectively unchanged compared to yesterday. Patient did not respond to a fluid challenge yesterday. General: Alert, Oriented x3, Cooperative, No apparent distress, - - Obese. No conversational dyspnea. HEENT: Atraumatic, PERRLA, EOMI, Normocephalic, - - No scleral icterus or injection noted Oral: Moist Mucosa, No Gingival or Mucosal Lesions/ Ulcerations Neck: Supple, No JVD, No Nodes, Trachea Midline Lungs: No rhonchi, No wheeze, No rales, Diminished, - - Symmetric expansion. No dullness to percussion. Cardiovascular: Regular rate, Regular Rhythm, Normal S1, Normal S2, No murmurs, No rub noted, No Gallop Abdomen: Bowel Sounds Present, Soft, Non-Distended, Obese, Tender - Minimal over incision sites only Extremities: No clubbing, No cyanosis, Edema Skin: - - No change from previous Musculoskeletal: No Tenderness to Palpation of Joints or Extremities Lymphatic: No Cervical, Supraclavicular, or Inguinal Adenopathy Neurological: Cranial nerves II-XII grossly intact, Neuro grossly intact, Motor Exam 5/5 strength throughout Psych/Mental Status: Alert and oriented to time, place, person, mood and affect Vital Signs Temp Pulse Resp BP Pulse Ox 36.4 C L 60 25 H 112/48 L 94 09/28/20 04:30 09/28/20 06:00 09/28/20 06:00 09/28/20 06:00 09/28/20 06:00 Oxygen Flow Rate (L/min) 2 Oxygen Delivery Method Nasal Cannula Weight: 95.3 kg Body Mass Index (BMI) 32.8 Intake and Output for Last 24 Hours 09/26/20 09/27/20 09/28/20 23:59 23:59 23:59 Intake Total 992.63 / 1000.23 1258.46 / 1258.46 10.45 / 10.45 Output Total 850 / 850 1325 / 1500 350 / 350 Balance 142.63 / 150.23 -66.54 / -241.54 -339.55 / -339.55 Labs (Last 48 Hours) 09/26/20 09/26/20 09/27/20 17:55 18:15 03:45 WBC 9.5 RBC 2.63 L Hgb 7.7 L Hct 25.0 L MCV 95.1 MCH 29.3 MCHC 30.8 L RDW Std Deviation 53.3 H RDW Coeff of Mamadou 15.4 H Plt Count 249 MPV 9.5 Immature Gran % (Auto) 0.600 Neut % (Auto) 75.7 H Lymph % (Auto) 8.8 L Dickinson % (Auto) 10.2 H Eos % (Auto) 4.3 Baso % (Auto) 0.4 Absolute Neuts (auto) 7.2 Absolute Lymphs (auto) 0.84 Nucleated RBC % 0 Sodium Potassium Chloride Carbon Dioxide Anion Gap BUN Creatinine Estim Creat Clear Calc Est GFR (MDRD) Af Amer Est GFR (MDRD) Non-Af BUN/Creatinine Ratio Glucose Calcium Total Bilirubin AST ALT Alkaline Phosphatase Total Protein Albumin Globulin Albumin/Globulin Ratio Urine Color Yellow Urine Clarity Clear Urine pH 5.0 Ur Specific [place] 1.020 Urine Protein 30 H Urine Glucose (UA) Normal Urine Ketones Negative Urine Occult Blood 10 H Urine Nitrite Negative Urine Bilirubin Negative Urine Urobilinogen Normal Ur Leukocyte Esterase 100 H Urine RBC 0 SEEN Urine WBC 0-5 SEEN Ur Squamous Epith Cells 0-5 SEEN Ur Renal Epithelial Cell 0-5 SEEN Urine Bacteria 0 SEEN Urine Mucus 0 SEEN Ur Random Sodium 68 Urine Creatinine 106.00 09/27/20 09/28/20 03:45 05:05 WBC RBC Hgb Hct MCV MCH MCHC RDW Std Deviation RDW Coeff of Mamadou Plt Count MPV Immature Gran % (Auto) Neut % (Auto) Lymph % (Auto) Dickinson % (Auto) Eos % (Auto) Baso % (Auto) Absolute Neuts (auto) Absolute Lymphs (auto) Nucleated RBC % Sodium 141 141 Potassium 3.3 L 3.6 Chloride 110 H 110 H Carbon Dioxide 26.0 28.0 Anion Gap 5 3 L BUN 24 H 23 H Creatinine 2.51 H 2.25 H Estim Creat Clear Calc 13.90 15.51 Est GFR (MDRD) Af Amer 24 L 27 L Est GFR (MDRD) Non-Af 20 L 22 L BUN/Creatinine Ratio 9.6 L 10.2 Glucose 110 H 115 H Calcium 7.0 L 7.3 L Total Bilirubin 0.60 AST 21 ALT 22 Alkaline Phosphatase 40 L Total Protein 4.7 L Albumin 1.8 L Globulin 2.9 Albumin/Globulin Ratio 0.6 L Urine Color Urine Clarity Urine pH Ur Specific [place] Urine Protein Urine Glucose (UA) Urine Ketones Urine Occult Blood Urine Nitrite Urine Bilirubin Urine Urobilinogen Ur Leukocyte Esterase Urine RBC Urine WBC Ur Squamous Epith Cells Ur Renal Epithelial Cell Urine Bacteria Urine Mucus Ur Random Sodium Urine Creatinine Clinical Impression(s) from Imaging Studies Renal Ultrasound 09/27/20 05:00 IMPRESSION: No hydronephrosis to suggest obstruction. Electronically Signed: Doron Calvillo MD at 9:02 EST Tel , Service support , Medical Necessity - Tobacco Use Smoking Status: Never smoker Assessment/Plan All Active Problems (Last Reviewed 09/20/20 @ 14:20 by Stephanie DENNIS PA-C) Acute sigmoid colitis (Acute) Partial obstruction of colon (Acute) RECOMMENDATIONS: 1. Management dietary advancement per general surgery recommendations. 2. Monitor off antimicrobials per surgery 3. Initiate midodrine. Continue to wean Levophed to maintain a mean arterial pressure at or above 65 mmHg. 4. Appreciate nephrology input. Renal ultrasound not consistent with hydronephrosis 5. Encourage incentive spirometer use and mobilize patient as tolerated. IMPRESSIONS: 1. Acute respiratory failure Although initially intubated for her surgical procedure, the patient was able to be extubated the following day. She is currently maintaining appropriate oxygen saturations on minimal O2. Plan to continue current supportive measures and encourage incentive spirometer use as tolerated. Continue to wean supplemental oxygen to maintain saturations at or above 90%. Clinical suspicion for minimal oxygen requirement secondary to atelectasis. 2. High-grade sigmoid obstruction with colonic and small bowel obstruction, now POD #5 status post open sigmoid colectomy Continue routine postoperative care per surgery recommendations. 3. Septic shock Clinical concern for intra-abdominal etiology. The patient will be continued on vasopressor support to maintain a mean arterial pressure at or above 65 mmHg. Surgery discontinued antimicrobials. Patient failed fluid challenge yesterday. Will attempt to add midodrine today. If patient continues to have marginal blood pressures, stress dose steroids could be considered. However, this may decrease wound healing and therefore are attempting to avoid this intervention if possible. 4. Acute kidney injury Slightly improved compared to previous. Clinical concern for prerenal etiology/ischemic ATN in the setting of #3. Continue current supportive measures with vasopressor support to maintain hemodynamic stability. Appreciate nephrology consultation. Work-up currently underway. No indication for renal replacement therapy 5. 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 Continue home medications as indicated. TIME: 34 minutes of critical care time, independent of procedures, was spent addressing the patient's acute respiratory failure, colonic and small bowel obstruction status post sigmoid colectomy, acute kidney injury, review of all data and collaboration with the care team. (5:30 AM to 6:30 AM) 9xxxx: [id number] Critical care first hour
--- NOTE | 2020-09-28 08:20 | DCINST_ITS ---
Discharge Diet: Light diet - advance as tolerated - if you have questions about your diet instructions, please talk to you doctor. Discharge Activity: May Not Drive - for 1 week or while taking narcotic pain medicine. May shower in (days): 0 - May shower now Lifting Restrictions: 10 pounds Call your doctor if your incision/area has: Continuous Slow Oozing, Sudden Increased Bleeding, Increased Pain/ Swelling, Increased Redness, Foul Smelling Discharge Call your doctor if you observe: Fever of 101 or Higher Suture Line Care: Avoid Pulling/Pushing, Avoid Pinching/Bending Additional Dressing/Incision Instructions:: Leave steri-strips in place for 1 week. Allergies/Adverse Reactions: Allergies Penicillins Allergy (Verified 09/19/20 19:10) Hives Medications to take at Discharge Lisinopril [Zestril] 10 mg PO DAILY 12/25/16 mecobalamin (vitamin B12) 1,000 mcg disintegrating tablet,sublingual 1,000 mcg SUBLINGUAL QDAY 03/13/18 ropinirole 0.5 mg tablet 0.5 mg PO QHS 90 Days #90 03/13/18 simvastatin 40 mg tablet 40 mg PO QPM 03/13/18 alendronate 70 mg tablet 70 mg PO QWEEK 09/11/18 citalopram 10 mg tablet 10 mg PO QDAY tab 09/11/18 Aspirin E.C. [Ecotrin] 81 mg PO DAILY@0800 09/19/20 Calcium Carbonate/Vitamin D3 [Calcium 500 mg-Vit D3 600 Unit] 2 ea PO DAILY 09/19/20 Cholecalciferol (VIT D3) [Vitamin D] 1,000 unit PO DAILY 09/19/20 Citalopram [Celexa] 20 mg PO DAILY 09/19/20 Omeprazole [Prilosec] 20 mg PO DAILY 09/19/20 Primary Care Physician: Petros Wagner MD [Primary Care Provider] - Test Results: Test results from this visit will be discussed in further detail at your follow- up appointment, if applicable. Please Follow Up With: Camron Rubio MD - [phone] When: Call to make an appointment to be seen in about 3 weeks
[2020-09-28] MEDS: Midodrine HCl 5 MG Tablet 10 MG PO ×3 (09:05→18:11)
[2020-09-28] MEDS: Menthol/Lanolin/Calamine/Znox 113 GM Tube 1 APPLIC TOPICAL ×2 (09:06→20:20)
[2020-09-28] MEDS: Famotidine 20 MG Tablet PO (09:06)
[2020-09-28] MEDS: Aspirin E.C. 81 MG Tablet PO (09:06)
[2020-09-28] MEDS: Enoxaparin 30 MG/0.3 ML Syringe SC (09:06)
--- NOTE | 2020-09-28 15:46 | CASEMGMT ---
SW met with patient. Introduced self and role at [facility]. SW asked patient if she still feels like she is fine to go home at discharge. She said she wasn't sure. She said her daughter told her she would come over every day and help her. She feels like she will feel better at home. SW told her we will continue to follow and see how she does. She said something about someone setting up outpatient therapy for her. ELMER told her that she can change her mind if she feels like she needs something more than outpatient. Plan: At this time patient is leaning more towards going home with her daughter checking on her daily and maybe home health. However, she was not completely sure. Omaira ALEJANDRE MSW
--- NOTE | 2020-09-28 17:32 | PN_ITS ---
Patient Problems: Active and Suspected Problems (Last Reviewed 09/20/20 @ 14:20 by Stephanie DENNIS, PADivya) Acute sigmoid colitis (Acute) Partial obstruction of colon (Acute) Subjective: She was seen and examined today in ICU, she is now off pressors, she was placed on midodrine and her blood pressure appears to have stabilized. Patient has no complaints of any fever chills or abdominal pain. Objective: General: Alert, Oriented x3, Cooperative, No apparent distress, Well developed HEENT: Atraumatic, PERRLA, EOMI, Normocephalic Oral: Moist Mucosa Neck: Supple, No JVD, Trachea Midline, Thyroid Normal Size and Texture Lungs: Clear to auscultation, Normal air movement, No rhonchi, No wheeze, No rales Cardiovascular: Regular rate, Regular Rhythm, Normal S1, Normal S2, No murmurs, PMI Normal, No rub noted Abdomen: Bowel Sounds Present, Soft, Non-Distended Extremities: No clubbing, No cyanosis, No edema, Capillary Refill Less than 3 Seconds Skin: No rashes, No breakdown Musculoskeletal: No Tenderness to Palpation of Joints or Extremities Neurological: Cranial nerves II-XII grossly intact, Neuro grossly intact, Muscle tone normal, Sensory exam intact to light touch and pain Psych/Mental Status: Normal Affect, Appropriate, Alert and oriented to time, place, person, mood and affect - Physical Exam Vitals/I&O's: Vital Signs Temp Pulse Resp BP Pulse Ox 97.8 F 99 18 137/49 H 97 09/28/20 12:00 09/28/20 16:00 09/28/20 16:00 09/28/20 16:00 09/28/20 16:10 Oxygen Flow Rate (L/min) 2 Oxygen Delivery Method Nasal Cannula Weight: 95.3 kg Body Mass Index (BMI) 32.8 Intake and Output for Last 24 Hours 09/26/20 09/27/20 09/28/20 23:59 23:59 23:59 Intake Total 992.63 / 1000.23 1258.46 / 1258.46 33.28 / 33.28 Output Total 850 / 850 1325 / 1500 800 / 800 Balance 142.63 / 150.23 -66.54 / -241.54 -766.72 / -766.72 Laboratory Results 09/28/20 05:05: Sodium 141, Potassium 3.6, Chloride 110 H, Carbon Dioxide 28.0, Anion Gap 3 L, BUN 23 H, Creatinine 2.25 H, Estim Creat Clear Calc 15.51, Est GFR (MDRD) Af Amer 27 L, Est GFR (MDRD) Non-Af 22 L, BUN/Creatinine Ratio 10.2, Glucose 115 H, Calcium 7.3 L Current Medications Aspirin (Aspirin E.C. 81 Mg Tablet) 81 mg PO DAILY@0800 [facility] Last Admin: 09/28/20 09:06 Dose: 81 mg Documented by: Calamine/Phenol (Menthol/Lanolin/Calamine/Znox 113 Gm Tube) 1 applic TOPICAL BID [facility]; Protocol Last Admin: 09/28/20 09:06 Dose: 1 applicatio Documented by: Enoxaparin Sodium (Enoxaparin 30 Mg/0.3 Ml Syringe) 30 mg SC DAILY [facility] Last Admin: 09/28/20 09:06 Dose: 30 mg Documented by: Famotidine (Famotidine 20 Mg Tablet) 20 mg PO DAILY [facility] Last Admin: 09/28/20 09:06 Dose: 20 mg Documented by: Norepinephrine Bitartrate 8 mg (/ Sodium Chloride) 250 mls @ 9.375 mls/hr CONT INF .[id number] [facility]; Protocol Last Titration: 09/28/20 15:56 Dose: Infused Documented by: Midodrine (Midodrine Hcl 5 Mg Tablet) 10 mg PO TIDCM [facility] Last Admin: 09/28/20 13:34 Dose: 10 mg Documented by: Ondansetron HCl (Ondansetron 4 Mg/2 Ml Vial) 4 mg IV Q6H PRN PRN PRN Reason: NAUSEA/VOMITING Last Admin: 09/23/20 02:28 Dose: 4 mg Documented by: Pramipexole Dihydrochloride (Pramipexole Di-Hcl 0.25 Mg Tablet) 0.25 mg PO QHS [facility] Last Admin: 09/27/20 21:26 Dose: 0.25 mg Documented by: Sodium Chloride (0.9% Saline Lock 10 Ml Syringe) 10 - 40 ml IV UD PRN PRN Reason: SALINE FLUSH Last Admin: 09/23/20 15:12 Dose: 30 ml Documented by: Medical Necessity - Tobacco Use Smoking Status: Never smoker Assessment/Plan All Active Problems (Last Reviewed 12/28/20 @ 14:20 by Stephanie DENNIS, PA-C) Acute sigmoid colitis (Acute) Partial obstruction of colon (Acute) #1 Septic shock secondary to probable gram-negative infection-at this time, patient remains on antibiotics #2 essential hypertension #3 carotid occlusive disease #4 hyperlipidemia #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
[2020-09-28] MEDS: Pramipexole Di-HCl 0.25 MG Tablet PO (20:20)
[2020-09-29] VITALS (18 sets, daily range): BP systolic 103–154; BP diastolic 45–61; PULSE 60–63; RESP 16–25; TEMP 36.4–36.6; O2SAT 83–99
[2020-09-29] MEDS: Ondansetron 4 MG/2 ML Vial IV (00:22)
[2020-09-29] MEDS: 0.9% Saline Lock 10 ML Syringe IV (03:54)
[2020-09-29 05:11] LABS: Anion Gap 4 (5-15); BUN 25 mg/dL (7-18); BUN/Creat Ratio 10.8 RATIO (10-20); Calcium,Total 7.8 mg/dL (8.5-10.1); Chloride 109 mmol/L (98-107); Creatinine, Serum 2.31 mg/dL (0.55-1.02); EST Glomerular Filtration Rate 22 mL/min (>60); Est Glom Filt Rate - Afr Amer 26 mL/min (>60); Estimated Creatinine Clearance 15.11 ml/min; Glucose 108 mg/dL (74-106); Potassium 3.8 mmol/L (3.5-5.1); Sodium Level 140 mmol/L (136-145)
--- NOTE | 2020-09-29 05:38 | RAD_ITS ---
STUDY: X-RAY - ABDOMEN/PELVIS REASON FOR EXAM: Female, 80 years old. nausea TECHNIQUE: AP supine and upright views of the abdomen and pelvis. COMPARISON: 09/22/2020. FINDINGS: There is atelectasis in the visualized lung bases. There is an unremarkable bowel gas pattern. There is no demonstrated free abdominal air. The visualized liver, spleen and kidneys are grossly normal in size and morphology. Normal soft tissue structures. There degenerative changes of the lumbar spine with levoscoliosis. RAD/Abd Decub and/or Erect(Portabl IMPRESSION: Nonspecific bowel gas pattern. Electronically Signed: Aston Cottrell MD at 6:33 EST , Service support ,
--- NOTE | 2020-09-29 05:41 | PCM.PN.SRG ---
Patient Problems: Active and Suspected Problems (Last Reviewed 09/20/20 @ 14:20 by Stephanie DENNIS, PADivya) Acute sigmoid colitis (Acute) Partial obstruction of colon (Acute) Subjective: Patient states that yesterday was not a good day. She states that she had nausea. She states that she was out of bed to a chair. By her report there was some ambulation. She states that she is still passing stool and passing flatus. She does not note any significant abdominal pain. - Physical Exam Vitals/I&O's: Vital Signs Temp Pulse Resp BP Pulse Ox 97.6 F L 63 23 H 129/48 H 97 09/29/20 00:00 09/29/20 02:00 09/29/20 02:00 09/29/20 02:00 09/29/20 02:00 Oxygen Flow Rate (L/min) 2 Oxygen Delivery Method Nasal Cannula Weight: 210 lb 1.608 oz Body Mass Index (BMI) 32.8 Intake and Output for Last 24 Hours 09/27/20 09/28/20 09/29/20 23:59 23:59 23:59 Intake Total 1258.46 / 1258.46 33.28 / 33.28 Output Total 1325 / 1500 1300 / 1525 350 / 350 Balance -66.54 / -241.54 -1266.72 / -1491.72 -350 / -350 General: - - Less bright than yesterday. Appears more fatigued Abdomen: Bowel Sounds Present, Soft, Non Tender, - - Wounds clean Laboratory Results 09/29/20 04:45: Sodium 140, Potassium 3.8, Chloride 109 H, Carbon Dioxide 27.0, Anion Gap 4 L, BUN 25 H, Creatinine 2.31 H, Estim Creat Clear Calc 15.11, Est GFR (MDRD) Af Amer 26 L, Est GFR (MDRD) Non-Af 22 L, BUN/Creatinine Ratio 10.8, Glucose 108 H, Calcium 7.8 L Current Medications Aspirin (Aspirin E.C. 81 Mg Tablet) 81 mg PO DAILY@0800 [facility] Last Admin: 09/28/20 09:06 Dose: 81 mg Documented by: Calamine/Phenol (Menthol/Lanolin/Calamine/Znox 113 Gm Tube) 1 applic TOPICAL BID [facility]; Protocol Last Admin: 09/28/20 20:20 Dose: 1 applicatio Documented by: Enoxaparin Sodium (Enoxaparin 30 Mg/0.3 Ml Syringe) 30 mg SC DAILY [facility] Last Admin: 09/28/20 09:06 Dose: 30 mg Documented by: Famotidine (Famotidine 20 Mg Tablet) 20 mg PO DAILY [facility] Last Admin: 09/28/20 09:06 Dose: 20 mg Documented by: Norepinephrine Bitartrate 8 mg (/ Sodium Chloride) 250 mls @ 9.375 mls/hr CONT INF .[id number] [facility]; Protocol Last Titration: 09/28/20 15:56 Dose: Infused Documented by: Midodrine (Midodrine Hcl 5 Mg Tablet) 10 mg PO TIDCM [facility] Last Admin: 09/28/20 18:11 Dose: 10 mg Documented by: Ondansetron HCl (Ondansetron 4 Mg/2 Ml Vial) 4 mg IV Q6H PRN PRN PRN Reason: NAUSEA/VOMITING Last Admin: 09/29/20 00:22 Dose: 4 mg Documented by: Pramipexole Dihydrochloride (Pramipexole Di-Hcl 0.25 Mg Tablet) 0.25 mg PO QHS [facility] Last Admin: 09/28/20 20:20 Dose: 0.25 mg Documented by: Sodium Chloride (0.9% Saline Lock 10 Ml Syringe) 10 - 40 ml IV UD PRN PRN Reason: SALINE FLUSH Last Admin: 09/29/20 03:54 Dose: 20 ml Documented by: Medical Necessity - Tobacco Use Smoking Status: Never smoker Assessment/Plan All Active Problems (Last Reviewed 09/20/20 @ 14:20 by Stephanie DENNIS PACarminaC) Acute sigmoid colitis (Acute) Partial obstruction of colon (Acute) Clinical exam of abdomen is unremarkable and patient seems to be passing both stool and flatus. She was started on midodrine to support blood pressure and this seems to have been effective. She is now off the Levophed. Etiology to nausea not determined. Not sure whether it could be medication induced. We will check a abdominal x-ray to assure that the gas pattern suggesting preoperative obstruction is improving.
--- NOTE | 2020-09-29 07:12 | PCM.PN.INT ---
Subjective: Patient did well overnight. Pressors have not had to be reinitiated. Patient did have some elevated systolic blood pressures, but diastolics continue to be marginal. Patient was able to make it out of the bed yesterday and has been in the chair. General: Alert, Oriented x3, Cooperative, No apparent distress, - - Some apneic events noted while sleeping HEENT: Atraumatic, PERRLA, EOMI, Normocephalic, - - No scleral icterus or injection noted Oral: Moist Mucosa, No Gingival or Mucosal Lesions/ Ulcerations, - - Crowded posterior pharynx Neck: Supple, No JVD, No Nodes, Trachea Midline Lungs: No rhonchi, No wheeze, No rales, Diminished, - - Symmetric expansion. No dullness to percussion. Cardiovascular: Regular rate, Regular Rhythm, Normal S1, Normal S2, No murmurs, No rub noted, No Gallop Abdomen: Bowel Sounds Present, Soft, Non Tender, Non-Distended, Obese Extremities: No clubbing, No cyanosis, Edema Skin: - - No change compared to previous Musculoskeletal: No Tenderness to Palpation of Joints or Extremities Lymphatic: No Cervical, Supraclavicular, or Inguinal Adenopathy Neurological: Cranial nerves II-XII grossly intact, Neuro grossly intact, Motor Exam 5/5 strength throughout Psych/Mental Status: Alert and oriented to time, place, person, mood and affect Vital Signs Temp Pulse Resp BP Pulse Ox 36.4 C L 60 25 H 131/53 H 95 09/29/20 04:00 09/29/20 06:00 09/29/20 06:00 09/29/20 06:00 09/29/20 06:00 Oxygen Flow Rate (L/min) 2 Oxygen Delivery Method Nasal Cannula Weight: 95.9 kg Body Mass Index (BMI) 32.8 Intake and Output for Last 24 Hours 09/27/20 09/28/20 09/29/20 23:59 23:59 23:59 Intake Total 1258.46 / 1258.46 33.28 / 33.28 Output Total 1325 / 1500 1300 / 1525 550 / 550 Balance -66.54 / -241.54 -1266.72 / -1491.72 -550 / -550 Labs (Last 48 Hours) 09/28/20 09/29/20 05:05 04:45 Sodium 141 140 Potassium 3.6 3.8 Chloride 110 H 109 H Carbon Dioxide 28.0 27.0 Anion Gap 3 L 4 L BUN 23 H 25 H Creatinine 2.25 H 2.31 H Estim Creat Clear Calc 15.51 15.11 Est GFR (MDRD) Af Amer 27 L 26 L Est GFR (MDRD) Non-Af 22 L 22 L BUN/Creatinine Ratio 10.2 10.8 Glucose 115 H 108 H Calcium 7.3 L 7.8 L Clinical Impression(s) from Imaging Studies Abdomen X-Ray 09/29/20 05:38 IMPRESSION: Nonspecific bowel gas pattern. Electronically Signed: Aston Cottrell MD at 6:33 EST , Service support , Medical Necessity - Tobacco Use Smoking Status: Never smoker Assessment/Plan All Active Problems (Last Reviewed 09/20/20 @ 14:20 by Stephanie DENNIS PACarminaC) Acute sigmoid colitis (Acute) Partial obstruction of colon (Acute) RECOMMENDATIONS: 1. Management dietary advancement per general surgery recommendations. 2. Monitor off antimicrobials per surgery 3. Wean midodrine dosing over the next 3 to 5 days 4. Monitor urine output and renal function daily 5. Encourage incentive spirometer use and mobilize patient as tolerated. 6. Okay to leave the intensive care unit from my perspective IMPRESSIONS: 1. Acute respiratory failure Although initially intubated for her surgical procedure, the patient was able to be extubated the following day. She is currently maintaining appropriate oxygen saturations on minimal O2. Plan to continue current supportive measures and encourage incentive spirometer use as tolerated. Continue to wean supplemental oxygen to maintain saturations at or above 90%. Clinical suspicion for minimal oxygen requirement secondary to atelectasis. Continue to encourage incentive spirometer 2. High-grade sigmoid obstruction with colonic and small bowel obstruction, now POD #6 status post open sigmoid colectomy Continue routine postoperative care per surgery recommendations. 3. Septic shock Clinical concern for intra-abdominal etiology. The patient will be continued on vasopressor support to maintain a mean arterial pressure at or above 65 mmHg. Surgery discontinued antimicrobials and patient appears to be tolerating well. Patient appears to be responding well to midodrine. Patient does have low diastolic pressures, leading to lower maps. Will titrate midodrine down over the next 3 to 5 days. Increase activity as tolerated. 4. Acute kidney injury Unchanged compared to previous. Clinical concern for prerenal etiology/ischemic ATN in the setting of #3. Continue current supportive measures with vasopressor support to maintain hemodynamic stability. Appreciate nephrology consultation. Work-up relatively benign. No indication for renal replacement therapy 5. 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 Continue home medications as indicated. Inpatient E&M: [id number] [facility] Hosp L3
[2020-09-29] MEDS: Aspirin E.C. 81 MG Tablet PO (08:20)
[2020-09-29] MEDS: Famotidine 20 MG Tablet PO (08:20)
[2020-09-29] MEDS: Enoxaparin 30 MG/0.3 ML Syringe SC (08:20)
[2020-09-29] MEDS: Menthol/Lanolin/Calamine/Znox 113 GM Tube 1 APPLIC TOPICAL ×2 (08:20→21:02)
[2020-09-29] MEDS: Midodrine HCl 5 MG Tablet 10 MG PO ×2 (08:21→21:02)
--- NOTE | 2020-09-29 13:04 | CASEMGMT ---
Addendum entered by Saima Longoria 09/29/20 14:34: HHC aide added to order, as [facility] does not have aides available at this time. Call placed to [facility] and she was made aware. She states they have staffing to provide an aide for short time. Pt made aware. Original Note: NARCISA DUQUE NOTE: Met w/pt in room at this time. Pt sitting up in recliner chair, awake/alert/oriented. Discussed discharge planning. Pt states she still wishes to return home and would like [facility]. She states again that her daughter is able to stop in daily to check on her and she has someone else that can get her groceries if needed. Pt provided w/list of local [facility] agencies w/quality performance ratings listed. She states she has had [facility] in the past and would like them again. She states she does not feel she needs SN at this time, only therapy. She states she had an aide with through [facility] until Jun/Jul, but that the aide quite d/t COVID and they did not have anyone to replace her at that time, but she would be interested in having aides through [facility] come again, if they have them available. SWQi, made aware. Call placed to [facility] and referral made for PT/OT. She states they are able to accept pt, but would not be able to do start of care until Wednesday 10/04. Pt made aware and is agreeable to this. Pt denies having any other concerns/needs w/going home at discharge at this time. Pt made aware to ask for NARCISA DUQUE if anything arises. She voices understanding. Shala LONG RN, CM
--- NOTE | 2020-09-29 14:11 | CASEMGMT ---
Addendum entered by Qi Bolaños 09/29/20 14:24: Social Work Return call from Celsete at [facility] and she will start the process needed to assign an aid to pt. Celeste states that she feels there will be no problem approving hours, however finding coverage that will staff pt will be difficult. SW met with pt in room and informed of above. Pt also notified that [facility] can accept pt. Pt understanding of information. GRACE Gee Original Note: Social Work Phone call to Celeste Orta, Pt CM at [facility] and left informing that pt would like aid services restarted if possible. ELMER requested return call with information on this possibility. GRACE Gee
--- NOTE | 2020-09-29 16:38 | PCM.PN.REN ---
Patient Problems: Active and Suspected Problems (Last Reviewed 09/20/20 @ 14:20 by Stephanie DENNIS, CHANELL) Acute sigmoid colitis (Acute) Partial obstruction of colon (Acute) Subjective: Following for acute kidney injury. The patient denies current chest pain, shortness of breath, nausea, vomiting or diarrhea. She still has edema of the lower extremities although the severity of the edema has not increased. - Physical Exam Vitals/I&O's: Vital Signs Temp Pulse Resp BP Pulse Ox 97.5 F L 60 23 H 121/61 H 94 09/29/20 12:00 09/29/20 14:00 09/29/20 14:00 09/29/20 14:00 09/29/20 15:16 Oxygen Flow Rate (L/min) 2 Oxygen Delivery Method Nasal Cannula Weight: 95.9 kg Body Mass Index (BMI) 32.8 Intake and Output for Last 24 Hours 09/27/20 09/28/20 09/29/20 23:59 23:59 23:59 Intake Total 1258.46 / 1258.46 33.28 / 33.28 240 / 240 Output Total 1325 / 1500 1300 / 1525 550 / 550 Balance -66.54 / -241.54 -1266.72 / -1491.72 -310 / -310 General: Alert, Oriented x3 HEENT: Atraumatic, EOMI Oral: Moist Mucosa Neck: Supple Lungs: Clear to auscultation Cardiovascular: Regular rate, Regular Rhythm, Normal S1, Normal S2 Abdomen: Bowel Sounds Present, Soft, Non Tender Extremities: Edema - 2+ lower extremity Laboratory Results 09/29/20 04:45: Sodium 140, Potassium 3.8, Chloride 109 H, Carbon Dioxide 27.0, Anion Gap 4 L, BUN 25 H, Creatinine 2.31 H, Estim Creat Clear Calc 15.11, Est GFR (MDRD) Af Amer 26 L, Est GFR (MDRD) Non-Af 22 L, BUN/Creatinine Ratio 10.8, Glucose 108 H, Calcium 7.8 L Current Medications Aspirin (Aspirin E.C. 81 Mg Tablet) 81 mg PO DAILY@0800 [facility] Last Admin: 09/29/20 08:20 Dose: 81 mg Documented by: Calamine/Phenol (Menthol/Lanolin/Calamine/Znox 113 Gm Tube) 1 applic TOPICAL BID [facility]; Protocol Last Admin: 09/29/20 08:20 Dose: 1 applicatio Documented by: Enoxaparin Sodium (Enoxaparin 30 Mg/0.3 Ml Syringe) 30 mg SC DAILY [facility] Last Admin: 09/29/20 08:20 Dose: 30 mg Documented by: Famotidine (Famotidine 20 Mg Tablet) 20 mg PO DAILY [facility] Last Admin: 09/29/20 08:20 Dose: 20 mg Documented by: Midodrine (Midodrine Hcl 5 Mg Tablet) 10 mg PO BID [facility] Last Admin: 09/29/20 08:21 Dose: 10 mg Documented by: Ondansetron HCl (Ondansetron 4 Mg/2 Ml Vial) 4 mg IV Q6H PRN PRN PRN Reason: NAUSEA/VOMITING Last Admin: 09/29/20 00:22 Dose: 4 mg Documented by: Pramipexole Dihydrochloride (Pramipexole Di-Hcl 0.25 Mg Tablet) 0.25 mg PO QHS [facility] Last Admin: 09/28/20 20:20 Dose: 0.25 mg Documented by: Sodium Chloride (0.9% Saline Lock 10 Ml Syringe) 10 - 40 ml IV UD PRN PRN Reason: SALINE FLUSH Last Admin: 09/29/20 03:54 Dose: 20 ml Documented by: Medical Necessity - Tobacco Use Smoking Status: Never smoker Assessment/Plan All Active Problems (Last Reviewed 09/20/20 @ 14:20 by Stephanie DENNIS, PACarminaC) Acute sigmoid colitis (Acute) Partial obstruction of colon (Acute) 1. Acute kidney injury. The patient has normal baseline renal function. Acute kidney injury is due to ischemic ATN related to shock. She is not oliguric despite stopping diuretics. Weight and respiratory status appears to be stable in the last 24 hours. Continue to hold furosemide for now. We will recheck renal function and volume status again tomorrow. 2. Sepsis secondary to bowel obstruction and colitis. Management as per critical care medicine service and surgery. The patient is off of IV pressor and has been patient to midodrine. 3. Acute hypoxic respiratory failure. Status appears to be stable. She is also being followed by the pulmonary/critical care medicine service. I am okay with additional diuresis if needed. We will need to watch her renal function and blood pressure closely if diuretic is to be restarted.
--- NOTE | 2020-09-29 17:34 | PN_ITS ---
Patient Problems: Active and Suspected Problems (Last Reviewed 09/20/20 @ 14:20 by Stephanie DENNIS, PADivya) Acute sigmoid colitis (Acute) Partial obstruction of colon (Acute) Subjective: Patient was seen and examined today, she has no complaints of any shortness of breath, chest pain, fevers, or chills. Objective: General: Alert, Oriented x3, Cooperative, No apparent distress, Well developed HEENT: Atraumatic, PERRLA, EOMI, Normocephalic Oral: Moist Mucosa Neck: Supple, No JVD, Trachea Midline, Thyroid Normal Size and Texture Lungs: Clear to auscultation, Normal air movement, No rhonchi, No wheeze, No rales Cardiovascular: Regular rate, Regular Rhythm, Normal S1, Normal S2, No murmurs, PMI Normal, No rub noted Abdomen: Bowel Sounds Present, Soft, Non-Distended Extremities: No clubbing, No cyanosis, No edema, Capillary Refill Less than 3 Seconds Skin: No rashes, No breakdown Musculoskeletal: No Tenderness to Palpation of Joints or Extremities Neurological: Cranial nerves II-XII grossly intact, Neuro grossly intact, Muscle tone normal, Sensory exam intact to light touch and pain Psych/Mental Status: Normal Affect, Appropriate, Alert and oriented to time, place, person, mood and affect - Physical Exam Vitals/I&O's: Vital Signs Temp Pulse Resp BP Pulse Ox 97.5 F L 60 23 H 121/61 H 94 09/29/20 12:00 09/29/20 14:00 09/29/20 14:00 09/29/20 14:00 09/29/20 15:16 Oxygen Flow Rate (L/min) 2 Oxygen Delivery Method Nasal Cannula Weight: 95.9 kg Body Mass Index (BMI) 32.8 Intake and Output for Last 24 Hours 09/27/20 09/28/20 09/29/20 23:59 23:59 23:59 Intake Total 1258.46 / 1258.46 33.28 / 33.28 240 / 240 Output Total 1325 / 1500 1300 / 1525 550 / 550 Balance -66.54 / -241.54 -1266.72 / -1491.72 -310 / -310 Laboratory Results 09/29/20 04:45: Sodium 140, Potassium 3.8, Chloride 109 H, Carbon Dioxide 27.0, Anion Gap 4 L, BUN 25 H, Creatinine 2.31 H, Estim Creat Clear Calc 15.11, Est GFR (MDRD) Af Amer 26 L, Est GFR (MDRD) Non-Af 22 L, BUN/Creatinine Ratio 10.8, Glucose 108 H, Calcium 7.8 L Current Medications Aspirin (Aspirin E.C. 81 Mg Tablet) 81 mg PO DAILY@0800 [facility] Last Admin: 09/29/20 08:20 Dose: 81 mg Documented by: Calamine/Phenol (Menthol/Lanolin/Calamine/Znox 113 Gm Tube) 1 applic TOPICAL BID [facility]; Protocol Last Admin: 09/29/20 08:20 Dose: 1 applicatio Documented by: Enoxaparin Sodium (Enoxaparin 30 Mg/0.3 Ml Syringe) 30 mg SC DAILY [facility] Last Admin: 09/29/20 08:20 Dose: 30 mg Documented by: Famotidine (Famotidine 20 Mg Tablet) 20 mg PO DAILY [facility] Last Admin: 09/29/20 08:20 Dose: 20 mg Documented by: Midodrine (Midodrine Hcl 5 Mg Tablet) 10 mg PO BID [facility] Last Admin: 09/29/20 08:21 Dose: 10 mg Documented by: Ondansetron HCl (Ondansetron 4 Mg/2 Ml Vial) 4 mg IV Q6H PRN PRN PRN Reason: NAUSEA/VOMITING Last Admin: 09/29/20 00:22 Dose: 4 mg Documented by: Pramipexole Dihydrochloride (Pramipexole Di-Hcl 0.25 Mg Tablet) 0.25 mg PO QHS [facility] Last Admin: 09/28/20 20:20 Dose: 0.25 mg Documented by: Sodium Chloride (0.9% Saline Lock 10 Ml Syringe) 10 - 40 ml IV UD PRN PRN Reason: SALINE FLUSH Last Admin: 09/29/20 03:54 Dose: 20 ml Documented by: Medical Necessity - Tobacco Use Smoking Status: Never smoker Assessment/Plan All Active Problems (Last Reviewed 09/20/20 @ 14:20 by Stephanie DENNIS, PACarminaC) Acute sigmoid colitis (Acute) Partial obstruction of colon (Acute) #1 Septic shock secondary to probable gram-negative infection-at this time, patient is on no antibiotics, oxygen will be weaned #2 essential hypertension #3 carotid occlusive disease #4 hyperlipidemia #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
[2020-09-29] MEDS: Pramipexole Di-HCl 0.25 MG Tablet PO (21:03)
[2020-09-30] VITALS (7 sets, daily range): BP systolic 138–146; BP diastolic 56–59; PULSE 60–63; RESP 19–22; TEMP 36.7–37; O2SAT 94–98
[2020-09-30 03:50] LABS: Albumin, Serum 1.9 g/dL (3.2-5.0); BUN 26 mg/dL (7-18); BUN/Creat Ratio 11.2 RATIO (10-20); Calcium,Total 7.9 mg/dL (8.5-10.1); Chloride 106 mmol/L (98-107); Creatinine, Serum 2.32 mg/dL (0.55-1.02); EST Glomerular Filtration Rate 21 mL/min (>60); Est Glom Filt Rate - Afr Amer 26 mL/min (>60); Estimated Creatinine Clearance 15.04 ml/min; Glucose 104 mg/dL (74-106); Phosphorus 4.1 mg/dL (2.5-4.9); Potassium 3.9 mmol/L (3.5-5.1); Sodium Level 138 mmol/L (136-145)
--- NOTE | 2020-09-30 06:03 | PCM.PN.SRG ---
Patient Problems: Active and Suspected Problems (Last Reviewed 09/20/20 @ 14:20 by Stephanie DENNIS, PACarminaC) Acute sigmoid colitis (Acute) Partial obstruction of colon (Acute) Subjective: Patient states that she feels full quickly but feels that is secondary to her failed hiatal hernia repair. She has no specific abdominal complaints. She has been passing stool and flatus. - Physical Exam Vitals/I&O's: Vital Signs Temp Pulse Resp BP Pulse Ox 98.0 F 60 21 H 138/59 H 98 09/30/20 01:00 09/30/20 03:33 09/30/20 01:00 09/30/20 01:00 09/30/20 01:00 Oxygen Flow Rate (L/min) 2 Oxygen Delivery Method Nasal Cannula Weight: 212 lb 4.882 oz Body Mass Index (BMI) 32.8 Intake and Output for Last 24 Hours 09/28/20 09/29/20 09/30/20 23:59 23:59 23:59 Intake Total 33.28 / 33.28 360 / 360 Output Total 1300 / 1525 1250 / 1250 Balance -1266.72 / -1491.72 -890 / -890 Abdomen: Soft, Non Tender Laboratory Results 09/30/20 03:20: Sodium 138, Potassium 3.9, Chloride 106, Carbon Dioxide 27.0, BUN 26 H, Creatinine 2.32 H, Estim Creat Clear Calc 15.04, Est GFR (MDRD) Af Amer 26 L, Est GFR (MDRD) Non-Af 21 L, BUN/Creatinine Ratio 11.2, Glucose 104, Calcium 7.9 L, Phosphorus 4.1, Albumin 1.9 L Current Medications Aspirin (Aspirin E.C. 81 Mg Tablet) 81 mg PO DAILY@0800 [facility] Last Admin: 09/29/20 08:20 Dose: 81 mg Documented by: Calamine/Phenol (Menthol/Lanolin/Calamine/Znox 113 Gm Tube) 1 applic TOPICAL BID [facility]; Protocol Last Admin: 09/29/20 21:02 Dose: 1 applicatio Documented by: Enoxaparin Sodium (Enoxaparin 30 Mg/0.3 Ml Syringe) 30 mg SC DAILY [facility] Last Admin: 09/29/20 08:20 Dose: 30 mg Documented by: Famotidine (Famotidine 20 Mg Tablet) 20 mg PO DAILY [facility] Last Admin: 09/29/20 08:20 Dose: 20 mg Documented by: Midodrine (Midodrine Hcl 5 Mg Tablet) 10 mg PO BID [facility] Last Admin: 09/29/20 21:02 Dose: 10 mg Documented by: Ondansetron HCl (Ondansetron 4 Mg/2 Ml Vial) 4 mg IV Q6H PRN PRN PRN Reason: NAUSEA/VOMITING Last Admin: 09/29/20 00:22 Dose: 4 mg Documented by: Pramipexole Dihydrochloride (Pramipexole Di-Hcl 0.25 Mg Tablet) 0.25 mg PO QHS [facility] Last Admin: 09/29/20 21:03 Dose: 0.25 mg Documented by: Sodium Chloride (0.9% Saline Lock 10 Ml Syringe) 10 - 40 ml IV UD PRN PRN Reason: SALINE FLUSH Last Admin: 09/29/20 03:54 Dose: 20 ml Documented by: Medical Necessity - Tobacco Use Smoking Status: Never smoker Assessment/Plan All Active Problems (Last Reviewed 09/20/20 @ 14:20 by Stephanie DENNIS, PA-C) Acute sigmoid colitis (Acute) Partial obstruction of colon (Acute) I advised the patient on eating smaller more frequent meals as this is what she does at home. Her surgical care is complete. Discharge planning now per primary care. We will continue to provide social visits as needed. Office follow-up in 3 weeks recommended Camron Rubio M.D., F.A.C.S.
--- NOTE | 2020-09-30 07:36 | PCM.PN.INT ---
Subjective: Patient did well overnight. No acute issues were reported. Patient did require 2 L nasal cannula while sleeping, but is back to room air during the day. No pressors or fluid boluses have been required. Patient did have a bowel movement overnight. General: Alert, Oriented x3, Cooperative, No apparent distress, Well developed, Well nourished, - - Obese. Speaking in full sentences. HEENT: Atraumatic, PERRLA, EOMI, Normocephalic, - - No scleral icterus or injection noted Oral: Moist Mucosa, No Gingival or Mucosal Lesions/ Ulcerations Neck: Supple, No JVD, No Nodes, Trachea Midline Lungs: No rhonchi, No wheeze, No rales, Diminished, - - Fair effort Cardiovascular: Regular rate, Regular Rhythm, Normal S1, Normal S2, No murmurs, No rub noted, No Gallop Abdomen: Bowel Sounds Present, Soft, Non Tender, Non-Distended, Obese Extremities: No clubbing, No cyanosis, Edema - Trace lower extremity Skin: No rashes, No breakdown, Incision - Clean, dry and intact Musculoskeletal: No Tenderness to Palpation of Joints or Extremities Lymphatic: No Cervical, Supraclavicular, or Inguinal Adenopathy Neurological: Cranial nerves II-XII grossly intact, Neuro grossly intact, Motor Exam 5/5 strength throughout Psych/Mental Status: Alert and oriented to time, place, person, mood and affect Vital Signs Temp Pulse Resp BP Pulse Ox 36.7 C 60 21 H 138/59 H 98 09/30/20 01:00 09/30/20 03:33 09/30/20 01:00 09/30/20 01:00 09/30/20 01:00 Oxygen Flow Rate (L/min) 2 Oxygen Delivery Method Nasal Cannula Weight: 96.3 kg Body Mass Index (BMI) 32.8 Intake and Output for Last 24 Hours 09/28/20 09/29/20 09/30/20 23:59 23:59 23:59 Intake Total 33.28 / 33.28 360 / 360 Output Total 1300 / 1525 1250 / 1250 Balance -1266.72 / -1491.72 -890 / -890 Labs (Last 48 Hours) 09/29/20 09/30/20 04:45 03:20 Sodium 140 138 Potassium 3.8 3.9 Chloride 109 H 106 Carbon Dioxide 27.0 27.0 Anion Gap 4 L BUN 25 H 26 H Creatinine 2.31 H 2.32 H Estim Creat Clear Calc 15.11 15.04 Est GFR (MDRD) Af Amer 26 L 26 L Est GFR (MDRD) Non-Af 22 L 21 L BUN/Creatinine Ratio 10.8 11.2 Glucose 108 H 104 Calcium 7.8 L 7.9 L Phosphorus 4.1 Albumin 1.9 L Medical Necessity - Tobacco Use Smoking Status: Never smoker Assessment/Plan All Active Problems (Last Reviewed 09/20/20 @ 14:20 by Stephanie DENNIS, PA-C) Acute sigmoid colitis (Acute) Partial obstruction of colon (Acute) RECOMMENDATIONS: 1. Management dietary advancement per general surgery recommendations. 2. Monitor off antimicrobials per surgery 3. Wean midodrine dosing over the next 3 to 5 days 4. Monitor urine output and renal function daily. No diuretic challenge at this time. 5. Encourage incentive spirometer use and mobilize patient as tolerated. 6. Awaiting transfer from the intensive care unit secondary to bed availability IMPRESSIONS: 1. Acute respiratory failure Although initially intubated for her surgical procedure, the patient was able to be extubated the following day. She is currently maintaining appropriate oxygen saturations on minimal O2. Plan to continue current supportive measures and encourage incentive spirometer use as tolerated. Continue to wean supplemental oxygen to maintain saturations at or above 90%. Clinical suspicion for minimal oxygen requirement secondary to atelectasis. Continue to encourage incentive spirometer. Patient may have an element of sleep apnea that can be evaluated as an outpatient 2. High-grade sigmoid obstruction with colonic and small bowel obstruction, now POD #6 status post open sigmoid colectomy Continue routine postoperative care per surgery recommendations. 3. Septic shock Clinical concern for intra-abdominal etiology. The patient will be continued on vasopressor support to maintain a mean arterial pressure at or above 65 mmHg. Surgery discontinued antimicrobials and patient appears to be tolerating well. Patient appears to be responding well to midodrine. Patient does have low diastolic pressures, leading to lower maps. Will titrate midodrine down over the next 3 to 5 days. Increase activity as tolerated. 4. Acute kidney injury Unchanged compared to previous. Clinical concern for prerenal etiology/ischemic ATN in the setting of #3. Continue current supportive measures with vasopressor support to maintain hemodynamic stability. Appreciate nephrology consultation. Work-up relatively benign. No indication for renal replacement therapy 5. 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 Continue home medications as indicated. Inpatient E&M: [id number] [facility] Hosp L3
[2020-09-30] MEDS: Enoxaparin 30 MG/0.3 ML Syringe SC (09:08)
[2020-09-30] MEDS: Aspirin E.C. 81 MG Tablet PO (09:08)
[2020-09-30] MEDS: Midodrine HCl 5 MG Tablet PO (09:08)
[2020-09-30] MEDS: Famotidine 20 MG Tablet PO (09:08)
[2020-09-30] MEDS: Menthol/Lanolin/Calamine/Znox 113 GM Tube 1 APPLIC TOPICAL (09:09)
--- NOTE | 2020-09-30 13:07 | CASEMGMT ---
Addendum entered by Qi Bolaños 09/30/20 14:46: Pt updated that she is eligible for 7 hours of aids and that [facility] is actively working on staffing this. Pt plans to discharge today. Phone call to Celeste at [facility] and [facility] notifying of discharge. will fax d/c information when available. GRACE Gee Original Note: Social Work Phone call from Celeste at [facility] pt has been approved for 7 hours of home health aids per week. Elizabeth will send out referrals today to find coverage. GRACE Gee
--- NOTE | 2020-09-30 14:54 | PN.RENAL_ITS ---
Patient Problems: Active and Suspected Problems (Last Reviewed 09/20/20 @ 14:20 by Stephanie DENNIS, PADivya) Acute sigmoid colitis (Acute) Partial obstruction of colon (Acute) Subjective: no new events - Physical Exam Vitals/I&O's: Vital Signs Temp Pulse Resp BP Pulse Ox 98.2 F 60 19 H 146/56 H 96 09/30/20 13:49 09/30/20 13:49 09/30/20 13:49 09/30/20 13:49 09/30/20 13:49 Oxygen Flow Rate (L/min) 2 Oxygen Delivery Method Room Air Weight: 96.3 kg Body Mass Index (BMI) 32.8 Intake and Output for Last 24 Hours 09/28/20 09/29/20 09/30/20 23:59 23:59 23:59 Intake Total 33.28 / 33.28 360 / 360 400 / 400 Output Total 1300 / 1525 1250 / 1250 Balance -1266.72 / -1491.72 -890 / -890 400 / 400 General: Alert, Oriented x3, Cooperative HEENT: Atraumatic, PERRLA, EOMI, Normocephalic Neck: Supple, No JVD, Negative Carotid Bruits Lungs: Clear to auscultation, Normal air movement Cardiovascular: Regular rate, No murmurs Abdomen: Bowel Sounds Present, Soft, Non Tender Extremities: No edema, Capillary Refill Less than 3 Seconds Skin: No rashes, No breakdown Musculoskeletal: No Tenderness to Palpation of Joints or Extremities Neurological: Cranial nerves II-XII grossly intact Psych/Mental Status: Normal Affect, Appropriate Laboratory Results 09/30/20 03:20: Sodium 138, Potassium 3.9, Chloride 106, Carbon Dioxide 27.0, BUN 26 H, Creatinine 2.32 H, Estim Creat Clear Calc 15.04, Est GFR (MDRD) Af Amer 26 L, Est GFR (MDRD) Non-Af 21 L, BUN/Creatinine Ratio 11.2, Glucose 104, Calcium 7.9 L, Phosphorus 4.1, Albumin 1.9 L Current Medications Aspirin (Aspirin E.C. 81 Mg Tablet) 81 mg PO DAILY@0800 [facility] Last Admin: 09/30/20 09:08 Dose: 81 mg Documented by: Calamine/Phenol (Menthol/Lanolin/Calamine/Znox 113 Gm Tube) 1 applic TOPICAL BID [facility]; Protocol Last Admin: 09/30/20 09:09 Dose: 1 applicatio Documented by: Enoxaparin Sodium (Enoxaparin 30 Mg/0.3 Ml Syringe) 30 mg SC DAILY [facility] Last Admin: 09/30/20 09:08 Dose: 30 mg Documented by: Famotidine (Famotidine 20 Mg Tablet) 20 mg PO DAILY [facility] Last Admin: 09/30/20 09:08 Dose: 20 mg Documented by: Midodrine (Midodrine Hcl 5 Mg Tablet) 5 mg PO BID [facility] Last Admin: 09/30/20 09:08 Dose: 5 mg Documented by: Ondansetron HCl (Ondansetron 4 Mg/2 Ml Vial) 4 mg IV Q6H PRN PRN PRN Reason: NAUSEA/VOMITING Last Admin: 09/29/20 00:22 Dose: 4 mg Documented by: Pramipexole Dihydrochloride (Pramipexole Di-Hcl 0.25 Mg Tablet) 0.25 mg PO QHS [facility] Last Admin: 09/29/20 21:03 Dose: 0.25 mg Documented by: Sodium Chloride (0.9% Saline Lock 10 Ml Syringe) 10 - 40 ml IV UD PRN PRN Reason: SALINE FLUSH Last Admin: 09/29/20 03:54 Dose: 20 ml Documented by: Medical Necessity - Tobacco Use Smoking Status: Never smoker Assessment/Plan All Active Problems (Last Reviewed 09/20/20 @ 14:20 by Stephanie DENNIS, PA-C) Acute sigmoid colitis (Acute) Partial obstruction of colon (Acute) 1. Acute kidney injury. The patient has normal baseline renal function. Acute kidney injury is due to ischemic ATN related to shock. good urine output cr stable Weight and respiratory status appears to be stable in the last 24 hours. 2. Sepsis secondary to bowel obstruction and colitis. Management as per critical care medicine service and surgery.. 3. Acute hypoxic respiratory failure. Status appears to be stable. She is also being followed by the pulmonary/critical care medicine service. I am okay with additional diuresis if needed.
--- NOTE | 2020-09-30 15:22 | PCM.DC ---
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 May shower in (days): 0 - May shower now Weight Bearing Status: Weight bearing as tolerated Call your doctor if your incision/area has: Continuous Slow Oozing, Sudden Increased Bleeding, Increased Pain/ Swelling, Increased Redness, Foul Smelling Discharge Call your doctor if you observe: Fever of 101 or Higher Suture Line Care: Avoid Pulling/Pushing, Avoid Pinching/Bending Additional Dressing/Incision Instructions:: Leave steri-strips in place for 1 week. Allergies/Adverse Reactions: Allergies Penicillins Allergy (Verified 09/19/20 19:10) Hives Medications to take at Discharge mecobalamin (vitamin B12) 1,000 mcg disintegrating tablet,sublingual 1,000 mcg SUBLINGUAL QDAY 03/13/18 ropinirole 0.5 mg tablet 0.5 mg PO QHS 90 Days #90 03/13/18 simvastatin 40 mg tablet 40 mg PO QPM 03/13/18 alendronate 70 mg tablet 70 mg PO QWEEK 09/11/18 citalopram 10 mg tablet 10 mg PO QDAY tab 09/11/18 Aspirin E.C. [Ecotrin] 81 mg PO DAILY@0800 09/19/20 Calcium Carbonate/Vitamin D3 [Calcium 500 mg-Vit D3 600 Unit] 2 ea PO DAILY 09/19/20 Cholecalciferol (VIT D3) [Vitamin D3] 1,000 unit PO DAILY 09/19/20 Omeprazole [Prilosec] 20 mg PO DAILY 09/19/20 Midodrine HCl [Proamatine] 5 mg PO BID #30 tab 09/30/20 The following prescriptions were given: Midodrine HCl [Proamatine] 5 mg PO BID #30 tab Transmission Status: Pending to [facility] Primary Care Physician: Petros Wagner MD [Primary Care Provider] - Please follow up with your Primary Care Physician in: WITHIN 7-10 DAYS, YOU MAY BE ABLE TO STOP THE MIDODRINE Test Results: Test results from this visit will be discussed in further detail at your follow-up appointment, if applicable. Please Follow Up With: Camron Rubio MD When: Call to make an appointment to be seen in about 3 weeks
--- NOTE | 2020-10-01 12:43 | CASEMGMT ---
NARCISA CM DISCHARGE CALL DC DATE: 09/30/20 DC DIAGNOSIS: COVID-19 DC Disposition: Home w/[facility] for PT/OT to start Sunday and aides through [employer] [facility] Attempted call to patient via phone. No answer, and messaging did not have name identifier. call to [facility]. They are scheduled to begin Sunday with patient. Lorne LONG RN ACM
--- NOTE | 2020-10-03 11:15 | DS.PCM_ITS ---
Discharge Date and Diagnosis - Problem List Patient Problems: Active and Suspected Problems (Last Reviewed 09/20/20 @ 14:20 by Stephanie DENNIS PA-C) Acute sigmoid colitis (Acute) Partial obstruction of colon (Acute) Date of Admission: 09/19/20 Date of Discharge: 09/30/20 - Primary Discharge Diagnosis Acute Problems: Active Problems (Last Reviewed 09/20/20 @ 14:20 by Stephanie DENNIS PA-C) #1 Septic shock secondary to probable gram-negative infection from translocation of colonic alon #2 essential hypertension #3 carotid occlusive disease #4 hyperlipidemia #5 valvular heart disease with bioprosthetic aortic valve #6 sigmoid colon obstruction with small bowel obstruction resulting in sigmoid colon resection #7 acute kidney injury, secondary to ATN - Secondary Discharge Diagnosis Chronic Problems: Chronic Problems (Last Reviewed 09/20/20 @ 14:20 by Stephanie DENNIS PA-C) Presence of cardiac pacemaker (Chronic 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, 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 Complete heart block (Chronic) Non-rheumatic aortic stenosis (Chronic) H/O aortic valve replacement (Chronic 06/28/12) 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 Patient was admitted to [place] [id number] and seen in consultation by surgery, she u nderwent conservative management, NG tube which had been inserted in the emergency room was not placed appropriately so this was removed. Patient continued to have signs of colonic obstruction and was finally taken to surgery where she underwent a partial colonic resection with anastomosis. Patient was seen by nephrology postop due to increased creatinine, she was felt to be in ATN, she was transferred to the ICU due to hypotension was seen by critical care, it was felt that the patient probably had septic shock-no cultures however were drawn. Patient was treated with broad-spectrum antibiotics and pressor agents, finally she was weaned off her pressors and placed on midodrine. Patient was seen by PT and OT and was also hypoxic for a short period of time on oxygen but at the time of discharge from the hospital on 09/30/2020, she did not require supplemental oxygen. On 09/30/2020, patient was seen and examined:General: Alert, Oriented x3, Cooperative, No apparent distress, Well developed HEENT: Atraumatic, PERRLA, EOMI, Normocephalic Oral: Moist Mucosa Neck: Supple, No JVD, Trachea Midline, Thyroid Normal Size and Texture Lungs: Clear to auscultation, Normal air movement, No rhonchi, No wheeze, No rales Cardiovascular: Regular rate, Regular Rhythm, Normal S1, Normal S2, No murmurs, PMI Normal, No rub noted Abdomen: Bowel Sounds Present, Soft, Non-Distended Extremities: No clubbing, No cyanosis, No edema, Capillary Refill Less than 3 Seconds Skin: No rashes, No breakdown Musculoskeletal: No Tenderness to Palpation of Joints or Extremities Neurological: Cranial nerves II-XII grossly intact, Neuro grossly intact, Muscle tone normal, Sensory exam intact to light touch and pain Psych/Mental Status: Normal Affect, Appropriate, Alert and oriented to time, place, person, mood and affect On 09/30/2020, patient was discharged home in stable condition. Patient Problems: Active and Suspected Problems (Last Reviewed 09/20/20 @ 14:20 by Stephanie DENNIS, PACarminaC) Acute sigmoid colitis (Acute) Partial obstruction of colon (Acute) - Physical Exam Vitals/I&O's: Vital Signs Temp Pulse Resp BP Pulse Ox 98.2 F 60 19 H 145/56 H 96 09/30/20 15:24 09/30/20 15:24 09/30/20 15:24 09/30/20 15:24 09/30/20 15:24 Oxygen Flow Rate (L/min) 2 Oxygen Delivery Method Room Air Weight: 96.3 kg Body Mass Index (BMI) 32.8 Discharge Diet: Light diet - advance as tolerated - if you have questions about your diet instructions, please talk to you doctor. Discharge Activity: Return to Normal Activity, May Not Drive - for 1 week or while taking narcotic pain medicine. May shower in (days): 0 - May shower now Weight Bearing Status: Weight bearing as tolerated Call your doctor if your incision/area has: Continuous Slow Oozing, Sudden Increased Bleeding, Increased Pain/ Swelling, Increased Redness, Foul Smelling Discharge Call your doctor if you observe: Fever of 101 or Higher Suture Line Care: Avoid Pulling/Pushing, Avoid Pinching/Bending Additional Dressing/Incision Instructions:: Leave steri-strips in place for 1 week. Home Medications: Medications to take at Discharge mecobalamin (vitamin B12) 1,000 mcg disintegrating tablet,sublingual 1,000 mcg SUBLINGUAL QDAY 03/13/18 ropinirole 0.5 mg tablet 0.5 mg PO QHS 90 Days #90 03/13/18 simvastatin 40 mg tablet 40 mg PO QPM 03/13/18 alendronate 70 mg tablet 70 mg PO QWEEK 09/11/18 citalopram 10 mg tablet 10 mg PO QDAY tab 09/11/18 Aspirin E.C. [Ecotrin] 81 mg PO DAILY@0800 09/19/20 Calcium Carbonate/Vitamin D3 [Calcium 500 mg-Vit D3 600 Unit] 2 ea PO DAILY 09/19/20 Cholecalciferol (VIT D3) [Vitamin D3] 1,000 unit PO DAILY 09/19/20 Omeprazole [Prilosec] 20 mg PO DAILY 09/19/20 Midodrine HCl [Proamatine] 5 mg PO BID #30 tab 09/30/20 Following Prescriptions Were Given to Patient: Midodrine HCl [Proamatine] 5 mg PO BID #30 tab Transmission Status: Received by [facility] Primary Care Physician: Petros Wagner MD [Primary Care Provider] - Please follow up with your Primary Care Physician in: WITHIN 7-10 DAYS, YOU MAY BE ABLE TO STOP THE MIDODRINE Please Follow Up With: Camron Rubio MD When: Call to make an appointment to be seen in about 3 weeks Disposition: Home Minutes spent on discharge:: 32 Patient Condition:: Stable Medical Necessity - Tobacco Use Smoking Status: Never smoker Meaningful Use Info Meaningful Use Diagnoses (Choose all that apply): None applicable Inpatient E&M: [id number] [facility]
== END 2020-09-30 16:30 | disposition home or self-care (01) | DRG 329 ==
LOC: ED 21:02 → MS3 22:05 → ICU 09-23 13:06 → MS3 09-27 13:36 → ICU 09-27 13:36
PROVIDERS: Family Medicine; Internal Medicine; Internal Medicine Critical Care Medicine; Internal Medicine Nephrology; Physician Assistant; Surgery; Admitting Provider Hospitalist; Emergency Provider Student in an Organized Health Care Education/Training Program; PCP Family Medicine; Visit Provider Internal Medicine
PROC: 0DTN0ZZ Resection of Sigmoid Colon, Open Approach (ICD-10-PCS; CPT 44204; principal; 2020-09-23 10:05)
DX: K56.51 Intestinal adhesions [bands], with partial obstruction (principal); N17.0 Acute kidney failure with tubular necrosis; J96.01 Acute respiratory failure with hypoxia; R65.21 Severe sepsis with septic shock; A41.89 Other specified sepsis; A09 Infectious gastroenteritis and colitis, unspecified; K57.32 Diverticulitis of large intestine without perforation or abscess without bleeding; J98.11 Atelectasis; I10 Essential (primary) hypertension; I65.21 Occlusion and stenosis of right carotid artery; E78.5 Hyperlipidemia, unspecified; Z95.0 Presence of cardiac pacemaker; E66.9 Obesity, unspecified; Z79.899 Other long term (current) drug therapy; Z68.33 Body mass index [BMI] 33.0-33.9, adult; Z95.3 Presence of xenogenic heart valve; K21.9 Gastro-esophageal reflux disease without esophagitis; B94.8 Sequelae of other specified infectious and parasitic diseases; K44.9 Diaphragmatic hernia without obstruction or gangrene; F32.9 Major depressive disorder, single episode, unspecified; F41.9 Anxiety disorder, unspecified; M81.0 Age-related osteoporosis without current pathological fracture; I35.9 Nonrheumatic aortic valve disorder, unspecified
CPT/HCPCS: 36415; 36569; 71045; 74018; 74019; 74177; 76770; 80048; 80053; 80069; 80076; 81001; 82550; 82570; 83605; 83690; 84132; 84300; 84478; 85025; 85027; 85610; 87426; 88304; 88307; 88309; 93005; 94002; 94003; 94660; 97110; 97116; 97162; 97166; 97530; 97535; 97803; 99251; 99285; J7040; J7050; J7120; Q9967; A4216; C1760; C1769; G0463; J0744; J1940; J2405; J3010; J3490; Q9968

== ENCOUNTER → 2020-10-06 11:38 | Outpatient (CLI) | payer MEDICARE, SELFPAY ==
[2020-09-23 08:53] VITALS: BMI 32.8
[2020-10-06 14:56] LABS: Anion Gap 7 (5-15); BUN 16 mg/dL (7-18); BUN/Creat Ratio 7.4 RATIO (10-20); Chloride 104 mmol/L (98-107); Creatinine, Serum 2.16 mg/dL (0.55-1.02); EST Glomerular Filtration Rate 23 mL/min (>60); Est Glom Filt Rate - Afr Amer 28 mL/min (>60); Glucose 114 mg/dL (74-106); Sodium Level 136 mmol/L (136-145)
== END ==
PROVIDERS: PCP Family Medicine; Referring Provider Family Medicine; Visit Provider Family Medicine
DX: Z87.448 Personal history of other diseases of urinary system (principal)
CPT/HCPCS: 36415; 80048

== ENCOUNTER 2020-10-11 14:30 | Outpatient (RCR) | payer MEDICARE, MEDICAID, SELFPAY ==
[2020-09-23 08:53] VITALS: BMI 32.8
[2020-10-11 15:41] LABS: Anion Gap 7 (5-15); BUN 16 mg/dL (7-18); BUN/Creat Ratio 9.1 RATIO (10-20); Calcium,Total 8.6 mg/dL (8.5-10.1); Chloride 107 mmol/L (98-107); Creatinine, Serum 1.76 mg/dL (0.55-1.02); EST Glomerular Filtration Rate 29 mL/min (>60); Est Glom Filt Rate - Afr Amer 36 mL/min (>60); Glucose 116 mg/dL (74-106); Potassium 4.1 mmol/L (3.5-5.1); Sodium Level 140 mmol/L (136-145)
[2020-10-11 16:15] LABS: BNP,B-Type NATRIURETIC PEPTIDE 321.2 pg/mL (0-100)
== END 2020-10-11 18:00 | disposition home or self-care (01) ==
LOC: HHLAB 14:30
PROVIDERS: PCP Family Medicine; Referring Provider Physician Assistant Medical; Visit Provider Physician Assistant Medical
DX: I50.9 Heart failure, unspecified (principal)
CPT/HCPCS: 80048; 83880

== ENCOUNTER → 2020-11-03 10:46 | Outpatient (CLI) | payer MEDICARE, MEDICAID, SELFPAY ==
[2020-09-23 08:53] VITALS: BMI 32.8
[2020-11-03 12:56] LABS: Hemoglobin A1c 5.9 % (3.8-5.6)
[2020-11-03 12:58] LABS: ALB/GLOB Ratio 0.7 RATIO (0.9-2.4); AST(SGOT) 25 U/L (15-37); Alanine Aminotransfer ALT/SGPT 17 U/L (13-56); Albumin, Serum 3.3 g/dL (3.2-5.0); Alkaline Phosphatase 88 U/L (45-117); Anion Gap 6 (5-15); BUN 17 mg/dL (7-18); Calcium,Total 9.2 mg/dL (8.5-10.1); Chloride 105 mmol/L (98-107); Creatinine, Serum 1.06 mg/dL (0.55-1.02); EST Glomerular Filtration Rate 53 mL/min (>60); Est Glom Filt Rate - Afr Amer 64 mL/min (>60); Glucose 116 mg/dL (74-106); Protein, Total 8.3 g/dL (6.4-8.2); Sodium Level 136 mmol/L (136-145)
== END ==
PROVIDERS: PCP Family Medicine; Referring Provider Family Medicine; Visit Provider Family Medicine
DX: I10 Essential (primary) hypertension (principal); R73.02 Impaired glucose tolerance (oral)
CPT/HCPCS: 36415; 80053; 83036

== ENCOUNTER → 2020-11-17 11:48 | Outpatient (CLI) | payer MEDICARE, MEDICAID, SELFPAY ==
[2020-09-23 08:53] VITALS: BMI 32.8
--- NOTE | 2020-11-17 11:51 | RAD_ITS ---
STUDY: X-RAY - RIGHT KNEE REASON FOR EXAM: Female, 80 years old. PAIN TECHNIQUE: 4 view(s) of the knee. COMPARISON: None. FINDINGS: Normal visualized distal femur. Normal visualized proximal tibia and fibula. Normal proximal tibiofibular articulation. Status post total knee arthroplasty. The prosthesis appears located. No ostial lysis to suggest loosening.. The soft tissue structures are unremarkable. RAD/Knee 4 or More Views IMPRESSION: Normal x-ray examination of the knee after total knee arthroplasty. Electronically Signed: Doron Calvillo MD at 16:53 EST Tel , Service support ,
--- NOTE | 2020-11-17 11:52 | RAD_ITS ---
STUDY: X-RAY - LEFT KNEE REASON FOR EXAM: Female, 80 years old. PAIN TECHNIQUE: 4 view(s) of the knee. COMPARISON: None. FINDINGS: Normal visualized distal femur. Normal visualized proximal tibia and fibula. Normal proximal tibiofibular articulation. Status post total knee arthroplasty. Rectangular radiolucency alignment of the methacrylate within the proximal tibia which may represent a defect from a removed tibial portion of the prosthesis or a radiolucent prosthesis.. The soft tissue structures are unremarkable. RAD/Knee 4 or More Views IMPRESSION: Status post total knee arthroplasty with either removal of the tibial portion of the prosthesis or radiolucent tibial portion of the prosthesis. Electronically Signed: Doron Calvillo MD at 16:55 EST Tel , Service support ,
== END ==
PROVIDERS: PCP Family Medicine; Referring Provider Family Medicine; Visit Provider Family Medicine
DX: M25.561 Pain in right knee (principal); M25.562 Pain in left knee
CPT/HCPCS: 73564

== ENCOUNTER → 2020-11-25 10:35 | Outpatient (CLI) | payer MEDICARE, MEDICAID, SELFPAY ==
[2020-09-23 08:53] VITALS: BMI 32.8
[2020-11-25 10:42] LABS: Bacteria 0 SEEN /hpf (None Seen); Mucous, Urine 0 SEEN /hpf (<or=2+); Red Blood Cells-Urine 0 SEEN /hpf (0-5); White Blood Cells 0 SEEN /hpf (0-5)
[2020-11-25 12:07] LABS: Color, Urine Yellow (Yellow); Glucose, Dipstick Normal (Normal); Ketone-Dipstick Negative (Negative); Leukocyte Esterase-Dipstick Negative /ul (Negative); Nitrite-Dipstick Negative (Negative); Occult Blood-Urine Negative /ul (Negative); Protein-Dipstick Negative (Negative); Urine Bilirubin Dipstick Negative (Negative); Urine Clarity Sl. Cloudy (Clear); Urine Urobilinogen Normal (Normal)
[2020-11-25 12:15] LABS: Squamous Epithelial Cells - UA 0-5 SEEN /hpf (5-10)
[2020-11-25 12:26] LABS: Anion Gap 6 (5-15); BUN 20 mg/dL (7-18); BUN/Creat Ratio 18.2 RATIO (10-20); Calcium,Total 9.1 mg/dL (8.5-10.1); Chloride 106 mmol/L (98-107); EST Glomerular Filtration Rate 51 mL/min (>60); Est Glom Filt Rate - Afr Amer 61 mL/min (>60); Glucose 112 mg/dL (74-106); Sodium Level 141 mmol/L (136-145)
[2020-11-25 12:35] LABS: Protein, Urine (Random) < 6.0 mg/dL (<11.9)
== END ==
PROVIDERS: PCP Family Medicine; Referring Provider Family Medicine; Visit Provider Internal Medicine
DX: N17.9 Acute kidney failure, unspecified (principal)
CPT/HCPCS: 36415; 80048; 81001; 82570; 84156

== ENCOUNTER → 2020-11-30 16:38 | Outpatient (CLI) | payer MEDICARE, MEDICAID, SELFPAY ==
[2020-09-23 08:53] VITALS: BMI 32.8
[2020-11-30 19:29] LABS: Creat.Clear Total Volume 1700 mL
[2020-11-30 19:30] LABS: Creatinine Urine 44.3 mg/dL (NO RANGE EST.)
[2020-11-30 19:36] LABS: 24 Hour Urine Protein 108.8 mg/24HR (<150 MG/24HR); 24HR. UA Prot. Total Volume 1700 mL; Urine Protein (24 Hour) 6.4 mg/dL (<11.9)
== END ==
PROVIDERS: PCP Family Medicine; Visit Provider Internal Medicine
DX: N17.9 Acute kidney failure, unspecified (principal)
CPT/HCPCS: 81050; 82570; 82575; 84156

== ENCOUNTER 2021-03-29 08:56 | Day surgery (SDC) | payer MEDICARE, MEDICAID, SELFPAY ==
[2021-03-21 05:45] VITALS: BMI 33.0
[2021-03-29] VITALS (9 sets, daily range): BP systolic 88–127; BP diastolic 43–80; PULSE 60–61; RESP 16; TEMP 36.1–36.3; O2SAT 97–100; BMI 32.5
[2021-03-29] MEDS: Lactated Ringers 1,000 ML 100 ML IV (09:36)
--- NOTE | 2021-03-29 09:47 | HP.PCM_ITS ---
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 Required: No Is patient in pain?: No Allergies Penicillins Allergy (Verified 03/21/21 09:58) Hives Medications mecobalamin (vitamin B12) 1,000 mcg disintegrating tablet,sublingual 1,000 mcg SUBLINGUAL QDAY 03/13/18 [History Confirmed 03/21/21] ropinirole 0.5 mg tablet 0.5 mg PO QHS 90 Days #90 03/13/18 [History Confirmed 03/21/21] simvastatin 40 mg tablet 40 mg PO QPM 03/13/18 [History Confirmed 03/21/21] alendronate 70 mg tablet 70 mg PO QWEEK 09/11/18 [History Confirmed 03/21/21] aspirin 81 mg PO DAILY@0800 09/19/20 [History Confirmed 03/21/21] furosemide 20 mg tablet 20 mg PO DAILY #90 tab 10/28/20 [Rx Confirmed 03/21/21] carvedilol 3.125 mg tablet 3.125 mg PO BID tab 12/02/20 [History Confirmed 03/21/21] pantoprazole 20 mg tablet,delayed release 20 mg PO DAILY tab 12/02/20 [History Confirmed 03/21/21] calcium carbonate 600 mg calcium (1,500 mg) tablet 600 mg PO BID 01/04/21 [History Confirmed 03/21/21] cholecalciferol (vitamin D3) 125 mcg (5,000 unit) capsule 125 mcg PO DAILY 01/04/21 [History Confirmed 03/21/21] oxybutynin chloride 5 mg tablet,extended release 24 hr 5 mg PO DAILY tablet 01/04/21 [History Confirmed 03/21/21] Is last menstrual period known: No Post menopausal: Yes Patient : No PFSH Medical History Abnormal CT scan, colon Acute sigmoid colitis Amaurosis fugax of right eye Angiodysplasia of cecum Bilateral carotid artery stenosis Carotid artery disease Chronic diastolic (congestive) heart failure Complete heart block COVID-19 virus detected (08/25/20) Dementia Difficulty swallowing Diverticulosis Essential (primary) hypertension GERD (gastroesophageal reflux disease) GI bleed History of obstruction of large intestine Hyperlipidemia Internal hemorrhoid Iron deficiency anemia Non-rheumatic aortic stenosis Osteoarthritis Partial obstruction of colon Secondary pulmonary arterial hypertension 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, implant or graft (03/31/19) Surgical History H/O aortic valve replacement (06/28/12) History of bilateral knee replacement History of hysterectomy History of hysterectomy History of partial colectomy (09/23/20) History of repair of hiatal hernia (01/2019) History of repair of rotator cuff History of tonsillectomy Hx of cholecystectomy Presence of cardiac pacemaker (08/25/11) Family History Mother Hypertension Heart disease Brother Hypertension Father Hypertension Social History Smoking Status: Never smoker second hand exposure: No alcohol intake: never substance use type: does not use caffeine: Yes what type of physical activity do you participate in: none frequency: does not exercise HPI HPI HPI: SVITLANA GRIJALVA, is a 81 F who presents to the office today for surgical consultation regarding the need for colonoscopy. My most recent office notes of January 04, 2021 follow HPI: SVITLANA GRIJALVA, is a 80 F who presents to the office today for surgical follow-up. The patient was hospitalized at the [facility] from September 19, 2020 through September 30, 2020. She presented with was suspected be possibly small bowel obstruction but as she was large bowel obstruction. Because of failure of conservative measures she was taken the operating room underwent a laparoscopic converted to hand-assisted conversion to open sigmoid colectomy. This ended up being secondary to obstructive disease from diverticular disease. She did require ICU treatment postoperatively because of sepsis. She has undergone slow rehabilitation. She feels like she is making good progress. She is a prosthetic aortic valve . Jyotsna Nevarez #21 bovine valve placed June 2012. She is on low-dose aspirin. Recently she has had some bilateral lower extremity swelling. Cardiology Dr. Zay Rock has placed her on Lasix therapy. At the time of her hospitalization she had problems with acute kidney injury. Because of the emergency nature of her presentation a colonoscopy could not be performed prior to her surgery. Her most recent colonoscopy was October 04, 2018. At that time the colonoscopy was technically quite difficult due to restricted mobility of the colon. Multiple diverticula in the entire colon identified. There was felt to be some erythema of the sigmoid colon possibly suggestive low-grade inflammation. Because of the patient's age of 78 at that time conservative medical treatment was recommended. Her pathology from September 23, 2020 at the time of her resection was nonruptured diverticular disease. Unfortunately it does not describe stricturing however clinically this was the finding preoperatively and at the time of surgery and the patient's symptoms resolved postoperatively On today's visit she does have any particular complaints. She states that she is resumed a normal diet. She feels that her bowel movements are improved over preoperatively. She denies chest pain or shortness of breath. She denies any bright red blood per rectum or melena. ROS General General: Yes fatigue; No weight change, appetite, colon cancer, breast cancer or weakness HEENT HEENT: No difficulty swallowing, eye injury, eye surgery, swollen glands or hoarseness Endo Endocrine: No thyroid disease, diabetes mellitus, thyroid cancer, Hair loss, heat intolerance or cold intolerance Musc Musculoskeletal: Yes arthritis; No back problems, rheumatoid arthritis, gout or joint pain Cardio Cardiovascular: Yes pacemaker, heart disease and shortness of breat with exertion; No murmur, atrial fibrillation, high blood pressure, heart attack, heart stent, palpitations or chest pain Resp Respiratory: Yes shortness of breath, No sleep apnea, No cough, No COPD, No asthma, No emphysema and No wheezing Gastro Gastrointestinal: No abdominal pain, No nausea or vomiting, No diarrhea, No constipation, No blood in stool, No acid reflux, No hemorrhoids, No ulcers, No gallbladder problem and No black,tarry stools Michael Hematologic: No blood thinners, No blood disorders, No bleeding, No anemia and No blood clots Neuro Neurologic: No weakness Exam Const General: cooperative, comfortable and no acute distress Nutritional Appearance: overweight Orientation: alert and awake [facility] Head: normal to inspection Eyes General: appearance normal, both eyes and all related structures Resp Effort & Inspection: normal respiratory effort Auscultation: clear to auscultation bilaterally Cardio Rate: regular rate Rhythm: regular rhythm GI Palpation: soft and no hepatosplenomegaly Other: Well-healed infraumbilical midline incision Musc Other: Kyphosis noted Neuro Cognition: normal cognition Extrem General: no calf tenderness bilaterally Other: Bilateral lower extremity swelling noted Psych Affect: normal affect COVID (Procedure Consent) Procedure Criteria Procedure Criteria: Yes Elective The surgeon/proceduralist and patient have discussed in detail the risk of exposure to and/or potential harm posed by the COVID-19 virus with having a surgery/procedure at this time versus the risk of delaying the surgery/procedure. It is not possible to know either the risk of delaying the surgery or procedure or chance of getting an infection with perfect accuracy, but a joint decision was made between the patient and the surgeon/proceduralist to proceed at this time with the scheduled surgery/procedure as indicated on the consent form. Assessment and Plan Assessment and Plan (1) History of obstruction of large intestine: Status: Acute Plan - Dr. Camron Rubio MD: 81-year-old female with a history of large bowel obstruction requiring resection. Preoperative: Evaluation could not be pursued secondary to the acuteness of the event. I propose for her a colonoscopy with possible biopsy or polypectomy as indicated. She has had an opportunity to ask and have questions answered. We will schedule procedure at her discretion. She does have a prosthetic heart valve. I will prescribe antibiotics. She is intolerant to penicillin. Copy: Dr Petros Rubio M.D., F.A.C.S. I have re-examined the patient. There are no clinical changes since date of exam.
--- NOTE | 2021-03-29 10:56 | OP.CCLET_ITS ---
03/29/2021 Petros Wagner [address] [place] [address] Re : Colonoscopy procedure for Mariana Edwards Dear Dr. Wagner This procedure was performed on Monday, March 29, 2021. My impressions and recommendations are as follows: Impressions : - Hemorrhoids found on perianal exam. - Diverticulosis in the sigmoid colon. - Patent end-to-side colo-colonic anastomosis, characterized by healthy appearing mucosa. - The examination was otherwise normal. - No specimens collected. End-to-side colocolonic anastomosis the distal sigmoid. Rather long and sigmoid pouch with extensive diverticular disease. Widely patent anastomosis. Unremarkable more proximal colon. Recommendations : - Discharge patient to home. - Resume previous diet. - Continue present medications. - Repeat colonoscopy is not recommended due to current age (66 years or older) for screening purposes. My findings are described in the full procedure note, which is enclosed. If I can be of further assistance, please feel free to contact me at Doctor phone number(s): Work: . Sincerely, Camron Rubio MD 03/29/2021 10:55:31 AM This report has been signed electronically.
--- NOTE | 2021-03-29 10:56 | OP.COLON_ITS ---
Patient Name: Mariana Edwards Procedure Date: 03/29/2021 10:28 AM Date of : 1940 Age: 81 Procedure: Colonoscopy Indications: Follow-up of diverticulitis Providers: Camron Rubio MD Referring MD: Camron Rubio MD Medicines: See the Anesthesia note for documentation of the administered medications Patient Profile: Last Colonoscopy: September 2018. She is status post segmental resection of the sigmoid colon within the past six months. Complications: No immediate complications. Procedure: Pre-Anesthesia Assessment: - Prior to the procedure, a History and Physical was performed, and patient medications and allergies were reviewed. The patient's tolerance of previous anesthesia was also reviewed. The risks and benefits of the procedure and the sedation options and risks were discussed with the patient. All questions were answered, and informed consent was obtained. Prior Anticoagulants: The patient has taken no previous anticoagulant or antiplatelet agents. ASA Grade Assessment: II - A patient with mild systemic disease. After reviewing the risks and benefits, the patient was deemed in satisfactory condition to undergo the procedure. After I obtained informed consent, the scope was passed under direct vision. Throughout the procedure, the patient's blood pressure, pulse, and oxygen saturations were monitored continuously. The Colonoscope was introduced through the anus and advanced to the cecum, identified by appendiceal orifice and ileocecal valve. The colonoscopy was performed without difficulty. The patient tolerated the procedure well. The quality of the bowel preparation was good. The ileocecal valve was photographed. Scope In: 10:35:32 AM Scope Withdrawal Time 0 hours 5 minutes 1 second Scope Out: 10:48:10 AM Total Procedure Duration Time 0 hours 12 minutes 38 seconds Findings: Hemorrhoids were found on perianal exam. Multiple diverticula were found in the sigmoid colon. There was evidence of a prior end-to-side colo-colonic anastomosis in the distal sigmoid colon. This was patent and was characterized by healthy appearing mucosa. The exam was otherwise without abnormality. Impression: - Hemorrhoids found on perianal exam. - Diverticulosis in the sigmoid colon. - Patent end-to-side colo-colonic anastomosis, characterized by healthy appearing mucosa. - The examination was otherwise normal. - No specimens collected. End-to-side colocolonic anastomosis the distal sigmoid. Rather long and sigmoid pouch with extensive diverticular disease. Widely patent anastomosis. Unremarkable more proximal colon. Recommendation: - Discharge patient to home. - Resume previous diet. - Continue present medications. - Repeat colonoscopy is not recommended due to current age (66 years or older) for screening purposes. Procedure Code(s): --- Professional --- 44095, Colonoscopy, flexible; diagnostic, including collection of specimen(s) by brushing or washing, when performed (separate procedure) Diagnosis Code(s): --- Professional --- K64.9, Unspecified hemorrhoids Z98.0, Intestinal bypass and anastomosis status K57.30, Diverticulosis of large intestine without perforation or abscess without bleeding CPT copyright 2017 [employer]. All rights reserved. The codes documented in this report are preliminary and upon nursing secretary review may be revised to meet current compliance requirements. Camron Rubio MD 03/29/2021 10:55:31 AM This report has been signed electronically. Number of Addenda: 0 Note Initiated On: 03/29/2021 10:28 AM
== END 2021-03-29 12:10 ==
LOC: EN 08:58 → AC 08:58
PROVIDERS: PCP Family Medicine; Referring Provider Surgery; Visit Provider Surgery
PROC: 0DJD8ZZ Inspection of Lower Intestinal Tract, Via Natural or Artificial Opening Endoscopic (ICD-10-PCS; CPT 45378; principal; 2021-03-29 09:55)
DX: K57.30 Diverticulosis of large intestine without perforation or abscess without bleeding (principal); K64.9 Unspecified hemorrhoids; Z98.0 Intestinal bypass and anastomosis status; K21.9 Gastro-esophageal reflux disease without esophagitis; E78.5 Hyperlipidemia, unspecified; M19.90 Unspecified osteoarthritis, unspecified site; I11.0 Hypertensive heart disease with heart failure; I50.32 Chronic diastolic (congestive) heart failure; Z90.49 Acquired absence of other specified parts of digestive tract; Z79.899 Other long term (current) drug therapy
CPT/HCPCS: 45378; J7120; J2405

== ENCOUNTER → 2021-04-06 14:36 | Outpatient (CLI) | payer MEDICARE, MEDICAID, SELFPAY ==
[2021-03-29 09:28] VITALS: BMI 32.5
[2021-04-06 17:40] LABS: Color, Urine Yellow (Yellow); Glucose, Dipstick Normal (Normal); Ketone-Dipstick Negative (Negative); Leukocyte Esterase-Dipstick 25 /ul (Negative); Nitrite-Dipstick Negative (Negative); Occult Blood-Urine 10 /ul (Negative); Protein-Dipstick Negative (Negative); Urine Bilirubin Dipstick Negative (Negative); Urine Clarity Clear (Clear); Urine Urobilinogen Normal (Normal); Urine pH 6.5 (5.0 - 8.0)
[2021-04-06 18:10] LABS: Anion Gap 4 (5-15); BUN 16 mg/dL (7-18); BUN/Creat Ratio 14.3 RATIO (10-20); Chloride 105 mmol/L (98-107); Creatinine, Serum 1.12 mg/dL (0.55-1.02); EST Glomerular Filtration Rate 50 mL/min (>60); Est Glom Filt Rate - Afr Amer 60 mL/min (>60); Glucose 101 mg/dL (74-106); Sodium Level 136 mmol/L (136-145)
[2021-04-06 18:15] LABS: Protein, Urine (Random) 7.7 mg/dL (<11.9); Protein:Creat Ratio 160 mg/g CRE (0-200)
== END ==
PROVIDERS: PCP Family Medicine; Referring Provider Family Medicine; Visit Provider Internal Medicine
DX: N17.9 Acute kidney failure, unspecified (principal)
CPT/HCPCS: 36415; 80048; 81002; 82570; 84156

== ENCOUNTER → 2021-08-30 15:11 | Outpatient (CLI) | payer MEDICARE, MEDICAID, SELFPAY ==
--- NOTE | 2021-08-30 15:21 | BD_ITS ---
STUDY: DUAL ENERGY X-RAY ABSORPTIOMETRY / DXA REASON FOR EXAM: Female, 81 years old. 733.00OsteoporosisBONE DENSITY REASON FOR EXAM TECHNIQUE: Bone Mineral Density (BMD) measurements of lumbar spine and bilateral hips were obtained. COMPARISON: None. FINDINGS: Lumbar Spine (L1-L4): g/cm2 (0.994) / T-score (-1.0) / Z-score (1.9) Findings are suggestive of normal bone density with a low fracture risk. Left Femur Total: g/cm2 (0.762) / T-score (-1.5) / Z-score (0.7) Left Femoral Neck: g/cm2 (0.681) / T-score (-1.5) / Z-score (0.9) Right Femur Total: g/cm2 (0.730) / T-score (-1.7) / Z-score (0.5) Right Femoral Neck: g/cm2 (0.656) / T-score (-1.7) / Z-score (0.7) BD/Dexa Bone Density Study IMPRESSION: The patient is considered osteopenic as outlined below according to World Mian Organization (WHO) criteria with a moderate fracture risk. Reference Information: The T-score is the number of standard deviations above or below the standard which is normal for young adults at their peak bone mineral density. The World Health Organization (WHO) interprets the T-scores as follows: Above -1 Normal bone density Between -1 and -2.5 Osteopenia Equal to / or below -2.5 Osteoporosis As a practical clinical guideline, osteopenia may be graded as follows: Mild -1 through -1.5 Moderate -1.6 through -2.0 Severe -2.1 through -2.4 The Z-score is the number of standard deviations above or below age-matched controls. A Z-score of less than -1.5 would be considered abnormal. References: 1. NIH Osteoporosis and Related Bone Diseases www osteo.org 2. International Society for Clinical Densitometry www iscd.org 3. National Osteoporosis Foundation www nof.org Electronically Signed: Steven Lopez MD at 15:22 EST , Service support ,
== END ==
PROVIDERS: PCP Family Medicine; Referring Provider Family Medicine; Visit Provider Family Medicine
DX: M81.0 Age-related osteoporosis without current pathological fracture (principal)
CPT/HCPCS: 77080

== ENCOUNTER → 2021-09-13 13:48 | Outpatient (CLI) | payer MEDICARE, MEDICAID, SELFPAY ==
[2021-09-13 17:44] LABS: Absolute Neutrophil Count 4.3 X10^3/uL (2.0-7.7); Basophil# 0.07 X10^3/uL; Eosinophil# 0.06 X10^3/uL; Eosinophils% 0.9 % (0-5); Hematocrit 39.3 % (37-47); Hemoglobin 12.2 g/dL (12.0-15.0); Lymphocyte % 26.1 % (19-41); Mean Corpuscular Hgb 28.5 pg (27.0-32.0); Mean Corpuscular Volume 91.8 fL (81-99); Mean Platelet Vol. 10.1 fl (6.2-12.0); Monocyte# 0.64 X10^3/uL; Monocyte% 9.3 % (0-10); NRBC Flagged by Analyzer 0 % (0-5); Neutrophil # 4.29 X10^3/uL (2.7-7.7); Neutrophil % 62.3 % (47-70); Platelet Count 308 K/mm3 (150-450); RBC Distribution Width CV 17.2 % (11.6-14.6); RBC Distribution Width SD 58.2 fl (35.1-43.9); Red Blood Count 4.28 M/mm3 (4.2-5.4); White Blood Count 6.9 K/mm3 (4.4-11.0)
[2021-09-13 17:57] LABS: Vitamin B12 1051 pg/mL (211-911); Vitamin D,25 Hydroxy 49.8 ng/mL
[2021-09-13 18:11] LABS: ALB/GLOB Ratio 0.8 RATIO (0.9-2.4); AST(SGOT) 29 U/L (15-37); Alanine Aminotransfer ALT/SGPT 24 U/L (13-56); Albumin, Serum 3.7 g/dL (3.2-5.0); Alkaline Phosphatase 93 U/L (45-117); Anion Gap 8 (5-15); BUN 24 mg/dL (7-18); BUN/Creat Ratio 21.2 RATIO (10-20); Calcium,Total 8.9 mg/dL (8.5-10.1); Chloride 104 mmol/L (98-107); Cholesterol 156 mg/dL (200); Creatinine, Serum 1.13 mg/dL (0.55-1.02); EST Glomerular Filtration Rate 49 mL/min (>60); Est Glom Filt Rate - Afr Amer 59 mL/min (>60); Globulin 4.7 g/dL (2.2-4.2); Glucose 91 mg/dL (74-106); High Density Lipoprotein 51 mg/dL; Potassium 4.3 mmol/L (3.5-5.1); Protein, Total 8.4 g/dL (6.4-8.2); Sodium Level 138 mmol/L (136-145); Triglycerides 168 mg/dL; Very Low Density Lipoprotein 34 mg/dL (5-40)
[2021-09-13 18:15] LABS: Hemoglobin A1c 5.8 % (3.8-5.6)
== END ==
PROVIDERS: PCP Family Medicine; Referring Provider Family Medicine; Visit Provider Family Medicine
DX: I10 Essential (primary) hypertension (principal); R73.02 Impaired glucose tolerance (oral); E53.8 Deficiency of other specified B group vitamins; E78.5 Hyperlipidemia, unspecified; E55.9 Vitamin D deficiency, unspecified
CPT/HCPCS: 36415; 80053; 80061; 82306; 82607; 83036; 85025

== ENCOUNTER 2021-11-02 10:49 | Outpatient (CLI) | payer MEDICARE, MEDICAID, SELFPAY ==
[2021-11-02 12:56] LABS: Anion Gap 6 (5-15); BUN 20 mg/dL (7-18); BUN/Creat Ratio 19.4 RATIO (10-20); Calcium,Total 8.7 mg/dL (8.5-10.1); Chloride 107 mmol/L (98-107); Creatinine, Serum 1.03 mg/dL (0.55-1.02); EST Glomerular Filtration Rate 54 mL/min (>60); Est Glom Filt Rate - Afr Amer 66 mL/min (>60); Glucose 102 mg/dL (74-106); Sodium Level 139 mmol/L (136-145)
[2021-11-02 13:11] LABS: Protein, Urine (Random) 6.5 mg/dL (<11.9); Protein:Creat Ratio 458 mg/g CRE (0-200)
== END 2021-11-02 23:59 | disposition home or self-care (01) ==
LOC: MFPLAB 10:52
PROVIDERS: PCP Family Medicine; Referring Provider Family Medicine; Visit Provider Internal Medicine Nephrology
DX: N17.9 Acute kidney failure, unspecified (principal)
CPT/HCPCS: 36415; 80048; 82570; 84156

== ENCOUNTER 2022-01-12 11:59 | Outpatient (CLI) | payer MEDICARE, MEDICAID, SELFPAY ==
[2022-01-12 15:02] LABS: Absolute Lymphocyte Count 1.49 X10^3/uL (0.83-4.51); Absolute Neutrophil Count 4.4 X10^3/uL (2.0-7.7); Basophil# 0.07 X10^3/uL; Basophil% 1.1 % (0-1); Eosinophil# 0.07 X10^3/uL; Eosinophils% 1.1 % (0-5); Hematocrit 38.1 % (37-47); Hemoglobin 12.6 g/dL (12.0-15.0); Lymphocyte # 1.49 X10^3/ul (0.83-4.51); Lymphocyte % 22.6 % (19-41); Mean Corp Hgb Conc 33.1 g/dL (32-36); Mean Corpuscular Hgb 31.1 pg (27.0-32.0); Mean Corpuscular Volume 94.1 fL (81-99); Mean Platelet Vol. 10.3 fl (6.2-12.0); Monocyte% 9.1 % (0-10); NRBC Flagged by Analyzer 0 % (0-5); Neutrophil # 4.35 X10^3/uL (2.7-7.7); Neutrophil % 65.8 % (47-70); Platelet Count 262 K/mm3 (150-450); RBC Distribution Width CV 13.5 % (11.6-14.6); RBC Distribution Width SD 46.5 fl (35.1-43.9); Red Blood Count 4.05 M/mm3 (4.2-5.4); White Blood Count 6.6 K/mm3 (4.4-11.0)
[2022-01-12 15:15] LABS: Vitamin B12 434 pg/mL (211-911); Vitamin D,25 Hydroxy 57.9 ng/mL
[2022-01-12 15:18] LABS: Hemoglobin A1c 5.9 % (3.8-5.6)
[2022-01-12 15:25] LABS: ALB/GLOB Ratio 0.8 RATIO (0.9-2.4); AST(SGOT) 24 U/L (15-37); Alanine Aminotransfer ALT/SGPT 21 U/L (13-56); Albumin, Serum 3.4 g/dL (3.2-5.0); Alkaline Phosphatase 83 U/L (45-117); Anion Gap 5 (5-15); BUN 16 mg/dL (7-18); Calcium,Total 8.7 mg/dL (8.5-10.1); Chloride 106 mmol/L (98-107); Cholesterol 144 mg/dL (200); Creatinine, Serum 1.07 mg/dL (0.55-1.02); EST Glomerular Filtration Rate 52 mL/min (>60); Est Glom Filt Rate - Afr Amer 63 mL/min (>60); Globulin 4.2 g/dL (2.2-4.2); Glucose 109 mg/dL (74-106); High Density Lipoprotein 43 mg/dL; Protein, Total 7.6 g/dL (6.4-8.2); Sodium Level 138 mmol/L (136-145); Thyroid Stim Hormone (TSH) 2.16 uIU/mL (0.358-3.74); Triglycerides 176 mg/dL; Very Low Density Lipoprotein 35 mg/dL (5-40)
== END 2022-01-12 23:59 | disposition home or self-care (01) ==
LOC: MFPLAB 12:01
PROVIDERS: PCP Family Medicine; Referring Provider Family Medicine; Visit Provider Family Medicine
DX: I10 Essential (primary) hypertension (principal); R73.02 Impaired glucose tolerance (oral); E78.5 Hyperlipidemia, unspecified; E53.8 Deficiency of other specified B group vitamins; E55.9 Vitamin D deficiency, unspecified
CPT/HCPCS: 36415; 80053; 80061; 82306; 82607; 83036; 84443; 85025

== ENCOUNTER → 2022-05-17 | Outpatient (CLI) | payer MEDICARE, MEDICAID, SELFPAY ==
[2022-05-17 14:37] LABS: Bacteria 0 SEEN /hpf (None Seen); Mucous, Urine 0 SEEN /hpf (<or=2+)
[2022-05-17 15:08] LABS: Absolute Lymphocyte Count 1.89 X10^3/uL (0.83-4.51); Absolute Neutrophil Count 4.4 X10^3/uL (2.0-7.7); Basophil# 0.04 X10^3/uL; Basophil% 0.6 % (0-1); Eosinophils% 1.4 % (0-5); Hematocrit 38.9 % (37-47); Hemoglobin 12.6 g/dL (12.0-15.0); Lymphocyte # 1.89 X10^3/ul (0.83-4.51); Lymphocyte % 26.7 % (19-41); Mean Corp Hgb Conc 32.4 g/dL (32-36); Mean Corpuscular Hgb 31.2 pg (27.0-32.0); Mean Corpuscular Volume 96.3 fL (81-99); Mean Platelet Vol. 10.1 fl (6.2-12.0); Monocyte# 0.62 X10^3/uL; Monocyte% 8.8 % (0-10); NRBC Flagged by Analyzer 0 % (0-5); Neutrophil # 4.39 X10^3/uL (2.7-7.7); Neutrophil % 62.1 % (47-70); Platelet Count 268 K/mm3 (150-450); RBC Distribution Width CV 13.2 % (11.6-14.6); RBC Distribution Width SD 47.2 fl (35.1-43.9); Red Blood Count 4.04 M/mm3 (4.2-5.4); White Blood Count 7.1 K/mm3 (4.4-11.0)
[2022-05-17 15:10] LABS: Color, Urine Yellow (Yellow); Glucose, Dipstick Normal (Normal); Ketone-Dipstick Negative (Negative); Leukocyte Esterase-Dipstick 100 /ul (Negative); Nitrite-Dipstick Negative (Negative); Occult Blood-Urine 10 /ul (Negative); Protein-Dipstick Negative (Negative); Specific Gravity, Urine 1.015 (1.002-1.030); Urine Bilirubin Dipstick Negative (Negative); Urine Clarity Clear (Clear); Urine Urobilinogen Normal (Normal)
[2022-05-17 15:17] LABS: Red Blood Cells-Urine 0-5 SEEN /hpf (0-5); Squamous Epithelial Cells - UA 0-5 SEEN /hpf (5-10); White Blood Cells 0-5 SEEN /hpf (0-5)
[2022-05-17 15:31] LABS: ALB/GLOB Ratio 0.9 RATIO (0.9-2.4); AST(SGOT) 23 U/L (15-37); Alanine Aminotransfer ALT/SGPT 20 U/L (13-56); Albumin, Serum 3.6 g/dL (3.2-5.0); Alkaline Phosphatase 85 U/L (45-117); Anion Gap 6 (5-15); BUN 29 mg/dL (7-18); BUN/Creat Ratio 25.7 RATIO (10-20); Calcium,Total 9.1 mg/dL (8.5-10.1); Chloride 103 mmol/L (98-107); Cholesterol 152 mg/dL (200); Creatinine, Serum 1.13 mg/dL (0.55-1.02); EST Glomerular Filtration Rate 49 mL/min (>60); Est Glom Filt Rate - Afr Amer 59 mL/min (>60); Globulin 4.2 g/dL (2.2-4.2); Glucose 100 mg/dL (74-106); High Density Lipoprotein 41 mg/dL; Phosphorus 3.1 mg/dL (2.5-4.9); Potassium 3.8 mmol/L (3.5-5.1); Protein, Total 7.8 g/dL (6.4-8.2); Sodium Level 139 mmol/L (136-145); Triglycerides 217 mg/dL; Very Low Density Lipoprotein 43 mg/dL (5-40)
[2022-05-17 15:32] LABS: Vitamin B12 478 pg/mL (211-911); Vitamin D,25 Hydroxy 65.7 ng/mL
[2022-05-17 17:15] LABS: Protein, Urine (Random) < 6.0 mg/dL (<11.9); Protein:Creat Ratio 152 mg/g CRE (0-200)
[2022-05-18 09:47] LABS: PTHIN 42.3 pg/mL (18.4-80.1)
== END | disposition home or self-care (01) ==
LOC: MFPLAB 13:55
PROVIDERS: PCP Family Medicine; Referring Provider Family Medicine; Visit Provider Family Medicine
DX: N18.30 Chronic kidney disease, stage 3 unspecified (principal); E55.9 Vitamin D deficiency, unspecified; R73.02 Impaired glucose tolerance (oral); E78.5 Hyperlipidemia, unspecified; E53.8 Deficiency of other specified B group vitamins
CPT/HCPCS: 36415; 80053; 80061; 81001; 82306; 82570; 82607; 83036; 83970; 84100; 84156; 85025

== ENCOUNTER → 2022-10-31 | Outpatient (CLI) | payer MEDICARE, MEDICAID, SELFPAY ==
[2022-10-31 14:19] LABS: Bacteria 0 SEEN /hpf (None Seen); Mucous, Urine 0 SEEN /hpf (<or=2+); Red Blood Cells-Urine 0 SEEN /hpf (0-5); Squamous Epithelial Cells - UA 0 SEEN /hpf (5-10); White Blood Cells 0 SEEN /hpf (0-5)
[2022-10-31 18:03] LABS: Absolute Lymphocyte Count 1.78 X10^3/uL (0.83-4.51); Absolute Neutrophil Count 4.6 X10^3/uL (2.0-7.7); Basophil# 0.06 X10^3/uL; Basophil% 0.8 % (0-1); Eosinophil# 0.09 X10^3/uL; Eosinophils% 1.2 % (0-5); Hematocrit 40.8 % (37-47); Hemoglobin 12.9 g/dL (12.0-15.0); Lymphocyte # 1.78 X10^3/ul (0.83-4.51); Lymphocyte % 24.7 % (19-41); Mean Corp Hgb Conc 31.6 g/dL (32-36); Mean Corpuscular Volume 98.1 fL (81-99); Mean Platelet Vol. 10.1 fl (6.2-12.0); Monocyte# 0.65 X10^3/uL; NRBC Flagged by Analyzer 0 % (0-5); Neutrophil % 63.9 % (47-70); Platelet Count 312 K/mm3 (150-450); RBC Distribution Width CV 13.6 % (11.6-14.6); RBC Distribution Width SD 49.5 fl (35.1-43.9); Red Blood Count 4.16 M/mm3 (4.2-5.4); White Blood Count 7.2 K/mm3 (4.4-11.0)
[2022-10-31 18:11] LABS: Color, Urine Yellow (Yellow); Glucose, Dipstick Normal (Normal); Ketone-Dipstick Negative (Negative); Leukocyte Esterase-Dipstick 25 /ul (Negative); Nitrite-Dipstick Negative (Negative); Occult Blood-Urine Negative /ul (Negative); Protein-Dipstick Negative (Negative); Urine Bilirubin Dipstick Negative (Negative); Urine Clarity Clear (Clear); Urine Urobilinogen Normal (Normal)
[2022-10-31 18:25] LABS: ALB/GLOB Ratio 0.8 RATIO (0.9-2.4); AST(SGOT) 24 U/L (15-37); Alanine Aminotransfer ALT/SGPT 18 U/L (13-56); Albumin, Serum 3.6 g/dL (3.2-5.0); Alkaline Phosphatase 72 U/L (45-117); Anion Gap 9 (5-15); BUN 23 mg/dL (7-18); BUN/Creat Ratio 22.5 RATIO (10-20); Calcium,Total 9.5 mg/dL (8.5-10.1); Chloride 104 mmol/L (98-107); Cholesterol 149 mg/dL (200); Creatinine, Serum 1.02 mg/dL (0.55-1.02); EST Glomerular Filtration Rate 55 mL/min (>60); Est Glom Filt Rate - Afr Amer 66 mL/min (>60); Globulin 4.3 g/dL (2.2-4.2); Glucose 91 mg/dL (74-106); High Density Lipoprotein 50 mg/dL; Phosphorus 3.3 mg/dL (2.5-4.9); Potassium 4.1 mmol/L (3.5-5.1); Protein, Total 7.9 g/dL (6.4-8.2); Sodium Level 139 mmol/L (136-145); Triglycerides 148 mg/dL; Very Low Density Lipoprotein 30 mg/dL (5-40)
[2022-10-31 18:35] LABS: Protein, Urine (Random) < 6.0 mg/dL (<11.9); Vitamin B12 > 2000 pg/mL (211-911); Vitamin D,25 Hydroxy 64.1 ng/mL
[2022-11-01 08:26] LABS: PTHIN 37.9 pg/mL (18.4-80.1)
== END | disposition home or self-care (01) ==
LOC: MFPLAB 14:14
PROVIDERS: PCP Family Medicine; Referring Provider Family Medicine; Visit Provider Family Medicine
DX: E78.5 Hyperlipidemia, unspecified (principal); N18.30 Chronic kidney disease, stage 3 unspecified; E55.9 Vitamin D deficiency, unspecified; R73.02 Impaired glucose tolerance (oral)
CPT/HCPCS: 36415; 80053; 80061; 81001; 82306; 82570; 82607; 83036; 83970; 84100; 84156; 85025

== ENCOUNTER → 2022-11-09 | Outpatient (CLI) | payer MEDICARE, MEDICAID, SELFPAY ==
--- NOTE | 2022-11-09 15:12 | CDU_ITS ---
Reason For Study: stenosis Rt. Velocities/BP Lt. Velocities/BP Prox CCA 90.5/13.5 cm/sec. Prox CCA 71.6/15.1 cm/sec. Mid CCA 88.3/11.3 cm/sec. Mid CCA 72.8/17.6 cm/sec. Dist CCA 75.1/13.5 cm/sec. Dist CCA 79.0/16.3 cm/sec. Prox ICA 174.1/40.7 cm/sec. Prox ICA 145.5/27.0 cm/sec. Mid ICA 113.8/20.6 cm/sec. Mid ICA 88.2/26.1 cm/sec. Dist ICA 93.7/22.5 cm/sec. Dist ICA 101.0/27.9 cm/sec. Rt. ICA/CCA = 2.0. Lt. ICA/CCA = 2.0. Prox ECA 154.0/11.5 cm/sec. Prox ECA 110.9/9.0 cm/sec. Rt. Vert. 64.2/12.6 cm/sec. Lt. Vert. 71.8/17.0 cm/sec. Right Extracranial There is heterogeneous, irregular atherosclerotic plaque noted in the right common carotid artery. There is heterogeneous, irregular atherosclerotic plaque noted in the right internal carotid artery. There is heterogeneous, irregular atherosclerotic plaque noted in the right external carotid artery. Antegrade flow is noted in the right vertebral artery. There is heterogeneous, irregular atherosclerotic plaque noted in the right bulb. Left Extracranial There is heterogeneous, irregular atherosclerotic plaque noted in the left common carotid artery. There is heterogeneous, irregular atherosclerotic plaque noted in the left internal carotid artery. There is heterogeneous, irregular atherosclerotic plaque noted in the left external carotid artery. Antegrade flow is noted in the left vertebral artery. There is heterogeneous, irregular atherosclerotic plaque noted in the left bulb. Procedure Carotid Duplex [id number]. This is a Carotid Duplex examination using B-mode, color flow and specral Doppler. The exam was diagnostic. Exam performed in department. VL/Carotid Duplex Ultrasound Interpretation Summary Irregular calcific plaque with shadowing at the proximal right internal carotid artery with 50 to 69% stenosis Less than 50% stenosis right external carotid artery Irregular calcific plaque with dense shadowing at the proximal left internal ca rotid artery with 50 to 69% stenosis Less than 50% stenosis left external carotid artery Patent and antegrade vertebral arteries bilaterally The greater than 70% stenosis of the left internal carotid artery identified Se [email or web address] is not identified on this exam Ordering Physician: Petros Wagner Performed By: Cristo Calderon, RVT
== END | disposition home or self-care (01) ==
PROVIDERS: PCP Family Medicine; Referring Provider Family Medicine; Visit Provider Family Medicine
DX: I65.23 Occlusion and stenosis of bilateral carotid arteries (principal)
CPT/HCPCS: 93880

== ENCOUNTER → 2023-02-28 | Outpatient (CLI) | payer MEDICARE, MEDICAID, SELFPAY ==
[2023-02-28 15:48] LABS: Absolute Lymphocyte Count 1.56 X10^3/uL (0.83-4.51); Absolute Neutrophil Count 3.9 X10^3/uL (2.0-7.7); Basophil# 0.06 X10^3/uL; Eosinophil# 0.07 X10^3/uL; Eosinophils% 1.1 % (0-5); Hematocrit 38.9 % (37-47); Hemoglobin 12.4 g/dL (12.0-15.0); Lymphocyte # 1.56 X10^3/ul (0.83-4.51); Lymphocyte % 25.4 % (19-41); Mean Corp Hgb Conc 31.9 g/dL (32-36); Mean Corpuscular Hgb 31.3 pg (27.0-32.0); Mean Corpuscular Volume 98.2 fL (81-99); Mean Platelet Vol. 10.1 fl (6.2-12.0); Monocyte# 0.57 X10^3/uL; Monocyte% 9.3 % (0-10); NRBC Flagged by Analyzer 0 % (0-5); Neutrophil # 3.85 X10^3/uL (2.7-7.7); Neutrophil % 62.9 % (47-70); Platelet Count 251 K/mm3 (150-450); RBC Distribution Width CV 13.2 % (11.6-14.6); RBC Distribution Width SD 47.2 fl (35.1-43.9); Red Blood Count 3.96 M/mm3 (4.2-5.4); White Blood Count 6.1 K/mm3 (4.4-11.0)
[2023-02-28 16:15] LABS: ALB/GLOB Ratio 0.8 RATIO (0.9-2.4); AST(SGOT) 25 U/L (15-37); Alanine Aminotransfer ALT/SGPT 17 U/L (13-56); Albumin, Serum 3.5 g/dL (3.2-5.0); Alkaline Phosphatase 76 U/L (45-117); Anion Gap 7 (5-15); BUN 16 mg/dL (7-18); BUN/Creat Ratio 16.8 RATIO (10-20); Calcium,Total 9.1 mg/dL (8.5-10.1); Chloride 107 mmol/L (98-107); Cholesterol 146 mg/dL (200); Creatinine, Serum 0.96 mg/dL (0.55-1.02); EST Glomerular Filtration Rate 59 mL/min (>60); Est Glom Filt Rate - Afr Amer 72 mL/min (>60); Globulin 4.3 g/dL (2.2-4.2); Glucose 87 mg/dL (74-106); High Density Lipoprotein 44 mg/dL; Phosphorus 3.5 mg/dL (2.5-4.9); Potassium 3.5 mmol/L (3.5-5.1); Protein, Total 7.8 g/dL (6.4-8.2); Sodium Level 140 mmol/L (136-145); Triglycerides 169 mg/dL; Very Low Density Lipoprotein 34 mg/dL (5-40)
[2023-02-28 16:20] LABS: Vitamin B12 427 pg/mL (211-911); Vitamin D,25 Hydroxy 85.4 ng/mL
[2023-02-28 17:51] LABS: Hemoglobin A1c 5.9 % (3.8-5.6)
[2023-03-01 08:49] LABS: PTHIN 34.5 pg/mL (18.4-80.1)
== END | disposition home or self-care (01) ==
LOC: MFPLAB 14:02
PROVIDERS: PCP Family Medicine; Visit Provider Family Medicine
DX: E78.5 Hyperlipidemia, unspecified (principal); N18.30 Chronic kidney disease, stage 3 unspecified; R73.02 Impaired glucose tolerance (oral); E55.9 Vitamin D deficiency, unspecified; E53.8 Deficiency of other specified B group vitamins
CPT/HCPCS: 36415; 80053; 80061; 82306; 82607; 83036; 83970; 84100; 85025

== ENCOUNTER → 2023-03-02 | Outpatient (CLI) | payer MEDICARE, MEDICAID, SELFPAY ==
[2023-03-02 18:20] LABS: Mucous, Urine 0 SEEN /hpf (<or=2+); Red Blood Cells-Urine 0 SEEN /hpf (0-5)
[2023-03-02 18:29] LABS: Color, Urine Yellow (Yellow); Glucose, Dipstick Normal (Normal); Ketone-Dipstick Negative (Negative); Leukocyte Esterase-Dipstick 25 /ul (Negative); Nitrite-Dipstick Negative (Negative); Occult Blood-Urine 10 /ul (Negative); Protein-Dipstick Negative (Negative); Specific Gravity, Urine 1.015 (1.002-1.030); Urine Bilirubin Dipstick Negative (Negative); Urine Clarity Clear (Clear); Urine Urobilinogen Normal (Normal)
[2023-03-02 18:39] LABS: Protein, Urine (Random) 8.9 mg/dL (<11.9); Protein:Creat Ratio 129 mg/g CRE (0-200)
[2023-03-02 18:46] LABS: Bacteria RARE /hpf (None Seen); Squamous Epithelial Cells - UA 0-5 SEEN /hpf (5-10); White Blood Cells 0-5 SEEN /hpf (0-5)
== END | disposition home or self-care (01) ==
PROVIDERS: PCP Family Medicine; Visit Provider Family Medicine
DX: N18.30 Chronic kidney disease, stage 3 unspecified (principal)
CPT/HCPCS: 81001; 82570; 84156

== ENCOUNTER → 2023-03-07 | Outpatient (CLI) | payer MEDICARE, MEDICAID, SELFPAY ==
--- NOTE | 2023-03-07 13:04 | CDU_ITS ---
Reason For Study: Bilateral carotid stenosis Rt. Velocities/BP Lt. Velocities/BP Prox CCA 77.8/13.9 cm/sec. Prox CCA 76.0/16.7 cm/sec. Mid CCA 88.8/17.5 cm/sec. Mid CCA 81.8/17.9 cm/sec. Dist CCA 86.9/12.1 cm/sec. Dist CCA 74.2/15.7 cm/sec. Prox ICA 181.3/45.2 cm/sec. Prox ICA 143.6/24.8 cm/sec. Mid ICA 108.9/23.3 cm/sec. Mid ICA 96.1/15.7 cm/sec. Dist ICA 75.9/17.5 cm/sec. Dist ICA 70.7/ cm/sec. Rt. ICA/CCA = 2.0. Lt. ICA/CCA = 1.8. Prox ECA 143.6/8.4 cm/sec. Prox ECA 111.1/18.9 cm/sec. Rt. Vert. 45.0/11.0 cm/sec. Lt. Vert. 50.6/11.9 cm/sec. Right Extracranial There is heterogeneous, irregular atherosclerotic plaque noted in the right common carotid artery. There is heterogeneous, irregular atherosclerotic plaque noted in the right internal carotid artery. There is heterogeneous, irregular atherosclerotic plaque noted in the right external carotid artery. Antegrade flow is noted in the right vertebral artery. There is heterogeneous, irregular atherosclerotic plaque noted in the right bulb. Acoustic shadowing. Left Extracranial There is heterogeneous, irregular atherosclerotic plaque noted in the left common carotid artery. There is heterogeneous, irregular atherosclerotic plaque noted in the left internal carotid artery. The atherosclerotic plaque causes acoustic shadowing. There is heterogeneous, irregular atherosclerotic plaque noted in the left external carotid artery. Antegrade flow is noted in the left vertebral artery. There is heterogeneous, irregular atherosclerotic plaque noted in the left bulb. Procedure Carotid Duplex [id number]. This is a Carotid Duplex examination using B-mode, color flow and specral Doppler. The exam was diagnostic. Exam performed in department. VL/Carotid Duplex Ultrasound Interpretation Summary irregular plaque within the right common carotid artery with extensive irregula r calcific plaque at the proximal right internal carotid artery with shadowing 50 to 69% stenosis of the right internal carotid artery Less than 50% stenosis right external carotid artery Irregular plaque within the left common carotid artery with irregular and calci fic plaque within the proximal left internal carotid artery with shadowing 50 to 69% stenosis of the left internal carotid Less than 50% stenosis left external carotid Patent and antegrade vertebrals bilaterally No change from the previous examination of November 09, 2022 Ordering Physician: Petros Wagner Referring Physician: Petros Wagner Performed By: Truman Price RVT
== END | disposition home or self-care (01) ==
LOC: CVS 13:03
PROVIDERS: PCP Family Medicine; Referring Provider Family Medicine; Visit Provider Family Medicine
DX: I65.23 Occlusion and stenosis of bilateral carotid arteries (principal)
CPT/HCPCS: 93880

== ENCOUNTER → 2023-08-08 | Outpatient (CLI) | payer MEDICARE, MEDICAID, SELFPAY ==
[2023-08-08 17:41] LABS: Basophil# 0.08 X10^3/uL; Basophil% 1.2 % (0-1); Eosinophil# 0.07 X10^3/uL; Eosinophils% 1.1 % (0-5); Hematocrit 40.6 % (37-47); Hemoglobin 12.8 g/dL (12.0-15.0); Mean Corp Hgb Conc 31.5 g/dL (32-36); Mean Corpuscular Hgb 30.6 pg (27.0-32.0); Mean Corpuscular Volume 97.1 fL (81-99); Mean Platelet Vol. 10.3 fl (6.2-12.0); Monocyte# 0.66 X10^3/uL; Monocyte% 10.1 % (0-10); NRBC Flagged by Analyzer 0 % (0-5); Neutrophil # 3.99 X10^3/uL (2.7-7.7); Neutrophil % 61.1 % (47-70); Platelet Count 283 K/mm3 (150-450); RBC Distribution Width CV 13.2 % (11.6-14.6); RBC Distribution Width SD 47.4 fl (35.1-43.9); Red Blood Count 4.18 M/mm3 (4.2-5.4); White Blood Count 6.5 K/mm3 (4.4-11.0)
[2023-08-08 18:16] LABS: ALB/GLOB Ratio 0.8 RATIO (0.9-2.4); AST(SGOT) 25 U/L (15-37); Alanine Aminotransfer ALT/SGPT 22 U/L (13-56); Albumin, Serum 3.6 g/dL (3.2-5.0); Alkaline Phosphatase 85 U/L (45-117); Anion Gap 8 (5-15); BUN 23 mg/dL (7-18); BUN/Creat Ratio 20.2 RATIO (10-20); Calcium,Total 9.1 mg/dL (8.5-10.1); Chloride 104 mmol/L (98-107); Cholesterol 154 mg/dL (200); Creatinine, Serum 1.14 mg/dL (0.55-1.02); EST Glomerular Filtration Rate 48 mL/min (>60); Est Glom Filt Rate - Afr Amer 58 mL/min (>60); Globulin 4.5 g/dL (2.2-4.2); Glucose 106 mg/dL (74-106); High Density Lipoprotein 45 mg/dL; Potassium 3.9 mmol/L (3.5-5.1); Protein, Total 8.1 g/dL (6.4-8.2); Sodium Level 140 mmol/L (136-145); Triglycerides 210 mg/dL; Very Low Density Lipoprotein 42 mg/dL (5-40)
[2023-08-08 18:19] LABS: Vitamin B12 1338 pg/mL (211-911); Vitamin D,25 Hydroxy 94.9 ng/mL
[2023-08-08 18:20] LABS: Hemoglobin A1c 5.9 % (3.8-5.6)
[2023-08-09 08:15] LABS: PTHIN 34.2 pg/mL (18.4-80.1)
== END | disposition home or self-care (01) ==
LOC: MFPLAB 15:14
PROVIDERS: PCP Family Medicine; Visit Provider Family Medicine
DX: E55.9 Vitamin D deficiency, unspecified (principal); N18.30 Chronic kidney disease, stage 3 unspecified; E78.5 Hyperlipidemia, unspecified; R73.02 Impaired glucose tolerance (oral); E53.8 Deficiency of other specified B group vitamins
CPT/HCPCS: 36415; 80053; 80061; 82306; 82607; 83036; 83970; 85025

== ENCOUNTER 2023-12-05 10:05 | Day surgery (SDC) | payer MEDICARE, MEDICAID, SELFPAY ==
--- NOTE | 2023-11-28 14:35 | RAD_ITS ---
INDICATION: For PPM generator change EXAMINATION/TECHNIQUE: X-RAY - XR Chest 2 Views COMPARISON: 09/23/2020 FINDINGS: LINES/DEVICES: Pacemaker device overlying the left chest with dual leads terminating in the region of the right atrium and right ventricle, unchanged compared to prior. LUNGS: No consolidation. No pneumothorax. MEDIASTINUM: Aorta is atherosclerotic. CARDIAC SILHOUETTE: Not enlarged. Sternal wires. Valve prosthesis. BONES AND SOFT TISSUES: No acute abnormalities. Marked degenerative changes of the right shoulder. Nonacute appearing lower thoracic or upper lumbar compression fracture. Surgical clips right upper abdomen cholecystectomy. RAD/Chest PA and Lateral IMPRESSION: No evidence of active intrathoracic disease. Electronically Signed: Giana Trinidad MD at 0:17 EST ,
[2023-11-28 14:41] LABS: Bacteria 0 SEEN /hpf (None Seen); Mucous, Urine 0 SEEN /hpf (<or=2+); Red Blood Cells-Urine 0 SEEN /hpf (0-5)
[2023-11-28 15:26] LABS: Hematocrit 43.8 % (37-47); Hemoglobin 14.1 g/dL (12.0-15.0); Mean Corp Hgb Conc 32.2 g/dL (32-36); Mean Corpuscular Hgb 30.7 pg (27.0-32.0); Mean Corpuscular Volume 95.4 fL (81-99); Mean Platelet Vol. 10.1 fl (6.2-12.0); Platelet Count 308 K/mm3 (150-450); RBC Distribution Width CV 13.2 % (11.6-14.6); RBC Distribution Width SD 46.5 fl (35.1-43.9); Red Blood Count 4.59 M/mm3 (4.2-5.4); White Blood Count 8.4 K/mm3 (4.4-11.0)
[2023-11-28 15:27] LABS: Color, Urine Yellow (Yellow); Glucose, Dipstick Normal (Normal); Ketone-Dipstick Negative (Negative); Leukocyte Esterase-Dipstick 25 /ul (Negative); Nitrite-Dipstick Negative (Negative); Occult Blood-Urine Negative /ul (Negative); Protein-Dipstick Negative (Negative); Urine Bilirubin Dipstick Negative (Negative); Urine Clarity Sl. Cloudy (Clear); Urine Urobilinogen Normal (Normal)
[2023-11-28 15:35] LABS: Squamous Epithelial Cells - UA 0-5 SEEN /hpf (5-10); White Blood Cells 0-5 SEEN /hpf (0-5)
[2023-11-28 15:59] LABS: Prothrombin Time (Protime)PT. 12.7 SECONDS (11.7-14.9)
[2023-11-28 16:17] LABS: Anion Gap 6 (5-15); BUN 24 mg/dL (7-18); BUN/Creat Ratio 19.7 RATIO (10-20); Chloride 104 mmol/L (98-107); Creatinine, Serum 1.22 mg/dL (0.55-1.02); EST Glomerular Filtration Rate 45 mL/min (>60); Est Glom Filt Rate - Afr Amer 54 mL/min (>60); Glucose 100 mg/dL (74-106); Potassium 4.2 mmol/L (3.5-5.1); Sodium Level 138 mmol/L (136-145)
[2023-12-04 07:46] VITALS: BMI 32.8
--- OUTSIDE RECORDS SUMMARY | 2023-12-05 12:19 | XMS RPT_ITS | CCD ---
Author Name Unknown Address [address] [place] [address] Organization [facility] Care Team Providers Care Food Service Order Clerk Name Role Phone LANNY ARAUJO Referring Unavailable Camron Rubio MD Unavailable [phone] Petros Wagner Primary Care Provider Concepcion Diaz MD Unavailable Allergies Allergy Classification Reported Allergen(s) Allergy Type Date of Onset Reaction(s) Facility (3 sources) Penicillins; Translations: [PENICILLINS] Propensity to adverse reactions to drug (disorder) 9 [facility] Other [facility] Medications Completed/Discontinued Medications Medication Drug Class(es) Dates Sig (Normalized) Sig (Original) alendronic acid 70 mg oral tablet (2 sources) Bisphosphonate take 1 tablet by min th every week alendronate (FOSAMAX) 70 mg tablet Take 70 mg by mouth once each week. 0 Active Problems Active Problems Problem Classification Problem Date Documented Date Episodic/Chronic Abdominal hernia (1 source) Diaphragmatic hernia without obstruction or gangrene; Translations: [Diaphragmatic hernia without obstruction or gangrene] Onset: 11-20-2018 Episodic Diverticulosis and diverticulitis (2 sources) Diverticular disease; Translations: [Diverticulosis of intestine, part unspecified, without perforation or abscess without bleeding] Onset: 07-19-2010 09-19-2021 Chronic Heart valve disorders (2 sources) History of aortic valve replacement; Translations: [Presence of prosthetic heart valve] Onset: 02-05-2017 02-05-2017 Chronic Occlusion or stenosis of precerebral arteries (6 sources) Bilateral stenosis of carotid arteries; Translations: [Occlusion and stenosis of bilateral carotid arteries] Onset: 01-09-2015 Chronic Other nutritional; endocrine; and metabolic disorders (2 sources) Obese class I; Translations: [Obesity, unspecified] Onset: 01-27-2019 01-31-2019 Chronic Transient cerebral ischemia (2 sources) Amaurosis fugax; Translations: [Amaurosis fugax] Onset: 05-25-2016 05-25-2016 Chronic Past or Other Problems Problem Classification Problem Date Documented Da te Episodic/Chronic Blindness and vision defects (2 sources) Subjective visual disturbance; Translations: [Unspecified subjective visual disturbances] Onset: 10-24-2016 10-24-2016 Episodic Cardiac dysrhythmias (2 sources) Bradycardia; Translations: [Bradycardia, unspecified] Onset: 08-25-2011 Episodic Complication of device; implant or graft (2 sources) 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, implant AND/OR graft; Translations: [Thrombosis due to other internal prosthetic devices, implants and grafts, initial encounter] Onset: 09-26-2019 09-26-2019 Episodic Conditions associated with dizziness or vertigo (2 sources) Loss of equilibrium; Translations: [Dizziness and giddiness] Onset: 01-09-2015 01-09-2015 Episodic Deficiency and other anemia (2 sources) Iron deficiency anemia; Translations: [Iron deficiency anemia, unspecified] Onset: 09-22-2015 09-22-2015 Episodic Other gastrointestinal disorders (2 sources) Diarrhea; Translations: [Diarrhea, unspecified] Onset: 07-19-2010 07-19-2010 Episodic Results Test Name Value Interpretation Reference Range Facil ity Vital Signs Date Time Vital Sign Value Performing Clinician Neetu gold 05-23-2022 08:110400 Body height 154.9 cm Maura Gonsalez DO Work Phone: [facility] 05-23-2022 [id number]:[id number] Body weight 84.82 kg Maura Gonsalez DO Work Phone: [facility] 05-23-2022 08:11-0400 Diastolic blood pressure 70 mm[Hg] Maura Gonsalez DO Work Phone: [facility] 05-23-2022 08:11-0400 Heart rate 60 /min Maura Gonsalez [employer] Work Phone: [facility] 05-23-2022 08:11-0400 SaO2% (BldA) [Mass fraction] 96 % Maura Gonsalez DO Work Phone: [facility] 05-23-2022 08:11-0400 Systolic blood pressure 139 mm[Hg] Maura Gonsalez DO Work Phone: [facility] Encounters Encounter Date Encounter Type Care Provider Facility Start: 05-23-2022 End: 05-23-2022 Patient encounter procedure Maura Wong Gonsalez DO Work Phone: Vascular Surgery Plan of Treatment Date Care Activity Detail Author Start: 12-25-2026 Urine microalbumin profile DTAP,TDAP,TD (2 - Td or Tdap) [facility] Start: 09-26-2022 DIABETES SCREEN DIABETES SCREEN [facility] Start: 05-25-2022 Influenza vaccination INFLUENZA (#1) [facility] Start: 09-24-2021 ADVANCE DIRECTIVE DISCUSSION ADVANCE DIRECTIVE DISCUSSION [facility] Start: 05-27-2021 COVID-19 VACCINE (3 - Booster for Pfizer series) COVID-19 VACCINE (3 - Booster for Pfizer series) [facility] Start: 09-24-2014 PNEUMOCOCCAL: 65+ (2 - PCV) PNEUMOCOCCAL: 65+ (2 - PCV) [facility] Start: 1989 SHINGRIX VACCINE (1 of 2) SHINGRIX VACCINE (1 of 2) [facility] End: 05-18-2023 US [facility]ID [facility] US [facility] V[facility] Lab Routine Bilateral carotid artery stenosis 1 Occurrences starting 05/19/2022 until 05/18/2023 [facility] Work Phone: Immunizations Immunization Date Immunization Notes Care Provider Victor M dean 06-14-2018 influenza, injectabl e, quadrivalent, contains preservative Maura Gonsalez DO Work Phone: [facility] 12-25-2016 tetanus toxoid, redu vanessa diphtheria toxoid, and acellular pertussis vaccine, adsorbed Maura Gonsalez DO Work Phone: [facility] 06-26-2016 influenza, seasonal, injectable Maura Gonsalez DO Work Phone: [facility] 12-24-2015 tetanus and diphther ia toxoids, adsorbed, preservative free, for adult use (2 Lf of tetanus toxoid and 2 Lf of diphtheria toxoid) Maura Sunshine DO Work Phone: [facility] 06-18-2015 influenza, seasonal, injectable, preservative free Maura Gonsalez DO Work Phone: [facility] 07-17-2014 influenza, seasonal, injectable Maura Gonsalez DO Work Phone: [facility] 09-24-2013 pneumococcal polysaccharide vaccine, 23 valent Maura Gonsalez DO Work Phone: [facility] Payers Date Payer Category Payer Medicaid [facility] MEDICAID MYC ARE [facility] MEDICAID [id number] 2018-Present [phone] [address] [place] [address] Medicaid [id number] Social History Date Type Detail Facility Start: 08-07-2016 End: 05-23-2022 Tobacco smoking status NHIS Never smoked tobacco [facility] Start: 08-07-2016 End: 05-23-2022 Tobacco use and exposure Smokeless tobacco non-user [facility] Start: 04-04-2021 End: 05-23-2022 Alcohol intake Current non-drinker of alcohol (finding) [facility] Start: 1940 Sex Assigned At Not on file [facility] Progress note 05-23-2022 Note Date & Type Note Facility 05-23-2022 Note HNO ID: [id number] Author: Maura Gonsalez DO Service: Vascular Surgery Author Type: Physician Type: Progress Notes Filed: 05/24/2022 3:07 PM Note Text: NAME: MARIANA GRIJALVA CLINIC NO: [id number] DATE OF SERVICE: 05/23/2022 Subjective: Mariana is here to follow up on carotid artery disease. She denies any focal neurologic deficit. Overall, she is doing well. She states she was following up with Dr. Holloway and would like something closer to home. She is on aspirin and Zocor without any difficulty. She states for a period of time she was on Eliquis, as she had clot around her pacemaker leads, which has subsequently improved. She is right handed. She is retired. Objective: Her vital signs are stable. She is in no distress. She has no focal deficit. No carotid bruits. Assessment/Plan: Carotid artery stenosis. We will get updated carotid duplex and call with results. Maura Gonsalez D.O. KB/[id number] Audio #: [id number] Date Dictated: 05/23/2022 06:37:14 Date Typed: 05/24/2022 11:12:02 Date Revised: [facility] Progress note 05-23-2022 Note Date & Type Note Facility 05-23-2022 Note HNO ID: [id number] Author: Maura Gonsalez DO Service: ? Author Type: Physician Type: Progress Notes Filed: 05/23/2022 9:52 AM Note Text: This office note has been dictated. Maura Gonsalez DO Addendum- reviewed carotid duplex with patient. No significant change. Recommend continued medical management. Follow up in one year or sooner with any concerns [facility] History of Present illness Narrative 05-23-2022 Maura Gonsalez DO - 05/23/2022 8:15 AM EDT Note Date & Type Note Facility 05-23-2022 History of Presen t illness Narrative This office note has been dictated. Maura Gonsalez DO Addendum- reviewed carotid duplex with patient. No significant change. Recommend continued medical management. Follow up in one year or sooner with any concerns documented in this encounter [facility] History of Past illness Narrative 09-21-2019 Note Date & Type Note Facility documented as of this encounter (statuses as of 05/22/2022) [facility] History of Past illness Narrative 09-21-2019 Note Date & Type Note Facility documented as of this encounter (statuses as of 05/23/2022) [facility] Evaluation note Note Date & Type Note Facility documented in this encounter [facility] Evaluation note Note Date & Type Note Facility documented in this encounter [facility] Reason for referral (narrative) Outpatient Procedure (Routine) - Pending Review Note Date & Type Note Facility Referral ID Status Reason Start Date Expiration Date Visits Requested Visits Authorized [id number] Pending Review Auto-Generat ed Referral 05/19/2022 05/18/[address] [facility] Summary Purpose Family History No Family History Records FoundNo Family History Records Found Advance Directives No Advanced Directives Records FoundDocuments on File Type Date Recorded Patient Cigarette Inspector Expl anation Advance Directive(s) 01/15/2019 2:09 PM Advance Directive(s) 01/28/2009 3:40 PM Advance Directive(s) 01/28/2009 3:42 PM Latest Code Status on File Code Status Date Activated Date Inactivated Comments Full Code 09/23/2019 7:58 AM 09/26/2019 9:47 PM Full Code Order Discussed With: Patient DNR-CCA 09/22/2019 7:00 AM 09/23/2019 7:58 AM DNR Order Discussed With: Patient Documents on File Type Date Recorded Patient Cigarette Inspector Expl anation Advance Directive(s) 01/15/2019 2:09 PM Advance Directive(s) 01/28/2009 3:40 PM Advance Directive(s) 01/28/2009 3:42 PM Latest Code Status on File Code Status Date Activated Date Inactivated Comments Full Code 09/23/2019 7:58 AM 09/26/2019 9:47 PM DNR-CCA 09/22/2019 7:00 AM 09/23/2019 7:58 AM Additional Source Comments INFORMATION SOURCE (unrecogn ized section and content) DATE CREATED AUTHOR AUTHOR'S ORGANIZ ATION 05/25/2022 [facility] Source Comments (unrecognize d section and content) In the event this informatio n is protected by the Federal Confidentiality of Alcohol and Drug Abuse Patient Records regulations: The Federal rules restrict any use of the information to criminally investigate or prosecute any alcohol or drug abuse patient[facility] the event this information is protected by the Federal Confidentiality of Alcohol and Drug Abuse Patient Records regulations: The Federal rules restrict any use of the information to criminally investigate or prosecute any alcohol or drug abuse patient.[facility] Care Teams (unrecognized sec tion and content) Food Service Order Clerk Relationship Specialty Start Date End Date Petros Wagner [address] [place], [place] [id number] PCP - General Family Practice 01/15/19 Camron Rubio MD [address] [place] [address] Referring General Surgery 10/16/18 Concepcion Diaz MD Primary Staff Physician Cardiology 12/10/18 Reason for Visit (unrecogniz ed section and content) FOR RECORDS PERTAINING TO PATIENTS WHO ARE OR HAVE BEEN ENROLLED IN A CHEMICAL DEPENDENCY/SUBSTANCEABUSE PROGRAM, SOME INFORMATION MAY BE OMITTED. This clinical summary was aggregated from multiple sources. Caution should be exercised in using it in the provision of clinical care. This summary normalizes information from multiple sources, and as a consequence, information in this document may materially change the coding, format and clinical context of patient data. In addition, data may be omitted in some cases. CLINICAL DECISIONS SHOULD BE BASED ON THE PRIMARY CLINICAL RECORDS. [employer] provides no warranty or guarantee of the accuracy or completeness of information in this document.
--- NOTE | 2023-12-11 14:26 | CL.IE_ITS ---
Patient: SVITLANA GRIJALVA Study Date: 12/05/2023 Performing: Zay Rock MD : 1940 Age: 83 Gender: female PROCEDURES PERFORMED LP07-(02280)BATTERY REMOVAL+REPLACEMENT PACER-DUAL LEAD INDICATIONS Atrioventricular (AV) block PROCEDURE DETAILS The patient was brought to the Catheterization Lab in the postabsorptive nonsedated state. Informed consent was obtained prior to the procedure. Local anesthetic was given subcutaneously to the left upper chest area with Lidocaine 2%. Incision was made to the left upper chest. PPM generator was removed. PPM atrial lead (existing) was checked and tested. PPM ventricular lead (existing) was checked and tested. PPM generator was attached to the lead(s) and inserted into the pocket. Device pocket was irrigated with antibiotic. PPM generator was then interrogated by the junior programmer analyst. Subcutaneous closure was completed with 3-0 Vicryl. Skin closure was completed with 4-0 Vicryl. Instrument, sponge, and needle counts were noted to be normal. The patient tolerated the procedure well. Estimated Blood Loss: 10 ml's IMPLANTED / EX-PLANTED DEVICES IMPLANTED DEVICE(S): PPM Generator - Fagot Heater: [employer], Model # Assurity MRI PM [id number] , Serial # [id number] DEVICE PARAMETERS DEVICE PARAMETERS: Mode- DDDR Lower rate- 60 Upper rate- 120 CONCLUSIONS / RECOMMENDATIONS Device Conclusions: Successful implantation of a dual chamber pacemaker battery change and replacement PROCEDURE MEDICATIONS Fentanyl 50 mcg IV Versed 1 mg IV Versed 1 mg IV Oxygen: 2 L/min via nasal cannula Antibiotic given in appropriate timeframe. Clindamycin 900 mg IV 12/05/2023 11:55:34 Signed By Zay Rock MD On 12/05/2023 12:37:01 Zay Rock MD
== END 2023-12-05 13:35 | disposition home or self-care (01) ==
LOC: CLSP 10:08
PROVIDERS: Nurse Practitioner Family; PCP Family Medicine; Referring Provider Internal Medicine Cardiovascular Disease; Visit Provider Internal Medicine Cardiovascular Disease
DX: Z95.0 Presence of cardiac pacemaker (principal); F03.90 Unspecified dementia, unspecified severity, without behavioral disturbance, psychotic disturbance, mood disturbance, and anxiety; I50.32 Chronic diastolic (congestive) heart failure; I11.0 Hypertensive heart disease with heart failure; M19.90 Unspecified osteoarthritis, unspecified site; K21.9 Gastro-esophageal reflux disease without esophagitis; E78.5 Hyperlipidemia, unspecified; Z79.82 Long term (current) use of aspirin; Z79.899 Other long term (current) drug therapy; Z79.01 Long term (current) use of anticoagulants; Z86.16 Personal history of COVID-19; Z95.2 Presence of prosthetic heart valve
CPT/HCPCS: 33228; 36415; 71046; 80048; 81001; 85027; 85610; 99152; 99153; J7040; J7050

== ENCOUNTER → 2023-12-21 | Outpatient (CLI) | payer MEDICARE, MEDICAID, SELFPAY ==
[2023-12-21 15:19] LABS: Absolute Lymphocyte Count 1.69 X10^3/uL (0.83-4.51); Absolute Neutrophil Count 5.4 X10^3/uL (2.0-7.7); Basophil# 0.06 X10^3/uL; Basophil% 0.8 % (0-1); Eosinophil# 0.06 X10^3/uL; Eosinophils% 0.8 % (0-5); Hematocrit 40.2 % (37-47); Hemoglobin 12.7 g/dL (12.0-15.0); Lymphocyte # 1.69 X10^3/ul (0.83-4.51); Lymphocyte % 21.4 % (19-41); Mean Corp Hgb Conc 31.6 g/dL (32-36); Mean Corpuscular Hgb 30.3 pg (27.0-32.0); Mean Corpuscular Volume 95.9 fL (81-99); Mean Platelet Vol. 10.3 fl (6.2-12.0); Monocyte# 0.65 X10^3/uL; Monocyte% 8.2 % (0-10); NRBC Flagged by Analyzer 0 % (0-5); Neutrophil % 68.4 % (47-70); Platelet Count 277 K/mm3 (150-450); RBC Distribution Width CV 13.2 % (11.6-14.6); RBC Distribution Width SD 46.8 fl (35.1-43.9); Red Blood Count 4.19 M/mm3 (4.2-5.4); White Blood Count 7.9 K/mm3 (4.4-11.0)
[2023-12-21 16:07] LABS: PTHIN 29.4 pg/mL (18.4-80.1)
[2023-12-21 16:08] LABS: Vitamin D,25 Hydroxy 87.4 ng/mL
[2023-12-21 16:26] LABS: ALB/GLOB Ratio 0.8 RATIO (0.9-2.4); AST(SGOT) 25 U/L (15-37); Alanine Aminotransfer ALT/SGPT 18 U/L (13-56); Albumin, Serum 3.4 g/dL (3.2-5.0); Alkaline Phosphatase 73 U/L (45-117); Anion Gap 6 (5-15); BUN 18 mg/dL (7-18); BUN/Creat Ratio 18.7 RATIO (10-20); Chloride 107 mmol/L (98-107); Cholesterol 151 mg/dL (200); Creatinine, Serum 0.96 mg/dL (0.55-1.02); EST Glomerular Filtration Rate 59 mL/min (>60); Est Glom Filt Rate - Afr Amer 71 mL/min (>60); Globulin 4.2 g/dL (2.2-4.2); Glucose 98 mg/dL (74-106); High Density Lipoprotein 45 mg/dL; Potassium 3.8 mmol/L (3.5-5.1); Protein, Total 7.6 g/dL (6.4-8.2); Sodium Level 141 mmol/L (136-145); Thyroid Stim Hormone (TSH) 1.91 uIU/mL (0.358-3.74); Triglycerides 165 mg/dL; Very Low Density Lipoprotein 33 mg/dL (5-40)
== END | disposition home or self-care (01) ==
PROVIDERS: PCP Family Medicine; Referring Provider Family Medicine; Visit Provider Family Medicine
DX: E55.9 Vitamin D deficiency, unspecified (principal); N18.30 Chronic kidney disease, stage 3 unspecified; E78.5 Hyperlipidemia, unspecified; I12.9 Hypertensive chronic kidney disease with stage 1 through stage 4 chronic kidney disease, or unspecified chronic kidney disease; R73.02 Impaired glucose tolerance (oral)
CPT/HCPCS: 36415; 80053; 80061; 82306; 83036; 83970; 84100; 84443; 85025

== ENCOUNTER → 2024-03-21 | Outpatient (CLI) | payer MEDICARE, MEDICAID, SELFPAY ==
--- NOTE | 2024-03-21 13:54 | ECHOD_ITS ---
Reason For Study: CAD, Prosthetic Heart Valve Procedure This was a 2D Doppler, Color Flow transthoracic echocardiogram. Technically difficult study due to patient body habitus. Patient scanned in both lateral and supine positions. Exam performed in department. Left Ventricle Normal LV size. Sigmoid septum. The left ventricular ejection fraction is 60 %. Stage 1 diastolic dysfunction. No regional wall motion abnormalities noted. Right Ventricle Normal RV size. ICD or pacer leads identified within the right ventricle. Normal systolic function. Mitral Valve There is moderate to severe mitral annular calcification. Mild-Moderate (1-2+) eccentric mitral valve insufficiency. Tricuspid Valve Normal tricuspid valve. Mild (1+) tricuspid valve insufficiency. Pulmonary artery systolic pressure is 36 mmHg. Aortic Valve Peak aortic valve gradient 22 mmHg. Mean aortic valve gradient 13 mmHg. Bioprosthetic aortic valve. MMode/2D Measurements & Calculations LVIDd: 4.0 cm IVSd: 2.2 cm LVOT diam: 1.9 cm LVIDs: 3.3 cm LVPWd: 1.1 cm FS: 19.1 % LVOT area: 2.7 cm2 Ao root diam: 3.8 cm LAV(MOD-bp): 85.6 ml LA dimension: 5.4 cm LA A4 area: 24.4 cm2 LAV(MOD-bp) Indexed: 46.1 ml/m2 LAV(MOD-sp2): 89.8 ml LAV(MOD-sp4): 80.3 ml Time Measurements MV dec time: 0.44 sec Doppler Measurements & Calculations MV E max twan: 126.4 cm/sec Lat Peak E' Twan: 6.8 cm/sec Med Peak E' Twan: 3.7 cm/sec MV A max twan: 136.1 cm/sec E/E' lat: 18.6 E/E' med: 33.8 MV E/A: 0.93 MV V2 max: 162.2 cm/sec MV P1/2t max twan: 141.1 cm/sec Ao V2 max: 235.6 cm/sec MV max P.5 mmHg MV P1/2t: 136.0 msec Ao max P.5 mmHg MV V2 mean: 89.7 cm/sec MV dec slope: 304.0 cm/sec2 Ao V2 mean: 161.3 cm/sec MV mean P.7 mmHg Ao mean P.2 mmHg MV V2 VTI: 57.4 cm MVA(P1/2t): 1.6 cm2 Ao V2 VTI: 57.4 cm MVA(VTI): 1.6 cm2 AV (velocity ratio): 0.57 MONIQUE(I,D): 1.6 cm2 MONIQUE(V,D): 1.6 cm2 LV V1 max: 142.1 cm/sec MR max twan: 574.9 cm/sec SV(LVOT): 89.1 ml LV V1 max P.1 mmHg MR max P.2 mmHg LV V1 mean P.7 mmHg MR mean twan: 460.8 cm/sec LV V1 mean: 100.8 cm/sec MR mean P.0 mmHg LV V1 VTI: 33.0 cm MR VTI: 212.2 cm PA V2 max: 82.1 cm/sec TR max twan: 286.6 cm/sec PA max PG (full): 1.1 mmHg PI dec slope: 146.9 cm/sec2 TR max P.9 mmHg PA V2 mean: 52.2 cm/sec PA mean PG (full): 0.30 mmHg ECHO/Echo Complete Interpretation Summary Normal LV size. The left ventricular ejection fraction is 60 %. Stage 1 diastolic dysfunction. Bioprosthetic aortic valve. Mean aortic valve gradient 13 mmHg. Ordering Physician: Petros Kimbrough Referring Physician: Petros Kimbrough Performed By: Felipe Freeman RCS
== END | disposition home or self-care (01) ==
PROVIDERS: PCP Family Medicine; Referring Provider Nurse Practitioner Family; Visit Provider Nurse Practitioner Family
DX: Z95.2 Presence of prosthetic heart valve (principal); Z95.0 Presence of cardiac pacemaker; E78.00 Pure hypercholesterolemia, unspecified; I65.21 Occlusion and stenosis of right carotid artery
CPT/HCPCS: 93306

== ENCOUNTER → 2024-04-17 | Outpatient (CLI) | payer MEDICARE, MEDICAID, SELFPAY ==
[2024-04-17 13:52] LABS: Mucous, Urine 0 SEEN /hpf (<or=2+); Red Blood Cells-Urine 0 SEEN /hpf (0-5); White Blood Cells 0 SEEN /hpf (0-5)
[2024-04-17 15:30] LABS: Absolute Lymphocyte Count 1.81 X10^3/uL (0.83-4.51); Absolute Neutrophil Count 5.2 X10^3/uL (2.0-7.7); Basophil# 0.07 X10^3/uL; Basophil% 0.9 % (0-1); Eosinophil# 0.09 X10^3/uL; Eosinophils% 1.1 % (0-5); Hematocrit 40.6 % (37-47); Hemoglobin 12.7 g/dL (12.0-15.0); Lymphocyte # 1.81 X10^3/ul (0.83-4.51); Lymphocyte % 23.1 % (19-41); Mean Corp Hgb Conc 31.3 g/dL (32-36); Mean Corpuscular Hgb 30.1 pg (27.0-32.0); Mean Corpuscular Volume 96.2 fL (81-99); Mean Platelet Vol. 10.4 fl (6.2-12.0); Monocyte# 0.67 X10^3/uL; Monocyte% 8.5 % (0-10); NRBC Flagged by Analyzer 0 % (0-5); Neutrophil # 5.17 X10^3/uL (2.7-7.7); Platelet Count 270 K/mm3 (150-450); RBC Distribution Width CV 13.2 % (11.6-14.6); RBC Distribution Width SD 47.4 fl (35.1-43.9); Red Blood Count 4.22 M/mm3 (4.2-5.4); White Blood Count 7.8 K/mm3 (4.4-11.0)
[2024-04-17 15:37] LABS: Color, Urine Yellow (Yellow); Glucose, Dipstick Normal (Normal); Ketone-Dipstick Negative (Negative); Leukocyte Esterase-Dipstick 25 /ul (Negative); Nitrite-Dipstick Negative (Negative); Occult Blood-Urine 10 /ul (Negative); Protein-Dipstick 15 mg/dl (Negative); Urine Bilirubin Dipstick Negative (Negative); Urine Clarity Clear (Clear); Urine Urobilinogen Normal (Normal)
[2024-04-17 15:43] LABS: Bacteria 1+ /hpf (None Seen); Squamous Epithelial Cells - UA 0-5 SEEN /hpf (5-10)
[2024-04-17 15:59] LABS: Protein, Urine (Random) 9.7 mg/dL (<11.9); Protein:Creat Ratio 98 mg/g CRE (0-200)
[2024-04-17 18:17] LABS: PTHIN 36.2 pg/mL (18.4-80.1)
[2024-04-17 18:23] LABS: Vitamin D,25 Hydroxy 90.1 ng/mL
[2024-04-17 18:24] LABS: Hemoglobin A1c 5.9 % (3.8-5.6)
[2024-04-17 18:32] LABS: ALB/GLOB Ratio 0.9 RATIO (0.9-2.4); AST(SGOT) 26 U/L (15-37); Alanine Aminotransfer ALT/SGPT 16 U/L (13-56); Albumin, Serum 3.6 g/dL (3.2-5.0); Alkaline Phosphatase 71 U/L (45-117); Anion Gap 7 (5-15); BUN 23 mg/dL (7-18); Calcium,Total 9.4 mg/dL (8.5-10.1); Chloride 105 mmol/L (98-107); Cholesterol 144 mg/dL (200); Creatinine, Serum 1.15 mg/dL (0.55-1.02); EST Glomerular Filtration Rate 48 mL/min (>60); Est Glom Filt Rate - Afr Amer 58 mL/min (>60); Globulin 4.2 g/dL (2.2-4.2); Glucose 98 mg/dL (74-106); High Density Lipoprotein 50 mg/dL; Phosphorus 3.7 mg/dL (2.5-4.9); Potassium 4.3 mmol/L (3.5-5.1); Protein, Total 7.8 g/dL (6.4-8.2); Sodium Level 139 mmol/L (136-145); Triglycerides 144 mg/dL; Very Low Density Lipoprotein 29 mg/dL (5-40)
== END | disposition home or self-care (01) ==
LOC: MTLAB 13:46
PROVIDERS: PCP Family Medicine; Referring Provider Family Medicine; Visit Provider Family Medicine
DX: E78.5 Hyperlipidemia, unspecified (principal); N18.30 Chronic kidney disease, stage 3 unspecified; E55.9 Vitamin D deficiency, unspecified; R73.02 Impaired glucose tolerance (oral)
CPT/HCPCS: 36415; 80053; 80061; 81001; 82306; 82570; 83036; 83970; 84100; 84156; 85025

== ENCOUNTER 2024-11-25 16:13 | Outpatient (CLI) | payer MEDICARE, MEDICAID, SELFPAY ==
[2024-11-25 18:00] LABS: Absolute Lymphocyte Count 1.76 X10^3/uL (0.83-4.51); Absolute Neutrophil Count 4.6 X10^3/uL (2.0-7.7); Basophil# 0.07 X10^3/uL; Eosinophil# 0.08 X10^3/uL; Eosinophils% 1.1 % (0-5); Hematocrit 38.2 % (37-47); Hemoglobin 12.4 g/dL (12.0-15.0); Lymphocyte # 1.76 X10^3/ul (0.83-4.51); Lymphocyte % 24.5 % (19-41); Mean Corp Hgb Conc 32.5 g/dL (32-36); Mean Corpuscular Hgb 30.8 pg (27.0-32.0); Mean Platelet Vol. 10.3 fl (6.2-12.0); Monocyte# 0.64 X10^3/uL; Monocyte% 8.9 % (0-10); NRBC Flagged by Analyzer 0 % (0-5); Neutrophil # 4.59 X10^3/uL (2.7-7.7); Neutrophil % 64.1 % (47-70); Platelet Count 289 K/mm3 (150-450); RBC Distribution Width CV 13.8 % (11.6-14.6); RBC Distribution Width SD 48.4 fl (35.1-43.9); Red Blood Count 4.02 M/mm3 (4.2-5.4); White Blood Count 7.2 K/mm3 (4.4-11.0)
[2024-11-25 18:56] LABS: AST(SGOT) 32 U/L (<=31); Alanine Aminotransfer ALT/SGPT 20 U/L (<=34); Alkaline Phosphatase 78 U/L (35-104); Anion Gap 12 (5-15); BUN 22 mg/dL (4-19); BUN/Creat Ratio 20.5 RATIO (10-20); Calcium,Total 9.4 mg/dL (7.6-11.0); Carbon Dioxide 23.4 mmol/L (21.0-32.0); Chloride 103 mmol/L (98-108); Creatinine, Serum 1.07 mg/dL (0.70-1.20); EST Glomerular Filtration Rate 51 (>60); Globulin 3.8 g/dL (2.2-4.2); Glucose 116 mg/dL (70-99); Potassium 4.1 mmol/L (3.3-5.1); Protein, Total 7.8 g/dL (5.9-8.4); Sodium Level 138 mmol/L (133-145); Total Bilirubin 0.75 mg/dL (0.00-1.30)
[2024-11-25 19:14] LABS: Hemoglobin A1c 6.2 % (<=5.6)
[2024-11-25 19:36] LABS: Microalbumin,Random Urine 14.8 mg/L (NO RANGE EST.); Protein, Urine (Random) 20.1 mg/dL (0.0-12.0); Protein:Creat Ratio 345 mg/g CRE (0-200)
[2024-11-25 21:28] LABS: Vitamin D,25 Hydroxy 83.5 ng/mL (30-100)
[2024-11-25 21:39] LABS: Cholesterol 213 mg/dL (<=200); High Density Lipoprotein 45 mg/dL; Low Density Lipoprotein Calc. 130 mg/dL; Triglycerides 192 mg/dL; Very Low Density Lipoprotein 38 mg/dL (5-40); cholesterol:hdl ratio screen 4.75
== END 2024-11-25 23:59 | disposition home or self-care (01) ==
LOC: MFPLAB 16:13
PROVIDERS: PCP Family Medicine; Referring Provider Family Medicine; Visit Provider Family Medicine
DX: I12.9 Hypertensive chronic kidney disease with stage 1 through stage 4 chronic kidney disease, or unspecified chronic kidney disease (principal); N18.30 Chronic kidney disease, stage 3 unspecified; E78.5 Hyperlipidemia, unspecified; R73.02 Impaired glucose tolerance (oral); E55.9 Vitamin D deficiency, unspecified
CPT/HCPCS: 80053; 80061; 82043; 82306; 82570; 83036; 84156; 85025

== ENCOUNTER → 2024-12-19 | Outpatient (CLI) | payer MEDICARE, MEDICAID, SELFPAY ==
--- NOTE | 2024-12-19 13:10 | CDU_ITS ---
Reason For Study Reason For Study: Carotid stenosis Rt. Velocities/BP Lt. Velocities/BP Prox CCA 91/9.7 cm/sec. Prox CCA 74/13.9 cm/sec. Mid CCA 106.9/11.3 cm/sec. Mid CCA 71.6/15.1 cm/sec. Dist CCA 78.4/10.2 cm/sec. Dist CCA 76.5/11.4 cm/sec. Prox ICA 169.7/40.2 cm/sec. Prox ICA 125.3/23 cm/sec. Mid ICA 104.7/22.5 cm/sec. Mid ICA 121.6/24.8 cm/sec. Dist ICA 97.4/22.5 cm/sec. Dist ICA 123.5/32.1 cm/sec. Rt. ICA/CCA = 1.59. Lt. ICA/CCA = 1.75. Prox ECA 130.2 cm/sec. Prox ECA 74.3 cm/sec. Rt. Vert. 64.1/8 cm/sec. Lt. Vert. 64.4/14.9 cm/sec. Right Extracranial There is heterogeneous, irregular atherosclerotic plaque noted in the right common carotid artery. There is heterogeneous, irregular atherosclerotic plaque noted in the right internal carotid artery. The atherosclerotic plaque causes acoustic shadowing. There is heterogeneous, irregular atherosclerotic plaque noted in the right external carotid artery. Antegrade flow is noted in the right vertebral artery. Left Extracranial There is heterogeneous, irregular atherosclerotic plaque noted in the left common carotid artery. There is heterogeneous, irregular atherosclerotic plaque noted in the left internal carotid artery. The atherosclerotic plaque causes acoustic shadowing. There is heterogeneous, irregular atherosclerotic plaque noted in the left external carotid artery. Antegrade flow is noted in the left vertebral artery. Procedure Carotid Duplex 28489. This is a Carotid Duplex examination using B-mode, color flow and specral Doppler. Exam performed in department. VL/Carotid Duplex Ultrasound Interpretation Summary The degree of stenosis in the right internal carotid artery and left internal c arotid artery appears to be less than 50%, based upon velocity criteria. However, acoustic shadowing is noted bilater ally, caused by intraluminal calcification, which obscures ochoa-scale imaging of the proximal internal carot id artery lumen bilaterally. Therefore, clinical correlation is advised. Flow within the vertebral arteries is antegrad e bilaterally. Ordering Physician: Petros Wagner Referring Physician: Petros Wagner Performed By: Leydi Clay RVT
== END | disposition home or self-care (01) ==
LOC: CVS 13:06
PROVIDERS: PCP Family Medicine; Referring Provider Family Medicine; Visit Provider Family Medicine
DX: I65.23 Occlusion and stenosis of bilateral carotid arteries (principal)
CPT/HCPCS: 93880

== ENCOUNTER → 2025-01-12 | Outpatient (CLI) | payer MEDICARE, MEDICAID, SELFPAY ==
--- NOTE | 2025-01-12 10:31 | STRESSREP ---
Stress Test Report Pharmacologic myocardial perfusion stress test. 84-year-old lady with a history of dyspnea Resting EKG demonstrates atrial fibrillation with ventricular paced rhythm with a rate of 60 bpm. Resting blood pressure is 138/70 mmHg. 0.4 mg of regadenoson was infused per usual protocol followed by rapid intravenous saline flush injection. Continuous EKG monitoring was performed. The maximum heart rate was 72 bpm which was 53% of max impacted heart rate the maximum workload was 1 metabolic equivalent. At rest there were no ST or T wave changes noted to suggest ischemia and at peak infusion nonspecific ST changes were noted which did not meet the criteria for ischemia. No clinical angina is noted. The final blood pressure was 112/66 mmHg. Myocardial perfusion protocol. 15.0 mCi of technetium 99m sestamibi was injected at rest. 0.4 mg of regadenoson was infused per usual protocol. At peak infusion 45.0 mCi of technetium 99m sestamibi was injected stress images were obtained stress and rest images were reconstructed and compared in the short axis vertical long and horizontal long axis. Gated images were also obtained. Perfusion SPECT analysis: Review of the stress images demonstrate normal uptake of tracer noted in all areas of the myocardium. The resting images similar demonstrated normal uptake of tracer noted in all areas of the myocardium. No areas of reversibility are noted to suggest ischemia and no previous infarct is noted. Gated SPECT analysis: The gated ejection fraction is 72%. Conclusion: Normal pharmacologic myocardial perfusion stress test. Preserved ejection fraction.
== END | disposition home or self-care (01) ==
LOC: CVS 07:05
PROVIDERS: PCP Family Medicine; Referring Provider Nurse Practitioner Family; Visit Provider Nurse Practitioner Family
DX: I65.21 Occlusion and stenosis of right carotid artery (principal); E78.00 Pure hypercholesterolemia, unspecified; I10 Essential (primary) hypertension; Z95.2 Presence of prosthetic heart valve; Z95.0 Presence of cardiac pacemaker; R06.02 Shortness of breath
CPT/HCPCS: 78452; 93017; A9500; A4216; J2785

== ENCOUNTER → 2025-03-31 | Outpatient (CLI) | payer MEDICARE, MEDICAID, SELFPAY ==
[2025-03-31 15:51] LABS: Hematocrit 38.7 % (37-47); Hemoglobin 12.5 g/dL (12.0-15.0); Immature Granulocytes Count 0.020 X10^3/uL (0.0-0.0); Mean Corp Hgb Conc 32.3 g/dL (32-36); Mean Corpuscular Volume 95.6 fL (81-99); Mean Platelet Vol. 10.2 fl (6.2-12.0); NRBC Flagged by Analyzer 0 % (0-5); Platelet Count 265 K/mm3 (150-450); RBC Distribution Width CV 13.4 % (11.6-14.6); RBC Distribution Width SD 47.8 fl (35.1-43.9); Red Blood Count 4.05 M/mm3 (4.2-5.4); White Blood Count 7.5 K/mm3 (4.4-11.0)
[2025-03-31 16:52] LABS: AST(SGOT) 30 U/L (<=31); Alanine Aminotransfer ALT/SGPT 12 U/L (<=34); Albumin, Serum 3.9 g/dL (3.4-4.8); Alkaline Phosphatase 75 U/L (35-104); Anion Gap 13 (5-15); BUN 27 mg/dL (4-19); BUN/Creat Ratio 25.8 RATIO (10-20); Calcium,Total 9.3 mg/dL (7.6-11.0); Carbon Dioxide 22.9 mmol/L (21.0-32.0); Chloride 104 mmol/L (98-108); Cholesterol 147 mg/dL (<=200); Globulin 3.8 g/dL (2.2-4.2); Glucose 119 mg/dL (70-99); Low Density Lipoprotein Calc. 66 mg/dL; Potassium 4.0 mmol/L (3.3-5.1); Triglycerides 179 mg/dL; Very Low Density Lipoprotein 36 mg/dL (5-40); Vitamin D,25 Hydroxy 97.0 ng/mL (30-100); cholesterol:hdl ratio screen 3.25
== END | disposition home or self-care (01) ==
LOC: MFPLAB 14:13
PROVIDERS: PCP Family Medicine; Referring Provider Family Medicine; Visit Provider Family Medicine
DX: E55.9 Vitamin D deficiency, unspecified (principal); E78.5 Hyperlipidemia, unspecified; R73.02 Impaired glucose tolerance (oral)
CPT/HCPCS: 36415; 80053; 80061; 82306; 83036; 85025

== ENCOUNTER → 2025-04-03 | Outpatient (CLI) | payer MEDICARE, MEDICAID, SELFPAY ==
[2025-04-03 14:42] LABS: Mucous, Urine 0 SEEN /hpf (<or=2+); Squamous Epithelial Cells - UA 0 SEEN /hpf (5-10)
[2025-04-03 18:10] LABS: Creatinine, Urine (random) 105.00 mg/dL (28.00-217.00); Protein, Urine (Random) 19.4 mg/dL (0.0-12.0); Protein:Creat Ratio 185 mg/g CRE (0-200)
[2025-04-03 23:19] LABS: Color, Urine Yellow (Yellow); Glucose, Dipstick Normal (Normal); Ketone-Dipstick Negative (Negative); Leukocyte Esterase-Dipstick 500 /ul (Negative); Nitrite-Dipstick Positive (Negative); Occult Blood-Urine 50 /ul (Negative); Protein-Dipstick 30 mg/dl (Negative); Specific Gravity, Urine 1.020 (1.002-1.030); Urine Bilirubin Dipstick Negative (Negative)
[2025-04-03 23:50] LABS: Red Blood Cells-Urine 0-5 SEEN /hpf (0-5)
== END | disposition home or self-care (01) ==
LOC: LABSPEC 14:39
PROVIDERS: PCP Family Medicine; Referring Provider Family Medicine; Visit Provider Family Medicine
DX: R82.81 Pyuria (principal)
CPT/HCPCS: 81001; 82570; 84156; 87077; 87086; 87088; 87186

== ENCOUNTER → 2025-04-09 | Outpatient (CLI) | payer MEDICARE, MEDICAID, SELFPAY ==
--- NOTE | 2025-04-09 14:54 | BD_ITS ---
PROCEDURE: DEXA BONE DENSITY STUDY 04/09/2025 REASON FOR EXAM: F, age 85 y/o . TECHNIQUE: DEXA BONE DENSITY STUDY COMPARISON: DEXA scan 08/30/2021 FINDINGS: BMD and T-SCORES Lumbar spine: 1.068 g/cm2, T-score -0.3 Levels: L3 through L4 Change from prior: Statistically significant BMD increase of 7.5%. Left femoral neck: 0.649 g/cm2, T-score -1.8 Femoral neck comparison data not recommended for monitoring change. Prior T-score -1.5 Left total hip: 0.738 g/cm2, T-score -1.7 Change from prior: Dissimilar scan types/analysis methods, showing. Right femoral neck: 0.718 g/cm2, T-score -1.2 Femoral neck comparison data not recommended for monitoring change. Prior T-score -1.7 Right total hip: 0.735 g/cm2, T-score -1.7 Change from prior: Dissimilar scan types/analysis methods, showing. The World Health Organization has defined the following categories based on bone density: Normal bone density: T-score equal to or greater than -1.0 Osteopenia: T-score between -1.0 and -2.5 Osteoporosis: T-score equal to or less than -2.5 FRAX (or Comparable) Fracture Risk Assessment: 10 Year Probability of Fracture: Major Osteoporotic Fracture: 18% Hip Fracture: 4.8% (Note: FRAX is not to be reported in setting of normal range bone density, osteoporosis on DEXA, known history of osteoporosis, prior osteoporotic hip or vertebral fracture, or for any patient undergoing pharmacological treatment for bone loss.) The National Osteoporosis Foundation (NOF) recommends pharmacological treatment for patients with a FRAX 10-year risk of 3% or higher for a hip fracture, or 20% or higher for a major osteoporotic fracture, to prevent osteoporosis and reduce fracture risk. The patient does meet the pharmacological treatment recommendations for prevention of osteoporosis. BD/Dexa Bone Density Study IMPRESSION: OSTEOPENIA. Reading Location: [id number]
== END | disposition home or self-care (01) ==
LOC: OPBD 14:52
PROVIDERS: PCP Family Medicine; Referring Provider Family Medicine; Visit Provider Family Medicine
DX: M81.0 Age-related osteoporosis without current pathological fracture (principal)
CPT/HCPCS: 77080